=== PATIENT | female | born 1955 | race Caucasian/White ===

== ENCOUNTER 2024-09-12 18:13 | Inpatient (IN) ==
--- NOTE | 2024-09-12 18:51 | Emergency Department Note ---
Impression & Plan Cellulitis of leg, right ED Provider Note NAME: BIANCA GOMEZ AGE: 68 SEX: Female INFORMANT: Patient ED PROVIDER(S): Steve Lanza MD CHIEF COMPLAINT: Leg pain PLAN: Disposition: Admitted Outpatient prescription management: none Referral: None MEDICAL DECISION MAKING: Patient presented because of leg pain. On physical examination there was concerns for cellulitis. Patient has significant difficulty with ambulation to the bathroom on observation. She is very unsteady. Her CBC and chemistry panels were unremarkable. Chest x-ray BioFire negative. Patient had cultures obtained and was given IV Rocephin. On reassessment she was hemodynamically stable. Discussed further management in the hospital and patient in agreement. Consultation was made with Dr. Marcus Herrera, [facility] hospitalist service. Case discussed and diagnostics were reviewed. He did request an ultrasound of the lower extremity. This was ordered. Patient was evaluated in the ER and admitted for further management. 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 Vital Signs: reviewed and remarkable for no significant abnormalities Additional History obtained from: none Chronic Medical/Social Conditions affecting care: Multiple sclerosis Prior/ Outside/ External records reviewed: none Differential Diagnosis: Viral syndrome, cellulitis, abscess, MRSA infection, DVT, necrotizing fasciitis, dermatitis, drug eruption, allergic reaction, as well as other pathologies. Diagnostics, independently interpreted by me: ECG: none Cardiac Monitoring: Cardiac monitoring ordered by me: The patient was placed on continuous cardiac monitoring and observed. It revealed a normal sinus rhythm at 84 beats per minute without ectopy or evidence of dysrhythmia. Medical decision rules: none Imaging studies: Chest x-ray. Findings: A chest x-ray was performed and revealed no pneumothorax, effusion, infiltrate, pulmonary edema, free air under the diaphragm, or wide mediastinum. Impression: No acute disease. Ultrasound imaging of the right lower extremity negative for DVT. I refer you to the EMR for further details. HPI: 68 year old Female arrives for evaluation of right leg pain and swelling. Patient notes that this has been worsening over the last several days. She has some swelling bilaterally but it is worse on the right. No history of cellulitis. She notes having some fevers as well. She has been taking Tylenol. Patient denies any sick contacts. She did have a sore throat 2 days ago. Patient lives alone. She ambulates with a walker. Feels some increased difficulty getting around. She notes some urinary discomfort as well. Has history of UTI. Pt denies LOC, headache,diaphoresis, neck pain, chest pain, breathing difficulties, nausea, vomiting, abdominal pain, back pain, melena, hematochezia, numbness, focal weakness, lymphadenopathy, or other complaints.. PAST MEDICAL HISTORY: See Below, MS, incontinence, UTI PAST SURGICAL HISTORY: See Below, SOCIAL HISTORY: See Below, lives alone HOME MEDICATIONS: See Below ALLERGIES: See Below VITALS: See Below PHYSICAL EXAMINATION: GENERAL: Awake, alert, uncomfortable-appearing, in no distress HENT: Normocephalic, atraumatic. Oropharynx unremarkable. EYES: Normal conjunctiva. Sclera non-icteric. NECK: Inspection normal. Non-tender. Supple. No nuchal rigidity. FROM. No masses. RESPIRATORY: Clear to auscultation. No wheezes. No rales. Normal respiratory effort. CARDIAC: Normal rate. Normal rhythm. No murmurs. No rubs. Extremities warm and well perfused. Pulses equal. No JVD. GI: Soft, non-distended. No tenderness to palpation. No rebound or guarding. No masses. RECTAL: Deferred. MUSCULOSKELETAL: Atraumatic. Chest examination reveals no tenderness. The back is symmetrical on inspection without obvious abnormality. There is no CVA tenderness to palpation. No joint edema. LOWER EXTREMITIES: Calves are equal size bilaterally and non-tender. 2+ edema. Bilateral chronic venous discoloration. Right sided erythema noted in addition from the heel up towards the knee. Warm to the touch and tender. NEURO: Normal sensorium. Generally weak in both lower legs but no focal sensory or motor deficits noted. SKIN: No rash or jaundice noted. PROCEDURES: none CRITICAL CARE: none OBSERVATION NOTE: none Past Med/Surg History Problem List (Updated 09/12/24 @ 22:01 by Olinda Cordero PA-C) Redness and swelling of lower leg Venous insufficiency Cellulitis of leg, right (Acute) Multiple sclerosis Urinary incontinence Crepitus of both temporomandibular joints on opening of jaw Crepitus of cervical spine Hematuria Incontinence Arthritis (Acute) Acute lower GI bleeding (Acute) Encounter for pre-operative examination DVT prophylaxis Multiple sclerosis Blood per rectum Abdominal pain (Acute) Flank pain (Acute) Knee pain (Acute) Urinary tract infection (Acute) Medical History Cystitis, unspecified Depression Dysuria Functional murmur Herpes simplex type 1 infection Hyperactivity of bladder Hypercholesterolemia Hypertension Irritable bowel syndrome Lumbago Asymptomatic microscopic hematuria Neurogenic bladder Night sweats Other and unspecified ovarian cyst Rash Urinary frequency Urinary urgency Ambulatory dysfunction Dyslipidemia RYAN inhibitor intolerance Nephrolithiasis NSAID long-term use Bright red blood per rectum Surgical History History of tubal ligation Hx of cholecystectomy H/O colonoscopy Hx of cataract surgery No pertinent past surgical history Family History Mother Myocardial infarction Father Alzheimer disease Social History Smoking Status: Never smoker Hx Alcohol Use: No Hx Substance Use: No Preferred Language: Citizen Of [place] Communication Ability: Effective Visual Impairment: Limited Hearing Ability: Normal Beliefs That Will Affect Care: None marital status: Single Current Living Situation: Alone Feels Safe at Home: Yes Assistive Devices: Glasses and Walker Allergies Allergies Allergy/AdvReac Type Severity Reaction Status Date / Time RYAN Inhibitors Allergy Intermediate RASH Verified 02/07/24 21:48 amoxicillin [From Augmentin] AdvReac Intermediate Diarrhea Verified 02/07/24 21:48 clavulanic acid AdvReac Intermediate DIARRHEA Verified 02/07/24 21:48 NSAIDS (Non-Steroidal AdvReac Unknown D/T Verified 02/07/24 21:49 Anti-Inflamma DIVERTICULITIS NOT SUPPOSE TO TAKE Home Meds Home Medications Medication Instructions Recorded Confirmed biotin 1 mg capsule 1 mg PO QPM 07/08/19 09/12/24 coenzyme Q10 100 mg capsule 100 mg PO QPM 07/08/19 09/12/24 (CoQ-10) flaxseed oil 1,000 mg capsule 1,000 mg PO TID 07/08/19 09/12/24 loratadine 10 mg tablet 10 mg PO DAILY 07/08/19 09/12/24 omega 3 350 mg-dha 235 mg-epa 90 1 cap PO QPM 07/08/19 09/12/24 mg-fish oil 597 mg capsule,delay rel ([place]-3) simvastatin 40 mg tablet 40 mg PO HS 07/08/19 09/12/24 alendronate 70 mg tablet 70 mg PO WK 02/07/24 09/12/24 calcium carbonate 500 mg PO QPM 02/07/24 09/12/24 gabapentin 100 mg capsule 200 mg PO BID 02/07/24 09/12/24 omeprazole 20 mg capsule,delayed 20 mg PO DAILYBB 02/07/24 09/12/24 release sucralfate 1 gram tablet 1 g PO ACHS 02/07/24 09/12/24 valsartan 40 mg tablet 40 mg PO DAILY 02/07/24 09/12/24 vitamin B complex 1 tab PO QPM 02/07/24 09/12/24 Lactobacillus comb 1 cap PO DAILY 09/12/24 09/12/24 [id number] 300 million cell-250 mg capsule (Probiotic and Acidophilus) alpha lipoic acid 600 mg capsule 600 mg PO DAILY 09/12/24 09/12/24 cholecalciferol (vitamin D3) 125 250 mcg PO WK 09/12/24 09/12/24 mcg (5,000 unit) tablet (Vitamin D3) citicoline 500 mg capsule 500 mg PO DAILY 09/12/24 09/12/24 cranberry 1,000 mg capsule 1,000 mg PO BID 09/12/24 09/12/24 folic acid 1 mg tablet 1 mg PO DAILY 09/12/24 09/12/24 [id number] C-Mn 500 1 cap PO DAILY 09/12/24 09/12/24 mg-400 mg capsule (Glucosamine-Chondroitin Complex) multivitamin 1 tab PO DAILY 09/12/24 09/12/24 turmeric 450 mg-turmeric root 1 cap PO UD 09/12/24 09/12/24 extract 50 mg capsule zinc gluconate 50 mg tablet 50 mg PO QAM 09/12/24 09/12/24 Previous Rx's Medication Instructions Recorded vibegron 75 mg tablet (Gemtesa) 75 mg PO DAILY #90 tabs 01/26/24 Results & Data (ED) Vital Signs Vital Signs - 24 hr 09/12/24 18:20 09/12/24 18:52 09/12/24 19:21 Temperature 36.6 C Temperature Source Temporal Artery Scan Pulse Rate 101 H 75 Pulse Rate [Apical] 72 Respiratory Rate 18 22 Respiratory Effort / Characteristics Non-Labored Spontaneous Respiratory Depth Normal Respiratory Pattern Regular Blood Pressure 127/87 Blood Pressure [Right Arm] 101/79 Blood Pressure Mean 100 Blood Pressure Mean [Right Arm] 86 Pulse Oximetry 95 97 Oxygen Delivery Method Room Air Room Air Sepsis Recent Fever Within 48 Hours No Sepsis New/Unexplained Change in Mental Status N/A Sepsis Action Taken by Nursing No Action Required 09/12/24 20:47 09/12/24 23:18 09/13/24 00:09 Temperature Temperature Source Pulse Rate 84 84 Pulse Rate [Apical] 85 Respiratory Rate 18 17 Respiratory Effort / Characteristics Non-Labored Spontaneous Respiratory Depth Normal Respiratory Pattern Regular Blood Pressure 132/82 Blood Pressure [Right Arm] 151/90 H Blood Pressure Mean Blood Pressure Mean [Right Arm] 110 Pulse Oximetry 98 97 Oxygen Delivery Method Room Air Room Air Sepsis Recent Fever Within 48 Hours Sepsis New/Unexplained Change in Mental Status Sepsis Action Taken by Nursing Laboratory Data 09/12/24 18:52 09/12/24 18:52 Lab Results 09/12/24 09/12/24 09/12/24 Range/Units 18:52 19:00 20:43 WBC 4.27 L (4.8-10.8) K/ul RBC 4.15 L (4.20-5.40) M/uL Hgb 12.6 (12.0-16.0) g/dl Hct 37.0 (37.0-47.0) % MCV 89.2 (80.0-100.0) fL MCH 30.4 (25.0-34.0) pg MCHC 34.1 (32.0-36.0) g/dL RDW Std Deviation 39.7 (36.4-46.3) fL RDW Coeff of Zander 12.1 (11.5-14.5) % Plt Count 183 (130-400) K/uL MPV 9.4 (9.4-12.4) fL Immature Gran % (Auto) 0.2 % Neut % (Auto) 55.8 % Lymph % (Auto) 27.9 % [place] % (Auto) 11.9 % Eos % (Auto) 3.5 % Baso % (Auto) 0.7 % Neut # (Auto) 2.38 (1.40-6.50) K/uL Lymph # (Auto) 1.19 L (1.20-3.40) K/uL [place] # (Auto) 0.51 (0.11-0.59) K/uL Eos # (Auto) 0.15 (0.00-0.50) K/uL Baso # (Auto) 0.03 (0.00-0.20) K/uL Immature Gran # (Auto) 0.01 (0.01-0.20) K/uL Sodium 140 (136-145) mmol/L Potassium 4.1 (3.5-5.1) mmol/L Chloride 107 (98-107) mmol/L Carbon Dioxide 27 (21-32) mmol/L Anion Gap 6 (3-11) BUN 23 (6-23) mg/dl Creatinine 0.66 (0.6-1.2) mg/dl Est Cr Clr Drug Dosing Not Reportable eGFR 94.31 BUN/Creatinine Ratio 34.8 H (10-20) Glucose 96 (70-99(Fasting)) mg/dl Calcium 9.3 (8.6-10.3) mg/dl Magnesium 2.0 (1.7-2.4) mg/dl Total Bilirubin 0.4 (0.2-1.0) mg/dl AST 17 (13-39) U/L ALT 14 (7-52) U/L Alkaline Phosphatase 36 (34-104) U/L Total Protein 6.5 (6.0-8.3) gm/dl Albumin 4.1 (3.4-5.0) gm/dl Globulin 2.4 L (2.5-4.0) gm/dl Albumin/Globulin Ratio 1.7 (0.9-2) Urine Color Yellow Urine Appearance Clear (Clear) Urine pH 5.5 (4.5-7.5) Ur Specific [place] 1.015 (1.000-1.030) Urine Protein Negative (Negative) Urine Glucose (UA) Negative (Negative) Urine Ketones Negative (Negative) Urine Blood Trace H (Negative) Urine Nitrite Negative (Negative) Urine Bilirubin Negative (Negative) Urine Urobilinogen Negative (Negative) Ur Leukocyte Esterase 1+ H (Negative) Urine WBC (Auto) 0-5 (0-5) /hpf Urine RBC (Auto) 0-2 (0-2) /hpf U Hyaline Cast (Auto) 0-2 (0-2) /lpf U Epithel Cells (Auto) 0-2 (0-2) /hpf Urine Bacteria (Auto) None Seen (None Seen) Adenovirus (PCR) Not Detected (NotDetected) B. pertussis DNA (PCR) Not Detected (NotDetected) B.parapertussis DNA PCR Not Detected (NotDetected) C. pneumoniae DNA (PCR) Not Detected (NotDetected) Coronavirus OC43 (PCR) Not Detected (NotDetected) Coronavirus HKU1 (PCR) Not Detected (NotDetected) Coronavirus 229E (PCR) Not Detected (NotDetected) SARS-CoV-2 (PCR) Not Detected (NotDetected) Coronavirus NL63 (PCR) Not Detected (NotDetected) Human Metapneumovir PCR Not Detected (NotDetected) Influenza Type A (PCR) Not Detected (NotDetected) Influenza Type B (PCR) Not Detected (NotDetected) M. pneumoniae (PCR) Not Detected (NotDetected) Parainfluenza 1 (PCR) Not Detected (NotDetected) Parainfluenza 2 (PCR) Not Detected (NotDetected) Parainfluenza 3 (PCR) Not Detected (NotDetected) Parainfluenza 4 (PCR) Not Detected (NotDetected) RSV (PCR) Not Detected (NotDetected) Entero/Rhino (PCR) Not Detected (NotDetected) Administered Medications Discontinued Medications Ceftriaxone Sodium (Rocephin) 2,000 mg in 50 mls @ 100 mls/hr IV NOW STA; Protocol Stop: 09/12/24 19:05 Last Admin: 09/12/24 19:19 Dose: 100 mls/hr Documented By: MED Doxycycline Hyclate 100 mg/ (Dextrose) 100 mls @ 50 mls/hr IV NOW STA Stop: 09/12/24 22:56 Last Admin: 09/12/24 21:31 Dose: 50 mls/hr Documented By: MED Imaging Data Radiologist's Impression: Venous Doppler Study 09/12/24 20:47 Exam(s): US VENOUS RIGHT LOWER EXTREMITY EXAM: US Duplex Right Lower Extremity Veins CLINICAL HISTORY: Deep vein thrombosis. TECHNIQUE: Real-time duplex ultrasound scan of the right lower extremity veins integrating B-mode two-dimensional vascular structure, Doppler spectral analysis, color flow Doppler imaging and compression. COMPARISON: No relevant prior studies available. FINDINGS: Deep veins: Unremarkable. No Deep vein thrombosis in the visualized common femoral, femoral, proximal deep femoral or popliteal veins. The veins demonstrate normal color flow, are normally compressible, with normal phasic flow and/or augmentation response. Superficial veins: Unremarkable. No thrombus in the visualized great saphenous vein. Soft tissues: Nonspecific subcutaneous edema of the calf. No popliteal cyst. IMPRESSION: 1. Nonspecific subcutaneous edema of the calf. 2. No deep vein thrombosis of the right lower extremity. Electronically signed by: Sophie Castellanos MD 09/12/24 23:38 PM Chest X-Ray 09/12/24 21:46 Exam(s): XR CXR 1 VIEW EXAM: XR Chest, 1 View CLINICAL HISTORY: Swelling. TECHNIQUE: Frontal view of the chest. COMPARISON: Chest radiograph 02/07/2024 FINDINGS: Lungs: Unremarkable. No consolidation. Pleural space: Unremarkable. No pneumothorax. Heart: Unremarkable. No cardiomegaly. Mediastinum: Unremarkable. Normal mediastinal contour. Bones/joints: There are degenerative changes of the spine. No acute fracture. IMPRESSION: No acute findings in the chest. Electronically signed by: Sophie Castellanos MD 09/12/24 23:48 PM Discharge Plan Visit Data Chief Complaint: Leg Injury/Pain Stated Complaint: LEG PAIN, TOE PAIN ED Provider: Steve Lanza Discharge Problem: Cellulitis of leg, right Discharge Instructions Interventions: ED Discharge Assessment Last Done: 09/13/24 00:09 Forms Stand Alone Forms: [facility] Prescriptions Prescriptions: No Action Gemtesa 75 mg tablet 75 mg PO DAILY Qty: 90 3RF simvastatin 40 mg tablet 40 mg PO HS loratadine 10 mg tablet 10 mg PO DAILY flaxseed oil 1,000 mg Capsule 1,000 mg PO TID coenzyme Q10 [CoQ-10] 100 mg Capsule 100 mg PO QPM biotin 1 mg Capsule 1 mg PO QPM [place]-3 350 mg-235 mg- 90 mg-597 mg Capsule,Delayed Release(Dr/Ec) 1 cap PO QPM sucralfate 1 gram tablet 1 g PO ACHS alendronate 70 mg tablet 70 mg PO WK calcium carbonate [Calcium 500] 500 mg calcium (1,250 mg) Tablet 500 mg PO QPM omeprazole 20 mg capsule,delayed release(DR/EC) 20 mg PO DAILYBB vitamin B complex Tablet 1 tab PO QPM gabapentin 100 mg capsule 200 mg PO BID valsartan 40 mg tablet 40 mg PO DAILY multivitamin [Hair,Nails and Skin Vitamin] Tablet 1 tab PO DAILY Probiotic and Acidophilus 300-250 million cell-mg Capsule 1 cap PO DAILY cholecalciferol (vitamin D3) [Vitamin D3] 125 mcg (5,000 unit) Tablet 250 mcg PO WK Rx Instructions: 10,000 units weekly alpha lipoic acid 600 mg Capsule 600 mg PO DAILY turmeric-turmeric root extract 450-50 mg Capsule 1 cap PO UD cranberry 1,000 mg Capsule 1,000 mg PO BID Rx Instructions: administer with meals [id number] C-Mn [Glucosamine-Chondroitin Complx] 500-400 mg Capsule 1 cap PO DAILY zinc gluconate 50 mg Tablet 50 mg PO QAM folic acid 1 mg Tablet 1 mg PO DAILY citicoline 500 mg Capsule 500 mg PO DAILY Referrals Referrals: Phillip Mulligan MD [Primary Care Provider] -
[2024-09-12] MEDS: cefTRIAXone SODIUM 2,000 MG/50 ML BAG IV STA (19:19)
[2024-09-12 19:23] LABS: Basophils # (auto) 0.03 K/uL (0.00-0.20); Basophils % (auto) 0.7 %; Eosinophils # (auto) 0.15 K/uL (0.00-0.50); Eosinophils % (auto) 3.5 %; Hemoglobin 12.6 g/dl (12.0-16.0); Immature Granulocytes # (auto) 0.01 K/uL (0.01-0.20); Immature Granulocytes % (auto) 0.2 %; Lymphocytes # (auto) 1.19 K/uL (1.20-3.40); Lymphocytes % (auto) 27.9 %; Mean Corpuscular Hemoglobin 30.4 pg (25.0-34.0); Mean Corpuscular Hgb Conc 34.1 g/dL (32.0-36.0); Mean Corpuscular Volume 89.2 fL (80.0-100.0); Mean Platelet Volume 9.4 fL (9.4-12.4); Monocytes # (auto) 0.51 K/uL (0.11-0.59); Monocytes % (auto) 11.9 %; Neutrophils # (auto) 2.38 K/uL (1.40-6.50); Neutrophils % (auto) 55.8 %; Platelet Count 183 K/uL (130-400); RDW Coefficient of Variation 12.1 % (11.5-14.5); RDW Standard Deviation 39.7 fL (36.4-46.3); Red Blood Count 4.15 M/uL (4.20-5.40); White Blood Count 4.27 K/ul (4.8-10.8)
[2024-09-12 19:41] LABS: Alanine Aminotransferase 14 U/L (7-52); Albumin Globulin Ratio 1.7 (0.9-2); Albumin Level 4.1 gm/dl (3.4-5.0); Alkaline Phosphatase 36 U/L (34-104); Anion Gap 6 (3-11); Aspartate Aminotransferase 17 U/L (13-39); BUN Creatinine Ratio 34.8 (10-20); Bilirubin,Total 0.4 mg/dl (0.2-1.0); Blood Urea Nitrogen 23 mg/dl (6-23); Calcium 9.3 mg/dl (8.6-10.3); Carbon Dioxide 27 mmol/L (21-32); Chloride 107 mmol/L (98-107); Globulin 2.4 gm/dl (2.5-4.0); Glucose 96 mg/dl (70-99(Fasting)); Potassium 4.1 mmol/L (3.5-5.1); Sodium 140 mmol/L (136-145); Total Protein 6.5 gm/dl (6.0-8.3)
[2024-09-12 20:35] LABS: Adenovirus PCR Not Detected (NotDetected); Bordetella parapertussis PCR Not Detected (NotDetected); Bordetella pertussis PCR Not Detected (NotDetected); Chlamydia pneumoniae PCR Not Detected (NotDetected); Coronavirus 229E PCR Not Detected (NotDetected); Coronavirus CoV-2 (COVID19)PCR Not Detected (NotDetected); Coronavirus HKU1 PCR Not Detected (NotDetected); Coronavirus NL63 PCR Not Detected (NotDetected); Coronavirus OC43PCR Not Detected (NotDetected); Human Metapneumovirus PCR Not Detected (NotDetected); Influenza A PCR Not Detected (NotDetected); Influenza B PCR Not Detected (NotDetected); Mycoplasma pneumoniae PCR Not Detected (NotDetected); Parainfluenza Virus 1 PCR Not Detected (NotDetected); Parainfluenza Virus 2 PCR Not Detected (NotDetected); Parainfluenza Virus 3 PCR Not Detected (NotDetected); Parainfluenza Virus 4 PCR Not Detected (NotDetected); Respiratory Syncytial VirusPCR Not Detected (NotDetected); Rhinovirus/Enterovirus PCR Not Detected (NotDetected)
[2024-09-12 21:14] LABS: Appearance Urine Clear (Clear); Bacteria Urine Automated None Seen (None Seen); Bilirubin Urine Negative (Negative); Blood Urine Trace (Negative); Cast Urine Automated 0-2 /lpf (0-2); Color Urine Yellow; Epithelial Cell Urine Auto 0-2 /hpf (0-2); Glucose Urine UA Negative (Negative); Ketones Urine Negative (Negative); Leukocyte Esterase Urine 1+ (Negative); Nitrite Urine Negative (Negative); Protein Urine Negative (Negative); RBC Urine Automated 0-2 /hpf (0-2); Specific Gravity Urine 1.015 (1.000-1.030); Urobilinogen Urine Negative (Negative); WBC Urine Automated 0-5 /hpf (0-5); pH Urine 5.5 (4.5-7.5)
--- NOTE | 2024-09-12 21:25 | History & Physical Report ---
Date of Service September 12, 2024 Assessment & Plan (1) Venous insufficiency: (2) Redness and swelling of lower leg: (3) Multiple sclerosis: (4) Hypertension: (5) Hypercholesterolemia: (6) Neurogenic bladder: Plan: Assessment and Plan per Dr Herrera. See addendum History of Present Illness Chief Complaint: right leg pain Primary Care Provider: Jose Esposito MD Patient is 68-year-old female with PMH HTN, dyslipidemia, MS, neurogenic bladder, depression, anxiety, THALIA, venous insufficiency, GERD, osteoporosis presented to ER with c/o right leg discomfort. Patient reports has had bilateral lower extremity edema and erythema however is unable to tell me how long this has been going on. Reports has been applying OTC steroid cream to left lower leg. She states past day having more discomfort to right lower leg. 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 She states initially cleansing area with Betadine. She denies any noted discharge from toe. Denies any other injury or trauma. Patient states 2 days ago started with scratchy throat, rhinorrhea, nonproductive cough. She denies feeling short of breath or chest pain. States she has been feeling hot, has not taking her temperature at home. Denies any known ill contacts. Denies diaphoresis, N/V /D/C, ALMENDAREZ, dizziness, palpitations, otalgia, abdominal pain, extremity weakness, other rashes, urinary symptoms. Allergies Allergy/AdvReac Type Severity Reaction Status Date / Time RYAN Inhibitors Allergy Intermediate RASH Verified 02/07/24 21:48 amoxicillin [From Augmentin] AdvReac Intermediate Diarrhea Verified 02/07/24 2 1:48 clavulanic acid AdvReac Intermediate DIARRHEA Verified 02/07/24 21:48 NSAIDS (Non-Steroidal AdvReac Unknown D/T Verified 02/07/24 21:49 Anti-Inflamma DIVERTICULITIS NOT SUPPOSE TO TAKE Home Medications Medication Instructions Recorded Confirmed Type biotin 1 mg capsule 1 mg PO QPM 07/08/19 09/12/24 History coenzyme Q10 100 mg capsule 100 mg PO QPM 07/08/19 09/12/24 History (CoQ-10) flaxseed oil 1,000 mg capsule 1,000 mg PO TID 07/08/19 09/12/24 History loratadine 10 mg tablet 10 mg PO DAILY 07/08/19 09/12/24 History omega 3 350 mg-dha 235 mg-epa 90 1 cap PO QPM 07/08/19 09/12/24 History mg-fish oil 597 mg capsule,delay rel (Wheeler-3) simvastatin 40 mg tablet 40 mg PO HS 07/08/19 09/12/24 History vibegron 75 mg tablet (Gemtesa) 75 mg PO DAILY #90 tabs 01/26/24 09/12/24 Rx alendronate 70 mg tablet 70 mg PO WK 02/07/24 09/12/24 History calcium carbonate 500 mg PO QPM 02/07/24 09/12/24 History gabapentin 100 mg capsule 200 mg PO BID 02/07/24 09/12/24 History omeprazole 20 mg capsule,delayed 20 mg PO DAILYBB 02/07/24 09/12/24 History release sucralfate 1 gram tablet 1 g PO ACHS 02/07/24 09/12/24 History valsartan 40 mg tablet 40 mg PO DAILY 02/07/24 09/12/24 History vitamin B complex 1 tab PO QPM 02/07/24 09/12/24 History Lactobacillus comb 1 cap PO DAILY 09/12/24 09/12/24 History no.9-IEM-rhahcmxpnq 300 million cell-250 mg capsule (Probiotic and Acidophilus) alpha lipoic acid 600 mg capsule 600 mg PO DAILY 09/12/24 09/12/24 History cholecalciferol (vitamin D3) 125 250 mcg PO WK 09/12/24 09/12/24 History mcg (5,000 unit) tablet (Vitamin D3) citicoline 500 mg capsule 500 mg PO DAILY 09/12/24 09/12/24 History cranberry 1,000 mg capsule 1,000 mg PO BID 09/12/24 09/12/24 History folic acid 1 mg tablet 1 mg PO DAILY 09/12/24 09/12/24 History [id number]-[id number] C-Mn 500 1 cap PO DAILY 09/12/24 09/12/24 History mg-400 mg capsule (Glucosamine-Chondroitin Complex) multivitamin 1 tab PO DAILY 09/12/24 09/12/24 History turmeric 450 mg-turmeric root 1 cap PO UD 09/12/24 09/12/24 History extract 50 mg capsule zinc gluconate 50 mg tablet 50 mg PO QAM 09/12/24 09/12/24 History Past Med/Surg History Problem List (Updated 09/12/24 @ 22:01 by Olinda Cordero PA-C) Redness and swelling of lower leg Venous insufficiency Cellulitis of leg, right (Acute) Multiple sclerosis Urinary incontinence Crepitus of both temporomandibular joints on opening of jaw Crepitus of cervical spine Hematuria Incontinence Arthritis (Acute) Acute lower GI bleeding (Acute) Encounter for pre-operative examination DVT prophylaxis Multiple sclerosis Blood per rectum Abdominal pain (Acute) Flank pain (Acute) Knee pain (Acute) Urinary tract infection (Acute) Medical History Cystitis, unspecified Depression Dysuria Functional murmur Herpes simplex type 1 infection Hyperactivity of bladder Hypercholesterolemia Hypertension Irritable bowel syndrome Lumbago Asymptomatic microscopic hematuria Neurogenic bladder Night sweats Other and unspecified ovarian cyst Rash Urinary frequency Urinary urgency Ambulatory dysfunction Dyslipidemia RYAN inhibitor intolerance Nephrolithiasis NSAID long-term use Bright red blood per rectum Surgical History History of tubal ligation Hx of cholecystectomy H/O colonoscopy Hx of cataract surgery No pertinent past surgical history Family History Mother Myocardial infarction Father Alzheimer disease Social History Smoking Status: Never smoker Hx Alcohol Use: No Hx Substance Use: No Preferred Language: Syriac Communication Ability: Effective Visual Impairment: Limited Hearing Ability: Normal Beliefs That Will Affect Care: None marital status: Single Current Living Situation: Alone Feels Safe at Home: Yes Assistive Devices: Glasses and Walker Review of Systems Review of Systems: All systems reviewed & are unremarkable except as noted in HPI & below Physical Exam Physical Exam: General: +anxious but otherwise in no distress, WDWN Head: normocephalic, atraumatic Eyes: conjunctiva non-injected, anicteric ENT: normal inspection external ears, nose, mucous membranes moist Neck: supple, trachea midline Lungs: clear, no respiratory distress, no wheezing/rhonchi/rales CV: RRR, no murmur Abd: normal BS, soft, non-tender Ext: BLE: +edema, +erythema and red discoloration, right lower leg slightly warmer to palpation than left and more tender to palpation than left leg. Right 5th toe with ulcer without surrounding erythema and no discharge Neuro: A&O x 3, no focal deficits noted, anxious affect Skin: warm, dry Results & Data Results & Data Vital Signs (Past 12 Hours) Vital Signs Temp Pulse Pulse Resp BP BP Pulse Ox 09/12/24 20:47 85 18 151/90 H 98 09/12/24 19:21 75 09/12/24 18:52 72 22 101/79 97 09/12/24 18:20 36.6 C 101 H 18 127/87 95 O2 Del Method 09/12/24 20:47 Room Air 09/12/24 19:21 09/12/24 18:52 Room Air 09/12/24 18:20 Room Air Laboratory Results Short CBC 09/12/24 Range/Units 18:52 WBC 4.27 L (4.8-10.8) K/ul Hgb 12.6 (12.0-16.0) g/dl Hct 37.0 (37.0-47.0) % Plt Count 183 (130-400) K/uL BMP 09/12/24 18:52 Sodium 140 Potassium 4.1 Chloride 107 Carbon Dioxide 27 BUN 23 Creatinine 0.66 Glucose 96 Calcium 9.3 Liver Function 09/12/24 Range/Units 18:52 Total Bilirubin 0.4 (0.2-1.0) mg/dl AST 17 (13-39) U/L ALT 14 (7-52) U/L Alkaline Phosphatase 36 (34-104) U/L Albumin 4.1 (3.4-5.0) gm/dl Urine 09/12/24 Range/Units 20:43 Urine Color Yellow Urine Appearance Clear (Clear) Urine pH 5.5 (4.5-7.5) Ur Specific [place] 1.015 (1.000-1.030) Urine Protein Negative (Negative) Urine Glucose (UA) Negative (Negative) Supervising Physician Co-Signing Physician Notes IM ATTENDING : Patient seen and examined. History obtained from patient and records. Concur with salient points upon review of preceding documentation by Ms. Olinda Cordero PA-C. I take responsibility for plan of care below. In addition, patient complaining of UTI symptoms without abdominal or flank pain. FINAL ASSESSMENT AND PLAN as follows : Complicated UTI History of neurogenic bladder, history of MS No sepsis for now Bilateral LE cellulitis, right greater than the left Patient not septic. Hypertension, stable GERD stable on regimen Anxiety/mood disorder, some anxiety during exam, patient admits to OCD symptoms. Cervical dysplasia status post surgery THALIA on CPAP Medical CS, Ceftriaxone for complicated UTI and cellulitis Add doxycycline for MRSA coverage for LE cellulitis if without improvement Anxiolytic as needed PT OT eval DVT prophylaxis. Lovenox subcu Full code Text document was generated using [employer] voice recognition software. It may contain grammatical or spelling errors. Kindly contact undersigned for clarification of any documentation item in question.
[2024-09-12] MEDS: DOXYCYCLINE HYCLATE 100 MG in DEXTROSE 5% MINI-B 100 ML IV STA (21:31)
[2024-09-12] MEDS ORDERED: KETOROLAC TROMETHAMINE 15 MG/ML VIAL IV PRN (23:28)
[2024-09-12] MEDS ORDERED: PROMETHAZINE 6.25 MG/50.25 ML BAG IV PRN (23:28)
[2024-09-12] MEDS ORDERED: LORazepam 0.5 MG TAB PO PRN (23:30)
--- NOTE | 2024-09-12 23:39 | Ultrasound Report ---
Exam(s): US VENOUS RIGHT LOWER EXTREMITY EXAM: US Duplex Right Lower Extremity Veins CLINICAL HISTORY: Deep vein thrombosis. TECHNIQUE: Real-time duplex ultrasound scan of the right lower extremity veins integrating B-mode two-dimensional vascular structure, Doppler spectral analysis, color flow Doppler imaging and compression. COMPARISON: No relevant prior studies available. FINDINGS: Deep veins: Unremarkable. No Deep vein thrombosis in the visualized common femoral, femoral, proximal deep femoral or popliteal veins. The veins demonstrate normal color flow, are normally compressible, with normal phasic flow and/or augmentation response. Superficial veins: Unremarkable. No thrombus in the visualized great saphenous vein. Soft tissues: Nonspecific subcutaneous edema of the calf. No popliteal cyst. IMPRESSION: 1. Nonspecific subcutaneous edema of the calf. 2. No deep vein thrombosis of the right lower extremity. Electronically signed by: Sophie Castellanos MD 09/12/24 23:38 PM
--- NOTE | 2024-09-12 23:49 | XRay Report ---
Exam(s): XR CXR 1 VIEW EXAM: XR Chest, 1 View CLINICAL HISTORY: Swelling. TECHNIQUE: Frontal view of the chest. COMPARISON: Chest radiograph 02/07/2024 FINDINGS: Lungs: Unremarkable. No consolidation. Pleural space: Unremarkable. No pneumothorax. Heart: Unremarkable. No cardiomegaly. Mediastinum: Unremarkable. Normal mediastinal contour. Bones/joints: There are degenerative changes of the spine. No acute fracture. IMPRESSION: No acute findings in the chest. Electronically signed by: Sophie Castellanos MD 09/12/24 23:48 PM
--- NOTE | 2024-09-13 01:46 | Ultrasound Report ---
EXAM: US venous doppler LE LT CLINICAL HISTORY: HX: PREV 06/17/15. BILAT CALVES ARE RED AND TENDER. TECH NOTES: NO OBVIOUS DVT LLE. EDEMA LEFT CALF. TECHNIQUE: Ultrasound examination of left lower extremity veins was performed in real-time and duplex. One or more of the following were performed- spectral analysis, resistive index, waveform analysis, and pulsed Doppler. COMPARISON: Previous study dated 06/17/2015 FINDINGS: Normal phasic, non-pulsatile, and spontaneous flow is noted in the left common femoral, superficial femoral, popliteal, and posterior tibial and peroneal veins. Visualized veins of the left lower extremity demonstrate normal compressibility. No sonographic evidence of acute deep vein thrombosis (DVT) is detected in the visualized veins of the lower extremity. Compression and Augmentation: All evaluated veins compress fully with applied transducer pressure. Augmentation of venous flow is noted with distal compression. Additional Findings: Mild subcutaneous edema in the calf region is noted IMPRESSION: 1. Mild subcutaneous edema of the calf region. ( new finding) 2. No sonographic evidence of acute DVT is detected at the time of examination. (same finding) Disclaimer: DVT could be missed early in the disease when the clot burden is minimal. For patients with moderate and high pretest probability of DVT and negative ultrasound, the [employer] [employer] clinical guidelines recommend testing with a D-dimer assay or repeat ultrasound in 5-7 days. If symptoms worsen, the Society of [employer] recommends repeating ultrasound even earlier. Electronically signed by Sosa Morales 09-13-2024 01:46 AM
[2024-09-13] MEDS: LIDOCAINE 5% OINT 30 GM TUBE EXT SCH (01:48)
[2024-09-13] MEDS ORDERED: Nursing to Pharmacy Communication SCH (02:00)
[2024-09-13] MEDS: Patient's HEIGHT &/or WEIGHT Needed SCH (02:02)
[2024-09-13] MEDS: GABAPENTIN 100 MG CAP PO SCH (02:06)
[2024-09-13] MEDS: ACETAMINOPHEN 325 MG TAB PO PRN (02:06)
[2024-09-13] MEDS: SODIUM CHLORIDE 0.65% NA SOLN 45 ML (OCEAN) ONE (02:10)
[2024-09-13] MEDS: SIMVASTATIN 40 MG TAB PO SCH ×2 (02:35→21:04)
[2024-09-13] MEDS: SUCRALFATE 1 GM TAB PO SCH ×2 (02:35→06:30)
[2024-09-13] MEDS: guaiFENesin 600 MG TABCR PO PRN (02:35)
[2024-09-13 06:07] LABS: Basophils # (auto) 0.03 K/uL (0.00-0.20); Basophils % (auto) 0.7 %; Eosinophils # (auto) 0.21 K/uL (0.00-0.50); Eosinophils % (auto) 4.7 %; Hematocrit (blood only) 34.3 % (37.0-47.0); Hemoglobin 11.8 g/dl (12.0-16.0); Immature Granulocytes # (auto) 0.01 K/uL (0.01-0.20); Immature Granulocytes % (auto) 0.2 %; Lymphocytes # (auto) 1.35 K/uL (1.20-3.40); Lymphocytes % (auto) 30.5 %; Mean Corpuscular Hemoglobin 30.9 pg (25.0-34.0); Mean Corpuscular Hgb Conc 34.4 g/dL (32.0-36.0); Mean Corpuscular Volume 89.8 fL (80.0-100.0); Mean Platelet Volume 9.5 fL (9.4-12.4); Monocytes # (auto) 0.45 K/uL (0.11-0.59); Monocytes % (auto) 10.2 %; Neutrophils # (auto) 2.38 K/uL (1.40-6.50); Neutrophils % (auto) 53.7 %; Platelet Count 170 K/uL (130-400); RDW Coefficient of Variation 12.2 % (11.5-14.5); RDW Standard Deviation 39.8 fL (36.4-46.3); Red Blood Count 3.82 M/uL (4.20-5.40); White Blood Count 4.43 K/ul (4.8-10.8)
[2024-09-13 06:23] LABS: BUN Creatinine Ratio 33.9 (10-20); Calcium 8.7 mg/dl (8.6-10.3); Creatinine Clr Calc Pharmacy 72.8 ml/min
[2024-09-13] MEDS: PANTOprazole 40 MG TAB PO SCH (06:27)
[2024-09-13] MEDS ORDERED: SUCRALFATE 1 GM TAB PO SCH (07:30)
[2024-09-13] MEDS: ACETAMINOPHEN 500 MG TAB PO PRN (08:49)
[2024-09-13] MEDS: VIBEGRON 75 MG TAB PO SCH (08:50)
[2024-09-13] MEDS: FOLIC ACID 1 MG TAB PO SCH (08:50)
[2024-09-13] MEDS: LORATADINE 10 MG TAB PO SCH (08:51)
[2024-09-13] MEDS: MULTIVITAMIN TAB PO SCH (08:51)
[2024-09-13] MEDS: ENOXAPARIN INJ 40 MG/0.4 ML SYR SQ SCH (08:51)
[2024-09-13] MEDS: VALSARTAN 80 MG TAB PO SCH (08:52)
[2024-09-13] MEDS ORDERED: CITICOLINE 500 MG PO SCH (09:00)
[2024-09-13] MEDS ORDERED: CRANBERRY 1000 MG PO SCH (09:00)
--- OUTSIDE RECORDS SUMMARY | 2024-09-13 11:51 | External Medical Summary | Summary of Care ---
Author Name Unknown Organization [facility] Address [address] [facility] [address] [place] [address] Phone [phone] Care Team Providers Care Director Reactor Projects Name Role Phone Jose Esposito MD Primary Care Provider [phone] Reason for Visit * Reason Onset Date Comments Advice 09/01/2024 FYI 09/01/2024 Referral 09/01/2024 Encounter Details Date Type Department Care Team (Late st Contact Info) Description 09/01/2024 Telephone Family Practice [facility] [address] [address] Phillip Mulligan MD [address] [place] [id number] Advice; FYI; Referral Allergies Active Allergy Reactions Criticality Noted Date Comments Braeden Inhibitors Cough 06/22/2012 Amoxicillin 11/24/2005 Diarrhea Clavulanic Acid High 05/25/2023 Other Reaction(s): DIARRHEA Doxycycline Rash Low 02/08/2022 documented as of this encounter (statuses as of 09/11/2024) Medications CALCIUM 500 500 MG PO TABS Take 500 mg by mouth daily. Active WILBER-C/BIOFLAVO NOIDS PO TABS None Entered Act shreyas OMEGA 3 1000 MG PO CAPS daily Active GLUCOSAMINE CHONDR COMPLEX 500-400 MG PO CAPS one daily Active CRANBERRY 1000 MG PO CAPS 2 daily Active BIOTIN 5000 MCG PO CAPS 1 cap daily Active ALPHA-LIPOIC ACID 600 MG PO CAPS 1 tablet daily Activ e COQ10 100 MG PO CAPS 1 daily Active PROBIOTIC ACIDOPHILUS PO CAPS 1 daily Active TURMERIC 450 MG PO CAPS Take by mouth. 1000 mg, 5 times a day Active Cholecalciferol (VITAMIN D3) 63340 units Capsule Take 1 Capsule by mouth once a week. Active Multiple Vitamins-Mineral s (HAIR/SKIN/NAILS ) CAPS daily. Active folic acid 1 MG Tablet Take 1 Tablet by mouth in the morning. Active Misc Natural Products (NEURO-ESSENTIAL S) TABS Take by mouth. Activ e zinc gluconate 50 MG Tablet Take 1 Tablet by mouth in the morning. Active Lutein 40 MG Oral Capsule Take by mouth. Ac tive Bilberry Plus Oral Capsule Take by mouth. Ac tive Black Elderberry(Nguyen -Flower) 575 MG Oral Capsule Take by mouth. Ac tive B Complex-B12 Oral Tablet Take by mouth. Act shreays Diapers & SuppliesIndicati ons:Multiple sclerosis (HCC),Unspecifie d urinary incontinence pull up diapers. use up to 3 times per night. dx 788.30 lifetime use 90 Each 3 1 Active Collagen Ultra Oral Capsule Take by mouth. Ac tive Vitamin K 100 MCG Oral Tablet Take by mouth. Active B Complex Plus Oral Tablet Take by mouth . Ac tive Vibegron 75 MG Oral Tablet Take 1 Tablet by mouth in the morning. 2 Active Cognitive Health 500 MG Oral Capsule (Citicoline) Take by mouth daily. Active Sucralfate 1 GM Oral Tablet (Carafate) TAKE 1 TAB BY MOUTH 4 TIMES A DAY BEFORE MEALS AND AT BEDTIME. 360 Tablet 2 3 Active Additional Information Patient taking differently:1 g OralTID(AM/NOON/HS), Reported on 05/01/2024 [facility] Triple Action 40-5-3.3 MG Oral Tablet (Collagen-[place]- Hyaluronic Acid) Take by mouth. Active Loratadine 10 MG Oral Tablet (Claritin)Indica tions:Allergic rhinitis TAKE 1 TABLET BY MOUTH EVERY DAY 90 Tablet 3 3 Active guaiFENesin ER 600 MG Oral Tablet Extended Release 12 Hour (Mucinex) Take 1 Tablet by mouth 2 times a day as needed for Congestion. Take with plenty of water. Do not cut, crush or chew 40 Tablet 2 3 Active Fluticasone Propionate 50 MCG/ACT Nasal Suspension (Flonase)Indicat ions:Allergic rhinitis SPRAY 2 SPRAYS INTO EACH NOSTRIL EVERY DAY 48 mL 3 4 Active Omeprazole 20 MG Oral Capsule Delayed Release (PriLOSEC)Indica tions:Gastroesop hageal reflux disease TAKE 1 CAPSULE BY MOUTH 1 HOUR PRIOR TO THE FIRST MEAL OF THE DAY 90 Capsule 2 4 Active Alendronate Sodium 70 MG Oral Tablet (Fosamax) TAKE 1 TABLET BY MOUTH ONE TIME PER WEEK 12 Tablet 4 Active Simvastatin 40 MG Oral Tablet (Zocor) TAKE 1 TABLET BY MOUTH EVERYDAY AT BEDTIME 90 Tablet 3 4 Active Valsartan 40 MG Oral Tablet (Diovan) TAKE 1 TABLET BY MOUTH EVERY DAY 90 Tablet 1 4 Active Hydrocortisone 1 % External Cream daily. To affected area. 4 Active Gabapentin 100 MG Oral Capsule (Neurontin) TAKE 2 CAPSULES BY MOUTH TWICE A DAY 360 Capsule 2 4 Active documented as of this encounter (statuses as of 09/11/2024) Active Problems Problem Noted Date Diagnosed Date Venous insufficiency 07/12/2024 Chronic rhinitis 09/13/2023 Mild obstructive sleep apnea 06/22/2023 DDD (degenerative disc disease), lumbar 03/18/20 Right foot drop 03/18/2023 Depression with anxiety 01/26/2023 DDD (degenerative disc disease), cervical 2022 Overweight (BMI 25.0-29.9) 10/12/2022 Impingement syndrome of right shoulder 2 Ataxia 08/10/2021 Neurogenic bladder 01/26/2021 Dyslipidemia 12/10/2020 Senile osteoporosis 07/28/2020 HTN, goal below 130/80 02/01/2013 Multiple sclerosis Overview (1998): Followed by Dr. Kumar, paralysis, speech problems, memory l documented as of this encounter (statuses as of 09/11/2024) Resolved Problems Problem Noted Date Diagnosed Date Resolved Date Hearing loss of left ear due to cerumen impaction 08/19/2023 02/20/2024 Symptom of leg swelling 08/19/2023 05/0 03/2024 Chronic pain of right ankle 03/18/2023 06/22/2023 Trigger thumb of left hand 08/02/2022 1 12/14/2021 Malaise and fatigue 02/19/2022 02/25/20 22 MADDOX (dyspnea on exertion) 02/19/2022 RAMU (generalized anxiety disorder) 01/26/2022 01/26/2023 Seasonal affective disorder 08/10/2021 01/26/2023 Overview (08/10/2021): Declines meds Gastroesophageal reflux dise ase without esophagitis 08/20/2019 02/01/2024 ADVANCE DIRECTIVE INFORMATION 08/09/2016 12/09/2020 Overview (05/03/2005): No, Advance Directive brochure offered , patient declined. Chronic sinusitis 01/12/2015 12/09/2020 Mixed incontinence 03/06/2013 Overview (07/18/2017): ICD-10 update of inactive term BRAEDEN inhibitor intolerance 06/22/2012 Contusion of toe 09/08/2010 07/21/2011 Other cataract 07/07/2010 07/21/2011 Major depressive disorder 04/14/2010 Overview (08/09/2017): ICD-10 update of inactive term Dyslipidemia, goal LDL below 130 10/23/2009 12/09/2020 Dyslipidemia, goal to be determined 10/01/2009 10/23/2009 Overview (10/01/2009): Per Lipid Taxonomy. Vitamin D deficiency 04/22/2009 010 Mixed dyslipidemia 07/11/200810/01/ 9 Overview (10/01/2009): Per Lipid Taxonomy. Human papilloma virus 2016 documented as of this encounter (statuses as of 09/11/2024) Immunizations Name Administration Dates Next Due COVID-19 mRNA, LNP-s, No Pre serve, 2-Dose Series ([place]) 09/12/2021,01/29/2021,01/08/2021 Covid-19, Mrna, Lnp-s, Pf, B ivalent, 30 Mcg, IM, 12 yrs and above (Pfizer) 09/22/2022 H1N1 2009 Influenza, IM 10/23/2009 Pneumococcal Conjugate Vacc, 13 Valent (Prevnar) 02/19/2019 Pneumococcal Polysaccharide PPV23 (Pneumovax) 04/14/2020 Season Influenza, Quad, PF, Adjuvanted, 65+ Yrs, IM (FLUAD) 08/01/2020 Seasonal Influenza Vac., MDV , IM, 0.5 mL (Fluzone) 07/08/2014,08/03/2013,06/22/2012,06/29,07/07/2010,10/23/2009,10/14/2008 Seasonal Influenza, High Dos e, Trivalent, PF, IM (Fluzone HD) 07/04/2024 Seasonal Influenza, PF, 6 M & above, IM , (FluLaval or Fluzone) 06/28/2018,07/25/2017 Seasonal Influenza, Quadriva lent Hd (Fluzone Hd) 07/06/2023,07/13/2022,08/10/2021 Seasonal Influenza, Quadriva lent, No Preserve, IM 07/19/2016,07/24/2015 Seasonal Influenza, Trivalen t, Adjuvanted, 65+ YRS, PF, (Fluad) 07/03/2019 TDAP (age 10 and older)(Boostrix) 02/06/2018 TDAP, Age 7 and older, IM (Adacel) 07/11/2008 Varicella Zoster Vaccine (Adult) 12/19/2013 Zoster Vaccine Recombinant (Shingrix) 08/20/2019 ,03/07/2019 documented as of this encounter Social History Tobacco Use Types Packs/Day Years Used Date Smoking Tobacco: Never Passive Smoke Exposure: Past Smokeless Tobacco: Never Comments:exposed to second h and smoke Alcohol Use Standard Drinks/Week Comments No 0 (1 standard drink = 0.6 oz pur e alcohol) PHQ-2 Answer Date Recorded PHQ Adult Total Score 0 12/30/2023 Hunger Vital Sign Answer Date Recorded Within the past 12 months, y ou worried that your food would run out before you got the money to buy more. Never true 12/30/19 24 Within the past 12 months, t he food you bought just didn't last and you didn't have money to get more. Never true 12/30/2023 Childcare Answer Date Recorded Do you feel overwhelmed with taking care of a child, family member or friend? No 12/30/2023 Does your family need help f inding childcare? (Household - for ages 0-17 years) Not on file 12/30/2023 Clothing Answer Date Recorded Have you been unable to get clothing when it was really needed? No 12/30/2023 Is your family able to get c lothes or diapers when needed? (Household - for ages 0-17 years) Not on file 12/30/2023 Personal Safety Answer Date Recorded Do you feel unsafe or have concerns for your saf ety? No 12/30/2023 Do you have concerns for you r family's safety? (Household - for ages 0-17 years) Not on file 12/30/2023 Utilities Answer Date Recorded Do you have trouble paying y our heating, water, or electric bill? No 12/30/2023 Is your family able to pay t he heat, water, or electric bill? (Household - for ages 0-17 years) Not on file 12/30/2023 Does your family have access to good internet? (Household - for ages 0-17 years) Not on file 12/30/2023 Employment Status Answer Date Recorded Are you unemployed or without regular income? No 12/30/2023 Does the household have a re lar source of income? (Household - for ages 0-17 years) Not on file 12/30/2023 Social Connections Answer Date Recorded How often do you feel lonely or isolated from th ose around you? Never 12/30/2023 Financial Resource Strain Answer Date R ecorded Do you have any trouble payi ng for your medications, or do you think you might in the future? No 12/30/2023 Does your family have troubl e paying for medicine? (Household - for ages 0-17 years) Not on file 12/30/2023 Transportation Needs Answer Date Record ed READ ONLY Do you have troubl e getting a ride to medical visits or work? Never True 12/30/2023 Does your family have a hard time getting a ride to doctors visits? (Household - for ages 0-17 years) Not on file 12/30/2023 Has lack of transportation k ept you from medical appointments, meetings, work, or from getting things needed for daily living? Check all that apply. (Adult - for ages 18 years and over) Not on file 12/30/2023 Do you (or your family) have trouble finding or paying for a ride (transportation)? (Household - for ages 0-17 years) Not on file 12/30/2023 Housing Stability Answer Date Recorded Do you currently live in a s helter or have no steady place to sleep at night? No 12/30/2023 READ ONLY Do you think you a re at risk of becoming homeless? No 12/30/2023 Does your family worry about paying for your home or becoming homeless? (Household - for ages 0-17 years) Not on file 0 12/30/2023 Are you homeless or worried that you might be in the future? (Adult - for ages 18 years and over) Not on file Are you (or your family) rhonda eless or worried that you might be in the future? (Household - for ages 0-17 years) Not on file Food Insecurity Answer Date Recorded Do you need food for this week? No 12/30/2023 Are you able to get enough f ood for your family? (Household - for ages 0-17 years) Not on file 12/30/2023 Does your family need food t his week? (Household - for ages 0-17 years) Not on file 12/30/2023 Do you always have enough fo od for your family? (Household - for ages 0-17 years) Not on file 12/30/2023 Comments No Sex and Gender Information Value Date Recorded Sex Assigned at Female 02/19/2019 1:07 PM EDT Legal Sex Female 5:08 AM EST Gender Identity Female 02/19/2019 1:07 PM EDT Sexual Orientation Straight 02/19/2019 1: 07 PM EDT Occupation Industry Job Start Date Job End Date disabled Not on file Not on file Not on file documented as of this encounter Miscellaneous Notes * Addendum Note - Letty Grady LPN - 09/11/2024 3:10 PM ESTAddended by: LETTY GRADY on: 09/11/2024 03:10 PM Modules accepted: Orders * Telephone Encounter - Chela Feliciano OSA - 09/10/2024 2:30 PM EST Pt returning call to check status on request, is seeing associate partner tomorrow for a 1:30 appt. Would like to speak to nurse at clinic. Reason for patient's call: call back to clinic Please call pt to assist further. * Telephone Encounter - Jose Esposito MD - 09/06/2024 3:49 PM EST Home health referral was ordered on jul 12 Please check out if visiting nurse can see her If pt needs a new referral, please let me know And also would she like to see podiatry ? * Telephone Encounter - Nereida Laurent OSA - 09/06/2024 12:46 PM EST Patient calling in to check on the status of previous message regarding referral and states she needs help dressing and caring for wound on toe. * Telephone Encounter - Maria G Lou LPN - 09/04/2024 3:14 PM EST Printed referral that was placed in And will send that to see if they will accept it. * Telephone Encounter - Ashley Escudero OSA - 09/04/2024 1:24 PM EST Pt asking if you can place referral for home health care to help w/ her would care. Can you please advise. * Telephone Encounter - Baislia Dean LPN - 09/04/2024 9:54 AM EST Was home health referral faxed? Called pt, states she will be following up in [place] with Dr. Esposito * Telephone Encounter - Nandini Ruiz OSA - 09/03/2024 10:53 AM EST Patient following-up and inquiring about getting a possible home health aide to assist with wound care. * Telephone Encounter - Shirin Madrid OSA - 09/01/2024 11:56 AM EST Pt called said that doctor advised her to put ointment on her baby toe but she cannot reach it. Plscall her for advice. documented in this encounter Plan of Treatment Upcoming Encounters Date Type Department Care Team (Late st Contact Info) Description 10/03/2024 11:00 AM EST Office Visit Interventional Pain Center, [facility] [address] [place] [address] Jany Pederson PA-C [address] [place] [phone] 11/13/2024 1:30 PM EST Office Visit Neurology [address] [place] [address] Lidia Rashid PA-C [address] [place] [address] 11/16/2024 1:20 PM EST Office Visit Dermatology [facility] [address] [place], [place] [phone] Connie Pires PA-C [address] [place] [address] 01/11/2025 1:20 PM EDT Office Visit [facility] [address] [facility] [place] [phone] Jose Esposito MD [address] [facility] [place] [phone] 02/22/2025 11:20 AM EDT Office Visit [facility] [place], [place] [address] [facility] [place] [phone] Mitali Garcia DO [address] [place] [address] 08/16/2025 1:40 PM EDT Office Visit Rheumatology [facility] [email or web address] [place], [place] [address] Umesh Brewster MD [address] [place], [place] [address] Health Maintenance Due Date Last Done Comments Fecal Occult Blood Test 1998 Sigmoidoscopy 1998 Cologuard 07/04/2021 07/04/2018 Adult Wellness Visit 11/17/2023 11/17/2022, 09/23/20 21 COVID-19 Vaccine ( season) 2024 09/22/2022, 09/12/2021, 01/29/2021, Additional history exists Depression Monitoring 12/29/2024 12/30/2023 GFR 02/28/2025 02/29/2024, 08/0 04/2023, 02/08/2022, Additional history exists Mammogram 05/23/2025 05/23/2024, 04/18, 05/16/2023, Additional history exists Albumin/Creatinine Ratio 09/22/2025 022, 01/11/2022, 07/08/2015 DXA Scan 08/15/2026 08/15/2024, 07/17, 07/28/2020, Additional history exists DTap/Tdap Vaccines (3 - Td or Tdap) 02/07/2028 02/06/2018, 07/11/2008 Colonoscopy 09/12/2028 09/12/2018, 08/17/2007 Colorectal Cancer Screening 09/12/2028 Lipid Panel 02/28/2029 02/29/2024, 0804/2023, 07/28/2021, Additional history exists Zoster Vaccines Completed 08/20/2019, 02/15, 12/19/2013 Pneumococcal Vaccine: 65+ Years Completed 04/14/2020, 02/19/2019 Influenza Vaccine (FLU shot) Completed , 07/06/2023, 07/13/2022, Additional history exists VITAMIN D LEVEL ONCE IN A LIFETIME-USE SMARTSET# [id number] Completed 07/04/2024, 05/23/2023, 02/08/2022, Additional history exists HPV (Gardasil) Vaccine Aged Out No lo nger eligible based on patient's age to complete this topic Hepatitis B Vaccine Aged Out No longe r eligible based on patient's age to complete this topic MENINGOCOCCAL (MENACTRA/MENVEO) Aged Out No longer eligible based on patient's age to complete this topic documented as of this encounter Medical Devices Not on filedocumented as of this encounter Advance Directives * Full Code (Latest Code Status on File) Date Activated Date Inactivated Comments 09/16/2017 8:25 AM 09/16/2017 3:25 PM This order r eflects the patients wishes and were consensually agreed upon. * Full Code Date Activated Date Inactivated Comments 08/26/2017 11:20 AM 08/26/2017 6:35 PM This orde r reflects the patients wishes and were consensually agreed upon. Care Teams Director Reactor Projects Relationship Specialty Start Date End Date Jose Esposito MD [address] [place] [id number] PCP - General Internal Medicine 09/04/24 documented as of this encounter
--- OUTSIDE RECORDS SUMMARY | 2024-09-13 11:52 | External Medical Summary | Summary of Care ---
Author Name Unknown Organization [facility] Address [address] [place] [address] Phone [phone] Care Team Providers Care Insulation Estimator Name Role Phone Phillip Mulligan MD Primary Care Provider [phone] Reason for Visit * Reason Onset Date Comments Order Request 05/28/2024 Encounter Details Date Type Department Care Team (Late st Contact Info) Description 05/28/2024 Telephone Family Practice [facility] [address] [employer] [employer] [place] [address] Phillip Mulligan MD [address] [employer] [employer] [place] [address] Order Request Allergies Active Allergy Reactions Criticality Noted Date Comments Braeden Inhibitors Cough 06/22/2012 Amoxicillin 11/24/2005 Diarrhea Clavulanic Acid High 05/25/2023 Other Reaction(s): DIARRHEA Doxycycline Rash Low 02/08/2022 documented as of this encounter (statuses as of 08/27/2024) Medications CALCIUM 500 500 MG PO TABS [...] times a day Active Cholecalciferol (VITAMIN D3) 86954 units Capsule Take 1 Capsule by mouth [...] Complex-B12 Oral Tablet Take by mouth. Act shreyas Diapers & SuppliesIndicati ons:Multiple sclerosis (HCC),Unspecifie d [...] taking differently:1 g OralTID(AM/NOON/HS), Reported on 05/01/2024 [facility] Joint Health Triple Action 40-5-3.3 MG Oral Tablet (Collagen-[place]- Hyaluronic Acid) Take by mouth. Active Loratadine [...] EVERY DAY 48 mL 3 4 Active Gabapentin 100 MG Oral Capsule (Neurontin) Take 2 capsules by mouth twice daily 360 Capsule 2 4 Active Omeprazole 20 MG Oral Capsule Delayed Release (PriLOSEC)Indica tions:Gastroesop hageal reflux disease TAKE 1 CAPSULE BY MOUTH 1 HOUR PRIOR TO THE FIRST MEAL OF THE DAY 90 Capsule 2 4 Active documented as of this encounter (statuses as of 08/27/2024) Active Problems Problem Noted Date Diagnosed Date Venous insufficiency 07/12/2024 Chronic rhinitis 09/13/2023 Mild obstructive sleep apnea 06/22/2023 DDD (degenerative disc disease), lumbar 03/18/20 Right foot drop 03/18/2023 Depression with anxiety 01/26/2023 DDD (degenerative disc disease), cervical 2022 Overweight (BMI 25.0-29.9) 10/12/2022 Impingement syndrome of right shoulder Ataxia 08/10/2021 Neurogenic bladder 01/26/2021 Dyslipidemia 12/10/2020 Senile osteoporosis 07/28/2020 HTN, goal below 130/80 02/01/2013 Multiple sclerosis Overview (1998): Followed by Dr. Kumar, paralysis, speech problems, memory l documented as of this encounter (statuses as of 08/27/2024) Resolved Problems Problem Noted Date Diagnosed Date [...] Chronic sinusitis 01/12/2015 12/09/2020 Mixed incontinence 03/06/2013 2 Overview (07/18/2017): ICD-10 update of inactive term BRAEDEN inhibitor intolerance 06/22/2012 Contusion of toe 09/08/2010 07/21/2011 Other cataract 07/07/2010 07/21/2011 Major depressive disorder 04/14/2010 Overview (08/09/2017): ICD-10 update of inactive term Dyslipidemia, goal LDL below 130 10/23/2009 12/09/2020 Dyslipidemia, goal to be determined 10/01/2009 10/23/2009 Overview (10/01/2009): Per Lipid Taxonomy. Vitamin D deficiency 04/22/2009 010 Mixed dyslipidemia 07/11/2008 9 Overview (10/01/2009): Per Lipid Taxonomy. Human papilloma virus 2016 documented as of this encounter (statuses as of 08/27/2024) Immunizations Name Administration Dates Next Due COVID-19 mRNA, LNP-s, No Pre serve, 2-Dose Series (BiOM) 09/12/2021,01/29/2021,01/08/2021 Covid-19, Mrna, Lnp-s, Pf, B ivalent, 30 Mcg, IM, 12 yrs and above (Pfizer) 09/22/2022 H1N1 2009 Influenza, IM 10/23/2009 Pneumococcal Conjugate Vacc, 13 Valent (Prevnar) 02/19/2019 Pneumococcal Polysaccharide PPV23 (Pneumovax) 04/14/2020 Season Influenza, Quad, PF, Adjuvanted, 65+ Yrs, IM (FLUAD) 08/01/2020 Seasonal Influenza Vac., MDV , IM, 0.5 mL (Fluzone) 07/08/2014,08/03/2013,06/22/2012,06/29,07/07/2010,10/23/2009,10/14/2008 Seasonal Influenza, PF, 6 M & above, [...] 12/30/2023 Does the household have a re gular source of income? (Household - for ages [...] as of this encounter Miscellaneous Notes * Telephone Encounter - Basilia Dean LPN - 05/28/2024 4:19 PM EDT Form faxed for services on 05/23/2024. Please see other encounter * Telephone Encounter - Vicki Emerson OSA - 05/28/2024 2:22 PM EDT An order was requested for this patient. Name of Requesting Provider: patient Order Requested: family health services extended Diagnosis/Reason for Request:help to shop and clean If order request is for Mammogram: Is the patient having any breast symptoms? No Is there a chance of ? No Has the patient had any breast problems in the past? No What location AND department does the patient wish to have their order completed at? Home services Fax Number, if applicable: If the caller is not a current patient, please advise the patient to call their current PCP to havethe order's prior to being seen in our office. The patient was informed that our providers would not order anything (medication, labs, etc.) prior to being seen. documented in this encounter Plan of Treatment Upcoming Encounters Date Type Department Care Team (Late st Contact Info) Description 09/05/2024 11:00 AM EST Scheduled Telephone Interventional [facility], [facility] [address] [facility] [place] [address] Nurse Benedicto Phone Call Interventional Pain [facility] [address] [place] [address] 10/03/2024 11:00 AM EST Office Visit Interventional Pain Center, [facility] 132 [facility] [place] [address] Jany Pederson PA-C 132 [facility] [place] [address] 11/13/2024 1:30 PM EST Office Visit Neurology [facility] [address] [facility] [place] [address] Lidia Rashid PA-C [address] [place] [address] 11/16/2024 1:20 PM EST Office Visit Dermatology [facility] [address] [facility] [place] [address] Connie Pires PA-C [address] [facility] [place] [address] 01/11/2025 1:20 PM EDT Office Visit [facility] [address] [facility] [place] [address] Jose [facility]posito [facility] [address] [facility] [facility] [address] 02/22/2025 11:20 AM EDT Office Visit [facility] [address] [place] [address] Garcia Mitali Amparo, [address] [place] [address] 08/16/2025 1:40 PM EDT Office Visit Rheumatology [facility] [address] [place] [address] Umesh Brewster MD [address] [place] [address] Health Maintenance Due Date Last Done Comments Fecal Occult Blood Test 1998 Sigmoidoscopy 1998 Cologuard 07/04/2021 07/04/2018 Adult Wellness Visit 11/17/2023 11/17/2022, 09/23/20 21 COVID-19 Vaccine ( season) 2024 09/22/2022, 09/12/2021, 01/29/2021, Additional history exists Depression Monitoring 12/29/2024 12/30/2023 GFR 02/28/2025 02/29/2024, 08/0 04/2023, 02/08/2022, Additional history exists Mammogram 05/23/2025 05/23/2024, 0710/2022, 05/16/2023, Additional history exists Albumin/Creatinine Ratio 09/22/2025 022, 01/11/2022, 07/08/2015 DXA Scan 08/15/2026 08/15/2024, 07/17, 07/28/2020, Additional history exists DTap/Tdap Vaccines (3 - Td or Tdap) 02/07/2028 02/06/2018, 07/11/2008 Colonoscopy 09/12/2028 09/12/2018, 08/17/2007 Colorectal Cancer Screening 09/12/2028 Lipid Panel 02/28/2029 02/29/2024, 08/0 04/2023, 07/28/2021, Additional history exists Zoster Vaccines Completed 08/20/2019, 02/15, 12/19/2013 Pneumococcal Vaccine: 65+ Years Completed 04/14/2020, 02/19/2019 Influenza Vaccine (FLU shot) Completed , 07/06/2023, 07/13/2022, Additional history exists VITAMIN D LEVEL ONCE IN A LIFETIME-USE SMARTSET# [id number] Completed 07/04/2024, 05/23/2023, 02/08/2022, Additional history exists [...] and were consensually agreed upon. Care Teams Insulation Estimator Relationship Specialty Start Date End Date Phillip Mulligan MD [address] [place] [address] PCP - General Family Medicine 12/10/20 documented as of this encounter
--- OUTSIDE RECORDS SUMMARY | 2024-09-13 11:52 | External Medical Summary | Summary of Care ---
Author Name Unknown Organization [facility] Address [address] [facility] [place] [address] Phone [phone] Care Team Providers Care Activities Director Name Role Phone Jose Esposito MD Primary Care Provider [phone] Reason for Visit * Reason Onset Date Comments Advice 09/01/2024 FYI 09/01/2024 Referral 09/01/2024 Encounter Details Date Type Department Care Team (Late st Contact Info) Description 09/01/2024 Telephone Family Practice [facility] [address] [employer] [place] [address] Phillip Mulligan MD [address] [employer] [place] [address] Advice; FYI; Referral Allergies Active Allergy Reactions [...] times a day Active Cholecalciferol (VITAMIN D3) 11162 units Capsule Take 1 Capsule by mouth [...] taking differently:1 g OralTID(AM/NOON/HS), Reported on 05/01/2024 [facility] Joint Health Triple Action 40-5-3.3 MG Oral Tablet (Collagen-[place]- Hyaluronic Acid) Take by mouth. Active Loratadine [...] mRNA, LNP-s, No Pre serve, 2-Dose Series (Show[employer]ix) 09/12/2021,01/29/2021,01/08/2021 Covid-19, Mrna, Lnp-s, Pf, B ivalent, [...] encounter Miscellaneous Notes * Telephone Encounter - Chela Feliciano OSA - 09/10/2024 2:30 PM EST Pt returning call to check status on request, is seeing die designer apprentice tomorrow for a 1:30 appt. Would like [...] you please advise. * Telephone Encounter - Basilia Dean LPN - 09/04/2024 9:54 AM EST Was home health referral faxed? Called pt, states she will be following up in [place] with Dr. Esposito * Telephone Encounter - [...] AM EST Office Visit Interventional Pain Center, [facility] 132 [facility] [place] [address] Jany Pederson PA-C [facility] [place] [address] 11/13/2024 1:30 PM EST Office Visit Neurology [facility] [address] [place] [address] Lidia Rashid PA-C [address] [place] [address] 11/16/2024 1:20 PM EST Office Visit Dermatology [facility] [address] [place] [address] Connie Pires PA-C [address] [place] [address] 01/11/2025 1:20 PM EDT Office Visit [address] [place] [phone] Jose Esposito MD [address] [place] [address] 02/22/2025 11:20 AM EDT Office Visit Sleep Disorders Ctr [facility] [address] [place] [phone] Mitali Garcia, [address] [place] [address] 08/16/2025 1:40 PM EDT Office Visit Rheumatology [facility] [address] [place] [address] Umesh Brewster MD [address] [place] [address] Health Maintenance Due Date Last Done Comments [...] D LEVEL ONCE IN A LIFETIME-USE SMARTSET# [id number] Completed 07/04/2024, 05/23/2023, 02/08/2022, Additional history exists [...] and were consensually agreed upon. Care Teams Activities Director Relationship Specialty Start Date End Date Jose Esposito MD [address] [place] [address] PCP - General Internal Medicine 09/04/24 documented as of this encounter
--- OUTSIDE RECORDS SUMMARY | 2024-09-13 11:52 | External Medical Summary | Summary of Care ---
Author Name Unknown Organization [facility] Address [address] [facility] [place] [address] Phone [phone] Care Team Providers Care Contact Lens Lathe Operator Name Role Phone Jose Esposito MD Primary Care Provider [phone] Reason for Visit * Reason Onset Date Comments Advice 09/01/2024 FYI 09/01/2024 Referral 09/01/2024 Encounter Details Date Type Department Care Team (Late st Contact Info) Description 09/01/2024 Telephone Family Practice [facility] [address] [place] [address] Phillip Mulligan MD [address] [place] [address] Advice; FYI; Referral Allergies Active Allergy Reactions Criticality Noted Date Comments Braeden Inhibitors Cough 06/22/2012 Amoxicillin 11/24/2005 Diarrhea Clavulanic Acid High 05/25/2023 Other Reaction(s): DIARRHEA Doxycycline Rash Low 02/08/2022 documented as of this encounter (statuses as of 09/10/2024) Medications CALCIUM 500 500 MG PO TABS [...] times a day Active Cholecalciferol (VITAMIN D3) 58948 units Capsule Take 1 Capsule by mouth [...] taking differently:1 g OralTID(AM/NOON/HS), Reported on 05/01/2024 [facility] Joint Health Triple Action 40-5-3.3 MG Oral Tablet (Collagen-[place]- Hyaluronic Acid) Take by mouth. Active Loratadine [...] as of this encounter (statuses as of 09/10/2024) Active Problems Problem Noted Date Diagnosed Date [...] as of this encounter (statuses as of 09/10/2024) Resolved Problems Problem Noted Date Diagnosed Date [...] as of this encounter (statuses as of 09/10/2024) Immunizations Name Administration Dates Next Due COVID-19 mRNA, LNP-s, No Pre serve, 2-Dose Series ([email or web address]) 09/12/2021,01/29/2021,01/08/2021 Covid-19, Mrna, Lnp-s, Pf, B ivalent, [...] to check status on request, is seeing e commerce specialist tomorrow for a 1:30 appt. Would like [...] states she will be following up in [place] with Dr. Esposito * Telephone Encounter - [...] AM EST Office Visit Interventional Pain Center, [facility] 132 [facility] [place] [address] Jany Pederson PA-C 132 [facility] [place] [address] 11/13/2024 1:30 PM EST Office Visit Neurology [facility] [address] [place] [address] Lidia Rashid PA-C [address] [place] [address] 11/16/2024 1:20 PM EST Office Visit Dermatology [facility] [address] [place] [address] [address] Connie Pires PA-C [address] [place] [address] 01/11/2025 1:20 PM EDT Office Visit [address] [place] [phone] Jose Esposito MD [address] [place] [address] 02/22/2025 11:20 AM EDT Office Visit Sleep Disorders Ctr [facility] [address] [place] [phone] Mitali Garcia, [address] [place] [address] 08/16/2025 1:40 PM EDT Office Visit Rheumatology [facility] [address] [place] [address] Umesh Brewster MD [address] [place] [address] Health Maintenance Due Date Last Done Comments [...] D LEVEL ONCE IN A LIFETIME-USE SMARTSET# [id number] Completed 07/04/2024, 05/23/2023, 02/08/2022, Additional history exists [...] and were consensually agreed upon. Care Teams Contact Lens Lathe Operator Relationship Specialty Start Date End Date Jose Esposito MD [address] [place] [address] PCP - General Internal Medicine 09/04/24 documented as of this encounter
--- OUTSIDE RECORDS SUMMARY | 2024-09-13 11:52 | External Medical Summary | Summary of Care ---
Author Name Unknown Organization [facility] Address [address] [place] [facility] [place] [address] Phone [phone] Care Team Providers Care Shell Maker Lockstitch Name Role Phone Hosea Mulligan MD Primary Care Provider [phone] Reason for Visit * Reason Comments eRx-Medication Refill Encounter Details Date Type Department Care Team (Late st Contact Info) Description 08/30/2024 Refill Family Practice [facility] [address] [place] [address] Hosea Mulligan MD [address] [place] [phone] Allergies Active Allergy Reactions Criticality Noted Date Comments Braeden Inhibitors Cough 06/22/2012 Amoxicillin 11/24/2005 Diarrhea Clavulanic Acid High 05/25/2023 Other Reaction(s): DIARRHEA Doxycycline Rash Low 02/08/2022 documented as of this encounter (statuses as of 08/30/2024) Medications CALCIUM 500 500 MG PO TABS Take 500 mg by mouth daily. Active WILBER-C/BIOFLAV ONOIDS PO TABS None Entered Ac tive OMEGA 3 1000 MG PO CAPS daily [...] times a day Active Cholecalciferol (VITAMIN D3) 23196 units Capsule Take 1 Capsule by mouth once a week. Active Multiple Vitamins-Minera ls (HAIR/SKIN/NAIL S) CAPS daily. Active folic acid 1 MG Tablet Take 1 Tablet by mouth in the morning. Active Misc Natural Products (NEURO-ESSENTIA LS) TABS Take by mouth. Activ e zinc gluconate 50 MG Tablet Take 1 Tablet by mouth in the morning. Active Lutein 40 MG Oral Capsule Take by mouth. Ac tive Bilberry Plus Oral Capsule Take by mouth. Ac tive Black Elderberry(Berr y-Flower) 575 MG Oral Capsule Take by mouth. Active B Complex-B12 Oral Tablet Take by mouth. Act shreyas Diapers & SuppliesIndicat ions:Multiple sclerosis (HCC),Unspecifi ed urinary incontinence pull up diapers. use up to 3 times per night. dx 788.30 lifetime use 90 Each 3 07/03/20 21 Active Collagen Ultra Oral Capsule Take by mouth. Ac tive Vitamin K 100 MCG Oral Tablet Take by mouth. Active B Complex Plus Oral Tablet Take by mouth . Active Vibegron 75 MG Oral Tablet Take 1 Tablet by mouth in the morning. 08/23/20 22 Active Cognitive Health 500 MG Oral Capsule (Citicoline) Take by mouth daily. Active Sucralfate 1 GM Oral Tablet (Carafate) TAKE 1 TAB BY MOUTH 4 TIMES A DAY BEFORE MEALS AND AT BEDTIME. 360 Tablet 2 05/19/20 23 Active Additional Information Patient taking differently:1 g OralTID(AM/NOON/HS), Reported on 05/01/2024 [facility] Joint Health Triple Action 40-5-3.3 MG Oral Tablet (Collagen-[place] -Hyaluronic Acid) Take by mouth. Activ e Loratadine 10 MG Oral Tablet (Claritin)Indic ations:Allergic rhinitis TAKE 1 TABLET BY MOUTH EVERY DAY 90 Tablet 3 07/18/20 23 Active guaiFENesin ER 600 MG Oral Tablet Extended Release 12 Hour (Mucinex) Take 1 Tablet by mouth 2 times a day as needed for Congestion. Take with plenty of water. Do not cut, crush or chew 40 Tablet 2 09/13/20 23 Active Fluticasone Propionate 50 MCG/ACT Nasal Suspension (Flonase)Indica tions:Allergic rhinitis SPRAY 2 SPRAYS INTO EACH NOSTRIL EVERY DAY 48 mL 3 10/31/19 24 Active Omeprazole 20 MG Oral Capsule Delayed Release (PriLOSEC)Indic ations:Gastroes ophageal reflux disease TAKE 1 CAPSULE BY MOUTH 1 HOUR PRIOR TO THE FIRST MEAL OF THE DAY 90 Capsule 2 04/23/20 24 Active Alendronate Sodium 70 MG Oral Tablet (Fosamax) TAKE 1 TABLET BY MOUTH ONE TIME PER WEEK 12 Tablet 06/26/20 24 Active Simvastatin 40 MG Oral Tablet (Zocor) TAKE 1 TABLET BY MOUTH EVERYDAY AT BEDTIME 90 Tablet 3 06/30/20 24 Active Valsartan 40 MG Oral Tablet (Diovan) TAKE 1 TABLET BY MOUTH EVERY DAY 90 Tablet 1 07/14/20 24 Active Hydrocortisone 1 % External Cream daily. To affected area. 07/11/20 24 Active Gabapentin 100 MG Oral Capsule (Neurontin) TAKE 2 CAPSULES BY MOUTH TWICE A DAY 360 Capsule 2 08/30/20 24 Active Gabapentin 100 MG Oral Capsule (Neurontin) Take 2 capsules by mouth twice daily 360 Capsule 2 12/06/19 24 024 Discontinued documented as of this encounter (statuses as of 08/30/2024) Active Problems Problem Noted Date Diagnosed Date [...] as of this encounter (statuses as of 08/30/2024) Resolved Problems Problem Noted Date Diagnosed Date [...] as of this encounter (statuses as of 08/30/2024) Immunizations Name Administration Dates Next Due COVID-19 mRNA, LNP-s, No Pre serve, 2-Dose Series ([employer]) 09/12/2021,01/29/2021,01/08/2021 Covid-19, Mrna, Lnp-s, Pf, B ivalent, [...] encounter Miscellaneous Notes * Telephone Encounter - Hosea Mulligan MD - 08/30/2024 11:27 AM ESTSigned Prescriptions: Disp Refills Gabapentin 100 MG Oral Capsule (Neurontin) 360 Ca*2 Sig: TAKE 2 CAPSULES BY MOUTH TWICE A DAY Authorizing Provider: HOSEA MULLIGAN * Telephone Encounter - Leonarda Navarro CPhT - 08/30/2024 10:54 AM EST Pt has a ride today Did you pend patient's preferred pharmacy and medication before forwarding?yes Pharmacy: [id number] [address] [place] Pending Prescriptions: Disp Refills Gabapentin 100 MG Oral Capsule (Neurontin*360 Ca*2 Sig: TAKE 2 CAPSULES BY MOUTH TWICE A DAY Last Visit: 02/20/2024 (in office), Visit date not found (telemedicine) Next Visit: Visit date not found If no future appointments scheduled, and last appointment is greater than a year ago, please schedule patient for a follow-up appointment Last date the medication was ordered: 12/06/23 Is this request for a controlled substance?No Urine Drug Screen:No results found. However, due to the size of the patient record, not all encounters were searched. Please check Results Review for a complete set of results. Patient Phone Numbers Labs: Lab Results Component Value Date/Time CREAT 0.8 02/29/2024 10:52 AM CREAT 0.8 11/04/2020 10:16 AM POTASSIUM 4.5 02/29/2024 10:52 AM POTASSIUM 4.4 11/04/2020 10:16 AM TSH 0.64 02/29/2024 10:52 AM TSH 0.82 03/07/2019 09:27 AM LDL 100 02/29/2024 10:52 AM LDL 102 04/25/2020 09:52 AM LDL NOT APPLICABLE 04/25/2020 09:52 AM ALT 17 02/29/2024 10:52 AM ALT 18 04/25/2020 09:52 AM HGBA1C 5.5 10/19/2023 01:51 PM HGBA1C 5.6 10/02/2018 01:05 PM documented in this encounter Plan of Treatment Upcoming Encounters Date Type Department Care Team (Late st Contact Info) Description 09/05/2024 11:00 AM EST Scheduled Telephone Interventional Pain [place] 132 [facility] [place] [address] [facility], Nurse Phone Call Interventional Pain [facility] 132 [facility] [place] [address] 10/03/2024 11:00 AM EST Office Visit Interventional Pain [place] [address] [facility] [place] [address] Jany Pederson PA-C 132 [facility] [place] [address] 11/13/2024 1:30 PM EST Office Visit Neurology [facility] [address] [place] [address] Lidia Rashid PA-C [address] [place] [address] 11/16/2024 1:20 PM EST Office Visit Dermatology [facility] 200 [facility] [place] [address] Connie Pires PA-C [address] [facility] [place] [address] 01/11/2025 1:20 PM EDT Office Visit [facility] [address] [place] [address] Jose Esposito MD [address] [facility] [place] [address] 02/22/2025 11:20 AM EDT Office Visit [facility] [address] [place] [phone] Mitali Garcia DO [address] [place] [address] 08/16/2025 1:40 PM EDT Office Visit Rheumatology [facility] [address] [place] [address] Umesh Brewster MD [address] [place] [address] Health Maintenance Due Date Last Done Comments [...] D LEVEL ONCE IN A LIFETIME-USE SMARTSET# [id number] Completed 07/04/2024, 05/23/2023, 02/08/2022, Additional history exists [...] and were consensually agreed upon. Care Teams Shell Maker Lockstitch Relationship Specialty Start Date End Date Hosea Mulligan MD [address] [address] PCP - General Family Medicine 12/10/20 documented as of this encounter
--- OUTSIDE RECORDS SUMMARY | 2024-09-13 11:52 | External Medical Summary | Summary of Care ---
Author Name Unknown Organization [facility] Address [address] [facility] [place] [address] Phone [phone] Care Team Providers Care Content Administrator Name Role Phone Jose Esposito MD Primary Care Provider [phone] Reason for Visit * Reason Onset Date Comments Advice 09/01/2024 FYI 09/01/2024 Referral 09/01/2024 Encounter Details Date Type Department Care Team (Late st Contact Info) Description 09/01/2024 Telephone Family Practice [facility] [address] [place] [address] Phillip Mulligan MD [address] [place] [address] Advice; FYI; Referral Allergies Active Allergy Reactions Criticality Noted Date Comments Braeden Inhibitors Cough 06/22/2012 Amoxicillin 11/24/2005 Diarrhea Clavulanic Acid High 05/25/2023 Other Reaction(s): DIARRHEA Doxycycline Rash Low 02/08/2022 documented as of this encounter (statuses as of 09/06/2024) Medications CALCIUM 500 500 MG PO TABS [...] times a day Active Cholecalciferol (VITAMIN D3) 60315 units Capsule Take 1 Capsule by mouth [...] OralTID(AM/NOON/HS), Reported on 05/01/2024 [facility] Triple Action 40-5-3.3 MG Oral Tablet (Collagen-Moxee- Hyaluronic Acid) Take by mouth. Active Loratadine [...] as of this encounter (statuses as of 09/06/2024) Active Problems Problem Noted Date Diagnosed Date [...] as of this encounter (statuses as of 09/06/2024) Resolved Problems Problem Noted Date Diagnosed Date [...] as of this encounter (statuses as of 09/06/2024) Immunizations Name Administration Dates Next Due COVID-19 mRNA, LNP-s, No Pre serve, 2-Dose Series ([employer]) 09/12/2021,01/29/2021,01/08/2021 Covid-19, Mrna, Lnp-s, Pf, B ivalent, [...] encounter Miscellaneous Notes * Telephone Encounter - Jose Esposito MD [...] states she will be following up in [place] with Dr. Esposito * Telephone Encounter - Nandini Ruiz OSA - 09/03/2024 10:53 AM EST Patient following-up and inquiring about getting a possible home health aide to assist with wound care. * Telephone Encounter - Shirin aMdrid OSA - 09/01/2024 11:56 AM EST Pt called said that doctor advised her to put ointment on her baby toe but she cannot reach it. Plscall her for advice. documented in this encounter Plan of Treatment Upcoming Encounters Date Type Department Care Team (Late st Contact Info) Description 10/03/2024 11:00 AM EST Office Visit Interventional Pain Center, [facility] [address] [place] [address] Jany Pederson PA-C [address] [place] [address] 11/13/2024 1:30 PM EST Office Visit Neurology [facility] [address] [facility] [place] [address] Lidai Rashid PA-C [address] [place] [address] 11/16/2024 1:20 PM EST Office Visit Dermatology [facility] [address] [facility] [place] [address] Connie Pires PA-C [address] [facility] [place] [address] 01/11/2025 1:20 PM EDT Office Visit [facility] [address] [facility] [place] [phone] Jose Esposito MD [address] [place] [address] 02/22/2025 11:20 AM EDT Office Visit Sleep Disorders Ctr [facility] [address] [facility] [place] [phone] Mitali Garcia, DO [address] [place] [address] 08/16/2025 1:40 PM EDT Office Visit Rheumatology [facility] [address] [employer] [place] [address] Umesh Brewster MD [address] [employer] [place] [address] Health Maintenance Due Date Last Done Comments [...] D LEVEL ONCE IN A LIFETIME-USE SMARTSET# 04102 Completed 07/04/2024, 05/23/2023, 02/08/2022, Additional history exists [...] and were consensually agreed upon. Care Teams Content Administrator Relationship Specialty Start Date End Date Jose Esposito MD [address] [place] [address] PCP - General Internal Medicine 09/04/24 documented as of this encounter
--- OUTSIDE RECORDS SUMMARY | 2024-09-13 11:52 | External Medical Summary | Summary of Care ---
Author Name Unknown Organization [facility] Address [address] [place] [address] Phone [phone] Care Team Providers Care Color Corrector Name Role Phone Phillip Mulligan MD Primary Care Provider [phone] Reason for Visit * Reason Onset Date Comments Appointment 07/13/2024 Reched 08/15 carmelo t due to provider no longer in network Encounter Details Date Type Department Care Team (Late st Contact Info) Description 07/13/2024 Telephone Rheumatology [facility] [address] [place], [place] [id number] Services, Scheduling [address] [place] [address] Appointment (Reched 08/15 appt due to prov... Allergies Active Allergy Reactions Criticality Noted Date Comments Braeden Inhibitors Cough 06/22/2012 Amoxicillin 11/24/2005 Diarrhea Clavulanic Acid High 05/25/2023 Other Reaction(s): DIARRHEA Doxycycline Rash Low 02/08/2022 documented as of this encounter (statuses as of 08/09/2024) Medications Medication Sig Dispensed Refills Start Date End Date Status CALCIUM 500 500 MG PO TABS Take 500 mg by mouth daily. Active WILBER-C/BIOFLAVON OIDS PO TABS None Entered Active MILK THISTLE 140 MG PO CAPS Take by mouth. Active OMEGA 3 1000 MG PO CAPS daily Active GLUCOSAMINE CHONDR COMPLEX 500-400 MG PO CAPS one daily Active CRANBERRY 1000 MG PO CAPS 2 daily Active BIOTIN 5000 MCG PO CAPS 1 cap daily Active ALPHA-LIPOIC ACID 600 MG PO CAPS 1 tablet daily Active COQ10 100 MG PO CAPS 1 daily Active PROBIOTIC ACIDOPHILUS PO CAPS 1 daily Active GRAPE SEED OIL Use as directed. Acti ve TURMERIC 450 MG PO CAPS Take by mouth. 1000 mg, 5 times a day Active Cholecalciferol (VITAMIN D3) 44502 units Capsule Take 1 Capsule by mouth once a week. Active Multiple Vitamins-Minerals (HAIR/SKIN/NAILS) CAPS daily. Active Cyanocobalamin (VITAMIN B-12) 1000 MCG Tablet Take 1 Tablet by mouth in the morning. Active folic acid 1 MG Tablet Take 1 Tablet by mouth in the morning. Active Misc Natural Products (NEURO-ESSENTIALS ) TABS Take by mouth. Active zinc gluconate 50 MG Tablet Take 1 Tablet by mouth in the morning. Active Lutein 40 MG Oral Capsule Take by mouth. Active Bilberry Plus Oral Capsule Take by mouth. Active Black Elderberry(Nguyen- Flower) 575 MG Oral Capsule Take by mouth. Active B Complex-B12 Oral Tablet Take by mouth. Active Hyaluronic Acid 20-60 MG Oral Capsule Take by mouth. Active Oil of Oregano 1500 MG Oral Capsule Take by mouth. Active Diapers & SuppliesIndicatio ns:Multiple sclerosis (HCC),Unspecified urinary incontinence pull up diapers. use up to 3 times per night. dx 788.30 lifetime use 90 Each 3 1 Active Collagen Ultra Oral Capsule Take by mouth. Active Vitamin K 100 MCG Oral Tablet Take [...] taking differently:1 g OralTID(AM/NOON/HS), Reported on 05/01/2024 [facility] Oral Capsule Take by mouth. Active [facility] Triple Action 40-5-3.3 MG Oral Tablet (Ceypfjfn-Yaafu-L yaluronic Acid) Take by mouth. Activ e Loratadine 10 MG Oral Tablet (Claritin)Indicat ions:Allergic rhinitis TAKE 1 TABLET BY MOUTH EVERY DAY 90 Tablet 3 3 Active guaiFENesin ER 600 MG Oral Tablet Extended Release 12 Hour (Mucinex) Take 1 Tablet by mouth 2 times a day as needed for Congestion. Take with plenty of water. Do not cut, crush or chew 40 Tablet 2 3 Active Fluticasone Propionate 50 MCG/ACT Nasal Suspension (Flonase)Indicati ons:Allergic rhinitis SPRAY 2 SPRAYS INTO EACH NOSTRIL EVERY DAY 48 mL 3 4 Active Gabapentin 100 MG Oral Capsule (Neurontin) Take 2 capsules by mouth twice daily 360 Capsule 2 4 Active Omeprazole 20 MG Oral Capsule Delayed Release (PriLOSEC)Indicat ions:Gastroesopha geal reflux disease TAKE 1 CAPSULE BY MOUTH [...] MOUTH EVERY DAY 90 Tablet 1 4 07/14/20 24 Discontinued documented as of this encounter (statuses as of 08/09/2024) Active Problems Problem Noted Date Diagnosed Date [...] HTN, goal below 130/80 02/01/2013 Multiple sclerosis Overview: Followed by Dr. Kumar, paralysis, speech problems, memory l documented as of this encounter (statuses as of 08/09/2024) Resolved Problems Problem Noted Date Diagnosed Date [...] 01/26/2022 01/26/2023 Seasonal affective disorder 08/10/2021 01/26/2023 Overview: Declines meds Gastroesophageal reflux dise ase without esophagitis 08/20/2019 02/01/2024 ADVANCE DIRECTIVE INFORMATION 08/09/2016 12/09/2020 Overview: No, Advance Directive brochure offered , patient declined. Chronic sinusitis 01/12/2015 12/09/2020 Mixed incontinence 03/06/2013 Overview: ICD-10 update of inactive term BRAEDEN inhibitor intolerance 06/22/2012 Contusion of toe 09/08/2010 07/21/2011 Other cataract 07/07/2010 07/21/2011 Major depressive disorder 04/14/2010 Overview: ICD-10 update of inactive term Dyslipidemia, goal LDL below 130 10/23/2009 12/09/2020 Dyslipidemia, goal to be determined 10/01/2009 10/23/2009 Overview: Per Lipid Taxonomy. Vitamin D deficiency 04/22/2009 010 Mixed dyslipidemia 07/11/200810/01/ 9 Overview: Per Lipid Taxonomy. Human papilloma virus 2016 documented as of this encounter (statuses as of 08/09/2024) Immunizations Name Administration Dates Next Due COVID-19 mRNA, LNP-s, No Pre serve, 2-Dose Series ([employer]) 09/12/2021,01/29/2021,01/08/2021 Covid-19, Mrna, Lnp-s, Pf, B ivalent, 30 Mcg, IM, 12 yrs and above ([employer]) 09/22/2022 H1N1 2009 Influenza, IM 10/23/2009 Pneumococcal [...] Date Recorded PHQ Adult Total Score 0 11/17/2022 Hunger Vital Sign Answer Date Recorded Within the past 12 months, y ou worried that your food would run out before you got the money to buy more. Never true 08/30/20 23 Within the past 12 months, t he food you bought just didn't last and you didn't have money to get more. Never true 08/30/2023 Sex and Gender Information Value Date Recorded Sex Assigned at Female 02/19/2019 1:07 PM EDT Gender Identity Female 02/19/2019 1:07 PM EDT Sexual Orientation Straight 02/19/2019 1: 07 PM EDT Job Start Date Occupation Industry Not on file Not on file Not on file documented as of this encounter Miscellaneous Notes * Telephone Encounter - Zunilda Alcazar OSA - 08/09/2024 2:11 PM EDT I called patient to discuss. Told her I didn't know anything about her not being able to see Dr. Juárez with her insurance. I didn't know about any change. I told her it would probably be the same with any provider here because they are all on the same network. She said she found out she can still see him this month and that she would keep the dexa appointment and appointment with Dr. Juárez * Telephone Encounter - Mary Grace Oviedo OSA - 07/13/2024 5:04 PM EDT Good afternoon, Pt called in stating that she needs to reschedule her 08/15 appointment. Pt stated she received a letter from her insurance saying Dr. Brewster is no longer in network with [facility] and that she needs to change providers. Pt would like called back to discuss and reschedule with another provider. Please assist. Thank you documented in this encounter Plan of Treatment Upcoming Encounters Date Type Department Care Team (Late st Contact Info) Description 08/15/2024 1:00 PM EDT Imaging Radiology, [place] [address] [id number] 08/15/2024 1:40 PM EDT Office Visit Rheumatology [facility] [place] [address] Umesh Brewster MD [address] [place] [address] [place] [address] [address] 08/31/2024 12:35 PM EST Office Visit Urogynecology [facility] [address] [place] [address] Joellen Donnelly PA-C [address] [place] [address] [facility] [address] [place] [address] 09/05/2024 11:00 AM EST Scheduled Telephone Interventional Pain Center, [facility] [address] [place] [address] [place] Nurse Phone Call Interventional Pain [facility] [address] [place] [address] 10/03/2024 11:00 AM EST Office Visit Interventional Pain Center, [facility] [address] [place] [address] Jayn Pederson PA-C [address] [facility] [place] [address] 11/13/2024 1:30 PM EST Office Visit Neurology [facility] [address] [place] [address] Lidia Rashid PA-C [address] [facility] [place] [address] 11/16/2024 1:20 PM EST Office Visit Dermatology [facility] [address] [place] [address] Connie Pires PA-C [address] [place] [place] [address] 01/11/2025 1:20 PM EDT Office Visit [address] [phone] [facility] [address] [facility] [address] 02/22/2025 11:20 AM EDT Office Visit Sleep Disorders Ctr [facility] [address] [place] [phone] Mitali Garcia, [address] [place] [address] Health Maintenance Due Date Last Done Comments Fecal Occult Blood Test 1998 Sigmoidoscopy 1998 Cologuard 07/04/2021 07/04/2018 Adult Wellness Visit 11/17/2023 11/17/2022, 09/23/20 21 COVID-19 Vaccine ( season) 2024 09/22/2022, 09/12/2021, 01/29/2021, Additional history exists DXA Scan 08/02/2024 08/02/2022, 07/17, 01/12/2016, Additional history exists Depression Monitoring 12/29/2024 12/30/2023 GFR 02/28/2025 02/29/2024, 080 04/2023, 02/08/2022, Additional history exists Mammogram 05/23/2025 05/23/2024, 04/18, 05/16/2023, Additional history exists Albumin/Creatinine Ratio 09/22/2025 022, 01/11/2022, 07/08/2015 DTap/Tdap Vaccines (3 - Td or Tdap) 02/07/2028 02/06/2018, 07/11/2008 Colonoscopy 09/12/2028 09/12/2018, 08/17/2007 Colorectal Cancer Screening 09/12/2028 Lipid Panel 02/28/2029 02/29/2024, 080 04/2023, 07/28/2021, Additional history exists Zoster Vaccines Completed 08/20/2019, 02/15, 12/19/2013 Pneumococcal Vaccine: 65+ Years Completed 04/14/2020, 02/19/2019 Influenza Vaccine (FLU shot) Completed , 07/06/2023, 07/13/2022, Additional history exists VITAMIN D LEVEL ONCE IN A LIFETIME-USE SMARTSET# [id number] Completed 07/04/2024, 05/23/2023, 02/08/2022, Additional history exists [...] and were consensually agreed upon. Care Teams Color Corrector Relationship Specialty Start Date End Date Phillip Mulligan MD [address] [place] [address] PCP - General Family Medicine 12/10/20 documented as of this encounter
--- OUTSIDE RECORDS SUMMARY | 2024-09-13 11:52 | External Medical Summary | Summary of Care ---
Author Name Unknown Organization [facility] Address [address] [place] [address] Phone [phone] Care Team Providers Care Bench Repair Technician Name Role Phone Phillip Mulligan MD Primary Care Provider [phone] Reason for Visit * Reason Comments Rheum Follow Up Follow up - rosaura VELARDE had DEXA scan today * Evaluate & Treat - Unlimited Visits (Within 10 days (routine)) - Denied Specialty Diagnoses / Procedures Referred By Michelle angulo Referred To Contact Rheumatology Diagnoses Encounter for examination and observation for unspecified reason Procedures ID OFFICE CONSULTATION NEW/ESTAB PATIENT [address] ADDRESS AVAILABLE Referral ID Status Reason Start Date Expiration Date V isits Requested Visits Authorized [id number] Denied Specialty Services Required 07/30/2024 [id number] Encounter Details Date Type Department Care Team (Late st Contact Info) Description 08/15/2024 1:40 PM EDT Office Visit Rheumatology [place] [address] [facility] [place] [address] Umesh Brewster MD [facility] [place] [address] Senile osteoporosis* Allergies Active Allergy Reactions Criticality Noted Date Comments Braeden Inhibitors Cough 06/22/2012 Amoxicillin 11/24/2005 Diarrhea Clavulanic Acid High 05/25/2023 Other Reaction(s): DIARRHEA Doxycycline Rash Low 02/08/2022 documented as of this encounter (statuses as of 08/15/2024) Medications Medication Sig Dispensed Refills Start Date End Date Status CALCIUM 500 500 MG PO TABS Take 500 mg by mouth daily. Active WILBER-C/BIOFLAVON OIDS PO TABS None Entered Active OMEGA 3 1000 MG PO CAPS [...] times a day Active Cholecalciferol (VITAMIN D3) 59947 units Capsule Take 1 Capsule by mouth once a week. Active Multiple Vitamins-Minerals (HAIR/SKIN/NAILS) CAPS daily. Active folic acid 1 MG [...] Complex-B12 Oral Tablet Take by mouth. Active Diapers & SuppliesIndicatio ns:Multiple sclerosis (HCC),Unspecified urinary incontinence pull up diapers. use up to 3 times per night. dx 788.30 lifetime use 90 Each 3 07/03/2021 Active Collagen Ultra Oral Capsule Take by mouth. Active Vitamin K 100 MCG Oral Tablet Take by mouth. Active B Complex Plus Oral Tablet Take by mouth . Active Vibegron 75 MG Oral Tablet Take 1 Tablet by mouth in the morning. 08/23/2022 Active Cognitive Health 500 MG Oral Capsule (Citicoline) Take by mouth daily. Active Sucralfate 1 GM Oral Tablet (Carafate) TAKE 1 TAB BY MOUTH 4 TIMES A DAY BEFORE MEALS AND AT BEDTIME. 360 Tablet 2 05/19/2023 Active Additional Information Patient taking differently:1 g OralTID(AM/NOON/HS), Reported on 05/01/2024 [facility] Triple Action 40-5-3.3 MG Oral Tablet (Teihjvks-Rargf-L yaluronic Acid) Take by mouth. Activ e Loratadine 10 MG Oral Tablet (Claritin)Indicat ions:Allergic rhinitis TAKE 1 TABLET BY MOUTH EVERY DAY 90 Tablet 3 07/18/2023 Active guaiFENesin ER 600 MG Oral Tablet Extended Release 12 Hour (Mucinex) Take 1 Tablet by mouth 2 times a day as needed for Congestion. Take with plenty of water. Do not cut, crush or chew 40 Tablet 2 09/13/2023 Active Fluticasone Propionate 50 MCG/ACT Nasal Suspension (Flonase)Indicati ons:Allergic rhinitis SPRAY 2 SPRAYS INTO EACH NOSTRIL EVERY DAY 48 mL 3 10/31/2023 Active Gabapentin 100 MG Oral Capsule (Neurontin) Take 2 capsules by mouth twice daily 360 Capsule 2 12/06/2023 Active Omeprazole 20 MG Oral Capsule Delayed Release (PriLOSEC)Indicat ions:Gastroesopha geal reflux disease TAKE 1 CAPSULE BY MOUTH 1 HOUR PRIOR TO THE FIRST MEAL OF THE DAY 90 Capsule 2 04/23/2024 Active Alendronate Sodium 70 MG Oral Tablet (Fosamax) TAKE 1 TABLET BY MOUTH ONE TIME PER WEEK 12 Tablet 06/26/2024 Active Simvastatin 40 MG Oral Tablet (Zocor) TAKE 1 TABLET BY MOUTH EVERYDAY AT BEDTIME 90 Tablet 3 06/30/2024 Active Valsartan 40 MG Oral Tablet (Diovan) TAKE 1 TABLET BY MOUTH EVERY DAY 90 Tablet 1 07/14/2024 Active Hydrocortisone 1 % External Cream daily. To affected area. 07/11/2024 Active MILK THISTLE 140 MG PO CAPS Take by mouth. 4 Discontinue d(Medicatio n List Clean Up) GRAPE SEED OIL Use as directed. 4 Discontinue d(Medicatio n List Clean Up) Cyanocobalamin (VITAMIN B-12) 1000 MCG Tablet Take 1 Tablet by mouth in the morning. 4 Discontinue d(Medicatio n List Clean Up) Hyaluronic Acid 20-60 MG Oral Capsule Take by mouth. 4 Discontinue d(Medicatio n List Clean Up) Oil of Oregano 1500 MG Oral Capsule Take by mouth. 4 Discontinue d(Medicatio n List Clean Up) Joint Health Oral Capsule Take by mouth. 4 Discontinue d(Medicatio n List Clean Up) documented as of this encounter (statuses as of 08/15/2024) Active Problems Problem Noted Date Diagnosed Date [...] as of this encounter (statuses as of 08/15/2024) Resolved Problems Problem Noted Date Diagnosed Date [...] deficiency 04/22/2009 010 Mixed dyslipidemia 07/11/2008 9 Overview: Per Lipid Taxonomy. Human papilloma virus 2016 documented as of this encounter (statuses as of 08/15/2024) Immunizations Name Administration Dates Next Due COVID-19 mRNA, LNP-s, No Pre serve, 2-Dose Series ([employer]) 09/12/2021,01/29/2021,01/08/2021 Covid-19, Mrna, Lnp-s, Pf, B ivalent, 30 Mcg, IM, 12 yrs and above ([employer]) 09/22/2022 H1N1 2009 Influenza, IM 10/23/2009 Pneumococcal [...] Passive Smoke Exposure: Past Smokeless Tobacco: Never Tobacco Cessation:Counseling Given: Not Answered Comments:exposed to second hand smoke Alcohol Use Standard Drinks/Week Comments No [...] on file documented as of this encounter Last Filed Vital Signs Vital Sign Reading Time Taken Comments Blood Pressure - - Pulse - - Temperature 36.9 C (98.4 F) 08/15/2024 1:31 PM ED T Respiratory Rate - - Oxygen Saturation - - Inhaled Oxygen Concentration - - Weight 64.4 kg (142 lb) 08/15/2024 1:31 PM EDT Height - - Body Mass Index 26.83 07/12/2024 7:40 AM EDT documented in this encounter Progress Notes * Umesh Brewster MD - 08/15/2024 1:51 PM EDT [facility] ([facility] follow up Previous Visit Plan from 07/2023 reviewed. Reason for visit: Patient seen today for further follow-up/evaluation of osteoporosis. She is on fosamax. No missed doses. She is on calcium, vit D. She also is taking b supplements and collagen supplements. Reviewed recent labs. She had a bone density test done today, can not compare to the previous studies. Overall look similar to previous DEXA. Bone Health Summary: Risks: Falls since last [facility] visit: yes Personal History of Fx since last [facility] Visit: no Prevention: Exercise : 3 or more times weekly: No Nutrition: eats calcium rich foods, Yes Gait: unsteady with walking, Yes, use of cane/walker, Yes, walker Calcium and Vitamin D supplements in adequate doses: Yes ROS: . Constitutional: normal . Head normal . Eyes: normal . Ears, nose, throat, mouth: normal . Cardiovascular: normal . Respiratory: normal . Gastrointestinal: normal . Musculoskeletal: back pain . Genitourinary: incontinence Medications: Current Outpatient Medications Medication Sig Dispense Refill CALCIUM 500 500 MG PO TABS Take 500 mg by mouth daily. WILBER-C/BIOFLAVONOIDS PO TABS None Entered OMEGA 3 1000 MG PO CAPS daily GLUCOSAMINE CHONDR COMPLEX 500-400 MG PO CAPS one daily CRANBERRY 1000 MG PO CAPS 2 daily BIOTIN 5000 MCG PO CAPS 1 cap daily ALPHA-LIPOIC ACID 600 MG PO CAPS 1 tablet daily COQ10 100 MG PO CAPS 1 daily PROBIOTIC ACIDOPHILUS PO CAPS 1 daily TURMERIC 450 MG PO CAPS Take by mouth. 1000 mg, 5 times a day Cholecalciferol (VITAMIN D3) 86951 units Capsule Take 1 Capsule by mouth once a week. Multiple Vitamins-Minerals (HAIR/SKIN/NAILS) CAPS daily. folic acid 1 MG Tablet Take 1 Tablet by mouth in the morning. Misc Natural Products (NEURO-ESSENTIALS) TABS Take by mouth. zinc gluconate 50 MG Tablet Take 1 Tablet by mouth in the morning. Lutein 40 MG Oral Capsule Take by mouth. Bilberry Plus Oral Capsule Take by mouth. Black Elderberry(Nguyen-Flower) 575 MG Oral Capsule Take by mouth. B Complex-B12 Oral Tablet Take by mouth. Diapers & Supplies pull up diapers. use up to 3 times per night. dx 788.30 lifetime use 90 Each3 Collagen Ultra Oral Capsule Take by mouth. Vitamin K 100 MCG Oral Tablet Take by mouth. B Complex Plus Oral Tablet Take by mouth . Vibegron 75 MG Oral Tablet Take 1 Tablet by mouth in the morning. Cognitive Health 500 MG Oral Capsule (Citicoline) Take by mouth daily. Sucralfate 1 GM Oral Tablet (Carafate) TAKE 1 TAB BY MOUTH 4 TIMES A DAY BEFORE MEALS AND AT BEDTIME. (Patient taking differently: Take 1 Tablet by mouth in the morning and 1 Tablet at noon and 1 Tablet before bedtime.) 360 Tablet 2 [facility] Health Triple Action 40-5-3.3 MG Oral Tablet (Dfmhlhdo-Oudpy-Dszcxiurtg Acid) Take by mouth. Loratadine 10 MG Oral Tablet (Claritin) TAKE 1 TABLET BY MOUTH EVERY DAY 90 Tablet 3 guaiFENesin ER 600 MG Oral Tablet Extended Release 12 Hour (Mucinex) Take 1 Tablet by mouth 2 timesa day as needed for Congestion. Take with plenty of water. Do not cut, crush or chew 40 Tablet 2 Fluticasone Propionate 50 MCG/ACT Nasal Suspension (Flonase) SPRAY 2 SPRAYS INTO EACH NOSTRIL EVERYDAY 48 mL 3 Gabapentin 100 MG Oral Capsule (Neurontin) Take 2 capsules by mouth twice daily 360 Capsule 2 Omeprazole 20 MG Oral Capsule Delayed Release (PriLOSEC) TAKE 1 CAPSULE BY MOUTH 1 HOUR PRIOR TO THE FIRST MEAL OF THE DAY 90 Capsule 2 Alendronate Sodium 70 MG Oral Tablet (Fosamax) TAKE 1 TABLET BY MOUTH ONE TIME PER WEEK 12 Tablet 0 Simvastatin 40 MG Oral Tablet (Zocor) TAKE 1 TABLET BY MOUTH EVERYDAY AT BEDTIME 90 Tablet 3 Valsartan 40 MG Oral Tablet (Diovan) TAKE 1 TABLET BY MOUTH EVERY DAY 90 Tablet 1 Hydrocortisone 1 % External Cream daily. To affected area. No current facility-administered medications for this visit. Social History: Social History Tobacco Use Smoking status: Never Passive exposure: Past Smokeless tobacco: Never Tobacco comments: exposed to second hand smoke Vaping Use Vaping status: Never Used Substance Use Topics Alcohol use: No Drug use: No Physical Exam: Temp 36.9 C (98.4 F) (Infrared ) | Wt 64.4 kg (142 lb) | LMP 08/01/2007 | BMI 26.83 kg/m | BSA 1.66 m General: alert, no distress, and well nourished Heart: regular rate & rhythm and no gallops Lungs: clear to auscultation , no rales, wheezes or rhonchi Abdomen: abdomen soft, non-tender, and normal bowel sounds Musculoskeletal Exam: Thoracic kyphosis noted Good muscle strength Assessment: (M81.0) Senile osteoporosis (primary encounter diagnosis) 68 year old female with osteoporosis who is on Fosamax. Will continue with treatment. Will get somevitamin-B level labs at our request. Plan: The following items are ordered or are in progress: 1. Education: Osteoporosis education was provided by the [facility] team (topics included disease process, DXA, calcium/vitamin D, osteoporosis medications - including administration instructions and risks/benefits, weight bearing exercise, fall prevention/safety). 2. Prevention: . Fall Prevention/Safety Education recommended and discussed . Continue calcium rich foods (goal of 3 servings daily) 3. Osteoporosis Medications : Fosamax 70 mg once weekly (take it first thing in the morning on an empty stomach with large glass of water - and wait 30 min sitting or standing, prior to eating or drinking anything else) 4. Bone Density Testing: due 2 year(s) from previous 5. Laboratory: Vit B6, 12 levels 6. Followup: Return to [facility] clinic in 1 year Umesh Brewster MD [facility] Team documented in this encounter Nursing Notes * Alana Messina LPN - 08/15/2024 1:27 PM EDT Chief Complaint Patient presents with Rheum Follow Up Follow up - SYD pt had DEXA scan today documented in this encounter Plan of Treatment Upcoming Encounters Date Type Department Care Team (Late st Contact Info) Description 08/31/2024 12:35 PM EST Office Visit Urogynecology [facility] [address] [place] [address] Joellen Donnelly PA-C [address] [place] [address] Nurse [facility] [address] [place] [address] 09/05/2024 11:00 AM EST Scheduled Telephone Inter[facility] [address] [place] [address] [place] Nurse Phone Call Interventional Pain [facility] [address] [place] [address] 10/03/2024 11:00 AM EST Office Visit Inter[facility] [address] [facility] [place] [address] Jany Pederson PA-C [address] [facility] [place] [address] 11/13/2024 1:30 PM EST Office Visit Neurology [facility] [address] [facility] [place] [address] Lidia Rashid PA-C [facility] [place] [address] 11/16/2024 1:20 PM EST Office Visit Dermatology [facility] [address] [facility] [place] [address] Connie Pires PA-C [address] [place] [address] 01/11/2025 1:20 PM EDT Office Visit [place] [address] [place] [address] Jose Esposito MD [address] [place] [address] 02/22/2025 11:20 AM EDT Office Visit Sleep Disorders Ctr [facility] [address] [place] [phone] Mitali Garcia, [address] [place] [address] 08/16/2025 1:40 PM EDT Office Visit Rheumatology [place] [address] [employer] [place] [address] Umesh Brewster MD [facility] [place] [address] Scheduled Orders Name Type Priority Associated Diagnoses Orde r Schedule VITAMIN B12 Lab Routine Senile osteoporosis Expected: 08/15/2024, Expires: 08/15/2025 VITAMIN B6, PLASMA Lab Routine Senile osteoporosis Expected: 08/15/2024, Expires: 08/15/2025 Health Maintenance Due Date Last Done Comments Fecal Occult Blood Test 1998 Sigmoidoscopy 1998 Cologuard 07/04/2021 07/04/2018 Adult Wellness Visit 11/17/2023 11/17/2022, 09/23/20 21 COVID-19 Vaccine ( season) 2024 09/22/2022, 09/12/2021, 01/29/2021, Additional history exists DXA Scan 08/02/2024 08/02/2022, 07/17, 01/12/2016, Additional history exists Depression Monitoring 12/29/2024 12/30/2023 GFR 02/28/2025 02/29/2024, 0804/2023, 02/08/2022, Additional history exists Mammogram 05/23/2025 05/23/2024, [...] D LEVEL ONCE IN A LIFETIME-USE SMARTSET# [id number] Completed 07/04/2024, 05/23/2023, 02/08/2022, Additional history exists [...] Not on filedocumented as of this encounter Visit Diagnoses Diagnosis Senile osteoporosis- Primary documented in this encounter Advance Directives * Full Code (Latest Code Status on File) Date Activated Date Inactivated Comments 09/16/2017 8:25 AM 09/16/2017 3:25 PM This order r eflects the patients wishes and were consensually agreed upon. * Full Code Date Activated Date Inactivated Comments 08/26/2017 11:20 AM 08/26/2017 6:35 PM This orde r reflects the patients wishes and were consensually agreed upon. Care Teams Bench Repair Technician Relationship Specialty Start Date End Date Phillip Mulligan MD [address] [place] [address] PCP - General Family Medicine 12/10/20 documented as of this encounter"
--- OUTSIDE RECORDS SUMMARY | 2024-09-13 11:52 | External Medical Summary | Summary of Care ---
Author Name Unknown Organization [facility] Address [address] [facility] [place] [address] Phone [phone] Care Team Providers Care Maintenance Service Supervisor Name Role Phone Jose Esposito MD Primary Care Provider [phone] Reason for Visit * Reason Onset Date Comments Nurse Telephone Follow Up 09/05/2024 Encounter Details Date Type Department Care Team (Late st Contact Info) Description 09/05/2024 11:00 AM EST Scheduled Telephone Interventional Pain Center, [facility] [address] [place] [address] [facility] Nurse Phone Call Interventional Pain [facility] [address] [place] [address] Allergies Active Allergy Reactions Criticality Noted Date Comments Braeden Inhibitors Cough 06/22/2012 Amoxicillin 11/24/2005 Diarrhea Clavulanic Acid High 05/25/2023 Other Reaction(s): DIARRHEA Doxycycline Rash Low 02/08/2022 documented as of this encounter (statuses as of 09/05/2024) Medications CALCIUM 500 500 MG PO TABS [...] times a day Active Cholecalciferol (VITAMIN D3) 87926 units Capsule Take 1 Capsule by mouth [...] taking differently:1 g OralTID(AM/NOON/HS), Reported on 05/01/2024 [facility] Triple Action 40-5-3.3 MG Oral Tablet (Collagen-Hitchcock- Hyaluronic Acid) Take by mouth. Active Loratadine [...] as of this encounter (statuses as of 09/05/2024) Active Problems Problem Noted Date Diagnosed Date [...] as of this encounter (statuses as of 09/05/2024) Resolved Problems Problem Noted Date Diagnosed Date Resolved Date Hearing loss of left ear due to cerumen impaction 08/19/2023 02/20/2024 Symptom of leg swelling 08/19/2023 05/0 03/2024 Chronic pain of right ankle 03/18/2023 06/22/2023 Trigger thumb of left hand 08/02/2022 1 12/14/2021 Malaise and fatigue 02/19/2022 02/25/20 MADDOX (dyspnea on exertion) 02/19/2022 RAMU (generalized [...] as of this encounter (statuses as of 09/05/2024) Immunizations Name Administration Dates Next Due COVID-19 mRNA, LNP-s, No Pre serve, 2-Dose Series ([employer]) 09/12/2021,01/29/2021,01/08/2021 Covid-19, Mrna, Lnp-s, Pf, B ivalent, [...] encounter Miscellaneous Notes * Telephone Encounter - Jany Pederson PA-C - 09/05/2024 3:11 PM EST Noted. 80% pain relief following VICKY. Agree, can consider repeat on PRN basis. * Telephone Encounter - Tatyana Gutierrez LPN - 09/05/2024 2:14 PM EST Patient reports improvement 80% after injection. Has appt next month to discuss lumbar pain. Will f/u on cspine as needed. * Telephone Encounter - Tatyana Gutierrez LPN - 09/05/2024 10:10 AM EST C7-T1 interlaminar epidural steroid injection on the left side on 07/30/24 No answer. documented in this encounter Plan of Treatment Upcoming Encounters Date Type Department Care Team (Late st Contact Info) Description 10/03/2024 11:00 AM EST Office Visit Interventional Pain Center, [facility] [address] [facility] [place] [address] Jany Pederson PA-C 132 [facility] [place] [address] 11/13/2024 1:30 PM EST Office Visit Neurology [facility] [address] [facility] [place] [address] Lidia Rashid PA-C [address] [place] [address] 11/16/2024 1:20 PM EST Office Visit Dermatology [facility] [address] [place] [address] Connie Pires PA-C [address] [facility] [place] [address] 01/11/2025 1:20 PM EDT Office Visit [facility] [address] [phone] Jose Esposito MD [address] [place] [address] 02/22/2025 11:20 AM EDT Office Visit Sleep Disorders Ctr [facility] [address] [place] [phone] Mitali Garcia DO [address] [place] [address] 08/16/2025 1:40 PM EDT Office Visit Rheumatology [facility] [address] [place] [address] Umesh Brewster MD [address] [employer] [place] [address] Health Maintenance Due Date Last Done Comments [...] D LEVEL ONCE IN A LIFETIME-USE SMARTSET# [id number] Completed 07/04/2024, 05/23/2023, 02/08/2022, Additional history exists [...] and were consensually agreed upon. Care Teams Maintenance Service Supervisor Relationship Specialty Start Date End Date Jose Esposito MD [facility] [place] [address] PCP - General Internal Medicine 09/04/24 documented as of this encounter
--- OUTSIDE RECORDS SUMMARY | 2024-09-13 11:52 | External Medical Summary | Summary of Care ---
Author Name Unknown Organization [facility] Address [address] [facility] [place] [address] Phone [phone] Care Team Providers Care Preforms Laminator Name Role Phone Jose Esposito MD Primary Care Provider [phone] Reason for Visit * Reason Onset Date Comments Nurse Telephone Follow Up 09/05/2024 Encounter Details Date Type Department Care Team (Late st Contact Info) Description 09/05/2024 11:00 AM EST Scheduled Telephone Interventional Pain Center, [facility] [address] [place] [address] [facility] Nurse Phone Call Interventional Pain [facility] [address] [facility] [place] [address] Allergies Active Allergy Reactions Criticality Noted Date [...] times a day Active Cholecalciferol (VITAMIN D3) 82180 units Capsule Take 1 Capsule by mouth [...] taking differently:1 g OralTID(AM/NOON/HS), Reported on 05/01/2024 [facility] Triple Action 40-5-3.3 MG Oral Tablet (Collagen-[place]- Hyaluronic Acid) Take by mouth. Active Loratadine [...] Overview (07/18/2017): ICD-10 update of inactive term BRAEDNE inhibitor intolerance 06/22/2012 Contusion of toe 09/08/2010 [...] mRNA, LNP-s, No Pre serve, 2-Dose Series ([employer]) 09/12/2021,01/29/2021,01/08/2021 Covid-19, Mrna, Lnp-s, Pf, B ivalent, [...] encounter Miscellaneous Notes * Telephone Encounter - Tatyana Gutierrez LPN [...] AM EST Office Visit Interventional Pain Center, [facility] [address] [place] [address] Jany Pederson PA-C 132 [facility] [place] [address] 11/13/2024 1:30 PM EST Office Visit Neurology [facility] [address] [facility] [place] [address] Lidia Rashid PA-C [address] [place] [address] 11/16/2024 1:20 PM EST Office Visit Dermatology [facility] [address] [facility] [place] [address] Connie Pires PA-C [address] [facility] [place] [address] 01/11/2025 1:20 PM EDT Office Visit [facility] [address] [facility] [address] Jose [facility] [address] [facility] [address] 02/22/2025 11:20 AM EDT Office Visit Sleep Disorders Ctr [facility] [address] [place] [phone] GarciaLucadavid Christensen, DO [address] [place] [address] 08/16/2025 1:40 PM EDT Office Visit Rheumatology [place] [address] [employer] [place] [address] Umesh Brewster MD [facility] [employer] [place] [address] Health Maintenance Due Date Last Done Comments [...] D LEVEL ONCE IN A LIFETIME-USE SMARTSET# [id number] Completed 07/04/2024, 05/23/2023, 02/08/2022, Additional history exists [...] and were consensually agreed upon. Care Teams Preforms Laminator Relationship Specialty Start Date End Date Jose Esposito MD [address] [place] [address] PCP - General Internal Medicine 09/04/24 documented as of this encounter
--- OUTSIDE RECORDS SUMMARY | 2024-09-13 11:52 | External Medical Summary | Summary of Care ---
Author Name Unknown Organization [facility] Address [address] [place] [address] Phone [phone] Care Team Providers Care Flavoring Machine Operator Name Role Phone Phillip Mulligan MD Primary Care Provider [phone] Reason for Visit * Reason Onset Date Comments Letter Requests 05/22/2024 Encounter Details Date Type Department Care Team (Late st Contact Info) Description 05/22/2024 Telephone Family Practice [facility] [address] [place] [address] Phillip Mulligan MD [address] [place] [address] Letter Requests Allergies Active Allergy Reactions Criticality Noted Date Comments Bra[place] Inhibitors Cough 06/22/2012 Amoxicillin 11/24/2005 Diarrhea Clavulanic Acid High 05/25/2023 Other Reaction(s): DIARRHEA Doxycycline Rash Low 02/08/2022 documented as of this encounter (statuses as of 08/21/2024) Medications Medication Sig Dispensed Refills Start Date End Date Status CALCIUM 500 500 MG PO TABS Take 500 mg by mouth daily. Active WILBER-C/BIOFLAVO NOIDS PO TABS None Entered Active OMEGA 3 [...] times a day Active Cholecalciferol (VITAMIN D3) 57160 units Capsule Take 1 Capsule by mouth once a week. Active Multiple Vitamins-Mineral s (HAIR/SKIN/NAILS ) CAPS daily. Active folic acid 1 MG Tablet Take 1 Tablet by mouth in the morning. Active Misc Natural Products (NEURO-ESSENTIAL S) TABS Take by mouth. Active zinc gluconate 50 MG Tablet Take 1 Tablet by mouth in the morning. Active Lutein 40 MG Oral Capsule Take by mouth. Active Bilberry Plus Oral Capsule Take by mouth. Active Black Elderberry(Nguyen -Flower) 575 MG Oral Capsule Take by mouth. Active B Complex-B12 Oral Tablet Take by mouth. Active Diapers & SuppliesIndicati ons:Multiple sclerosis (HCC),Unspecifie d urinary incontinence pull up diapers. use up to 3 times per night. dx 788.30 lifetime use 90 Each 3 1 Active Collagen Ultra Oral Capsule Take by mouth. Active Vitamin K 100 MCG Oral Tablet Take by mouth. Activ e B Complex Plus Oral Tablet Take by [...] taking differently:1 g OralTID(AM/NOON/HS), Reported on 05/01/2024 [facility] Triple Action 40-5-3.3 MG Oral Tablet (Collagen-[place]- Hyaluronic Acid) Take by mouth. Acti ve Loratadine 10 MG Oral Tablet (Claritin)Indica tions:Allergic [...] THE DAY 90 Capsule 2 4 Active MILK THISTLE 140 MG PO CAPS Take by mouth. 08/15/20 24 Discontinued(Med ication List Clean Up) GRAPE SEED OIL Use as directed. 08/15/20 24 Discontinued(Med ication List Clean Up) Cyanocobalamin (VITAMIN B-12) 1000 MCG Tablet Take 1 Tablet by mouth in the morning. 08/15/20 24 Discontinued(Med ication List Clean Up) Hyaluronic Acid 20-60 MG Oral Capsule Take by mouth. 08/15/20 Discontinued(Med ication List Clean Up) Oil of Oregano 1500 MG Oral Capsule Take by mouth. 08/15/20 24 Discontinued(Med ication List Clean Up) Alendronate Sodium 70 MG Oral Tablet (Fosamax) TAKE 1 TABLET BY MOUTH ONE TIME PER WEEK 12 Tablet 4 3 06/26/20 24 Discontinued [facility] Oral Capsule Take by mouth. 08/15/20 24 Discontinued(Med ication List Clean Up) Simvastatin 40 MG Oral Tablet (Zocor) TAKE 1 TABLET BY MOUTH EVERYDAY AT BEDTIME 90 Tablet 3 3 06/30/20 24 Discontinued Valsartan 40 MG Oral Tablet (Diovan) TAKE 1 TABLET BY MOUTH EVERY DAY 90 Tablet 1 4 07/14/20 24 Discontinued documented as of this encounter (statuses as of 08/21/2024) Active Problems Problem Noted Date Diagnosed Date [...] as of this encounter (statuses as of 08/21/2024) Resolved Problems Problem Noted Date Diagnosed Date [...] as of this encounter (statuses as of 08/21/2024) Immunizations Name Administration Dates Next Due COVID-19 mRNA, LNP-s, No Pre serve, 2-Dose Series (Pfizer) 09/12/2021,01/29/2021,01/08/2021 Covid-19, Mrna, Lnp-s, Pf, B ivalent, [...] Telephone Encounter - Basilia Dean LPN - 05/23/2024 2:19 PM EDT Pt stopped by office today, asked about a form that needed completed Found form in PCP office Completed and faxed as requested * Telephone Encounter - Ronnell Liu OSA - 05/22/2024 3:31 PM EDT Patient received a grievance letter from [employer] [facility] that hours of services through [facility] for4 hours of help a week has been cut. . Sydney was advised to contact Dr. Mulligan for letter. Has lostthe help temporarily. Is requesting for letter from Dr. Mulligan to continue services to get the 4 hours of help through [facility]. [facility] x 1 Thank you documented in this encounter Plan of Treatment Upcoming Encounters Date Type Department Care Team (Late st Contact Info) Description 09/05/2024 11:00 AM EST Scheduled Telephone [facility], [facility] [address] [place] [address] Diane, Nurse Phone Call Interventional [facility] [address] [place] [phone] 10/03/2024 11:00 AM EST Office Visit [facility], [facility] [address] [place] [address] Jany Pederson PA-C [address] [place] [address] 11/13/2024 1:30 PM EST Office Visit Neurology [facility] [address] [place] [address] Lidia Rashid PA-C [address] [place] [address] 11/16/2024 1:20 PM EST Office Visit Dermatology [facility] [address] [place] [address] Connie Pires PA-C [address] [facility] [place] [address] 01/11/2025 1:20 PM EDT Office Visit [facility] [place] [address] [place] [address] Jose Esposito MD [address] [place] [address] 02/22/2025 11:20 AM EDT Office Visit Sleep Disorders Ctr [facility] [address] [place] [phone] Mitali Garcia DO [address] [place] [address] 08/16/2025 1:40 PM EDT Office Visit Rheumatology [place] [id number] [facility] [place] [address] Umesh Brewster MD [facility] [place] [address] Health Maintenance Due Date Last Done Comments [...] D LEVEL ONCE IN A LIFETIME-USE SMARTSET# [id number] Completed 07/04/2024, 05/23/2023, 02/08/2022, Additional history exists [...] and were consensually agreed upon. Care Teams Flavoring Machine Operator Relationship Specialty Start Date End Date Phillip Mulligan MD [address] [place] [id number] PCP - General Family Medicine 12/10/20 documented as of this encounter
--- OUTSIDE RECORDS SUMMARY | 2024-09-13 11:53 | External Medical Summary | Summary of Care ---
Author Name Unknown Organization [facility] Address [address] [place] [address] Phone [phone] Care Team Providers Care Block Feeder Name Role Phone Phillip Mulligan MD Primary Care Provider [phone] Reason for Referral * Evaluate & Treat - Unlimited Visits (Within 10 days (routine)) - Pending Review Specialty Diagnoses / Procedures Referred By Contac t Referred To Contact Dietitian / Nutrition Services Diagnoses Multiple sclerosis (HCC) Jose Esposito MD [address] [place] [address] Referral ID Status Reason Start Date Expiration Date Visits Requested Visits Authorized [id number] Pending Review Specialty Services Required 07/12/[phone] Question Answer Referral Priority Within 10 days (routine) Where should this appointment be scheduled? [facility] What condition is the patient being seen for? All other conditions Other: Malnutrition/ Increase nutrient intake Is this for 65 Forward? No Comments Medical Nutrition Therapy * Evaluate & Treat - Unlimited Visits (Within 10 days (routine)) - Pending Review Specialty Diagnoses / Procedures Referred By Contac t Referred To Contact HOME CARE / Home Care Diagnoses Multiple sclerosis (HCC) Right foot drop Neurogenic bladder Venous insufficiency Jose Esposito MD [address] [place] [address] Referral ID Status Reason Start Date Expiration Date Visits Requested Visits Authorized [id number] Pending Review Specialty Services Required 07/12/[phone] Question Answer Referral Priority Within 10 days (routine) Where should this appointment be scheduled? [facility] Comments Documentation of Bfxg-nu-Mabq Encounter Addendum Patient Name: Sydney Galeano I certify that this patient is under my care and that I, or a nurse practitioner or physician's claims assistant working with me, had a ildq-jh-ptjj encounter that meets the physician xkwb-pl-lqhj encounter requirements with this patient on: Jul 12 2024 The encounter with the patient was in whole, or in part, for the following medical condition, which is the primary reason for home health care (List medical condition): Medication management, gait difficult I certify that, based on my findings, the following services are medically necessary home health services: Nursing and Physical Therapy To provide the following care/treatments: (All hospitalists not following the patient after discharge should complete this section): nursing, PT Primary Care Physician to follow home care plan of care after discharge: Jose Esposito My clinical findings support the need for the above services because: weakness, due to multiple sclerosis , arthralgia , gait difficult Further, I certify that my clinical findings support that this patient is homebound (i.e. Absences from home require considerable and taxing effort and are for medical reasons or anabaptism services or infrequently or of short duration when for other reason) because: MS, not able to drive Physician Signature: Date of Signature: Physician Printed Name: Jose Esposito MD Reason for Visit * Reason Comments Follow Up Patient is here toda y for a 6 mo follow up. Patient states she is currently having dental work completed and she has questions as to why she is now being charged $800 due to missed issues in her sinuses that cause issues in her teeth. Patient states she would like to discuss home-care due to her MS progressing. Patient would also like to discuss her CPAP. Patient would like to discuss further testing. Patient would like to discuss west nile virus. Encounter Details Date Type Department Care Team (Late st Contact Info) Description 07/12/2024 7:40 AM EDT Office Visit [facility] [address] [place] [address] Jose Esposito MD [address] [place] [address] Multiple sclerosis (HCC)*; Mild obstructive sleep apnea; HTN, goal below 130/80; Right foot drop; Neurogenic bladder; Venous insufficiency; Depression with anxiety; Ataxia Allergies Active Allergy Reactions Criticality Noted Date Comments Braeden Inhibitors Cough 06/22/2012 Amoxicillin 11/24/2005 Diarrhea Clavulanic Acid High 05/25/2023 Other Reaction(s): DIARRHEA Doxycycline Rash Low 02/08/2022 documented as of this encounter (statuses as of 07/12/2024) Medications Medication Sig Dispensed Refills Start Date End Date Status CALCIUM 500 500 MG PO TABS Take 500 mg by mouth daily. Active WILBER-C/BIOFLAVONOI DS PO TABS None Entered Active MILK THISTLE [...] Active PROBIOTIC ACIDOPHILUS PO CAPS 1 daily Activ e GRAPE SEED OIL Use as directed. Acti ve TURMERIC 450 MG PO CAPS Take by mouth. 1000 mg, 5 times a day Active Cholecalciferol (VITAMIN D3) 75704 units Capsule Take 1 Capsule by mouth once a week. Active Multiple Vitamins-Minerals (HAIR/SKIN/NAILS) CAPS daily. Active Cyanocobalamin (VITAMIN B-12) 1000 MCG Tablet Take 1 Tablet by mouth in the morning. Active folic acid 1 MG Tablet Take 1 Tablet by mouth in the morning. Active Misc Natural Products (NEURO-ESSENTIALS) TABS Take by mouth. Active zinc gluconate 50 MG Tablet Take 1 Tablet by mouth in the morning. Active Lutein 40 MG Oral Capsule Take by mouth. Active Bilberry Plus Oral Capsule Take by mouth. Active Black Elderberry(Nguyen-Fl ower) 575 MG Oral Capsule Take by mouth. Active B Complex-B12 Oral Tablet Take by mouth. Active Hyaluronic Acid 20-60 MG Oral Capsule Take by mouth. Active Oil of Oregano 1500 MG Oral Capsule Take by mouth. Activ e Diapers & SuppliesIndications :Multiple sclerosis (HCC),Unspecified urinary incontinence pull up diapers. [...] Health Triple Action 40-5-3.3 MG Oral Tablet (Pppmrodl-Zeddj-Bmu luronic Acid) Take by mouth. Active Loratadine 10 MG Oral Tablet (Claritin)Indicatio ns:Allergic rhinitis TAKE 1 TABLET BY MOUTH EVERY DAY 90 Tablet 3 07/18/2023 Active guaiFENesin ER 600 MG Oral Tablet Extended Release 12 Hour (Mucinex) Take 1 Tablet by mouth 2 times a day as needed for Congestion. Take with plenty of water. Do not cut, crush or chew 40 Tablet 2 09/13/2023 Active Fluticasone Propionate 50 MCG/ACT Nasal Suspension (Flonase)Indication s:Allergic rhinitis SPRAY 2 SPRAYS INTO EACH NOSTRIL EVERY DAY 48 mL 3 10/31/2023 Active Gabapentin 100 MG Oral Capsule (Neurontin) Take 2 capsules by mouth twice daily 360 Capsule 2 12/06/2023 Active Valsartan 40 MG Oral Tablet (Diovan) TAKE 1 TABLET BY MOUTH EVERY DAY 90 Tablet 1 12/08/2023 Active Omeprazole 20 MG Oral Capsule Delayed Release (PriLOSEC)Indicatio ns:Gastroesophageal reflux disease TAKE 1 CAPSULE BY MOUTH 1 HOUR PRIOR TO THE FIRST MEAL OF THE DAY 90 Capsule 2 04/23/2024 Active Alendronate Sodium 70 MG Oral Tablet (Fosamax) TAKE 1 TABLET BY MOUTH ONE TIME PER WEEK 12 Tablet 06/26/2024 Active Simvastatin 40 MG Oral Tablet (Zocor) TAKE 1 TABLET BY MOUTH EVERYDAY AT BEDTIME 90 Tablet 3 06/30/2024 Active documented as of this encounter (statuses as of 07/12/2024) Active Problems Problem Noted Date Diagnosed Date [...] as of this encounter (statuses as of 07/12/2024) Resolved Problems Problem Noted Date Diagnosed Date [...] as of this encounter (statuses as of 07/12/2024) Immunizations Name Administration Dates Next Due COVID-19 mRNA, LNP-s, No Pre serve, 2-Dose Series (Blippex) 09/12/2021,01/29/2021,01/08/2021 Covid-19, Mrna, Lnp-s, Pf, B ivalent, 30 Mcg, IM, 12 yrs and above (Pfizer) 09/22/2022 H1N1 2009 Influenza, IM 10/23/2009 Pneumococcal Conjugate Vacc, 13 Valent (Prevnar) 02/19/2019 Pneumococcal Polysaccharide PPV23 (Pneumovax) 04/14/2020 Season Influenza, Quad, PF, Adjuvanted, 65+ Yrs, IM (FLUAD) 08/01/2020 Seasonal Influenza, High Dos e, Trivalent, PF, IM (Fluzone HD) 07/04/2024 Seasonal Influenza, PF, 6 M & above, IM , (FluLaval or Fluzone) 06/28/2018,07/25/2017 Seasonal Influenza, Quadriva lent Hd (Fluzone Hd) 07/06/2023,07/13/2022,08/10/2021 Seasonal Influenza, Quadriva lent, No Preserve, IM 07/19/2016,07/24/2015 Seasonal Influenza, Trivalen t, (IIV3), with Preserv, (Fluzone) 07/08/2014,08/03/2013,06/22/2012,06/29,07/07/2010,10/23/2009,10/14/2008 Seasonal Influenza, Trivalen t, Adjuvanted, 65+ YRS, [...] Sign Reading Time Taken Comments Blood Pressure 132/72 07/12/2024 7:40 AM EDT Pulse 88 07/12/2024 7:40 AM EDT Temperature 36.5 C (97.7 F) 07/12/2024 7:40 AM ED T Respiratory Rate 16 07/12/2024 7:40 AM EDT Oxygen Saturation 98% 07/12/2024 7:40 AM EDT Inhaled Oxygen Concentration - - Weight 64.1 kg (141 lb 6.4 oz) 07/12/2024 7:40 A M EDT Height 154.9 cm (5' 1") 07/12/2024 7:40 AM EDT Body Mass Index 26.72 07/12/2024 7:40 AM EDT documented in this encounter Progress Notes * Jose Esposito MD - 07/12/2024 7:50 AM EDT Subjective Sydney Galeano is a 68 year old female. Chief Complaint Patient presents with Follow Up Patient is here today for a 6 mo follow up. Patient states she is currently having dental work completed and she has questions as to why she isnow being charged $800 due to missed issues in her sinuses that cause issues in her teeth. Patient states she would like to discuss home-care due to her MS progressing. Patient would also like to discuss her CPAP. Patient would like to discuss further testing. Patient would like to discuss west nile virus. HPI: Here to discuss about several things Would like to get home health for nursing, PT - would like to check medication too Known multiple sclerosis , f/u with neuro every 6 mo Pt shows some speech difficulty, known neurogenic bladder , rt foot drop due to MS Currently not taking any med Used to take prednisone for flare up by neuro Needs covid vaccine Gets legs swelling , mild venous insuff Advised to get compression stockings Difficult to wear them, so asking for sleeve for legs Asking for nutrition referral again Hypertension Taking medication as prescribed, see med list. No medication side effects noted. Advised patient tokeep healthy life style, regular exercise with good diet, alecia. low sodium diet. And also check BP at home too. Denies associated chest discomfort, chest heaviness, chest pressure, chest tightness, palpitations and shortness of breath. Depression anxiety Uses CPAP -should f/u with sleep medicine PMH: Patient Active Problem List Diagnosis Multiple sclerosis (HCC) HTN, goal below 130/80 Senile osteoporosis Dyslipidemia Neurogenic bladder Ataxia Impingement syndrome of right shoulder Overweight (BMI 25.0-29.9) Depression with anxiety DDD (degenerative disc disease), cervical DDD (degenerative disc disease), lumbar Right foot drop Mild obstructive sleep apnea Chronic rhinitis Venous insufficiency Current Outpatient Medications Medication Sig Dispense Refill [...] 5 times a day Cholecalciferol (VITAMIN D3) 88909 units Capsule Take 1 Capsule by mouth once a week. Multiple Vitamins-Minerals (HAIR/SKIN/NAILS) CAPS daily. Cyanocobalamin (VITAMIN B-12) 1000 MCG Tablet Take [...] B Complex-B12 Oral Tablet Take by mouth. Hyaluronic Acid 20-60 MG Oral Capsule Take by mouth. Oil of Oregano 1500 MG Oral Capsule Take by mouth. Diapers & Supplies pull up diapers. use up to 3 times per night. dx 788.30 lifetime use 90 Each3 Collagen Ultra Oral Capsule Take by mouth. Vitamin K 100 MCG Oral Tablet Take by mouth. B Complex Plus Oral Tablet Take by mouth . Vibegron 75 MG Oral Tablet Take 1 Tablet by mouth in the morning. Sucralfate 1 GM Oral Tablet (Carafate) TAKE 1 TAB BY MOUTH 4 TIMES A DAY BEFORE MEALS AND AT BEDTIME. (Patient taking differently: Take 1 Tablet by mouth in the morning and 1 Tablet at noon and 1 Tablet before bedtime.) 360 Tablet 2 [facility] Oral Capsule Take by mouth. [facility] Triple Action 40-5-3.3 MG Oral Tablet (Tfqdeawe-Slkvp-Eimunxfmof Acid) Take by mouth. Loratadine 10 MG [...] by mouth twice daily 360 Capsule 2 Valsartan 40 MG Oral Tablet (Diovan) TAKE 1 TABLET BY MOUTH EVERY DAY 90 Tablet 1 Omeprazole 20 MG Oral Capsule Delayed Release (PriLOSEC) TAKE 1 CAPSULE BY MOUTH 1 HOUR PRIOR TO THE FIRST MEAL OF THE DAY 90 Capsule 2 Alendronate Sodium 70 MG Oral Tablet (Fosamax) TAKE 1 TABLET BY MOUTH ONE TIME PER WEEK 12 Tablet 0 Simvastatin 40 MG Oral Tablet (Zocor) TAKE 1 TABLET BY MOUTH EVERYDAY AT BEDTIME 90 Tablet 3 MILK THISTLE 140 MG PO CAPS Take by mouth. (Patient not taking: Reported on 06/27/2024) GRAPE SEED OIL Use as directed. (Patient not taking: Reported on 05/01/2024) folic acid 1 MG Tablet Take 1 Tablet by mouth in the morning. Cognitive Health 500 MG Oral Capsule (Citicoline) Take by mouth daily. (Patient not taking: Reported on 05/01/2024) No current facility-administered medications for this visit. Past Medical History: Diagnosis Date Ataxia 08/10/2021 DDD (degenerative disc disease), cervical 01/26/2023 Depression with anxiety 01/26/2023 Dyslipidemia 12/10/2020 Dysplasia of cervix (uteri) s/p laser therapy RAMU (generalized anxiety disorder) 01/26/2022 Gastroesophageal reflux disease without esophagitis 08/20/2019 HTN, goal below 130/80 02/01/2013 Kidney stones 10/2017 Mild obstructive sleep apnea 06/22/2023 Multiple sclerosis (HCC) Hospitalized at [facility], presented appearing as a CVA. See problem list comments. Neurogenic bladder 01/26/2021 Osteoporosis, postmenopausal 07/28/2020 Overweight (BMI 25.0-29.9) 10/12/2022 Pulmonary nodule per 10/2018 CT scan, no further workup is needed Seasonal affective disorder (HCC) 08/10/2021 Sleep apnea, obstructive Special screening for osteoporosis normal, repeat scan in 2008 Past Surgical History: Procedure Laterality Date COLONOSCOPY, DIAGNOSTIC (RECTUM) 09/12/2018 fair prep, diverticulosis/INPT [facility] COLORECTAL CANCER SCREEN; NOT AT RISK 08/17/07 WNL CYSTOSCOPY 02-21-07 CYSTOURETERO W/LITHOTRIPSY Right 08/26/2017 CYSTOURETHROSCOPY URETEROSCOPY WITH LITHOTRIPSY performed by Coral Brito MD at OR [facility] CYSTOURETERO W/LITHOTRIPSY Right 09/16/2017 CYSTOURETHROSCOPY URETEROSCOPY WITH LITHOTRIPSY performed by Coral Brito MD at OR [facility] DILATION AND CURETTAGE (D&C) D&C DILATION URETER/URETHRA RADIOLOGICAL SUPERVISION AND INTERP 2003 urethral dilation DOBUTAMINE STRESS ECHO 04/30/2009 normal, done at [facility] INFORMATION 01-18-07/01-25-07 urodynamics x2 INJECT DX/THER SUBSTANCE INTERLAMINAR CERVICAL/THORACIC W IMAGE GUIDE 01/31/2023 INJECTION SPINE LUMBAR CERVICAL OR THORACIC performed by Jose David Mendez DO at OR [facility] INJECT DX/THER SUBSTANCE INTERLAMINAR LUMBAR/SACRAL W IMAGE GUIDE 06/06/2023 INJECTION SPINE LUMBAR OR SACRAL performed by Jose David Mendez DO at OR [facility] LAPAROSCOPY; CHOLECYSTECTOMY 08/05/2008 Cholecystectomy, Laproscopic LASER SURGERY OF CERVIX LENS EXTRACTION, PHACOFRAGMENTATION 06/15/2011 rt eye LIGATE/CUT OVIDUCT(S) Tubal Ligation REMOVE TONSILS & ADENOIDS, UNDER 12 Tonsillectomy/Adenoids,<12 Y/O Review of patient's allergies indicates: Allergen Reactions Clavulanic Acid Other Reaction(s): DIARRHEA Braeden Inhibitors Cough Augmentin [Amoxicillin] Diarrhea Doxycycline Rash Family History Problem Relation Name Age of Onset Heart attack Mother 81 fatal Alzheimer's disease Father at 90 COPD Father Heart attack Grandmother (Maternal) fatal Lung cancer Grandfather (Maternal) Breast Cancer Aunt (Maternal) Family Status Relation Status Mo Fa at age 90 alzhiemer, copd Sis Alive Sis Alive Bro MGMA at age 60's MA MGFA lung cancer, 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 PGMA swine flu PGFA unknown MAUNT (Not Specified) Social History Socioeconomic History Marital status: Single Spouse name: Not on file Number of children: Not on file Years of education: Not on file Highest education level: Not on file Occupational History Occupation: disabled Tobacco Use Smoking status: Never Passive exposure: Past Smokeless tobacco: Never Tobacco comments: exposed to second hand smoke Vaping Use Vaping status: Never Used Substance and Sexual Activity Alcohol use: No Drug use: No Sexual activity: Not Currently Partners: Male control/protection: Surgical Comment: BTL Other Topics Concern Not on file Social History Narrative Not on file Social Determinants of Health Financial Resource Strain: Low Risk (12/30/2023) Financial Resource Strain Do you have any trouble paying for your medications, or do you think you might in the future? (Adult - for ages 18 years and over): No Does your family have trouble paying for medicine? (Household - for ages 0-17 years): Not on file Food Insecurity: No Food Insecurity (12/30/2023) Food Insecurity Do you need food for this week? (Adult - for ages 18 years and over): No Are you able to get enough food for your family? (Household - for ages 0-17 years): Not on file Does your family need food this week? (Household - for ages 0-17 years): Not on file Do you always have enough food for your family? (Household - for ages 0-17 years): Not on file Transportation Needs: No Transportation Needs (12/30/2023) Transportation Needs Do you have trouble getting a ride to medical visits or work? (Adult - for ages 18 years and over):Never True Does your family have a hard time getting a ride to doctors visits? (Household - for ages 0-17 years): Not on file Has lack of transportation kept you from medical appointments, meetings, work, or from getting things needed for daily living? Check all that apply. (Adult - for ages 18 years and over): Not on file Do you (or your family) have trouble finding or paying for a ride (transportation)? (Household - for ages 0-17 years): Not on file Social Connections: Socially Integrated (12/30/2023) Social Connections How often do you feel lonely or isolated from those around you? (Adult - for ages 18 years and over): Never Housing Stability: Low Risk (12/30/2023) Housing Stability Do you currently live in a detention or have no steady place to sleep at night? (Adult - for ages 18 years and over): No Do you think you are at risk of becoming homeless? (Adult - for ages 18 years and over): No Does your family worry about paying for your home or becoming homeless? (Household - for ages 0-17 years): Not on file Are you homeless or worried that you might be in the future? (Adult - for ages 18 years and over): Not on file Are you (or your family) homeless or worried that you might be in the future? (Household - for ages0-17 years): Not on file Review of Systems Constitutional: Positive for fatigue. Negative for activity change, appetite change, chills, diaphoresis, fever and unexpected weight change. HENT: Positive for trouble swallowing (occ). Negative for hearing loss. Eyes: Negative for visual disturbance. Respiratory: Negative for cough, chest tightness, shortness of breath and wheezing. Cardiovascular: Positive for leg swelling (lower legs). Negative for chest pain and palpitations. Gastrointestinal: Negative for abdominal distention, abdominal pain, nausea and vomiting. Endocrine: Negative. Genitourinary: Urinary incontinence, neurogenic bladder Musculoskeletal: Positive for arthralgias, back pain, gait problem (walker, rt foot drop) and neck pain. Neurological: Positive for weakness (legs) and numbness. Negative for dizziness, tremors, light-headedness and headaches. Psychiatric/Behavioral: Positive for dysphoric mood and sleep disturbance. Negative for agitation and behavioral problems. The patient is nervous/anxious. Objective BP 132/72 | Pulse 88 | Temp 36.5 C (97.7 F) (Tympanic) | Resp 16 | Ht 1.549 m (5' 1") | Wt 64.1kg (141 lb 6.4 oz) | LMP 08/01/2007 | SpO2 98% | BMI 26.72 kg/m | BSA 1.66 m Physical Exam Constitutional: General: She is not in acute distress. Appearance: Normal appearance. She is not ill-appearing, toxic-appearing or diaphoretic. HENT: Head: Normocephalic and atraumatic. Nose: Nose normal. Eyes: Extraocular Movements: Extraocular movements intact. Cardiovascular: Rate and Rhythm: Normal rate and regular rhythm. Pulses: Normal pulses. Heart sounds: Normal heart sounds. Pulmonary: Effort: Pulmonary effort is normal. No respiratory distress. Breath sounds: Normal breath sounds. No stridor. No wheezing, rhonchi or rales. Chest: Chest wall: No tenderness. Musculoskeletal: General: Tenderness present. Right lower leg: Edema (trace) present. Left lower leg: Edema (trace) present. Neurological: Mental Status: She is alert and oriented to person, place, and time. Sensory: Sensory deficit present. Motor: Weakness present. Gait: Gait abnormal. Psychiatric: Behavior: Behavior normal. ASSESSMENT/PLAN: Multiple sclerosis (HCC) (Primary) - HOME HEALTH REFERRAL OP - NUTRITION-CLINICAL DIETITIAN REFERRAL OP Mild obstructive sleep apnea HTN, goal below 130/80 Right foot drop - HOME HEALTH REFERRAL OP Neurogenic bladder - HOME HEALTH REFERRAL OP Venous insufficiency - HOME HEALTH REFERRAL OP - DURABLE MEDICAL EQUIPMENT Depression with anxiety Ataxia Follow Up: Return in about 6 months (around 01/09/2025) for Clinic Visit. | For: Clinic Visit | Check-out note: DME - please fax to [facility] Cont meds Jose Esposito MD documented in this encounter Nursing Notes * Mis Stauffer LPN - 07/12/2024 7:46 AM EDT The patient has been properly identified by confirmation of name and date of . Chief Complaint Patient presents with Follow Up Patient is here today for a 6 mo follow up. Patient states she is currently having dental work completed and she has questions as to why she isnow being charged $800 due to missed issues in her sinuses that cause issues in her teeth. Patient states she would like to discuss home-care due to her MS progressing. Patient would also like to discuss her CPAP. Patient would like to discuss further testing. Patient would like to discuss west nile virus. documented in this encounter Plan of Treatment Upcoming Encounters Date Type Department Care Team (Late st Contact Info) Description 07/30/2024 8:50 AM EDT Hospital Encounter [facility], Operating Room [facility] [address] [place] [phone] Jose David Mendez DO [address] [phone] 07/30/2024 8:50 AM EDT - 07/30/2024 9:15 AM EDT Surgery [facility], Operating Room [facility] [address] [place] [phone] Jose David Mendez DO [address] [place] [phone] INJECTION SPINE LUMBAR CERVICAL OR THORACIC 08/15/2024 1:00 PM EDT Imaging Radiology, [address] [place] [address] 08/15/2024 1:40 PM EDT Office Visit Rheumatology [address] [place] [address] Umesh Brewster MD [address] [place] [address] [place] [address] 08/31/2024 12:35 PM EST Office Visit Urogynecology Kate Diane [address] [place] [address] Joellen Donnelly PA-C [address] [place] [address] Nurse Ann Diane [address] [place] [phone] 11/13/2024 1:30 PM EST Office Visit Neurology [facility] [address] [place] [address] Lidia Rashid PA-C [address] [place] [address] 11/16/2024 1:20 PM EST Office Visit Dermatology [facility] [address] [place] [address] Connie Pires PA-C [address] [place] [address] 01/11/2025 1:20 PM EDT Office Visit [facility] [address] [phone] Jose Esposito MD [address] [place] [address] 02/22/2025 11:20 AM EDT Office Visit [facility] [address] [place] [phone] Mitali Garcia DO [address] [place] [address] Scheduled Procedures Name Priority Associated Diagnoses Date/Ti me INJECTION SPINE LUMBAR CERVICAL OR THORACIC Cervical radiculitis 07/30/2024 8:50 AM EDT Scheduled Referrals Name Type Priority Associated Diagnoses Orde r Schedule HOME HEALTH REFERRAL OP Referral Within 10 days (routine) Multiple sclerosis (HCC) Right foot drop Neurogenic bladder Venous insufficiency Ordered: 07/12/2024 NUTRITION-CLINICAL DIETITIAN REFERRAL OP Referral Within 10 days (routine) Multiple sclerosis (HCC) Ordered: 07/12/2024 Health Maintenance Due Date Last Done Comments [...] 04/18, 05/16/2023, Additional history exists Albumin/Creatinine Ratio 09/22/20252 022, 01/11/2022, 07/08/2015 DTap/Tdap Vaccines (3 - Td or Tdap) 02/07/2028 02/06/2018, 07/11/2008 Colonoscopy 09/12/2028 09/12/2018, 08/17/2007 Colorectal Cancer Screening 09/12/2028 Lipid Panel 02/28/2029 02/29/2024, 08/0 04/2023, 07/28/2021, Additional history exists Zoster Vaccines Completed 08/20/2019, 02/15, 12/19/2013 Pneumococcal Vaccine: 65+ Years Completed 04/14/2020, 02/19/2019 Influenza Vaccine (FLU shot) Completed , 07/06/2023, 07/13/2022, Additional history exists VITAMIN D LEVEL ONCE IN A LIFETIME-USE SMARTSET# [id number] Completed 07/04/2024, 05/23/2023, 02/08/2022, Additional history exists [...] as of this encounter Visit Diagnoses Diagnosis Multiple sclerosis (HCC)- Primary Multiple sclerosis Mild obstructive sleep apnea Obstructive sleep apnea (adult) (pediatric) HTN, goal below 130/80 Unspecified essential hypertension Right foot drop Other acquired deformity of ankle and foot Neurogenic bladder Neurogenic bladder, NOS Venous insufficiency Unspecified venous (peripheral) insufficiency Depression with anxiety Dysthymic disorder Ataxia Lack of coordination Cervical radiculitis Brachial neuritis or radiculitis nos documented in this encounter Advance Directives * [...] and were consensually agreed upon. Care Teams Block Feeder Relationship Specialty Start Date End Date Phillip Mulligan MD [address] [place] [address] [address] PCP - General Family Medicine 12/10/20 documented as of this encounter
--- OUTSIDE RECORDS SUMMARY | 2024-09-13 11:53 | External Medical Summary | Summary of Care ---
Author Name Unknown Organization [facility] Address [address] [place] [address] Phone [phone] Care Team Providers Care Contestant Coordinator Name Role Phone Phillip Mulligan MD Primary Care Provider [phone] Reason for Visit * Reason Onset Date Comments Appointment 07/13/2024 Reched 08/15 carmelo t due to provider no longer in network Encounter Details Date Type Department Care Team (Late st Contact Info) Description 07/13/2024 Telephone Rheumatology [facility] [address] [place], [place] [phone] Services, Scheduling [address] [place] [address] Appointment (Reched 08/15 appt due to prov... Allergies Active Allergy Reactions Criticality Noted Date Comments Braeden Inhibitors Cough 06/22/2012 Amoxicillin 11/24/2005 Diarrhea Clavulanic Acid High 05/25/2023 Other Reaction(s): DIARRHEA Doxycycline Rash Low 02/08/2022 documented as of this encounter (statuses as of 07/13/2024) Medications Medication Sig Dispensed Refills Start Date [...] times a day Active Cholecalciferol (VITAMIN D3) 58556 units Capsule Take 1 Capsule by mouth [...] Health Triple Action 40-5-3.3 MG Oral Tablet (Wrbecpxn-Nmzxn-Yqd luronic Acid) Take by mouth. Active Loratadine [...] as of this encounter (statuses as of 07/13/2024) Active Problems Problem Noted Date Diagnosed Date Venous insufficiency 07/12/2024 Chronic rhinitis 09/13/2023 Mild obstructive sleep apnea 06/22/2023 DDD (degenerative disc disease), lumbar 03/18/20 23 Right foot drop 03/18/2023 Depression with anxiety 01/26/2023 DDD (degenerative disc disease), cervical 2022 Overweight (BMI 25.0-29.9) 10/12/2022 Impingement syndrome of right shoulder 2 Ataxia 08/10/2021 Neurogenic bladder 01/26/2021 Dyslipidemia 12/10/2020 Senile osteoporosis 07/28/2020 HTN, goal below 130/80 02/01/2013 Multiple sclerosis Overview: Followed by Dr. Kumar, paralysis, speech problems, memory l documented as of this encounter (statuses as of 07/13/2024) Resolved Problems Problem Noted Date Diagnosed Date [...] as of this encounter (statuses as of 07/13/2024) Immunizations Name Administration Dates Next Due COVID-19 mRNA, LNP-s, No Pre serve, 2-Dose Series ([employer]) 09/12/2021,01/29/2021,01/08/2021 Covid-19, Mrna, Lnp-s, Pf, B ivalent, 30 Mcg, IM, 12 yrs and above ([employer]) 09/22/2022 H1N1 2009 Influenza, IM 10/23/2009 Pneumococcal [...] encounter Miscellaneous Notes * Telephone Encounter - Mary Grace Oviedo OSA - 07/13/2024 5:04 PM EDT Good afternoon, Pt called in stating that she needs to reschedule her 08/15 appointment. Pt stated she received a letter from her insurance saying Dr. Brewster is no longer in network with [facility] and that she needs to change providers. Pt would like called back to discuss and reschedule with another provider. Please assist. Thank you documented in this encounter Plan of Treatment Upcoming Encounters Date Type Department Care Team (Late st Contact Info) Description 07/30/2024 8:50 AM EDT Hospital Encounter OR [facility], Operating Room [facility] [address] [place] [phone] Jose David Mendez, [address] [place] [address] 07/30/2024 8:50 AM EDT - 07/30/2024 9:15 AM EDT Surgery OR [facility], Operating Room [facility] [address] [place] [address] Jose David Mendez DO [address] [place] [address] INJECTION SPINE LUMBAR CERVICAL OR THORACIC 08/15/2024 1:00 PM EDT Imaging Radiology, [place] [address] [place] [address] [address] 08/15/2024 1:40 PM EDT Office Visit Rheumatology [place] [address] [address] [address] Umesh Brewster MD [address] [place] [address] Dr [place], [place] [address] 08/31/2024 12:35 PM EST Office Visit Urogynecology Kate Diane 132 [facility] [place] [address] Joellen Donnelly PA-C 132 [facility] [place] [address] Nurse Ann Diane 132 [facility] [place] [address] 11/13/2024 1:30 PM EST Office Visit Neurology [facility] [address] [place] [address] Lidia Rashid PA-C 21 [facility] [place] [address] 11/16/2024 1:20 PM EST Office Visit Dermatology [facility] [address] [place], [place] [address] Connie Pires PA-C 200 [facility] [place], [place] [address] 01/11/2025 1:20 PM EDT Office Visit [facility] [address] [place] [phone] Jose Esposito MD [address] [place] [address] 02/22/2025 11:20 AM EDT Office Visit Sleep Disorders Ctr Tri Diane [place] 132 [facility] [place] [phone] Mitali Garcia DO 132 [facility] [place] [address] Scheduled Procedures Name Priority Associated Diagnoses Date/Ti me INJECTION SPINE LUMBAR CERVICAL OR THORACIC Cervical radiculitis 07/30/2024 8:50 AM EDT Health Maintenance Due Date Last Done Comments [...] D LEVEL ONCE IN A LIFETIME-USE SMARTSET# [id number] Completed 07/04/2024, 05/23/2023, 02/08/2022, Additional history exists [...] and were consensually agreed upon. Care Teams Contestant Coordinator Relationship Specialty Start Date End Date Phillip Mulligan MD [address] [address] [address] PCP - General Family Medicine 12/10/20 documented as of this encounter
--- OUTSIDE RECORDS SUMMARY | 2024-09-13 11:53 | External Medical Summary | Summary of Care ---
Author Name Unknown Organization [facility] Address [address] [place] [address] Phone [phone] Care Team Providers Care Cuff Presser Name Role Phone Phillip Mulligan MD Primary Care Provider [phone] Reason for Visit * Reason Onset Date Comments Test Results 07/05/2024 Encounter Details Date Type Department Care Team (Late st Contact Info) Description 07/05/2024 Telephone Family Practice [facility] [id number] [place] [address] Phillip Mulligan MD [id number] [place] [address] Test Results Allergies Active Allergy Reactions Criticality Noted Date Comments Braeden Inhibitors Cough 06/22/2012 Amoxicillin 11/24/2005 Diarrhea Clavulanic Acid High 05/25/2023 Other Reaction(s): DIARRHEA Doxycycline Rash Low 02/08/2022 documented as of this encounter (statuses as of 07/10/2024) Medications Medication Sig Dispensed Refills Start Date [...] times a day Active Cholecalciferol (VITAMIN D3) 04170 units Capsule Take 1 Capsule by mouth [...] Health Triple Action 40-5-3.3 MG Oral Tablet (Fmovekht-Ntgyh-Vor luronic Acid) Take by mouth. Active Loratadine [...] as of this encounter (statuses as of 07/10/2024) Active Problems Problem Noted Date Diagnosed Date Chronic rhinitis 09/13/2023 Mild obstructive sleep apnea [...] as of this encounter (statuses as of 07/10/2024) Resolved Problems Problem Noted Date Diagnosed Date [...] as of this encounter (statuses as of 07/10/2024) Immunizations Name Administration Dates Next Due COVID-19 mRNA, LNP-s, No Pre serve, 2-Dose Series ([employer]) 09/12/2021,01/29/2021,01/08/2021 Covid-19, Mrna, Lnp-s, Pf, B ivalent, 30 Mcg, IM, 12 yrs and above ([employer]) 09/22/2022 H1N1 2009 Influenza, IM 10/23/2009 Pneumococcal [...] encounter Miscellaneous Notes * Telephone Encounter - Janet Trevino LPN - 07/10/2024 9:47 AM EDT Called and spoke with patient. Notified of below. No further questions at this time. * Telephone Encounter - Phillip Mulligan MD - 07/09/2024 3:59 PM EDT No infection in urine. * Telephone Encounter - Moriah Gonzales OSA - 07/09/2024 12:05 PM EDT Patient called again for test results. * Telephone Encounter - Ana Paula Coombs OSA - 07/09/2024 9:56 AM EDT Who is Requesting Test Results: Pt Primary Care Provider : Phillip Mulligan MD Tests Results Requested : labs Date of Test : 07/04/24 Location of Test: [facility] lab Ordering Provider: Phillip Mulligan MD Lab results are back and say reviewed please have dr call pt back to advise of the results. Thank you Patient has been made aware that the turnaround time for test results are typically as follows: Laboratory results = within 2-3 days ([facility]), 3-5 days (Non[facility], ie[facility]) Urine Cultures = within 2-3 days depending on growth within the culture Pathology results (biopsy results/PAP) = 1-2 weeks Radiology results = about 1 week Cologuard results = within 2 weeks from the shipment date COVID testing = about 24 hours * Telephone Encounter - Laureen Rayo OSA - 07/07/2024 9:36 AM EDT Patient Also Red Ankle swollen does have appt this coming week. Kidneys are going crazy. She goes to the bathroom a lot. Patient keeps talking and She goes to one thing to another and I can barley understand her. * Telephone Encounter - Laureen Rayo OSA - 07/07/2024 9:33 AM EDT Who is Requesting Test Results: Patient Primary Care Provider : Phillip Mulligan MD Tests Results Requested : Urinalysis, Vit B12, Vit D? Date of Test : 07/04/2024 Location of Test: [facility] Ordering Provider: Richie Chacon [facility] Patient has been made aware that the turnaround time for test results are typically as follows: Laboratory results = within 2-3 days ([facility]), 3-5 days ([facility], ie[facility]) Urine Cultures = within 2-3 days depending on growth within the culture Pathology results (biopsy results/PAP) = 1-2 weeks Radiology results = about 1 week Cologuard results = within 2 weeks from the shipment date COVID testing = about 24 hours * Telephone Encounter - Paulina Ramirez OSA - 07/06/2024 1:25 PM EDT Pt called in requesting results from testing. Advised that results were not released. Advised of 48hour time frame. Patient also noted concern about inflammation & medications. Please call back @[phone] * Telephone Encounter - Nereida Laurent OSA - 07/05/2024 3:40 PM EDT Who is Requesting Test Results: Pt Primary Care Provider : Phillip Mulligan MD Tests Results Requested : urinalysis, Vit D Date of Test : 07/04/24 Location of Test: [facility] Ordering Provider: Ines Beasley Joshua, [facility] Patient has been made aware that the turnaround time for test results are typically as follows: Laboratory results = within 2-3 days ([facility]), 3-5 days ([facility], ie[facility]) Urine Cultures = within 2-3 days depending on growth within the culture Pathology results (biopsy results/PAP) = 1-2 weeks Radiology results = about 1 week Cologuard results = within 2 weeks from the shipment date COVID testing = about 24 hours documented in this encounter Plan of Treatment Upcoming Encounters Date Type Department Care Team (Late st Contact Info) Description 07/12/2024 7:40 AM EDT Office Visit [facility] [address] [facility] [place] [address] Jose Esposito MD [address] [place] [address] 07/30/2024 8:50 AM EDT Hospital Encounter OR OSS, Operating Room [facility] [address] [place] [phone] Jose David Mendez, DO [address] [place] [address] 07/30/2024 8:50 AM EDT - 07/30/2024 9:15 AM EDT Surgery OR [facility], Operating Room [facility] [address] [place] [phone] Jose David Mendez, [address] [place] [phone] INJECTION SPINE LUMBAR CERVICAL OR THORACIC 08/15/2024 1:00 PM EDT Imaging Radiology, [address] [place] [address] 08/15/2024 1:40 PM EDT Office Visit Rheumatology [address] [place] [address] Umesh Brewster MD [address] [place] [address] [place] [address] 08/31/2024 12:35 PM EST Office Visit Urogynecology Kate Diane [address] [facility] [place] [address] Joellen Donnelly PA-C [address] [place] [address] Nurse Ann Diane 132 [facility] [place] [address] 11/13/2024 1:30 PM EST Office Visit Neurology [facility] [place] [address] [place] [address] Lidia Rashid PA-C [address] [place] [address] 11/16/2024 1:20 PM EST Office Visit Dermatology [facility] [place] [address] [address] Connie Pires PA-C 200 [facility] [place] [address] 02/22/2025 11:20 AM EDT Office Visit Sleep Disorders Ctr Tri Diane [place] [address] [facility] [phone] Mitali Garcia DO [address] [place] [address] Scheduled Procedures Name Priority Associated Diagnoses Date/Ti [...] D LEVEL ONCE IN A LIFETIME-USE SMARTSET# [id number] Completed 07/04/2024, 05/23/2023, 02/08/2022, Additional history exists [...] and were consensually agreed upon. Care Teams Cuff Presser Relationship Specialty Start Date End Date Phillip Mulligan MD [address] [place] [address] [address] PCP - General Family Medicine 12/10/20 documented as of this encounter
--- OUTSIDE RECORDS SUMMARY | 2024-09-13 11:53 | External Medical Summary | Summary of Care ---
Author Name Unknown Organization [facility] Address [address] [facility] [place] [address] Phone [phone] Care Team Providers Care Proposal Lead Writer Name Role Phone Phillip Mulligan MD Primary Care Provider [phone] Reason for Visit * Reason Onset Date Comments Follow Up 07/30/2024 Encounter Details Date Type Department Care Team (Late st Contact Info) Description 07/30/2024 Telephone Interventional Pain Center, [facility] [address] [place] [address] Jose David Mendez DO [address] [place] [phone] Follow Up Allergies Active Allergy Reactions Criticality Noted Date Comments Braeden Inhibitors Cough 06/22/2012 Amoxicillin 11/24/2005 Diarrhea Clavulanic Acid High 05/25/2023 Other Reaction(s): DIARRHEA Doxycycline Rash Low 02/08/2022 documented as of this encounter (statuses as of 07/30/2024) Medications Medication Sig Dispensed Refills Start Date [...] times a day Active Cholecalciferol (VITAMIN D3) 34185 units Capsule Take 1 Capsule by mouth [...] Health Triple Action 40-5-3.3 MG Oral Tablet (Mdvimvyc-Dghus-Euk luronic Acid) Take by mouth. Active Loratadine [...] EVERY DAY 90 Tablet 1 07/14/2024 Active documented as of this encounter (statuses as of 07/30/2024) Active Problems Problem Noted Date Diagnosed Date [...] as of this encounter (statuses as of 07/30/2024) Resolved Problems Problem Noted Date Diagnosed Date [...] as of this encounter (statuses as of 07/30/2024) Immunizations Name Administration Dates Next Due COVID-19 mRNA, LNP-s, No Pre serve, 2-Dose Series ([employer]) 09/12/2021,01/29/2021,01/08/2021 Covid-19, Mrna, Lnp-s, Pf, B ivalent, 30 Mcg, IM, 12 yrs and above ([employer]) 09/22/2022 H1N1 2009 Influenza, IM 10/23/2009 Pneumococcal [...] encounter Miscellaneous Notes * Telephone Encounter - Nguyen Rodas OSA - 07/30/2024 9:09 AM EDT Can you please look at this patients chart in regards to her Lumbar pain? documented in this encounter Plan of Treatment Upcoming Encounters Date Type Department Care Team (Late st Contact Info) Description 08/15/2024 1:00 PM EDT Imaging Radiology, [address] [place] [address] 08/15/2024 1:40 PM EDT Office Visit Rheumatology [address] [place] [address] Umesh Brewster MD [address] [place] [address] [place] [address] 08/31/2024 12:35 PM EST Office Visit Urogynecology Kate Diane [address] [place] [address] Joellen Donnelly PA-C [address] [place] [address] Nurse Benedicto Urogyn Tri [address] [place] [address] 09/05/2024 11:00 AM EST Scheduled Telephone [facility] [address] [place] [address] Nurse [place]o Phone Call Interventional Pain Tri [address] [place] [address] 11/13/2024 1:30 PM EST Office Visit Neurology [facility] 200 [facility] [place] [address] Lidia Rashid PA-C [address] [place] [address] 11/16/2024 1:20 PM EST Office Visit Dermatology [facility] 200 [facility] [place] [address] Connie Pires PA-C 200 [facility] [place] [address] 01/11/2025 1:20 PM EDT Office Visit [place] [address] [place] [address] Jose Esposito MD [address] [place] [address] 02/22/2025 11:20 AM EDT Office Visit Sleep Disorders Ctr [facility] [address] [place] [phone] Mitali Garcia DO [address] [place] [address] Scheduled Procedures Name Priority Associated Diagnoses Date/Ti me INJECTION SPINE LUMBAR CERVICAL OR THORACIC Cervical radiculitis 07/30/2024 8:49 AM EDT Health Maintenance Due Date Last [...] D LEVEL ONCE IN A LIFETIME-USE SMARTSET# [id number] Completed 07/04/2024, 05/23/2023, 02/08/2022, Additional history exists [...] and were consensually agreed upon. Care Teams Proposal Lead Writer Relationship Specialty Start Date End Date Phillip Mulligan MD [address] [place] [address] PCP - General Family Medicine 12/10/20 documented as of this encounter
--- OUTSIDE RECORDS SUMMARY | 2024-09-13 11:53 | External Medical Summary | Summary of Care ---
Author Name Unknown Organization [facility] Address [address] [place] [address] Phone [phone] Care Team Providers Care Cylinder Head Assembler Name Role Phone Phillip Mulligan MD Primary Care Provider [phone] Reason for Visit * Reason Onset Date Comments Appointment 07/13/2024 Reched 08/15 carmelo t due to provider no longer in network Encounter Details Date Type Department Care Team (Late st Contact Info) Description 07/13/2024 Telephone Rheumatology [facility] [address] [place], [place] [phone] Services, Scheduling [address] [place] [address] Appointment (Reched 08/15 appt due to prov... Allergies Active Allergy Reactions Criticality Noted Date Comments Braeden Inhibitors Cough 06/22/2012 Amoxicillin 11/24/2005 Diarrhea Clavulanic Acid High 05/25/2023 Other Reaction(s): DIARRHEA Doxycycline Rash Low 02/08/2022 documented as of this encounter (statuses as of 08/08/2024) Medications Medication Sig Dispensed Refills Start Date [...] times a day Active Cholecalciferol (VITAMIN D3) 21477 units Capsule Take 1 Capsule by mouth [...] Health Triple Action 40-5-3.3 MG Oral Tablet (Zlleseze-Qlinf-C yaluronic Acid) Take by mouth. Activ e [...] as of this encounter (statuses as of 08/08/2024) Active Problems Problem Noted Date Diagnosed Date [...] as of this encounter (statuses as of 08/08/2024) Resolved Problems Problem Noted Date Diagnosed Date [...] as of this encounter (statuses as of 08/08/2024) Immunizations Name Administration Dates Next Due COVID-19 mRNA, LNP-s, No Pre serve, 2-Dose Series ([employer]) 09/12/2021,01/29/2021,01/08/2021 Covid-19, Mrna, Lnp-s, Pf, B ivalent, 30 Mcg, IM, 12 yrs and above ([employer]) 09/22/2022 H1N1 2009 Influenza, IM 10/23/2009 Pneumococcal [...] Brewster is no longer in network with [employer] and that she needs to change providers. Pt would like called back to discuss and reschedule with another provider. Please assist. Thank you documented in this encounter Plan of Treatment Upcoming Encounters Date Type Department Care Team (Late st Contact Info) Description 08/15/2024 1:00 PM EDT Imaging Radiology, [address] [place] [address] 08/15/2024 1:40 PM EDT Office Visit Rheumatology [address] [place] [address] Umesh Brewster MD [address] [place] [address] [place] [address] 08/31/2024 12:35 PM EST Office Visit Urogynecology Kate Diane [address] [place] [address] Joellen Donnelly PA-C [address] [place] [address] Nurse Ann Diane [address] [place] [address] 09/05/2024 11:00 AM EST Scheduled Telephone Interventional Pain Center, [place] [address] [place] [address] Benedicto Nurse Phone Call Interventional Pain [facility] [address] [place] [address] 10/03/2024 11:00 AM EST Office Visit Interventional Pain Center, [facility] [address] [place] [address] Jany Pederson PA-C 132 [facility] [place] [address] 11/13/2024 1:30 PM EST Office Visit Neurology [facility] [address] [place] [address] Lidia Rashid PA-C [address] [place] [address] 11/16/2024 1:20 PM EST Office Visit Dermatology [facility] [address] [place] [address] Connie Pires PA-C [address] [place] [address] 01/11/2025 1:20 PM EDT Office Visit [facility] [address] [place] [phone] Jose Esposito MD [address] [place] [address] 02/22/2025 11:20 AM EDT Office Visit Sleep Disorders Ctr [facility] [place] [phone] Mitali Garcia DO [address] [place] [address] Health Maintenance Due Date Last Done Comments [...] D LEVEL ONCE IN A LIFETIME-USE SMARTSET# [id number] Completed 07/04/2024, 05/23/2023, 02/08/2022, Additional history exists [...] and were consensually agreed upon. Care Teams Cylinder Head Assembler Relationship Specialty Start Date End Date Phillip Mulligan MD [address] [place] [address] PCP - General Family Medicine 12/10/20 documented as of this encounter
--- OUTSIDE RECORDS SUMMARY | 2024-09-13 11:53 | External Medical Summary | Summary of Care ---
Author Name Unknown Organization [facility] Address [address] [place] [address] Phone [phone] Care Team Providers Care Assistant Credit Manager Name Role Phone Phillip Mulligan MD Primary Care Provider [phone] Reason for Visit * Reason Comments eRx-Medication Refill Encounter Details Date Type Department Care Team (Late st Contact Info) Description 07/13/2024 Refill Family Practice [facility] [address] [place] [id number] Phillip Mulligan MD [address] [place] [id number] Allergies Active Allergy Reactions Criticality Noted Date Comments Braeden Inhibitors Cough 06/22/2012 Amoxicillin 11/24/2005 Diarrhea Clavulanic Acid High 05/25/2023 Other Reaction(s): DIARRHEA Doxycycline Rash Low 02/08/2022 documented as of this encounter (statuses as of 07/14/2024) Medications Medication Sig Dispensed Refills Start Date [...] times a day Active Cholecalciferol (VITAMIN D3) 15748 units Capsule Take 1 Capsule by mouth [...] Health Triple Action 40-5-3.3 MG Oral Tablet (Jbetguus-Uosim-A yaluronic Acid) Take by mouth. Activ e [...] EVERY DAY 90 Tablet 1 4 Active Valsartan 40 MG Oral Tablet (Diovan) TAKE 1 TABLET BY MOUTH EVERY DAY 90 Tablet 1 4 07/14/20 24 Discontinued documented as of this encounter (statuses as of 07/14/2024) Active Problems Problem Noted Date Diagnosed Date [...] as of this encounter (statuses as of 07/14/2024) Resolved Problems Problem Noted Date Diagnosed Date [...] as of this encounter (statuses as of 07/14/2024) Immunizations Name Administration Dates Next Due COVID-19 mRNA, LNP-s, No Pre serve, 2-Dose Series ([employer]) 09/12/2021,01/29/2021,01/08/2021 Covid-19, Mrna, Lnp-s, Pf, B [...] encounter Miscellaneous Notes * Telephone Encounter - Adelina Grijalva RPh - 07/14/2024 11:42 AM EDT * Telephone Encounter - Adelina Grijalva RPh - 07/14/2024 11:42 AM EDT Signed Prescriptions: Disp Refills Valsartan 40 MG Oral Tablet (Diovan) 90 Tab*1 Sig: TAKE 1 TABLET BY MOUTH EVERY DAY Authorizing Provider: LARA ESPOSITO Ordering User: ADELINA GRIJALVA documented in this encounter Plan of Treatment Upcoming Encounters Date Type Department Care Team (Late st Contact Info) Description 07/30/2024 8:50 AM EDT Hospital Encounter OR [facility], Operating Room [facility] [address] [place] [phone] Jose David Mendez DO [address] [place] [address] 07/30/2024 8:50 AM EDT - 07/30/2024 9:15 AM EDT Surgery OR [facility], Operating Room [facility] [address] [place] [address] Jose David Mendez DO [address] [place] [phone] INJECTION SPINE LUMBAR CERVICAL OR THORACIC 08/15/2024 1:00 PM EDT Imaging Radiology, [address] [place] [address] 08/15/2024 1:40 PM EDT Office Visit Rheumatology [address] [place] [address] Umesh Brewster MD [facility] [place] [address] 08/31/2024 12:35 PM EST Office Visit Urogynecology Kate Diane [address] [place] [address] Joellen Donnelly PA-C [address] [place] [address] Nurse Ann Diane Tri [address] [place] [address] 11/13/2024 1:30 PM EST Office Visit Neurology [facility] [address] [place] [address] Lidia Rashid PA-C [facility] [place] [address] 11/16/2024 1:20 PM EST Office Visit Dermatology [facility] [address] [place] [address] Connie Pires PA-C [address] [place] [address] 01/11/2025 1:20 PM EDT [address] [phone] L[facility]ito [facility] [address] [facility] [address] 02/22/2025 11:20 AM EDT Office Visit Sleep Disorders Ctr [facility] [address] [place] [address] Mitali Garcia DO [address] [place] [address] Scheduled Procedures Name Priority Associated Diagnoses Date/Ti [...] D LEVEL ONCE IN A LIFETIME-USE SMARTSET# [id number] Completed 07/04/2024, 05/23/2023, 02/08/2022, Additional history exists [...] and were consensually agreed upon. Care Teams Assistant Credit Manager Relationship Specialty Start Date End Date Phillip Mulligan MD [address] [place] [address] PCP - General Family Medicine 12/10/20 documented as of this encounter
--- OUTSIDE RECORDS SUMMARY | 2024-09-13 11:53 | External Medical Summary | Summary of Care ---
Author Name Unknown Organization [facility] Address [address] [facility] [place] [address] Phone [phone] Care Team Providers Care Instrument Repair Supervisor Name Role Phone Phillip Mulligan MD Primary Care Provider [phone] Reason for Visit * Reason Onset Date Comments Follow Up 07/30/2024 Encounter Details Date Type Department Care Team (Late st Contact Info) Description 07/30/2024 Telephone Interventional Pain Center, [facility] [address] [place] [address] Jose David Mendez DO [address] [place] [phone] Follow Up Allergies Active Allergy Reactions Criticality Noted Date Comments Braeden Inhibitors Cough 06/22/2012 Amoxicillin 11/24/2005 Diarrhea Clavulanic Acid High 05/25/2023 Other Reaction(s): DIARRHEA Doxycycline Rash Low 02/08/2022 documented as of this encounter (statuses as of 07/31/2024) Medications Medication Sig Dispensed Refills Start Date [...] times a day Active Cholecalciferol (VITAMIN D3) 13341 units Capsule Take 1 Capsule by mouth [...] Health Triple Action 40-5-3.3 MG Oral Tablet (Zggnpdjo-Svdbm-Wmc luronic Acid) Take by mouth. Active Loratadine [...] as of this encounter (statuses as of 07/31/2024) Active Problems Problem Noted Date Diagnosed Date [...] as of this encounter (statuses as of 07/31/2024) Resolved Problems Problem Noted Date Diagnosed Date [...] as of this encounter (statuses as of 07/31/2024) Immunizations Name Administration Dates Next Due COVID-19 mRNA, LNP-s, No Pre serve, 2-Dose Series ([employer]) 09/12/2021,01/29/2021,01/08/2021 Covid-19, Mrna, Lnp-s, Pf, B ivalent, 30 Mcg, IM, 12 yrs and above ([employer]) 09/22/2022 H1N1 2009 Influenza, IM 10/23/2009 Pneumococcal [...] Telephone Encounter - Tatyana Gutierrez LPN - 07/31/2024 12:36 PM EDT Spoke with patient, states it's mostly lower back pain, compression socks help the foot pain. When asking if it radiates into the legs at all, "it's hard to tell" * Telephone Encounter - Tatyana Gutierrez LPN - 07/31/2024 9:23 AM EDT Tried calling patient 2x-rings and then goes to busy signal * Telephone Encounter - Nguyen Rodas OSA - 07/30/2024 9:09 AM EDT Can you please look at this patients chart in regards to her Lumbar pain? documented in this encounter Plan of Treatment Upcoming Encounters Date Type Department Care Team (Late st Contact Info) Description 08/15/2024 1:00 PM EDT Imaging Radiology, [place] [address] [address] [address] 08/15/2024 1:40 PM EDT Office Visit Rheumatology [facility] [place] [address] [facility] [place] [address] 08/31/2024 12:35 PM EST Office Visit Urogynecology [address] [place] [address] Joellen Donnelly PA-C [address] [place] [address] Nurse Ann Diane Tri [address] [place] [address] 09/05/2024 11:00 AM EST Scheduled Telephone Interventional Pain Center, [facility] [address] [facility] [place] [address] Nurse Benedicto Phone Call Interventional Pain [facility] [address] [place] [address] 11/13/2024 1:30 PM EST Office Visit Neurology [facility] [address] [place] [address] Lidia Rashid PA-C [facility] [place] [address] 11/16/2024 1:20 PM EST Office Visit Dermatology [facility] [address] [place] [address] Connie Pires PA-C 200 [facility] [place] [address] 01/11/2025 1:20 PM EDT Office Visit [facility] [address] [place] [phone] Jose Esposito MD [address] [place] [address] 02/22/2025 11:20 AM EDT Office Visit Sleep Disorders [facility] [address] [facility] [place] [phone] Mitali Garcia DO [address] [place] [address] Health Maintenance Due Date Last Done Comments [...] D LEVEL ONCE IN A LIFETIME-USE SMARTSET# [id number] Completed 07/04/2024, 05/23/2023, 02/08/2022, Additional history exists [...] and were consensually agreed upon. Care Teams Instrument Repair Supervisor Relationship Specialty Start Date End Date Phillip Mulligan MD [address] [place] [address] PCP - General Family Medicine 12/10/20 documented as of this encounter
--- OUTSIDE RECORDS SUMMARY | 2024-09-13 11:53 | External Medical Summary | Summary of Care ---
Author Name Unknown Organization [facility] Address [address] [place] [address] Phone [phone] Care Team Providers Care Turret Press Operator Name Role Phone Phillip Mulligan MD Primary Care Provider [phone] Reason for Referral * Evaluate & Treat - Unlimited Visits (Within 10 days (routine)) - Pending Review Specialty Diagnoses / Procedures Referred By Contac t Referred To Contact Dietitian / Nutrition Services Diagnoses Multiple sclerosis (HCC) Jose Esposito MD [address] [place] [address] Referral ID Status Reason Start Date Expiration Date Visits Requested Visits Authorized [id number] Pending Review Specialty Services Required 07/12/2024 999 [...] Neurogenic bladder Venous insufficiency Jose Esposito MD [address] [place] [address] Referral ID Status Reason Start Date Expiration Date Visits Requested Visits Authorized [id number] Pending Review Specialty Services Required 07/12/2024 999 999 Question Answer Referral Priority Within 10 days (routine) Where should this appointment be scheduled? [facility] Comments Documentation of Eerg-ra-Mosu Encounter Addendum Patient Name: Sydney Galeano I certify that this patient is under my care and that I, or a nurse practitioner or physician's licensed physical therapy assistant working with me, had a zjce-gy-elwb encounter that meets the physician jaev-yj-xxqt encounter requirements with this patient on: Jul [...] effort and are for medical reasons or jehovah's witness services or infrequently or of short duration [...] Description 07/12/2024 7:40 AM EDT Office Visit [facility] [address] [place] [address] Jose Esposito MD [address] [place] [address] Multiple sclerosis (HCC)*; Mild obstructive [...] times a day Active Cholecalciferol (VITAMIN D3) 84026 units Capsule Take 1 Capsule by mouth [...] Health Triple Action 40-5-3.3 MG Oral Tablet (Bwnzymxu-Uosvg-Vye luronic Acid) Take by mouth. Active Loratadine [...] mRNA, LNP-s, No Pre serve, 2-Dose Series ([employer]) 09/12/2021,01/29/2021,01/08/2021 Covid-19, Mrna, Lnp-s, Pf, B ivalent, [...] HPI: Here to discuss about several things and also to establish PCP Would like to get home health for [...] 5 times a day Cholecalciferol (VITAMIN D3) 03091 units Capsule Take 1 Capsule by mouth [...] Health Triple Action 40-5-3.3 MG Oral Tablet (Lenfcava-Zevjx-Lzenwihmle Acid) Take by mouth. Loratadine 10 MG [...] apnea 06/22/2023 Multiple sclerosis (HCC) Hospitalized at [facility], presented appearing as a CVA. See problem list comments. Neurogenic bladder 01/26/2021 Osteoporosis, postmenopausal 07/28/2020 Overweight (BMI 25.0-29.9) 10/12/2022 Pulmonary nodule per 10/2018 CT scan, no further workup is needed Seasonal affective disorder (HCC) 08/10/2021 Sleep apnea, obstructive Special screening for osteoporosis normal, repeat scan in 2008 Past Surgical History: Procedure Laterality Date COLONOSCOPY, DIAGNOSTIC (RECTUM) 09/12/2018 fair prep, diverticulosis/INPT [facility] COLORECTAL CANCER SCREEN; NOT AT RISK 08/17/07 WNL CYSTOSCOPY 02-21-07 CYSTOURETERO W/LITHOTRIPSY Right 08/26/2017 CYSTOURETHROSCOPY URETEROSCOPY WITH LITHOTRIPSY performed by Coral Brito MD at OR [facility] CYSTOURETERO W/LITHOTRIPSY Right 09/16/2017 CYSTOURETHROSCOPY URETEROSCOPY WITH LITHOTRIPSY performed by Coral Brito MD at OR [facility] DILATION AND CURETTAGE (D&C) D&C DILATION URETER/URETHRA RADIOLOGICAL SUPERVISION AND INTERP 2003 urethral dilation DOBUTAMINE STRESS ECHO 04/30/2009 normal, done at 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 Endocrine: Negative. Genitourinary: Negative for urgency. Urinary incontinence, neurogenic bladder Musculoskeletal: Positive for arthralgias, back pain, gait problem (walker, rt foot drop) and neck pain. Skin: Negative for color change and rash. Allergic/Immunologic: Negative for environmental allergies. Neurological: Positive for weakness (legs) and numbness. Negative for dizziness, tremors, light-headedness and headaches. Hematological: Negative for adenopathy. Psychiatric/Behavioral: Positive for dysphoric mood and sleep [...] and oriented to person, place, and time. Mental status is at baseline. Sensory: Sensory deficit present. Motor: Weakness present. Gait: Gait abnormal. Psychiatric: Behavior: Behavior normal. Comments: Mild depression anxiety Mild cognitive deficit ASSESSMENT/PLAN: Multiple sclerosis (HCC) (Primary) - HOME [...] Check-out note: DME - please fax to [facility] Cont meds [...] Room [facility] [address] [place] [phone] Jose David Mendez DO [address] [place] [address] 07/30/2024 8:50 AM EDT - 07/30/2024 9:15 AM EDT Surgery OR [facility], Operating Room [facility] [address] [place] [address] Jose David Mendez, DO [address] [place] [address] INJECTION SPINE LUMBAR CERVICAL OR THORACIC 08/15/2024 1:00 PM EDT Imaging Radiology, [address] [place] [address] 08/15/2024 1:40 PM EDT Office Visit Rheumatology [address] [place] [address] Umesh Brewster MD [facility] [place] [address] 08/31/2024 12:35 PM EST Office Visit Urogynecology Kate Diane [address] [place] [address] Joellen Donnelly PA-C [address] [place] [address] Nurse Ann Diane [address] [place] [address] 11/13/2024 1:30 PM EST Office Visit Neurology [facility] [address] [place] [address] Lidia Rashid PA-C [facility] [place] [address] 11/16/2024 1:20 PM EST Office Visit Dermatology [facility] [address] [place] [address] Connie Pires PA-C [address] [place] [address] 01/11/2025 1:20 PM EDT Office Visit [facility] [address] [facility] [phone] Jose Esposito MD [address] [place] [address] 02/22/2025 11:20 AM EDT Office Visit Sleep Disorders Ctr Tri Diane Cataldo [address] [place] [address] Mitali Garcia DO [address] [place] [address] Scheduled Procedures Name Priority Associated Diagnoses Date/Ti [...] D LEVEL ONCE IN A LIFETIME-USE SMARTSET# [id number] Completed 07/04/2024, 05/23/2023, 02/08/2022, Additional history exists [...] and were consensually agreed upon. Care Teams Turret Press Operator Relationship Specialty Start Date End Date Phillip Mulligan MD [address] [place] [address] PCP - General Family Medicine 12/10/20 documented as of this encounter
--- OUTSIDE RECORDS SUMMARY | 2024-09-13 11:53 | External Medical Summary | Summary of Care ---
Author Name Unknown Organization [facility] Address [address] [facility] [place] [address] Phone [phone] Care Team Providers Care Quoter Name Role Phone Phillip Mulligan MD Primary Care Provider [phone] Reason for Visit * Reason Onset Date Comments Follow Up 07/30/2024 Encounter Details Date Type Department Care Team (Late st Contact Info) Description 07/30/2024 Telephone Interventional Pain Center, [facility] [address] [place] [address] Jose David Mendez DO [address] [place] [phone] Follow Up Allergies Active Allergy Reactions Criticality Noted Date Comments Braeden Inhibitors Cough 06/22/2012 Amoxicillin 11/24/2005 Diarrhea Clavulanic Acid High 05/25/2023 Other Reaction(s): DIARRHEA Doxycycline Rash Low 02/08/2022 documented as of this encounter (statuses as of 08/02/2024) Medications Medication Sig Dispensed Refills Start Date [...] times a day Active Cholecalciferol (VITAMIN D3) 75128 units Capsule Take 1 Capsule by mouth [...] Health Triple Action 40-5-3.3 MG Oral Tablet (Mpikpiss-Gwxmu-Ogl luronic Acid) Take by mouth. Active Loratadine [...] as of this encounter (statuses as of 08/02/2024) Active Problems Problem Noted Date Diagnosed Date [...] as of this encounter (statuses as of 08/02/2024) Resolved Problems Problem Noted Date Diagnosed Date [...] as of this encounter (statuses as of 08/02/2024) Immunizations Name Administration Dates Next Due COVID-19 mRNA, LNP-s, No Pre serve, 2-Dose Series ([employer]) 09/12/2021,01/29/2021,01/08/2021 Covid-19, Mrna, Lnp-s, Pf, B ivalent, 30 Mcg, IM, 12 yrs and above ([employer]) 09/22/2022 H1N1 2009 Influenza, IM 10/23/2009 Pneumococcal [...] Telephone Encounter - Tatyana Gutierrez LPN - 08/02/2024 12:37 PM EDT Pt scheduled. * Telephone Encounter - Tatyana Gutierrez LPN [...] Description 08/15/2024 1:00 PM EDT Imaging Radiology, [place] [address] [place] [address] [address] 08/15/2024 1:40 PM EDT Office Visit Rheumatology [place] [address] [address] Umesh Brewster MD [address] [facility] [place], [place] [address] 08/31/2024 12:35 PM EST Office Visit Urogynecology [facility] [address] [facility] [place] [address] Joellen Donnelly PA-C [address] [place] [address] Benedict[place] Nurse Urogyn [facility] [address] [place] [address] 09/05/2024 11:00 AM EST Scheduled Telephone Interventional Pain Center, [facility] 132 [facility] [place] [address] Benedict[place] Nurse Phone Call Interventional Pain [address] [place] [address] 10/03/2024 11:00 AM EST Office Visit Interventional Pain Center, [facility] 132 [facility] [place] [address] Jany Pederson PA-C [facility] [place] [address] 11/13/2024 1:30 PM EST Office Visit Neurology [facility] [address] [place] [address] Lidia Rashid PA-C [facility] [place] [address] 11/16/2024 1:20 PM EST Office Visit Dermatology [facility] [address] [place] [address] Connie Pires PA-C [address] [place] [address] 01/11/2025 1:20 PM EDT Office [facility] [address] [facility] [address] Jose Es[facility]ito [facility] [address] [facility] [address] 02/22/2025 11:20 AM EDT Office Visit Sleep Disorders Ctr [facility] [address] [place] [phone] Mitali Garcia DO [address] [place] [address] Health Maintenance Due Date Last Done Comments [...] D LEVEL ONCE IN A LIFETIME-USE SMARTSET# [id number] Completed 07/04/2024, 05/23/2023, 02/08/2022, Additional history exists [...] and were consensually agreed upon. Care Teams Quoter Relationship Specialty Start Date End Date Phillip Mulligan MD 132 [facility] [place] [address] PCP - General Family Medicine 12/10/20 documented as of this encounter
--- OUTSIDE RECORDS SUMMARY | 2024-09-13 11:53 | External Medical Summary | Summary of Care ---
Author Name Unknown Organization [facility] Address [address] [place] [place] [address] Phone [phone] Care Team Providers Care Agronomy Teacher Name Role Phone Phillip Mulligan MD Primary Care Provider [phone] Reason for Visit * Auth/Cert Specialty Diagnoses / Procedures Referred By Michelle t Referred To Contact Diagnoses Cervical radiculitis Cervical radiculitis [M54.12] Procedures INJECT DX/THER SUBSTANCE INTERLAMINAR CERVICAL/THORACIC W IMAGE GUIDE INJECTION SPINE LUMBAR CERVICAL OR THORACIC Jose David Mendez DO [address] [place] [address] Or [address] [address] [place] [address] Referral ID Status Reason Start Date Expiration Date Visits Re quested Visits Authorized [id number] Encounter Details Date Type Department Care Team (Latest Contact Info) Description 07/30/2024 7:49 AM EDT - 07/30/2024 9:10 AM EDT Hospital Encounter OR [facility], Operating Room [facility] [address] [place] [address] Jose David Mendez DO [address] [place] [address] Discharge Disposition: Home - Self Care Allergies Active Allergy Reactions Criticality Noted Date [...] times a day Active Cholecalciferol (VITAMIN D3) 22146 units Capsule Take 1 Capsule by mouth [...] Health Triple Action 40-5-3.3 MG Oral Tablet (Giwiywfe-Fisgu-Itv luronic Acid) Take by mouth. Active Loratadine [...] Sign Reading Time Taken Comments Blood Pressure 143/86 07/30/2024 8:59 AM EDT Pulse 70 07/30/2024 8:59 AM EDT Temperature 36.4 C (97.6 F) 07/30/2024 8:59 AM ED T Respiratory Rate 20 07/30/2024 8:59 AM EDT Oxygen Saturation 98% 07/30/2024 8:59 AM EDT Inhaled Oxygen Concentration - - Weight - - Height - - Body Mass Index - - documented in this encounter Discharge Instructions * Discharge Instr - AVS* Jose David Mendez DO - 07/30/2024 8:57 AM EDT [facility] [address] [facility], [place] [address] Discharge Date: 07/30/2024 You may call [facility] at [phone] during business hours. For after-hours emergencies call 911. Your attending physician at the time of your discharge was: Jose David Mendez DO [address] [place] [address] The information below provides you with the instructions and the list of medications you need to betaking following discharge from the hospital. If you have any questions, please ask before leaving.Please carry this letter with you when you see your doctor in the clinic. Diet: Resume your normal diet If you are diabetic, follow your blood sugars closely for next 2-3 days as they are likely to be elevated. If you are having difficulty controlling your blood sugars call your family doctor or the physician that treats your diabetes. Activity: Do not engage in strenuous activity today Resume your normal activities tomorrow Do not soak in water for 24 hours. No swimming, hot tub or bath but showering is allowed. Do not use heat on the injection site for 24 hours. If uncomfortable ice may be helpful. Some injections may make your arms or legs weak for a few hours. Be extremely careful when walking or changing positions that you do not fall. Have someone assist you for the next 6 hours. If weakness or numbness becomes progressive CALL IMMEDIATELY or GO TO THE NEAREST EMERGENCY ROOM Do not restart physical therapy or chiropractic manipulation until 48 hours after your injection Call : If weakness or numbness suddenly becomes worse or become progressive If the injection site becomes red, swollen, warm to the touch, begins to bleed or drain fluid, or is excessively painful. If you have any questions Medications: Resume all the medications you were taking prior to your injection. Resume your anticoagulants tomorrow unless otherwise instructed by your family physician, professor of special education or the anticoagulation clinic. Additional Instructions: None Driving: You may resume driving in 12-24 hours if no weakness is noted . Date you may return to work or school: N/A Follow Up: Please make a follow-up telephone appointment with our nursing staff in 4-6 weeks. documented in this encounter Progress Notes * Jose David Mendez DO - 07/30/2024 8:57 AM EDT [facility] [address] [place] [address] OUTPATIENT SURGERY DISCHARGE SUMMARY NOTE Name: Sydney Galeano Location: OR [facility]/OR Date: 07/30/2024 Time: 8:57 AM Surgery Date: 07/30/2024 Procedure: INJECTION SPINE LUMBAR CERVICAL OR THORACIC No laterality found for procedure #1 Surgeon: Jose David Mendez DO Discharge Diagnosis: cervical radicular pain After examination of this patient, I have determined she is ready for discharge to home when the patient meets criteria. Discharge instructions were given to the patient. documented in this encounter H&P Notes * Jose David Mendez DO - 07/30/2024 8:36 AM EDT Interventional Pain H&P Subjective: History of Present Illness: Sydney Galeano is a 68 year old year-old female with a past medical history significant for cervical radicular pain who is presenting for repeat C7/T1 LEXY to improve her pain and function. her painis essentially unchanged since our last office visit with her. ASA 3 AW nnl Review of Systems: A focused 12-pt ROS were of reviewed with the patient including difficulty with sleep, snoring, aspiration history, dysphagia, stomach pain, nausea and vomiting, severe headaches, confusion, open skin lesions or wounds, chest pain, shortness of breath, excessive thirst, somnolence, dysuria, incomplete bladder emptying, easy bruising, recent clotting problems or bleeding, depression or rushed thoughts unless noted previously. Review of patient's allergies indicates: Allergen Reactions Clavulanic Acid Other Reaction(s): DIARRHEA Braeden Inhibitors Cough Augmentin [Amoxicillin] Diarrhea Doxycycline Rash Medications, Past Medical History, Past Surgical History reviewed and documented in Epic. See detailed report if needed. Pertinent Labs/Test Results: No results found for: "INR" No results found for: "CREATININE" Hemoglobin A1C (%) Date Value 10/19/2023 5.5 10/02/2018 5.6 Lab Results Component Value Date/Time URINE COMMENT POC 10/13/2020 02:10 PM PLEASE REVIEW CAREFULLY. SOME ABNORMAL RESULTS DO NOT FLAG Imaging: I personally reviewed the imaging and my findings were . MAMMOGRAM SCREENING YARELY BILATERAL Result MAMMOGRAM SCREENING YARELY BILATERAL History Encounter for screening mammogram for breast cancer Family medical history includes breast cancer in aunt (maternal). Films Compared 05/16/2023 MAMMOGRAM SCREENING YARELY BILATERAL, 05/12/2022 MAMMOGRAM SCREENING YARELY BILATERAL, 04/29/2021 MAMMOGRAM SCREENING YARELY BILATERAL, 05/14/2020 MAMMOGRAM DIAGNOSTIC YARELY RIGHT, and 04/28/2020 MAMMOGRAM SCREENING YARELY BILATERAL Findings There are benign calcifications present. The breasts are heterogeneously dense, which may obscure small masses. No new dominant mass or clustered microcalcifications suspicious for malignancy are identified. Impression Bilateral No mammographic evidence of malignancy. BI-RADS Category: 2 - Benign. Recommendation Screening mammogram in 1 year is recommended for both breasts. Digital breast tomosynthesis was performed. This digital mammogram has been analyzed with the computer aided detection system. This notice contains the results of your recent mammogram, including information about breast density. If your mammogram shows that your breast tissue is dense, you should know that dense breast tissue is a common finding and is not abnormal. Statistics show many women could have dense or highly dense breasts. Dense breast tissue can make it harder to find cancer on a mammogram and may be associated with an increased risk of cancer. This information about the result of your mammogram is given to you to raise your awareness and to inform your conversations with your physician. Together, you can decide which screening options are right for you, based on your mammogram results, individual risk factors or physical examination. A report of your results was sent to your physician. Your mammographic breast density on today's study is described above. There are four categories of breast density on mammography. Fatty breasts and those with scattered fibroglandular tissue are not considered dense. Heterogeneously dense or extremely dense tissue is considered "dense". Please understand that assessment of breast density may vary from year to year. This examination was performed at [facility], [address] [place] [id number]. Objective Physical Exam: Vital Signs: BP 147/75 | Pulse 68 | Temp 36.4 C (97.6 F) (Tympanic) | Resp 20 | LMP 08/01/2007 | SpO2 99% There is no height or weight on file to calculate BMI. General: No apparent distress. Eyes: pupils equal and round, sclera white, pupils midsize. ENT: mucous membranes moist Resp: Non-labored breathing CV: Extremities warm and well-perfused. Psych: Oriented; affect warm, insight good. Skin: No rashes or lesions appreciated on exposed skin Neuromuscular Exam: TTT over cervical spine Assessment: Sydney is a 68 year old year-old female with: Cervical radicular pain Plan: The patient is undergoing C7/T1 LEXY today to alleviate her pain and improve her function. The risks, benefits and alternatives to the procedure were reviewed at length and the patient was provided the opportunity to ask questions which were answered to their voiced understanding. Following this comprehensive discussion, the patient opted to proceed. The patient was consented to the procedure following this comprehensive conversation. Jose David Mendez DO OR [facility], Operating [address] [facility] [address] documented in this encounter Nursing Notes * Renée Medina RN - 07/30/2024 9:09 AM EDT Visited by Dr Mendez. Verbalized understanding of discharge directions. Ready for discharge to home. * Tiffany Arboleda RN - 07/30/2024 8:58 AM EDT Band aid applied to area. Patient transferred to PACU 11 via wheelchair * Tiffany Arboleda RN - 07/30/2024 8:53 AM EDT Patient tolerating pain management injection well. documented in this encounter OR Notes * OR Surgeon - Jose David Mendez DO - 07/30/2024 8:56 AM EDT Cervical Interlaminar Epidural Steroid Injection DATE: 07/30/2024 PHYSICIAN: Jose David Mendez DO PREOPERATIVE DIAGNOSIS: Cervical spondylosis with cervical radiculopathy. POSTOPERATIVE DIAGNOSIS: Cervical spondylosis with cervical radiculopathy. PROCEDURE PERFORMED: C7-T1 interlaminar epidural steroid injection on the left side. Fluoroscopy for precise needle localization. ANESTHESIA: Local infiltration with lidocaine. MONITORING: Automatic blood pressure cuff, pulse oximetry readily available There was no blood and plasma laboratory assistant, EBL or drains placed during this procedure. INDICATIONS: We had the pleasure of seeing Sydney Galeano ([id number]) in the pain management clinic at the [facility] today. Sydney is a 68 year old year-old female with cervical radiculopathy. The patient is here today for an interlaminar cervical epidural steroid injection. MEDICATIONS: No current facility-administered medications for this encounter. ALLERGIES: Review of patient's allergies indicates: Allergen Reactions Clavulanic Acid Other Reaction(s): DIARRHEA Braeden Inhibitors Cough Augmentin [Amoxicillin] Diarrhea Doxycycline Rash REVIEW OF SYSTEMS: Negative for fever, chills, chest pain, SOB, bleeding abnormalities, nausea, vomiting, diarrhea, worsening edema, or new rashes. FOCUSED PHYSICAL EXAMINATION: The patient is awake, alert and oriented, and is in no acute distress. Vital signs are stable. The patient is afebrile. The rest of the PE is essentially unchanged from the patient's recent visit to our office. I explained the procedure to the patient including the risks, benefits and alternatives to the procedure. The risks discussed with the patient included but were not limited to: bleeding, infection, and damage to surrounding nerves, tissues, and organs, paralysis, increased pain, allergic reaction, blood pressure instability, seizures, heart block, headaches, increase in blood sugar, worsening of glaucoma, blindness, manic episodes, mood instability, pneumothorax, . The patient verbalized understanding and was willing to proceed. Alternatives to the procedure were also explained and include: do nothing, surgery, medications, and physical therapy PROCEDURE IN DETAIL: An informed consent was obtained. The patient was taken to the procedure room and was positively identified by the staff and the physician. The patient was positioned prone on the procedure bed. Vital signs were monitored as above and remained stable throughout the procedure. The skin was prepped and draped in the standard sterile fashion with ChloraPrep and surgical drape. Asurgical pause (time-out) was performed and was agreed upon by the members of the team. A fluoroscopic view of the cervical spine was obtained, and the area of interest was identified. The skin and subcutaneous tissues were anesthetized using 1% lidocaine and 25-gauge 1-1/2-inch needle. Under fluoroscopic guidance, a 20-gauge 3.5-inch epidural needle was advanced toward the C7-T1 interlaminar window in the left paramedian position. AP and contralateral oblique views were used to guide accurate needle placement. Loss of resistance to air was utilized in order to identify the epidural space and was obtained at 5.5 cm from the skin. The needle's position was additionally verified by injecting iodinated radio-opaque dye, iohexol 240 mg/ml which showed excellent spread of the dye in the epidural space. After negative aspiration for the CSF or blood, 80 mg of triamcinolone and 0.5mL of preservative-free normal saline was slowly injected into the epidural space. All needles were removed. The patient tolerated the procedure well. Again required was cepahalic tilt of the image intensifier as well as extra padding under her chest/back and head to make the prone positioning effective and stable. COMPLICATIONS: None. DISPOSITION: 1. Return to clinic in 1-2 months for follow-up evaluation, sooner as needed. 2. Resume activity as tolerated. 3. Patient can drive after 12-24 hours if no weakness noted. Jose David Mendez DO OR [facility], Operating Room [facility] [address] [place] [phone] documented in this encounter Plan of Treatment Upcoming Encounters Date Type Department Care Team (Late st Contact Info) Description 08/15/2024 1:00 PM EDT Imaging Radiology, [place] [address] [address] 08/15/2024 1:40 PM EDT Office Visit Rheumatology [place] [address] [place] [address] Umesh Brewster MD [facility] [place] [address] 08/31/2024 12:35 PM EST Office Visit Urogynecology Kate Diane [address] [place] [address] Joellen Donnelly PA-C [address] [place] [address] Nurse Ann Diane Tri [address] [place] [address] 09/05/2024 11:00 AM EST Scheduled Telephone Interventional Pain Center, [facility] [address] [facility] [place] [address] Nurse Benedicto Phone Call Interventional Pain Tri [address] [place] [address] 11/13/2024 1:30 PM EST Office Visit Neurology [facility] [address] [place] [address] Lidia Rashid PA-C [facility] [place] [address] 11/16/2024 1:20 PM EST Office Visit Dermatology [facility] [address] [facility] [place] [address] Connie Pires PA-C [address] [facility] [place] [address] 01/11/2025 1:20 PM EDT Office Visit [facility] [address] [place] [phone] Jose Esposito MD [address] [place] [address] 02/22/2025 11:20 AM EDT Office Visit [facility] Disorders Ctr [facility] [place] [phone] Mitali Garcia DO [address] [place] [address] Scheduled Procedures Name Priority Associated Diagnoses Date/Ti [...] D LEVEL ONCE IN A LIFETIME-USE SMARTSET# [id number] Completed 07/04/2024, 05/23/2023, 02/08/2022, Additional history exists [...] Not on filedocumented as of this encounter Procedures Procedure Name Priority Date/Time Associated Diagnosis Comments FLUORO INTERVENTIONAL PAIN PROCEDURE NONBILLABLE Routine 07/30/2024 9:03 AM EDT documented in this encounter Results * FLUORO INTERVENTIONAL PAIN PROCEDURE NONBILLABLE (07/30/2024 9:03 AM EDT) Narrative Scheduling, Silent - 07/30/2024 9:03 AM EDT This procedure will not be read by a Radiologist. Please see operative note. Jose David RIGGS FLUOROSCOPY documented in this encounter Administered Medications Inactive Administered Medications - up to 3 most recent administrations Medication Order MAR Action Action Date Dose Rate Site Iohexol (Omnipaque 240) inj 0.25 mL 0.25 mL, Epidural, ONCE, On Tue07/30/24 at 0845, For 1 dose, For cervical epidural, Intra-Op Given 07/30/2024 8:54 AM EDT 1.5 mL lidocaine 1 % inj 15 mg 15 mg (1.5 mL), Subcutaneous, ONCE, On Tue07/30/24 at 0845, For 1 dose, Intra-Op Given 07/30/2024 8:52 AM EDT 4 mL Oth er-Specify Triamcinolone Acetonide (Kenalog) 40 MG/ML inj 40 mg 40 mg, Injection, ONCE, On Tue07/30/24 at 0845, For 1 dose, Intra-Op Given 07/30/2024 8:55 AM EDT 80 mg documented in this encounter Active and Recently Administered Medications Times are shown in EDT. Scheduled Medication Order 07/28/2024 07/29/2024 07/30/2024 Iohexol (Omnipaque 240) inj 0.25 mL (COMPLETED) 0.25 mL, Epidural, ONCE, On Tue07/30/24 at 0845, For 1 dose, For cervical epidural, Intra-Op 0854 (Given - Provid er: Tiffany Arboleda RN) lidocaine 1 % inj 15 mg (COMPLETED) 15 mg (1.5 mL), Subcutaneous, ONCE, On Tue07/30/24 at 0845, For 1 dose, Intra-Op 0852 (Given - Provid er: Tiffany Arboleda RN) Triamcinolone Acetonide (Kenalog) 40 MG/ML inj 40 mg (COMPLETED) 40 mg, Injection, ONCE, On Tue07/30/24 at 0845, For 1 dose, Intra-Op 0855 (Given - Provid er: Tiffany Arboleda RN) documented in this encounter Advance Directives * [...] and were consensually agreed upon. Care Teams Agronomy Teacher Relationship Specialty Start Date End Date Phillip Mulligan MD [address] [place] [address] PCP - General Family Medicine 12/10/20 documented as of this encounter
--- OUTSIDE RECORDS SUMMARY | 2024-09-13 11:53 | External Medical Summary | Summary of Care ---
Author Name Unknown Organization [facility] Address [address] [facility] [place] [address] Phone [phone] Care Team Providers Care Group Counselor Name Role Phone Phillip Mulligan MD Primary Care Provider [phone] Reason for Visit * Reason Onset Date Comments Follow Up 07/30/2024 Encounter Details Date Type Department Care Team (Late st Contact Info) Description 07/30/2024 Telephone Interventional Pain Center, [facility] [address] [place] [address] Jose David Mendez DO [address] [place] [phone] Follow Up Allergies Active Allergy Reactions Criticality [...] times a day Active Cholecalciferol (VITAMIN D3) 11018 units Capsule Take 1 Capsule by mouth [...] Health Triple Action 40-5-3.3 MG Oral Tablet (Uhbsvzkh-Djumx-Fmk luronic Acid) Take by mouth. Active Loratadine [...] mRNA, LNP-s, No Pre serve, 2-Dose Series (SwitchForce) 09/12/2021,01/29/2021,01/08/2021 Covid-19, Mrna, Lnp-s, Pf, B ivalent, 30 Mcg, IM, 12 yrs and above (SwitchForce) 09/22/2022 H1N1 2009 Influenza, IM 10/23/2009 Pneumococcal [...] Description 08/15/2024 1:00 PM EDT Imaging Radiology, [address] [place] [address] 08/15/2024 1:40 PM EDT Office Visit Rheumatology [address] [place] [address] Umesh Brewster MD [address] [place] [address] [place] [address] 08/31/2024 12:35 PM EST Office Visit Urogynecology Kate Diane [address] [place] [address] Joellen Donnelly PA-C [address] [place] [address] Nurse Ann Diane [address] [place] [address] 09/05/2024 11:00 AM EST Scheduled Telephone Interventional Pain Center, [facility] [address] [place] [address] Nurse Benedicto Phone Call Interventional Pain [facility] [address] [place] [address] 11/13/2024 1:30 PM EST Office Visit Neurology [facility] [address] [place] [address] [place] Rashid PA-C [facility] [place] [address] 11/16/2024 1:20 PM EST Office Visit Dermatology [facility] [address] [place] [address] Connie Pires PA-C [address] [place] [address] 01/11/2025 1:20 PM EDT Office Visit [facility] [address] [place] [phone] Jose Esposito MD [address] [place] [address] 02/22/2025 11:20 AM EDT Office Visit Sleep Disorders Ctr [facility] [address] [place] [phone] Mitali Garcia DO [address] [place] [address] Health Maintenance Due Date Last Done Comments [...] D LEVEL ONCE IN A LIFETIME-USE SMARTSET# [id number] Completed 07/04/2024, 05/23/2023, 02/08/2022, Additional history exists [...] and were consensually agreed upon. Care Teams Group Counselor Relationship Specialty Start Date End Date Phillip Mulligan MD [address] [place] [address] PCP - General Family Medicine 12/10/20 documented as of this encounter
--- OUTSIDE RECORDS SUMMARY | 2024-09-13 11:54 | External Medical Summary | Summary of Care ---
Author Name Unknown Organization [facility] Address [address] [address] Phone [phone] Care Team Providers Care Flavor Extractor Name Role Phone Phillip Mulligan MD Primary Care Provider [phone] [phone] Encounter Details Date Type Department Care Team (Late st Contact Info) Description 07/05/2024 Telephone Interventional Pain Center, [facility] [address] [place] [address] Jose David Mendez DO [address] [place] [phone] Allergies Active Allergy Reactions Criticality Noted Date Comments Braeden Inhibitors Cough 06/22/2012 Amoxicillin 11/24/2005 Diarrhea Clavulanic Acid High 05/25/2023 Other Reaction(s): DIARRHEA Doxycycline Rash Low 02/08/2022 documented as of this encounter (statuses as of 07/05/2024) Medications Medication Sig Dispensed Refills Start Date [...] times a day Active Cholecalciferol (VITAMIN D3) 57583 units Capsule Take 1 Capsule by mouth [...] Health Triple Action 40-5-3.3 MG Oral Tablet (Cvtmpzrz-Yclic-Oel luronic Acid) Take by mouth. Active Loratadine [...] as of this encounter (statuses as of 07/05/2024) Active Problems Problem Noted Date Diagnosed Date [...] as of this encounter (statuses as of 07/05/2024) Resolved Problems Problem Noted Date Diagnosed Date [...] as of this encounter (statuses as of 07/05/2024) Immunizations Name Administration Dates Next Due COVID-19 mRNA, LNP-s, No Pre serve, 2-Dose Series ([employer]) 09/12/2021,01/29/2021,01/08/2021 Covid-19, Mrna, Lnp-s, Pf, B ivalent, 30 Mcg, IM, 12 yrs and above (GTX Messaging) 09/22/2022 H1N1 2009 Influenza, IM 10/23/2009 Pneumococcal [...] Telephone Encounter - Tatyana Gutierrez LPN - 07/05/2024 4:24 PM EDT ----- Message from Jose David Mendez DO sent at 06/27/2024 10:16 AM EDT ----- Good morning, The patient's ankle is red and tender to the touch localizing over the lateral malleolus and more generally -- looks like you may have received some bad info when making the call or perhaps her symptoms have progressed. Any swelling seems to be improving (per her story) but the redness and tenderness persists. This patient needs to be seen when possible. Unfortunately, I have to delay her injection again. Please help me have her seen on an LENNOX basis so I can get her rescheduled. Will tentatively reschedule on an LENNOX basis assuming this is taken care of within the next two weeks. Appreciate your help! Jose David Ramires DO OR [facility], Operating Room [facility] [address] [place] [phone] documented in this encounter Plan of Treatment Upcoming Encounters Date Type Department Care Team (Late st Contact Info) Description 07/13/2024 11:20 AM EDT Office [facility] [address] [facility] [phone] Jose Esposito [facility] [address] [facility] [address] 07/30/2024 8:50 AM EDT Hospital Encounter OR OSS, Operating Room [facility] [address] [place] [phone] Jose David Mendez DO [address] [place] [address] 07/30/2024 8:50 AM EDT - 07/30/2024 9:15 AM EDT Surgery OR [facility], Operating Room [facility] [address] [place] [phone] Jose David Mendez DO [address] [place] [address] INJECTION SPINE LUMBAR CERVICAL OR THORACIC 08/15/2024 1:00 PM EDT Imaging Radiology, [address] [place] [address] 08/15/2024 1:40 PM EDT Office Visit Rheumatology [address] [place] [address] Umesh Brewster MD [facility] [place] [address] 08/31/2024 12:35 PM EST Office Visit Urogynecology Kate Diane [address] [place] [address] Joellen Donnelly PA-C [address] [place] [address] Nurse Ann Diane [address] [place] [address] 11/13/2024 1:30 PM EST Office Visit Neurology [facility] [address] [place] [address] Lidia Rashid PARae [address] [facility] [place] [address] 11/16/2024 1:20 PM EST Office Visit Dermatology [facility] [address] [place] [address] Connie Pires PA-C [address] [place] [address] 02/22/2025 11:20 AM EDT Office Visit Sleep Disorders Ctr [facility] [address] [place] [phone] Mitali Garciaaret, [address] [place] [address] Scheduled Procedures Name Priority Associated Diagnoses Date/Ti [...] D LEVEL ONCE IN A LIFETIME-USE SMARTSET# [id number] Completed 07/04/2024, 05/23/2023, 02/08/2022, Additional history exists [...] and were consensually agreed upon. Care Teams Flavor Extractor Relationship Specialty Start Date End Date Phillip Mulligan MD [address] [place] [address] PCP - General Family Medicine 12/10/20 documented as of this encounter
--- OUTSIDE RECORDS SUMMARY | 2024-09-13 11:54 | External Medical Summary | Summary of Care ---
Author Name Unknown Organization [facility] Address [address] [place] [facility] [place] [address] Phone [phone] Care Team Providers Care Cardiac Nurse Practitioner Name Role Phone Phillip Mulligan MD Primary Care Provider [phone] Reason for Visit * Reason Onset Date Comments Follow Up Sleep Apnea Medication Administration 07/04/2024 Flu an d/or Pneumo Inj * Precert (Within 10 days (routine)) - Denied Specialty Diagnoses / Procedures Referred By Contmatthias t Referred To Contact Sleep Disorders Diagnoses Obstructive sleep apnea Procedures SLEEP STUDY, W/ CPAP (TREATMENT SETTINGS) Mitali Garcia DO [address] [place] [address] Referral ID Status Reason Start Date Expiration Date V isits Requested Visits Authorized [id number] Denied Specialty Services Required 07/04/2024 999 0 Encounter Details Date Type Department Care Team (Late st Contact Info) Description 07/04/2024 11:40 AM EDT Office Visit Sleep Disorders Ctr [facility] [address] [place] [phone] Mitali Garcia DO [address] [place] [address] Obstructive sleep apnea*; Need for prophylactic vaccination and inoculation against influenza; HTN, goal below 130/80 Allergies Active Allergy Reactions Criticality Noted Date Comments Braeden Inhibitors Cough 06/22/2012 Amoxicillin 11/24/2005 Diarrhea Clavulanic Acid High 05/25/2023 Other Reaction(s): DIARRHEA Doxycycline Rash Low 02/08/2022 documented as of this encounter (statuses as of 07/04/2024) Medications Medication Sig Dispensed Refills Start Date [...] times a day Active Cholecalciferol (VITAMIN D3) 94252 units Capsule Take 1 Capsule by mouth [...] Health Triple Action 40-5-3.3 MG Oral Tablet (Nrmfqtvt-Rfovr-Rjp luronic Acid) Take by mouth. Active Loratadine [...] as of this encounter (statuses as of 07/04/2024) Active Problems Problem Noted Date Diagnosed Date [...] as of this encounter (statuses as of 07/04/2024) Resolved Problems Problem Noted Date Diagnosed Date [...] as of this encounter (statuses as of 07/04/2024) Immunizations Name Administration Dates Next Due COVID-19 [...] Sign Reading Time Taken Comments Blood Pressure 124/60 07/04/2024 11:44 AM EDT Pulse 75 07/04/2024 11:44 AM EDT Temperature 37.1 C (98.7 F) 07/04/2024 11:44 AM E DT Respiratory Rate 16 07/04/2024 11:44 AM EDT Oxygen Saturation 95% 07/04/2024 11:44 AM EDT Inhaled Oxygen Concentration - - Weight 64.9 kg (143 lb) 07/04/2024 11:44 AM EDT Height 154.9 cm (5' 1") 07/04/2024 11:44 AM EDT Body Mass Index 27.02 07/04/2024 11:44 AM EDT documented in this encounter Patient Instructions * Patient Instructions* Billie Altamirano LPN - 07/04/2024 11:50 AM EDT ~~PATIENT INSTRUCTIONS FOR FLU SHOT~~ Possible side effects of influenza vaccine, (flu shot), are usually mild and include: 1. Soreness or redness at injection site 2. Low grade fever 3. Body aches You may use Tylenol/Acetaminophen as needed for these symptoms. LET YOUR DOCTOR KNOW IMMEDIATELY IF YOU HAVE DIFFICULTY BREATHING OR SWALLOWING, EXPERIENCE ITCHINGOF FEET OR HANDS, HAVE SWELLING OF EYES, FACE OR INSIDE OF NOSE. documented in this encounter Progress Notes * Mitali Garcia, DO - 07/04/2024 12:19 PM EDT Sleep Medicine Follow-Up HISTORY: Sydney Galeano is a 68 year old female for follow up of THALIA. Patient was seen on 03/19/[address] Mira Saleem with excessive sleepiness, snoring, nocturia/enuresis, morning headaches. Hx MS, SAD, HTN, GERD, RAMU. [place] was 7. HST 06/11/22: TRT 654 min, JAGJIT 6.8 (no central apneas reported), SpO2 gurwinder 88%, time <89% 0.1 min. Patient initially wanted to treat with oral appliance, however, after multiple follow-up discussions with our office, she still had not discussed with a dentist; when she was willing, we started CPAP(started 07/2023). Initially had issues with mask fit, excessive leak. PAP titration 01/05/24: CPAP 9 cwp with residual AHI 0.7 and SpO2 gurwinder 93%; mask used was F&P Simplus size medium. 01/27/24: adjusted CPAP to 9 cwp. Mask fitting ordered. Using CPAP 9 cmH2O. Having issues with insurance regarding dental implants. She also notes she had a course of steroids. Had more energy while on the steroid. Mask has not been changed after last appt. Mask still slides around, although overall she feels okay with it. Subjective PAP adherence: usually good [place] Sleepiness Scale: 5 Travel Screening Question 07/04/2024 11:05 AM EDT - Filed by Patient Do you have any of the following new or worsening symptoms? None of these Have you recently been in contact with someone who was sick? No / Unsure [place] Sleepiness Scale Question 07/04/2024 11:49 AM EDT - Filed by Billie Altamirano LPN What is the chance you will doze off in the following situation? Sitting and reading Slight chance of dozing Watching TV Slight chance of dozing Sitting inactive in a public place, such as a theater or meeting No chance of dozing As a passenger in a car for an hour without a break No chance of dozing Lying down to rest in the afternoon when circumstances permit High chance of dozing When sitting and talking to someone No chance of dozing When sitting quietly after lunch without alcohol No chance of dozing In a car, while stopped for a few minutes in traffic No chance of dozing Score (range: 0 - 24) 5 CPAP Compliance: Report date: 07/01/24 % total days used: 90% % days used > 4 hours: 73% Average hours per day used: 5h 34m Large leak: yes AHI: 11 /hr Pressure settin cmH2O Equipment: DME Provider is [employer] Uses a AirSense 11. ROS: She notes that her alert button seems to go off a lot. Inflammation of skin of RLE > LLE Continued neck issues. Patient Active Problem List Diagnosis Multiple sclerosis (HCC) HTN, goal below 130/80 Senile osteoporosis Dyslipidemia Neurogenic bladder Ataxia Impingement syndrome of right shoulder Overweight (BMI 25.0-29.9) Depression with anxiety DDD (degenerative disc disease), cervical DDD (degenerative disc disease), lumbar Right foot drop Mild obstructive sleep apnea Chronic rhinitis Current Outpatient Medications Medication Sig Dispense Refill Simvastatin 40 MG Oral Tablet (Zocor) TAKE 1 TABLET BY MOUTH EVERYDAY AT BEDTIME 90 Tablet 3 Alendronate Sodium 70 MG Oral Tablet (Fosamax) TAKE 1 TABLET BY MOUTH ONE TIME PER WEEK 12 Tablet 0 Omeprazole 20 MG Oral Capsule Delayed Release (PriLOSEC) TAKE 1 CAPSULE BY MOUTH 1 HOUR PRIOR TO THE FIRST MEAL OF THE DAY 90 Capsule 2 Valsartan 40 MG Oral Tablet (Diovan) TAKE 1 TABLET BY MOUTH EVERY DAY 90 Tablet 1 Gabapentin 100 MG Oral Capsule (Neurontin) Take 2 capsules by mouth twice daily 360 Capsule 2 Fluticasone Propionate 50 MCG/ACT Nasal Suspension (Flonase) SPRAY 2 SPRAYS INTO EACH NOSTRIL EVERYDAY 48 mL 3 guaiFENesin ER 600 MG Oral Tablet Extended Release 12 Hour (Mucinex) Take 1 Tablet by mouth 2 timesa day as needed for Congestion. Take with plenty of water. Do not cut, crush or chew 40 Tablet 2 Loratadine 10 MG Oral Tablet (Claritin) TAKE 1 TABLET BY MOUTH EVERY DAY 90 Tablet 3 [facility] Triple Action 40-5-3.3 MG Oral Tablet (Jmjjtgft-Dhkku-Jawzrauycj Acid) Take by mouth. Joint Health Oral Capsule Take by mouth. Sucralfate 1 GM Oral Tablet (Carafate) TAKE 1 TAB BY MOUTH 4 TIMES A DAY BEFORE MEALS AND AT BEDTIME. (Patient taking differently: Take 1 Tablet by mouth in the morning and 1 Tablet at noon and 1 Tablet before bedtime.) 360 Tablet 2 Cognitive Health 500 MG Oral Capsule (Citicoline) Take by mouth daily. (Patient not taking: Reported on 05/01/2024) Vibegron 75 MG Oral Tablet Take 1 Tablet by mouth in the morning. B Complex Plus Oral Tablet Take by mouth . Vitamin K 100 MCG Oral Tablet Take by mouth. Collagen Ultra Oral Capsule Take by mouth. Diapers & Supplies pull up diapers. use up to 3 times per night. dx 788.30 lifetime use 90 Each3 Oil of Oregano 1500 MG Oral Capsule Take by mouth. B Complex-B12 Oral Tablet Take by mouth. Bilberry Plus Oral Capsule Take by mouth. Black Elderberry(Nguyen-Flower) 575 MG Oral Capsule Take by mouth. Hyaluronic Acid 20-60 MG Oral Capsule Take by mouth. Lutein 40 MG Oral Capsule Take by mouth. Misc Natural Products (NEURO-ESSENTIALS) TABS Take by mouth. zinc gluconate 50 MG Tablet Take 1 Tablet by mouth in the morning. Cyanocobalamin (VITAMIN B-12) 1000 MCG Tablet Take 1 Tablet by mouth in the morning. folic acid 1 MG Tablet Take 1 Tablet by mouth in the morning. Multiple Vitamins-Minerals (HAIR/SKIN/NAILS) CAPS daily. Cholecalciferol (VITAMIN D3) 61740 units Capsule Take 1 Capsule by mouth once a week. TURMERIC 450 MG PO CAPS Take by mouth. 1000 mg, 5 times a day GRAPE SEED OIL Use as directed. (Patient not taking: Reported on 05/01/2024) PROBIOTIC ACIDOPHILUS PO CAPS 1 daily COQ10 100 MG PO CAPS 1 daily ALPHA-LIPOIC ACID 600 MG PO CAPS 1 tablet daily BIOTIN 5000 MCG PO CAPS 1 cap daily CRANBERRY 1000 MG PO CAPS 2 daily GLUCOSAMINE CHONDR COMPLEX 500-400 MG PO CAPS one daily OMEGA 3 1000 MG PO CAPS daily MILK THISTLE 140 MG PO CAPS Take by mouth. (Patient not taking: Reported on 06/27/2024) WILBER-C/BIOFLAVONOIDS PO TABS None Entered CALCIUM 500 500 MG PO TABS Take 500 mg by mouth daily. No current facility-administered medications for this visit. PHYSICAL EXAM: Filed Vitals: 07/04/24 1144 BP: 124/60 Pulse: 75 Resp: 16 Temp: 37.1 C (98.7 F) TempSrc: Tympanic SpO2: 95% Weight: 64.9 kg (143 lb) Height: 1.549 m (5' 1") Body mass index is 27.02 kg/m. General: alert, no acute distress, walks with walker Head: NC/AT Lungs: normal respiratory effort Neuro: speech clear ASSESSMENT/PLAN: Obstructive sleep apnea - better adherence; encourage continued use of CPAP with all sleep - mildly elevated residual AHI; adjust PAP to 9-13 cmH2O - mask fitting again ordered. Suspect leak contributes to the mildly elevated residual AHI. - DME: [employer] - Routine cleaning and change of supplies as needed. - Continue to avoid driving when feeling sleepy/drowsy. Follow-up with Sleep Medicine in 6 months. Mitali Garcia DO * Billie Altamirano LPN - 07/04/2024 11:50 AM EDT PRE - ADMINISTRATION DOCUMENTATION Are you experiencing any cold symptoms or fever? No Have you had Guillain-[place] Syndrome (an illness that causes paralysis) within the last 6 weeks? No Have you had the flu shot in the past? YES Have you ever had a reaction to the flu shot? No Billie Altamirano LPN, 07/04/2024 11:50 AM Immunization Administration Documentation Time Out Procedure Performed: Yes Patient Identified (Ask Name/Date of ): Yes Does the patient have a fever greater than 101 degrees today? No Patient allergic to latex? No VFC Stock: No Immunization(s) verified: Yes, Immunization Name: Flu, VIS Sheet(s) given: No Verified Side and Site: Yes Verified Shot(s) with Parent(s)/Patient: Yes documented in this encounter Nursing Notes * Billie Altamirano LPN - 07/04/2024 11:47 AM EDT Chief Complaint Patient presents with Follow Up Sleep Apnea Cpap DME: [employer] Travel Screening Question 07/04/2024 11:05 AM EDT - Filed by Patient Do you have any of the following new or worsening symptoms? None of these Have you recently been in contact with someone who was sick? No / Unsure [place] Sleepiness Scale Question 07/04/2024 11:49 AM EDT - Filed by Billie Altamirano LPN What is the chance you will doze off in the following situation? Sitting and reading Slight chance of dozing Watching TV Slight chance of dozing Sitting inactive in a public place, such as a theater or meeting No chance of dozing As a passenger in a car for an hour without a break No chance of dozing Lying down to rest in the afternoon when circumstances permit High chance of dozing When sitting and talking to someone No chance of dozing When sitting quietly after lunch without alcohol No chance of dozing In a car, while stopped for a few minutes in traffic No chance of dozing Score (range: 0 - 24) 5 documented in this encounter Plan of Treatment Upcoming Encounters Date Type Department Care Team (Late st Contact Info) Description 07/11/2024 11:40 AM EDT Office Visit [facility] [address] [place] [address] Phillip Mulligan MD [address] [place] [address] 07/30/2024 8:50 AM EDT Hospital Encounter OR [facility], Operating Room [facility] [address] [place] [phone] Jose David Mendez DO [address] [place] [phone] 07/30/2024 8:50 AM EDT - 07/30/2024 9:15 AM EDT Surgery OR [facility], Operating Room [facility] [address] [place] [phone] Jose David Mendez, [address] [place] [phone] INJECTION SPINE LUMBAR CERVICAL OR THORACIC 08/15/2024 1:00 PM EDT Imaging Radiology, [address] [place] [address] 08/15/2024 1:40 PM EDT Office Visit Rheumatology [address] [place] [address] Umesh Brewster MD [address] [place] [address] [place] [address] 08/31/2024 12:35 PM EST Office Visit Urogynecology Kate Diane [address] [place] [address] Joellen Donnelly PALaciC [address] [place] [address] Nurse Ann Diane [address] [place] [address] 11/13/2024 1:30 PM EST Office Visit Neurology [facility] [address] [place] [address] Lidia Rashid PA-C [address] [place] [address] 11/16/2024 1:20 PM EST Office Visit Dermatology [facility] [address] [place] [address] Connie Pires PA-C [address] [facility] [place] [address] 02/22/2025 11:20 AM EDT Office Visit [facility] Disorders Ctr [facility] [place] [address] [place] [phone] Mitali Garcia DO [address] [place] [phone] Scheduled Procedures Name Priority Associated Diagnoses Date/Ti [...] Pneumococcal Vaccine: 65+ Years Completed 04/14/2020, 02/19/2019 VITAMIN D LEVEL ONCE IN A LIFETIME-USE SMARTSET# [id number] Completed 05/23/2023, 02/08/2022, 11/03/2021, Additional history exists Influenza Vaccine (FLU shot) Completed , 07/06/2023, 07/13/2022, Additional history exists HPV (Gardasil) Vaccine Aged [...] as of this encounter Visit Diagnoses Diagnosis Obstructive sleep apnea- Primary Obstructive sleep apnea (adult) (pediatric) Need for prophylactic vaccination and inoculation against influenza HTN, goal below 130/80 Unspecified essential hypertension Cervical radiculitis Brachial neuritis or radiculitis nos [...] and were consensually agreed upon. Care Teams Cardiac Nurse Practitioner Relationship Specialty Start Date End Date Phillip Mulligan MD [address] [facility] [place] [address] PCP - General Family Medicine 12/10/20 documented as of this encounter
--- OUTSIDE RECORDS SUMMARY | 2024-09-13 11:54 | External Medical Summary | Summary of Care ---
Author Name Unknown Organization [facility] Address [address] [facility] [facility] [address] Phone [phone] Care Team Providers Care Towel Rolling Machine Operator Name Role Phone Phillip Mulligan MD Primary Care Provider [phone] Reason for Visit * Reason Onset Date Comments Durable Medical Equipment 07/05/2024 CPAP s upplies Encounter Details Date Type Department Care Team (Late st Contact Info) Description 07/05/2024 Telephone Sleep Disorders Ctr [facility] [address] [place] [phone] Mitali Garcia, [address] [place] [address] Durable Medical Equipment (CPAP supplies ) Allergies Active Allergy Reactions Criticality Noted Date [...] times a day Active Cholecalciferol (VITAMIN D3) 89480 units Capsule Take 1 Capsule by mouth [...] Health Triple Action 40-5-3.3 MG Oral Tablet (Xucximvt-Piare-Oep luronic Acid) Take by mouth. Active Loratadine [...] 08/19/2023 02/20/2024 Symptom of leg swelling 08/19/2023 05/03/2024 Chronic pain of right ankle 03/18/2023 06/22/2023 [...] mRNA, LNP-s, No Pre serve, 2-Dose Series ([employer]) 09/12/2021,01/29/2021,01/08/2021 Covid-19, Mrna, Lnp-s, Pf, B ivalent, 30 Mcg, IM, 12 yrs and above ([employer]) 09/22/2022 H1N1 2009 Influenza, IM 10/23/2009 Pneumococcal [...] encounter Miscellaneous Notes * Telephone Encounter - Carlota Guadarrama OSA - 07/05/2024 9:02 AM EDT DME order for CPAP supplies submitted to [employer]. documented in this encounter Plan of Treatment Upcoming Encounters Date Type Department Care Team (Late st Contact Info) Description 07/13/2024 11:20 AM EDT Office Visit [facility] [address] [place] [facility] [place] [facility] [place] [phone] Jose Esposito MD [address] [place] [address] 07/30/2024 8:50 AM EDT Hospital Encounter OR [facility], Operating Room [facility] [address] [place] [phone] Jose David Mendez, [address] [place] [phone] 07/30/2024 8:50 AM EDT - 07/30/2024 9:15 AM EDT Surgery OR [facility], Operating Room [facility] [address] [place] [phone] Jose David Mendez, [address] [place] [phone] INJECTION SPINE LUMBAR CERVICAL OR THORACIC 08/15/2024 1:00 PM EDT [address] Radiology, [address] [address] 08/15/2024 1:40 PM EDT Office Visit Rheumatology [place] [address] [facility] [place] [address] Umesh Brewster MD [address] [facility] [place] [address] 08/31/2024 12:35 PM EST Office Visit Urogynecology Kate Diane [address] [facility] [place] [address] Joellen Donnelly PA-C [address] [place] [address] Nurse Ann Diane [address] [place] [address] 11/13/2024 1:30 PM EST Office Visit Neurology [facility] [address] [place] [address] Lidia Rashid PA-C [address] [place] [address] 11/16/2024 1:20 PM EST Office Visit Dermatology [facility] [address] [facility] [place] [address] Connie Pires PA-C [address] [facility] [place] [address] 02/22/2025 11:20 AM EDT Office Visit Sleep Disorders Ctr [facility] [place] [address] [place] [phone] Mitali Garcia DO [address] [place] [address] Scheduled Procedures Name Priority Associated Diagnoses Date/Ti [...] D LEVEL ONCE IN A LIFETIME-USE SMARTSET# [id number] Completed 07/04/2024, 05/23/2023, 02/08/2022, Additional history exists [...] and were consensually agreed upon. Care Teams Towel Rolling Machine Operator Relationship Specialty Start Date End Date Phillip Mulligan MD [address] [place] [address] PCP - General Family Medicine 12/10/20 documented as of this encounter
--- OUTSIDE RECORDS SUMMARY | 2024-09-13 11:54 | External Medical Summary | Summary of Care ---
Author Name Unknown Organization [facility] Address [address] [facility] [place] [address] Phone [phone] Care Team Providers Care Metal Fabricating Shop Helper Name Role Phone Phillip Mulligan MD Primary Care Provider [phone] Reason for Visit * Reason Onset Date Comments Appointment 07/05/2024 Encounter Details Date Type Department Care Team (Late st Contact Info) Description 07/05/2024 Telephone Interventional Pain Center, [facility] [place] [address] [place] [address] Jose David Mendez DO [address] [place] [phone] Appointment Allergies Active Allergy Reactions Criticality Noted Date Comments Braeden Inhibitors Cough 06/22/2012 Amoxicillin 11/24/2005 Diarrhea Clavulanic Acid High 05/25/2023 Other Reaction(s): DIARRHEA Doxycycline Rash Low 02/08/2022 documented as of this encounter (statuses as of 07/09/2024) Medications Medication Sig Dispensed Refills Start Date [...] times a day Active Cholecalciferol (VITAMIN D3) 77456 units Capsule Take 1 Capsule by mouth [...] Health Triple Action 40-5-3.3 MG Oral Tablet (Chkoiosb-Wuton-Hxs luronic Acid) Take by mouth. Active Loratadine [...] as of this encounter (statuses as of 07/09/2024) Active Problems Problem Noted Date Diagnosed Date [...] as of this encounter (statuses as of 07/09/2024) Resolved Problems Problem Noted Date Diagnosed Date [...] as of this encounter (statuses as of 07/09/2024) Immunizations Name Administration Dates Next Due COVID-19 mRNA, LNP-s, No Pre serve, 2-Dose Series ([employer] [facility] [facility]) 09/12/2021,01/29/2021,01/08/2021 Covid-19, Mrna, Lnp-s, Pf, B ivalent, 30 Mcg, IM, 12 yrs and above ([employer] [facility]) 09/22/2022 H1N1 2009 Influenza, IM 10/23/2009 Pneumococcal [...] encounter Miscellaneous Notes * Telephone Encounter - Tam Alva LPN - 07/06/2024 9:13 AM EDT Patient states right ankle remains red and swollen. Pain today 02/23. Elevation and tylenol for pain. No issues with ambulation or ROM. Not wearing compression socks. She was prescribed prednisone on 06/25 and completed course. She states it did improve ankle , but 5-7 days swelling and redness returns. Denies Drainage or open areas. No swelling or redness at foot or calf area. Patient refused sooner appt. She was scheduled on 07/13 with and ref to be seen in a different clinic due [employer] told her is only doctor in network. Appt moved up to 07/12 She has appt with podiatry on 07/10 [facility]. Pt unsure doctors name. FYI * Telephone Encounter - Phillip Mulligan MD - 07/05/2024 9:00 PM EDT Schedule anyone. Not sure why this was sent to me. * Telephone Encounter - Tatyana Gutierrez LPN [...] the next two weeks. Appreciate your help! Ike, Jose David Mendez DO OR [facility], Operating Room [facility] [address] [place] [address] documented in this encounter Plan of Treatment Upcoming Encounters Date Type Department Care Team (Late st Contact Info) Description 07/12/2024 7:40 AM EDT Office Visit [facility] [address] [place] [phone] Jose Esposito MD [address] [place] [address] 07/30/2024 8:50 AM EDT Hospital Encounter OR [facility], Operating Room [facility] [address] [place] [phone] Jose David Mendez DO [address] [place] [address] 07/30/2024 8:50 AM EDT - 07/30/2024 9:15 AM EDT Surgery OR [facility], Operating Room [facility] [address] [place] [phone] Jose aDvid Mendez DO [address] [place] [address] INJECTION SPINE LUMBAR CERVICAL OR THORACIC 08/15/2024 1:00 PM EDT Imaging Radiology, [place] [address] [place] [address] 08/15/2024 1:40 PM EDT Office Visit Rheumatology [place] [address] [place] [address] Umesh Brewster MD [address] [facility] [place] [address] 08/31/2024 12:35 PM EST Office Visit Urogynecology Kate Diane [address] [place] [address] Joellen Donnelly PA-C [address] [place] [address] Nurse Ann Diane Tri [address] [place] [address] 11/13/2024 1:30 PM EST Office Visit Neurology [facility] [address] [place] [address] Lidia Rashid PA-C [address] [facility] [place] [address] 11/16/2024 1:20 PM EST Office Visit Dermatology [facility] [address] [place] [address] Connie Pires PA-C [address] [place] [address] 02/22/2025 11:20 AM EDT Office Visit [facility] [place] [facility] [place] [phone] Mitali Garcia DO [address] [place] [address] Scheduled Procedures Name Priority Associated Diagnoses Date/Ti [...] D LEVEL ONCE IN A LIFETIME-USE SMARTSET# [id number] Completed 07/04/2024, 05/23/2023, 02/08/2022, Additional history exists [...] and were consensually agreed upon. Care Teams Metal Fabricating Shop Helper Relationship Specialty Start Date End Date Phillip Mulligan MD [address] [place] [address] PCP - General Family Medicine 12/10/20 documented as of this encounter
--- OUTSIDE RECORDS SUMMARY | 2024-09-13 11:54 | External Medical Summary ---
Author Name Unknown Address Unknown Organization [facility] [address] [place] [address] Laboratory Report Ordering Provider Test Date Status DILLON JC 07/04/2024 13:03:45 Final Observation Date Value Abnormality Reference (Units ) Status RBC, Urine 07/04/2024 13:03:45 3-5 Abnormal 0-2 (/HPF) Final WBC, Urine 07/04/2024 13:03:45 0-2 0-2 (/HPF) Final Bacteria [#/area] in Urine sediment by Microscopy high power field 07/04/2024 13:03:45 0-25 0-25 (/HPF) Final Performing Location [facility] [facility] [address]
--- OUTSIDE RECORDS SUMMARY | 2024-09-13 11:54 | External Medical Summary | Summary of Care ---
Author Name Unknown Organization [facility] Address [address] [place] [address] Phone [phone] Care Team Providers Care Blanchard Grinder Operator Name Role Phone Phillip Mulligan MD Primary Care Provider [phone] Reason for Referral * Evaluate & Treat - Unlimited Visits (Within 10 days (routine)) - Pending Review Specialty Diagnoses / Procedures Referred By Contmatthias t Referred To Contact DIGITAL TECHNICIAN - Urogynecology / Gynecology Urology Diagnoses Neurogenic bladder Phillip Mulligan MD [address] [place] [address] Referral ID Status Reason Start Date Expiration Date Visits Requested Visits Authorized [id number] Pending Review Specialty Services Required 07/03/[phone] Question Answer Referral Priority Within 10 days (routine) Where should this appointment be scheduled? [facility] What condition is the patient being referred for? Chronic Bladder Pain/Interstitial Cystitis/Dysuria Reason for Visit * Reason Onset Date Comments Order Request 07/03/2024 Encounter Details Date Type Department Care Team (Late st Contact Info) Description 07/03/2024 Telephone Family Practice [facility] [address] [place] [address] Phillip Mulligan MD [address] [place] [address] Order Request Allergies Active Allergy Reactions Criticality [...] times a day Active Cholecalciferol (VITAMIN D3) 20944 units Capsule Take 1 Capsule by mouth [...] Health Triple Action 40-5-3.3 MG Oral Tablet (Ucaijtwm-Rifim-Dlj luronic Acid) Take by mouth. 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 So I will refer to urogyn. This is a very chronic problem spanning years and years and she has seen urology in the past. * Telephone Encounter - Rosita Mckay LPN - 07/03/2024 3:57 PM EDT "Patient has an overactive bladder and is finishing her prednisone that was prescibed on 06/25/[address] Hernandez from [facility] office. Patient states swelling went down but still feels sore and is concern with the overactive bladder. Patient has an appt for flu shot tomorrow 07/04/24 and would like to get this done at the lab tomorrow if possible." Pt is asking for UA order bc of OAB Sx... Please review? Uro Digital Account Supervisor referral appropriate?? * Telephone Encounter - Kendra Andino OSA - 07/03/2024 3:49 PM EDT An order was requested for this patient. Name of Requesting Provider: Patient Order Requested: Urinalysis Diagnosis/Reason for Request: Patient has an overactive bladder and is finishing her prednisone that was prescibed on 06/25/[address] Hernandez from [facility] office. Patient states swelling went down but still feels sore and is concern with the overactive bladder. Patient has an appt for flu shot tomorrow 07/04/24 and would like to get this done at the lab tomorrow if possible. If order request is for Mammogram: Is the patient having any breast symptoms? N/A Is there a chance of ? N/A Has the patient had any breast problems in the past? No What location AND department does the patient wish to have their order completed at? Lab at [facility] Fax Number, if applicable: n/a If the caller is not a current [...] Description 07/11/2024 11:40 AM EDT Office Visit [facility] [address] [place] [address] Phillip Mulligan MD [address] [place] [address] 07/30/2024 8:50 AM EDT Hospital Encounter OR [facility], Operating Room [facility] [address] [place] [address] Jose David Mendez, DO [address] [place] [address] 07/30/2024 8:50 AM EDT - 07/30/2024 9:15 AM EDT Surgery OR [facility], Operating Room [facility] [address] [place] [address] Jose David Mendez, DO [address] [place] [address] INJECTION SPINE LUMBAR CERVICAL OR THORACIC 08/15/2024 1:00 PM EDT Imaging Radiology, [address] [place] [address] 08/15/2024 1:40 PM EDT Office Visit Rheumatology [address] [place] [address] Umesh Brewster MD [address] [place] [address] [place] [address] 08/31/2024 12:35 PM EST Office Visit Urogynecology Kate Diane [address] [place] [address] Joellen Donnelly PA-C [address] [place] [address] Nurse Ann Diane [address] [place] [address] 11/13/2024 1:30 PM EST Office Visit Neurology [facility] [address] [place] [address] Lidia Rashid PA-C [address] [facility] [place] [address] 11/16/2024 1:20 PM EST Office Visit Dermatology [facility] [address] [facility] [place] [address] Connie Pires PA-C [address] [facility] [place] [address] Scheduled Orders Name Type Priority Associated Diagnoses Orde r Schedule URINALYSIS, REFLEX TO MICROSCOPIC Lab Routine Neurogenic bladder Expected: 07/04/2024, Expires: 07/04/2025 Scheduled Procedures Name Priority Associated Diagnoses Date/Ti me INJECTION SPINE LUMBAR CERVICAL OR THORACIC Cervical radiculitis 07/30/2024 8:50 AM EDT Scheduled Referrals Name Type Priority Associated Diagnoses Order Schedule UROGYNECOLOGY CLINIC REFERRAL OP (FEMALE ONLY) Referral Within 10 days (routine) Neurogenic bladder Ordered: 07/03/2024 Health Maintenance Due Date Last Done Comments Fecal Occult Blood Test 1998 Sigmoidoscopy 1998 Cologuard 07/04/2021 07/04/2018 Adult Wellness Visit 11/17/2023 11/17/2022, 09/23/20 21 COVID-19 Vaccine ( season) 2024 09/22/2022, 09/12/2021, 01/29/2021, Additional history exists DXA Scan 08/02/2024 08/02/2022, 07/17, 01/12/2016, Additional history exists Depression Monitoring 12/29/2024 12/30/2023 GFR 02/28/2025 02/29/2024, 08/0 04/2023, 02/08/2022, Additional history exists Mammogram 05/23/2025 05/23/2024, 07/3 10/2022, 05/16/2023, Additional history exists Albumin/Creatinine Ratio 09/22/2025 022, 01/11/2022, 07/08/2015 DTap/Tdap Vaccines (3 - Td or Tdap) 02/07/2028 02/06/2018, 07/11/2008 Colonoscopy 09/12/2028 09/12/2018, 08/17/2007 Colorectal Cancer Screening 09/12/2028 Lipid Panel 02/28/2029 02/29/2024, 0804/2023, 07/28/2021, Additional history exists Zoster Vaccines Completed 08/20/2019, 02/15, 12/19/2013 Pneumococcal Vaccine: 65+ Years Completed 04/14/2020, 02/19/2019 VITAMIN D LEVEL ONCE IN A LIFETIME-USE SMARTSET# [id number] Completed 05/23/2023, 02/08/2022, 11/03/2021, Additional history exists [...] as of this encounter Visit Diagnoses Diagnosis Neurogenic bladder- Primary Neurogenic bladder, NOS Cervical radiculitis Brachial neuritis or radiculitis nos [...] and were consensually agreed upon. Care Teams Blanchard Grinder Operator Relationship Specialty Start Date End Date Phillip Mulligan MD [address] [place] [address] PCP - General Family Medicine 12/10/20 documented as of this encounter
--- OUTSIDE RECORDS SUMMARY | 2024-09-13 11:54 | External Medical Summary | Summary of Care ---
Author Name Unknown Organization [facility] Address [address] [facility] [place] [address] Phone [phone] Care Team Providers Care Warehouse Associate Name Role Phone Phillip Mulligan MD Primary Care Provider [phone] Reason for Visit * Reason Onset Date Comments Appointment 07/05/2024 Encounter Details Date Type Department Care Team (Late st Contact Info) Description 07/05/2024 Telephone Interventional Pain Center, [facility] [address] [place] [address] Jose David Mendez DO [address] [place] [phone] Appointment Allergies Active Allergy Reactions Criticality Noted Date Comments Braeden Inhibitors Cough 06/22/2012 Amoxicillin 11/24/2005 Diarrhea Clavulanic Acid High 05/25/2023 Other Reaction(s): DIARRHEA Doxycycline Rash Low 02/08/2022 documented as of this encounter (statuses as of 07/06/2024) Medications Medication Sig Dispensed Refills Start Date [...] times a day Active Cholecalciferol (VITAMIN D3) 17840 units Capsule Take 1 Capsule by mouth [...] Health Triple Action 40-5-3.3 MG Oral Tablet (Laookslh-Hurod-Dsq luronic Acid) Take by mouth. Active Loratadine [...] as of this encounter (statuses as of 07/06/2024) Active Problems Problem Noted Date Diagnosed Date [...] as of this encounter (statuses as of 07/06/2024) Resolved Problems Problem Noted Date Diagnosed Date [...] as of this encounter (statuses as of 07/06/2024) Immunizations Name Administration Dates Next Due COVID-19 mRNA, LNP-s, No Pre serve, 2-Dose Series ([employer]) 09/12/2021,01/29/2021,01/08/2021 Covid-19, Mrna, Lnp-s, Pf, B ivalent, 30 Mcg, IM, 12 yrs and above ([employer]) 09/22/2022 H1N1 2009 Influenza, IM 10/23/2009 Pneumococcal [...] She has appt with podiatry on 07/10 [place]. Pt unsure doctors name. FYI * Telephone [...] help! Ike, Jose David Mendez DO OR [facility], Operating Room [facility] [address] [place] [address] documented in this encounter Plan of Treatment Upcoming Encounters Date Type Department Care Team (Late st Contact Info) Description 07/12/2024 7:40 AM EDT Office Visit [facility] [address] [place] [phone] Jose Esposito MD [address] [place] [address] 07/30/2024 8:50 AM EDT Hospital Encounter OR [facility], Operating Room [facility] [address] [place] [phone] Jose David Mendez DO [address] [place] [address] 07/30/2024 8:50 AM EDT - 07/30/2024 9:15 AM EDT Surgery OR [facility], Operating Room [facility] [address] [place] [phone] Jose David Mendez DO [address] [place] [address] INJECTION SPINE LUMBAR CERVICAL OR THORACIC 08/15/2024 1:00 PM EDT Imaging Radiology, [place] [address] [place] [address] 08/15/2024 1:40 PM EDT Office Visit Rheumatology [place] [address] [place] [address] Umesh Brewster MD [address] [facility] [place] [address] 08/31/2024 12:35 PM EST Office Visit Urogynecology Kate Diane [address] [place] [address] Joellen Donnelly PA-C [address] [place] [address] Nurse Ann Diane Tri [address] [place] [address] 11/13/2024 1:30 PM EST Office Visit Neurology [facility] [address] [place] [address] Lidia Rashid PA-C [address] [facility] [place] [address] 11/16/2024 1:20 PM EST Office Visit Dermatology [facility] [address] [place] [address] Connie Pires PA-C [address] [place] [address] 02/22/2025 11:20 AM EDT Office Visit [facility] [place] [facility] [place] [phone] Mitali Garcia DO [address] [place] [address] Scheduled Procedures Name Priority Associated Diagnoses Date/Ti [...] D LEVEL ONCE IN A LIFETIME-USE SMARTSET# [id number] Completed 07/04/2024, 05/23/2023, 02/08/2022, Additional history exists [...] and were consensually agreed upon. Care Teams Warehouse Associate Relationship Specialty Start Date End Date Phillip Mulligan MD [address] [place] [address] PCP - General Family Medicine 12/10/20 documented as of this encounter
--- OUTSIDE RECORDS SUMMARY | 2024-09-13 11:54 | External Medical Summary | Summary of Care ---
Author Name Unknown Organization [facility] Address [address] [facility] [address] Phone [phone] Care Team Providers Care All Round Logger Name Role Phone Phillip Mulligan MD Primary Care Provider [phone] Encounter Details Date Type Department Care Team (Late st Contact Info) Description 07/05/2024 Telephone Interventional Pain Center, [facility] [address] [place] [address] Jose David Mendez DO [address] [place] [phone] Allergies Active Allergy Reactions Criticality Noted Date [...] times a day Active Cholecalciferol (VITAMIN D3) 99249 units Capsule Take 1 Capsule by mouth [...] Health Triple Action 40-5-3.3 MG Oral Tablet (Ufogtyyk-Cwjrx-Jrp luronic Acid) Take by mouth. Active Loratadine [...] mRNA, LNP-s, No Pre serve, 2-Dose Series ([employer]) 09/12/2021,01/29/2021,01/08/2021 Covid-19, Mrna, Lnp-s, Pf, B ivalent, 30 Mcg, IM, 12 yrs and above ([employer]) 09/22/2022 H1N1 2009 Influenza, IM 10/23/2009 Pneumococcal [...] encounter Miscellaneous Notes * Telephone Encounter - Phillip Mulligan MD [...] the next two weeks. Appreciate your help! Best, Jose David Mendez DO OR [facility], Operating Room [facility] [address] [place] [address] [place] [address] documented in this encounter Plan of Treatment Upcoming Encounters Date Type Department Care Team (Late st Contact Info) Description 07/13/2024 11:20 AM EDT Office Visit [facility] [address] [place] [address] Jose Esposito MD [address] [facility] [place] [address] 07/30/2024 8:50 AM EDT Hospital Encounter OR [facility], Operating Room [facility] [address] [place] [phone] Jose David Mendez, DO [address] [place] [address] 07/30/2024 8:50 AM EDT - 07/30/2024 9:15 AM EDT Surgery OR [facility], Operating Room [facility] [address] [place] [address] Jose David Mendez, DO [address] [place] [phone] INJECTION SPINE LUMBAR CERVICAL OR THORACIC 08/15/2024 1:00 PM EDT Imaging Radiology, [address] [place] [address] 08/15/2024 1:40 PM EDT Office Visit Rheumatology [address] [place] [address] Umesh Brewster MD [address] [place] [address] [place] [address] 08/31/2024 12:35 PM EST Office Visit Urogynecology Kate Diane [address] [place] [address] Joellen Donnelly PA-C [address] [place] [address] Nurse Ann Diane [address] [place] [address] 11/13/2024 1:30 PM EST Office Visit Neurology [facility] [address] [place] [address] Lidia Rashid PA-C [address] [place] [address] 11/16/2024 1:20 PM EST Office Visit Dermatology [place] [address] [place] [address] Connie Pires PA-C [address] [place] [address] 02/22/2025 11:20 AM EDT Office Visit Sleep Disorders Ctr Tri Diane [place] [address] [place] [phone] Mitali Garcia DO [address] [place] [address] Scheduled Procedures Name Priority Associated Diagnoses Date/Ti [...] D LEVEL ONCE IN A LIFETIME-USE SMARTSET# [id number] Completed 07/04/2024, 05/23/2023, 02/08/2022, Additional history exists [...] and were consensually agreed upon. Care Teams All Round Logger Relationship Specialty Start Date End Date Phillip Mulligan MD [address] [place] [address] PCP - General Family Medicine 12/10/20 documented as of this encounter
--- OUTSIDE RECORDS SUMMARY | 2024-09-13 11:54 | External Medical Summary | Summary of Care ---
Author Name Unknown Organization [facility] Address [address] [place] [place] [address] Phone [phone] Care Team Providers Care Railroad Car Cleaning Supervisor Name Role Phone Phillip Mulligan MD Primary Care Provider [phone] [phone] Reason for Visit * Reason Comments Outpatient Testing Encounter Details Date Type Department Care Team (Late st Contact Info) Description 07/04/2024 11:20 AM EDT Laboratory Laboratory, [facility] [address] [facility] [place] 132 [place] [address] Encounter for long-term (current) use of other medications Allergies Active Allergy Reactions Criticality Noted Date [...] times a day Active Cholecalciferol (VITAMIN D3) 51386 units Capsule Take 1 Capsule by mouth [...] Health Triple Action 40-5-3.3 MG Oral Tablet (Zccmockd-Fmuoo-Sio luronic Acid) Take by mouth. Active Loratadine [...] D deficiency 04/22/2009 010 Mixed dyslipidemia 07/11/2008 12/ 9 Overview: Per Lipid Taxonomy. Human papilloma virus 2016 documented as of this encounter (statuses as of 07/04/2024) Immunizations Name Administration Dates Next Due COVID-19 mRNA, LNP-s, No Pre serve, 2-Dose Series ([employer]) 09/12/2021,01/29/2021,01/08/2021 Covid-19, Mrna, Lnp-s, Pf, B ivalent, 30 Mcg, IM, 12 yrs and above ([employer]) 09/22/2022 H1N1 2009 Influenza, IM 10/23/2009 Pneumococcal [...] on file documented as of this encounter Plan of Treatment Upcoming Encounters Date Type Department Care Team (Late st Contact Info) Description 07/04/2024 11:40 AM EDT Office Visit Sleep Disorders Ctr [facility] [address] [place] [address] Mitali Garcia, DO [address] [place] [address] 07/11/2024 11:40 AM EDT Office Visit Family Practice [facility] [address] [place] [address] Phillip Mulligan MD [address] [place] [address] 07/30/2024 8:50 AM EDT Hospital Encounter [facility], Operating Room [facility] [address] [place] [address] Jose David Mendez, DO [address] [place] [address] 07/30/2024 8:50 AM EDT - 07/30/2024 9:15 AM EDT Surgery OR [facility], Operating Room [facility] [address] [place] [phone] Jose David Mendez, DO [address] [place] [address] INJECTION SPINE LUMBAR CERVICAL OR THORACIC 08/15/2024 1:00 PM EDT Imaging Radiology, [address] [place] [address] 08/15/2024 1:40 PM EDT Office Visit Rheumatology [place] [address] [address] [address] Umesh Brewster MD [address] [facility] [place] [address] 08/31/2024 12:35 PM EST Office Visit Urogynecology Kate Diane [address] [place] [address] Joellen Donnelly PA-C [address] [place] [address] Nurse Ann Diane Tri [address] [place] [address] 11/13/2024 1:30 PM EST Office Visit Neurology [facility] [place] [address] Lidia Rashid PA-C [address] [place] [address] 11/16/2024 1:20 PM EST Office Visit Dermatology [facility] [address] [facility] [place] [address] Connie Pires PA-C [address] [facility] [place] [address] Pending Results Name Type Priority Associated Diagnoses Date /Time 25-HYDROXY VITAMIN D Lab Routine Encounter for long-term (current) use of other medications 07/04/2024 11:22 AM EDT Scheduled Procedures Name Priority Associated Diagnoses Date/Ti me INJECTION SPINE LUMBAR CERVICAL OR THORACIC Cervical radiculitis 07/30/2024 8:50 AM EDT Health Maintenance Due Date Last Done Comments Fecal Occult Blood Test 1998 Sigmoidoscopy 1998 Cologuard 07/04/2021 07/04/2018 Adult Wellness Visit 11/17/2023 11/17/2022, 09/23/20 21 COVID-19 Vaccine ( season) 2024 09/22/2022, 09/12/2021, 01/29/2021, Additional history exists Influenza Vaccine (FLU shot) (#1) 2024 07/06/2023, 07/13/2022, 08/10/2021, Additional history exists DXA Scan 08/02/2024 08/02/2022, [...] D LEVEL ONCE IN A LIFETIME-USE SMARTSET# [id number] Completed 05/23/2023, 02/08/2022, 11/03/2021, Additional history exists HPV (Gardasil) Vaccine Aged [...] as of this encounter Visit Diagnoses Diagnosis Encounter for long-term (current) use of other medications Cervical radiculitis Brachial neuritis or radiculitis nos [...] and were consensually agreed upon. Care Teams Railroad Car Cleaning Supervisor Relationship Specialty Start Date End Date Phillip Mulligan MD [address] [place] [address] PCP - General Family Medicine 12/10/20 documented as of this encounter
--- OUTSIDE RECORDS SUMMARY | 2024-09-13 11:54 | External Medical Summary ---
Author Name Unknown Address Unknown Organization K01:[facility] [place] - [address] [place] [address] Laboratory Report Ordering Provider Test Date Status MIGNON HODGE 07/04/2024 11:22:04 Final Deficient: <20 ng/mL
Ins ufficient: 20-29 ng/mL
Recommended/Optimum:30-50 ng/mL

Vitamin D intoxication is rare. If suspicious of Vitamin D toxicity, evaluation of serum Calcium and PTH is recommended. Observation Date Value Abnormality Reference (Units ) Status 25-OH Vitamin D total 07/04/2024 11:22:04 66 >19 (ng/mL) Final Performing Location [facility] – [place] - [address] [place] [address]
--- OUTSIDE RECORDS SUMMARY | 2024-09-13 11:54 | External Medical Summary | Summary of Care ---
Author Name Unknown Organization [facility] Address [address] [place] [facility] [place] [place] [place] [address] Phone [phone] Care Team Providers Care Geotechnical Operating Engineer Name Role Phone Phillip Mulligan MD Primary Care Provider [phone] [phone] Reason for Visit * Reason Comments Outpatient Testing Encounter Details Date Type Department Care Team (Late st Contact Info) Description 07/04/2024 11:20 AM EDT Laboratory Laboratory, [facility] [address] [facility] 132 [place] [address] Encounter for long-term (current) use of [...] times a day Active Cholecalciferol (VITAMIN D3) 16539 units Capsule Take 1 Capsule by mouth [...] Health Triple Action 40-5-3.3 MG Oral Tablet (Refjmzxa-Brgeb-Eqe luronic Acid) Take by mouth. Active Loratadine [...] mRNA, LNP-s, No Pre serve, 2-Dose Series ([employer]) 09/12/2021,01/29/2021,01/08/2021 Covid-19, Mrna, Lnp-s, Pf, B ivalent, 30 Mcg, IM, 12 yrs and above ([employer]) 09/22/2022 H1N1 2009 Influenza, IM 10/23/2009 Pneumococcal [...] Description 07/11/2024 11:40 AM EDT Office Visit Family Practice [facility] [address] [place] [address] Phillip Mulligan MD [address] [place] [address] 07/30/2024 8:50 AM EDT Hospital Encounter OR [facility], Operating Room [facility] [address] [place] [phone] Jose David Mendez DO [address] [place] [address] 07/30/2024 8:50 AM EDT - 07/30/2024 9:15 AM EDT Surgery OR [facility], Operating Room [facility] [address] [place] [address] Jose David Mendez, [address] [place] [address] INJECTION SPINE LUMBAR CERVICAL OR THORACIC 08/15/2024 1:00 PM EDT Imaging Radiology, [address] [place] [address] 08/15/2024 1:40 PM EDT Office Visit Rheumatology [place] [address] [facility] [place] [address] Umesh Brewster MD [address] [place] [address] [place] [address] 08/31/2024 12:35 PM EST Office Visit Urogynecology [facility] [address] [place] [address] Joellen Donnelly PA-C [address] [place] [address] Nurse Ann Diane [address] [place] [address] 11/13/2024 1:30 PM EST Office Visit Neurology [facility] [address] [place] [address] Lidia Rashid PA-C [address] [place] [address] 11/16/2024 1:20 PM EST Office Visit Dermatology [facility] [address] [place] [address] Connie Pires PA-C [address] [place] [address] Pending Results Name Type Priority Associated Diagnoses [...] D LEVEL ONCE IN A LIFETIME-USE SMARTSET# [id number] Completed 05/23/2023, 02/08/2022, 11/03/2021, Additional history exists [...] 08/26/2017 11:20 AM 08/26/2017 6:35 PM This ord er reflects the patients wishes and were consensually agreed upon. Care Teams Geotechnical Operating Engineer Relationship Specialty Start Date End Date Phillip Mulligan MD [address] [place] [address] PCP - General Family Medicine 12/10/20 documented as of this encounter
--- OUTSIDE RECORDS SUMMARY | 2024-09-13 11:54 | External Medical Summary ---
Author Name Unknown Address Unknown Organization K0G:[facility] [place] [facility] - [address] [place] [address] Laboratory Report Ordering Provider Test Date Status DILLON JC 07/04/2024 13:03:45 Final Observation Date Value Abnormality Reference (Units ) Status Color of Urine by Auto 07/04/2024 13:03:45 Yellow Light Yellow, Yellow, Dark Yellow Final Clarity, Urine 07/04/2024 13:03:45 Clear Clear Final Glucose [Mass/volume] in Urine by Automated test strip 07/04/2024 13:03:45 Negative Negative (mg/dL) Final Bilirubin.total [Presence] in Urine by Automated test strip 07/04/2024 13:03:45 Negative Negative Final Ketones [Mass/volume] in Urine by Automated test strip 07/04/2024 13:03:45 Negative Negative (mg/dL) Final Specific gravity, Urine 07/04/2024 13:03:45 1.015 1.003-1.030 Final Hemoglobin [Presence] in Urine by Automated test strip 07/04/2024 13:03:45 Trace Abnormal Negative Final pH, Urine 07/04/2024 13:03:45 6.0 5.0-7.5 (Units) Final Protein [Mass/volume] in Urine by Automated test strip 07/04/2024 13:03:45 Negative Negative (mg/dL) Final Urobilinogen [Mass/volume] in Urine by Automated test strip 07/04/2024 13:03:45 0.2 0.2, 1.0 (mg/dL) Final Nitrite [Presence] in Urine by Automated test strip 07/04/2024 13:03:45 Negative Negative Final Leukocyte esterase [Presence] in Urine by Automated test strip 07/04/2024 13:03:45 Negative Negative Final Performing Location [facility] [place] [facility] 0 - [address] [place] [address]
--- OUTSIDE RECORDS SUMMARY | 2024-09-13 11:54 | External Medical Summary | Summary of Care ---
Author Name Unknown Organization [facility] Address [address] [place] [place] [address] Phone [phone] Care Team Providers Care Derrick Car Operator Name Role Phone Phillip Mulligan MD Primary Care Provider [phone] [phone] Reason for Visit * Reason Comments Outpatient Testing Encounter Details Date Type Department Care Team (Late st Contact Info) Description 07/04/2024 11:20 AM EDT Laboratory Laboratory, [facility] 132 [facility] [place] [address] [facility] 132 [place] [address] Encounter for long-term (current) use of other medications; Neurogenic bladder Allergies Active Allergy Reactions Criticality Noted Date [...] times a day Active Cholecalciferol (VITAMIN D3) 20683 units Capsule Take 1 Capsule by mouth [...] Health Triple Action 40-5-3.3 MG Oral Tablet (Ilejpyza-Wfpff-Unp luronic Acid) Take by mouth. Active Loratadine [...] mRNA, LNP-s, No Pre serve, 2-Dose Series ([employer]) 09/12/2021,01/29/2021,01/08/2021 Covid-19, Mrna, Lnp-s, Pf, B ivalent, 30 Mcg, IM, 12 yrs and above ([employer]) 09/22/2022 H1N1 2009 Influenza, IM 10/23/2009 Pneumococcal [...] 11:40 AM EDT Office Visit Family Practice [facility] [address] [place] [address] Phillip Mulligan MD [address] [place] [address] 07/30/2024 8:50 AM EDT Hospital Encounter OR [facility], Operating Room [facility] [address] [place] [address] Jose David Mendez, DO [address] [place] [address] 07/30/2024 8:50 AM EDT - 07/30/2024 9:15 AM EDT Surgery OR [facility], Operating Room [facility] [address] [place] [address] Jose David Mendez, DO [address] [place] [address] INJECTION SPINE LUMBAR CERVICAL OR THORACIC 08/15/2024 1:00 PM EDT Imaging Radiology, [place] [address] [address] 08/15/2024 1:40 PM EDT Office Visit Rheumatology [facility] [place] [address] Umesh Brewster MD [facility] [place] [address] 08/31/2024 12:35 PM EST Office Visit Urogynecology [facility] [address] [place] [address] Joellen Donnelly PA-C [address] [place] [address] Nurse Ann Diane [address] [place] [address] 11/13/2024 1:30 PM EST Office Visit Neurology [facility] [address] [place] [address] [place]idia Rashid PA-C [address] [place] [address] 11/16/2024 1:20 PM EST Office Visit Dermatology [facility] 200 [facility] [place] [address] Connie Pires PA-C 200 [facility] [place] [address] Pending Results Name Type Priority Associated Diagnoses Date /Time 25-HYDROXY VITAMIN D Lab Routine Encounter for long-term (current) use of other medications 07/04/2024 11:22 AM EDT URINALYSIS, REFLEX TO MICROSCOPIC Lab Routine Neurogenic bladder 07/04/2024 1:03 PM EDT Scheduled Procedures Name Priority Associated Diagnoses [...] D LEVEL ONCE IN A LIFETIME-USE SMARTSET# [id number] Completed 05/23/2023, 02/08/2022, 11/03/2021, Additional history exists [...] for long-term (current) use of other medications Neurogenic bladder Neurogenic bladder, NOS Cervical radiculitis Brachial neuritis [...] and were consensually agreed upon. Care Teams Derrick Car Operator Relationship Specialty Start Date End Date Phillip Mulligan MD [address] [place] [address] PCP - General Family Medicine 12/10/20 documented as of this encounter
--- OUTSIDE RECORDS SUMMARY | 2024-09-13 11:55 | External Medical Summary | Summary of Care ---
Author Name Unknown Organization [facility] Address [address] [place] [address] Phone [phone] Care Team Providers Care Entry Level Java Developer Name Role Phone Hosea Mulligan MD Primary Care Provider [phone] [phone] Reason for Visit * Reason Comments eRx-Medication Refill Encounter Details Date Type Department Care Team (Late st Contact Info) Description 06/29/2024 Refill Family Practice [facility] [address] [place] [id number] Hosea Mulligan MD [address] [place] [id number] Allergies Active Allergy Reactions Criticality Noted Date Comments Braeden Inhibitors Cough 06/22/2012 Amoxicillin 11/24/2005 Diarrhea Clavulanic Acid High 05/25/2023 Other Reaction(s): DIARRHEA Doxycycline Rash Low 02/08/2022 documented as of this encounter (statuses as of 06/30/2024) Medications Medication Sig Dispensed Refills Start Date [...] times a day Active Cholecalciferol (VITAMIN D3) 62216 units Capsule Take 1 Capsule by mouth [...] Health Triple Action 40-5-3.3 MG Oral Tablet (Vgmdiust-Pzfgl-P yaluronic Acid) Take by mouth. Activ e [...] twice daily 360 Capsule 2 4 Active Valsartan 40 MG Oral Tablet (Diovan) TAKE 1 TABLET BY MOUTH EVERY DAY 90 Tablet 1 4 Active Omeprazole 20 MG Oral Capsule Delayed Release (PriLOSEC)Indicat ions:Gastroesopha geal reflux disease TAKE 1 CAPSULE BY MOUTH 1 HOUR PRIOR TO THE FIRST MEAL OF THE DAY 90 Capsule 2 4 Active Alendronate Sodium 70 MG Oral Tablet (Fosamax) TAKE 1 TABLET BY MOUTH ONE TIME PER WEEK 12 Tablet 4 Active predniSONE 20 MG Oral Tablet (Deltasone) Take 2 Tablets by mouth in the morning for 5 days. 10 Tablet 4 06/30/20 24 Active Simvastatin 40 MG Oral Tablet (Zocor) TAKE 1 TABLET BY MOUTH EVERYDAY AT BEDTIME 90 Tablet 3 4 Active Simvastatin 40 MG Oral Tablet (Zocor) TAKE 1 TABLET BY MOUTH EVERYDAY AT BEDTIME 90 Tablet 3 3 06/30/20 24 Discontinued documented as of this encounter (statuses as of 06/30/2024) Active Problems Problem Noted Date Diagnosed Date [...] as of this encounter (statuses as of 06/30/2024) Resolved Problems Problem Noted Date Diagnosed Date [...] as of this encounter (statuses as of 06/30/2024) Immunizations Name Administration Dates Next Due COVID-19 [...] encounter Miscellaneous Notes * Telephone Encounter - [facility] - 06/30/2024 12:10 PM EDT Signed Prescriptions: Disp Refills Simvastatin 40 MG Oral Tablet (Zocor) 90 Tab*3 Sig: TAKE 1 TABLET BY MOUTH EVERYDAY AT BEDTIMEAuthorizing Provider: HOSEA MULLIGAN User: CHAVO MADERA documented in this encounter Plan of Treatment Upcoming Encounters Date Type Department Care Team (Late st Contact Info) Description 07/04/2024 11:20 AM EDT Immunization Ancillary [facility] [address] [place] [address] [facility] [address] [place] [address] 07/04/2024 11:40 AM EDT Office Visit Sleep Disorders Ctr [facility] [address] [place] [phone] Mitali Garcia, 132 [place] [address] 07/11/2024 11:40 AM EDT Office Visit Family Practice [facility] [address] [place] [address] Hosea Mulligan MD [address] [place] [address] 07/30/2024 8:50 AM EDT Hospital Encounter OR [facility], Operating Room [facility] [address] [place], [place] [address] Jose David Mendez, DO [address] [place] [address] 07/30/2024 8:50 AM EDT - 07/30/2024 9:15 AM EDT Surgery OR [facility], Operating Room [facility] [address] [place] [phone] Jose David Mendez, DO [address] [place] [phone] INJECTION SPINE LUMBAR CERVICAL OR THORACIC 08/15/2024 1:00 PM EDT Imaging Radiology, [address] [place] [address] 08/15/2024 1:40 PM EDT Office Visit Rheumatology [address] [place] [address] Umesh Brewster MD [address] [place] [address] [place] [address] 11/13/2024 1:30 PM EST Office Visit Neurology [facility] [address] [place] [address] Lidia Rashid PA-C [address] [place] [address] 11/16/2024 1:20 PM EST Office Visit Dermatology [facility] [address] [place] [address] Connie Pires PA-C [address] [place] [address] Scheduled Procedures Name Priority Associated Diagnoses Date/Ti [...] D LEVEL ONCE IN A LIFETIME-USE SMARTSET# [id number] Completed 05/23/2023, 02/08/2022, 11/03/2021, Additional history exists [...] and were consensually agreed upon. Care Teams Entry Level Java Developer Relationship Specialty Start Date End Date Hosea Mulligan MD 132 [facility] [place] [address] PCP - General Family Medicine 12/10/20 documented as of this encounter
--- OUTSIDE RECORDS SUMMARY | 2024-09-13 11:55 | External Medical Summary | Summary of Care ---
Author Name Unknown Organization [facility] Address [address] [place] [facility] [place] [address] Phone [phone] Care Team Providers Care Vegetable Tier Name Role Phone Phillip Mulligan MD Primary Care Provider [phone] [phone] Encounter Details Date Type Department Care Team (Late st Contact Info) Description 06/29/2024 Orders Only PATIENT PORTAL DO NOT DELETE THIS DEPT USED BY [place] [address] Allergies Active Allergy Reactions Criticality Noted Date Comments Braeden Inhibitors Cough 06/22/2012 Amoxicillin 11/24/2005 Diarrhea Clavulanic Acid High 05/25/2023 Other Reaction(s): DIARRHEA Doxycycline Rash Low 02/08/2022 documented as of this encounter (statuses as of 06/29/2024) Medications Medication Sig Dispensed Refills Start Date End Date Status CALCIUM 500 500 MG PO TABS Take 500 mg by mouth daily. Active WILBER-C/BIOFLAVONO IDS PO TABS None Entered Active MILK THISTLE [...] times a day Active Cholecalciferol (VITAMIN D3) 70132 units Capsule Take 1 Capsule by mouth [...] Oral Capsule Take by mouth. Active Black Elderberry(Nguyen-F lower) 575 MG Oral Capsule Take by mouth. Active B Complex-B12 Oral Tablet Take by mouth. Active Hyaluronic Acid 20-60 MG Oral Capsule Take by mouth. Active Oil of Oregano 1500 MG Oral Capsule Take by mouth. Active Diapers & SuppliesIndication s:Multiple sclerosis (HCC),Unspecified urinary incontinence pull up diapers. [...] Health Triple Action 40-5-3.3 MG Oral Tablet (Cukxiqvx-Qcrix-Ht aluronic Acid) Take by mouth. Active Simvastatin 40 MG Oral Tablet (Zocor) TAKE 1 TABLET BY MOUTH EVERYDAY AT BEDTIME 90 Tablet 3 07/17/2023 Active Loratadine 10 MG Oral Tablet (Claritin)Indicati ons:Allergic rhinitis TAKE 1 TABLET BY MOUTH EVERY DAY 90 Tablet 3 07/18/2023 Active guaiFENesin ER 600 MG Oral Tablet Extended Release 12 Hour (Mucinex) Take 1 Tablet by mouth 2 times a day as needed for Congestion. Take with plenty of water. Do not cut, crush or chew 40 Tablet 2 09/13/2023 Active Fluticasone Propionate 50 MCG/ACT Nasal Suspension (Flonase)Indicatio ns:Allergic rhinitis SPRAY 2 SPRAYS INTO EACH NOSTRIL EVERY DAY 48 mL 3 10/31/2023 Active Gabapentin 100 MG Oral Capsule (Neurontin) Take 2 capsules by mouth twice daily 360 Capsule 2 12/06/2023 Active Valsartan 40 MG Oral Tablet (Diovan) TAKE 1 TABLET BY MOUTH EVERY DAY 90 Tablet 1 12/08/2023 Active Omeprazole 20 MG Oral Capsule Delayed Release (PriLOSEC)Indicati ons:Gastroesophage al reflux disease TAKE 1 CAPSULE BY MOUTH 1 HOUR PRIOR TO THE FIRST MEAL OF THE DAY 90 Capsule 2 04/23/2024 Active Alendronate Sodium 70 MG Oral Tablet (Fosamax) TAKE 1 TABLET BY MOUTH ONE TIME PER WEEK 12 Tablet 06/26/2024 Active predniSONE 20 MG Oral Tablet (Deltasone) Take 2 Tablets by mouth in the morning for 5 days. 10 Tablet 06/25/2024 06/30/2024 Active documented as of this encounter (statuses as of 06/29/2024) Active Problems Problem Noted Date Diagnosed Date [...] as of this encounter (statuses as of 06/29/2024) Resolved Problems Problem Noted Date Diagnosed Date [...] as of this encounter (statuses as of 06/29/2024) Immunizations Name Administration Dates Next Due COVID-19 mRNA, LNP-s, No Pre serve, 2-Dose Series ([employer]) 09/12/2021,01/29/2021,01/08/2021 Covid-19, Mrna, Lnp-s, Pf, B ivalent, 30 Mcg, IM, 12 yrs and above ([employer]) 09/22/2022 H1N1 2009 Influenza, IM 10/23/2009 Pneumococcal [...] Description 07/04/2024 11:20 AM EDT Immunization Ancillary [facility] [address] [place] [address] [facility] [address] [place] [address] 07/04/2024 11:40 AM EDT Office Visit Sleep Disorders Ctr [facility] [address] [place] [phone] Mitali Garcia, [address] [place] [address] 07/11/2024 11:40 AM EDT Office Visit Family Practice [facility] [address] [place] [address] Phillip Mulligan MD [address] [place] [address] 07/30/2024 8:50 AM EDT Hospital Encounter OR [facility], Operating Room [facility] [address] [place] [phone] Jose David Mendez DO [address] [place] [phone] 07/30/2024 8:50 AM EDT - 07/30/2024 9:15 AM EDT Surgery OR [facility], Operating Room [facility] [address] [place] [phone] Jose David Mendez DO [address] [place] [phone] INJECTION SPINE LUMBAR CERVICAL OR THORACIC 08/15/2024 1:00 PM EDT Imaging Radiology, [address] [place] [address] 08/15/2024 1:40 PM EDT Office Visit Rheumatology [facility] [address] [facility] [place] [address] Umesh Brewster MD [address] [facility] [place] [address] 11/13/2024 1:30 PM EST Office Visit Neurology [facility] [address] [place] [address] Lidia Rashid PA-C [address] [place] [address] 11/16/2024 1:20 PM EST Office Visit Dermatology [facility] [address] [place] [address] Connie Pires PA-C [address] [place] [address] Scheduled Procedures Name Priority Associated Diagnoses Date/Ti [...] D LEVEL ONCE IN A LIFETIME-USE SMARTSET# [id number] Completed 05/23/2023, 02/08/2022, 11/03/2021, Additional history exists [...] and were consensually agreed upon. Care Teams Vegetable Tier Relationship Specialty Start Date End Date Phillip Mulligan MD [address] [place] [address] PCP - General Family Medicine 12/10/20 documented as of this encounter
--- OUTSIDE RECORDS SUMMARY | 2024-09-13 11:55 | External Medical Summary | Summary of Care ---
Author Name Unknown Organization [facility] Address [address] [place] [address] Phone [phone] Care Team Providers Care Trashman Name Role Phone Phillip Mulligan MD Primary Care Provider [phone] Reason for Visit * Reason Comments eRx-Medication Refill Encounter Details Date Type Department Care Team (Late st Contact Info) Description 06/24/2024 Refill Rheumatology [place] [address] [employer] [place] [address] Kem Ochoa MD [facility] [address] [place] [address] Encounter for long-term (current) use of other medications* Allergies Active Allergy Reactions Criticality Noted Date Comments Braeden Inhibitors Cough 06/22/2012 Amoxicillin 11/24/2005 Diarrhea Clavulanic Acid High 05/25/2023 Other Reaction(s): DIARRHEA Doxycycline Rash Low 02/08/2022 documented as of this encounter (statuses as of 06/26/2024) Medications Medication Sig Dispensed Refills Start Date [...] times a day Active Cholecalciferol (VITAMIN D3) 48550 units Capsule Take 1 Capsule by mouth [...] Health Triple Action 40-5-3.3 MG Oral Tablet (Kbhdyvld-Hdhyi-X yaluronic Acid) Take by mouth. Activ e Simvastatin 40 MG Oral Tablet (Zocor) TAKE 1 TABLET BY MOUTH EVERYDAY AT BEDTIME 90 Tablet 3 3 Active Loratadine 10 MG Oral Tablet (Claritin)Indicat ions:Allergic [...] TIME PER WEEK 12 Tablet 4 Active Alendronate Sodium 70 MG Oral Tablet (Fosamax) TAKE 1 TABLET BY MOUTH ONE TIME PER WEEK 12 Tablet 4 3 06/26/20 24 Discontinued documented as of this encounter (statuses as of 06/26/2024) Active Problems Problem Noted Date Diagnosed Date [...] as of this encounter (statuses as of 06/26/2024) Resolved Problems Problem Noted Date Diagnosed Date [...] as of this encounter (statuses as of 06/26/2024) Immunizations Name Administration Dates Next Due COVID-19 mRNA, LNP-s, No Pre serve, 2-Dose Series ([employer]) 09/12/2021,01/29/2021,01/08/2021 Covid-19, Mrna, Lnp-s, Pf, B ivalent, [...] encounter Miscellaneous Notes * Telephone Encounter - Richie Chacon RPh - 06/26/2024 11:12 AM EDTSigned Prescriptions: Disp Refills Alendronate Sodium 70 MG Oral Tablet (Fosa*12 Tab*0 Sig: TAKE 1 TABLET BY MOUTH ONE TIME PER WEEKAuthorizing Provider: KEM OCHOA User: RICHIE CHACON * Telephone Encounter - Richie Chacon RPh - 06/26/2024 11:11 AM EDT Upcoming OV. Refill sent to Rory Kyle PharmD Clinical Pharmacist [facility] [phone] 06/26/2024 11:11 AM * Telephone Encounter - Casper Cui - 06/24/2024 1:51 PM EDTPending Prescriptions: Disp Refills Alendronate Sodium 70 MG Oral Tablet [Phar*12 Tab*4 Sig: TAKE 1 TABLET BY MOUTH ONE TIME PER WEEK * Telephone Encounter - Casper Cui two - 06/24/2024 1:49 PM EDT Did you pend patient's preferred pharmacy and medication before forwarding?yes Pharmacy: [id number] [address] [facility] Pending Prescriptions: Disp Refills Alendronate Sodium 70 MG Oral Tablet (Fos*12 Tab*4 Sig: TAKE 1 TABLET BY MOUTH ONE TIME PER WEEK Last Visit: 08/03/2023 (in office), Visit date not found (telemedicine) Next Visit: 08/15/2024 If no future appointments scheduled, and last appointment is greater than a year ago, please schedule patient for a follow-up appointment Last date the medication was ordered: 05/12/2023 Is this request for a controlled substance?No [...] Care Team (Late st Contact Info) Description 06/27/2024 10:05 AM EDT Hospital Encounter [facility], Operating Room [facility] [address] [place] [phone] Jose David Mendez, DO [address] [place] [phone] 06/27/2024 10:05 AM EDT - 06/27/2024 10:30 AM EDT Surgery OR [facility], Operating Room [facility] [address] [place] [phone] Jose David Mendez, DO [address] [place] [phone] INJECTION SPINE LUMBAR CERVICAL OR THORACIC 07/04/2024 11:20 AM EDT Immunization Ancillary [facility] [address] [place] [address] [facility] [address] [place] [address] 07/04/2024 11:40 AM EDT Office Visit Sleep Disorders Ctr [facility] [address] [place] [phone] Mitali Garcia, DO [address] [place] [address] 07/11/2024 11:40 AM EDT Office Visit Family Practice [facility] [address] [place] [address] Phillip Mulligan MD [address] [place] [address] 08/15/2024 1:00 PM EDT Imaging Radiology, [address] [place] [address] 08/15/2024 1:40 PM EDT Office Visit Rheumatology [address] [place] [address] Kem Ochoa MD [address] [place] [address] 11/13/2024 1:30 PM EST Office Visit Neurology [facility] [address] [place] [address] Lidia Rashid PA-C [address] [place] [address] 11/16/2024 1:20 PM EST Office Visit Dermatology [facility] [address] [place] [address] Connie Pires PA-C [address] [facility] [place] [address] Scheduled Orders Name Type Priority Associated Diagnoses Orde r Schedule 25-HYDROXY VITAMIN D Lab Routine Encounter for long-term (current) use of other medications Expected: 07/03/2024 (Approximate), Expires: 06/26/2025 Scheduled Procedures Name Priority Associated Diagnoses Date/Ti me INJECTION SPINE LUMBAR CERVICAL OR THORACIC Cervical radiculitis 06/27/2024 10:05 AM EDT Health Maintenance Due Date Last [...] Cancer Screening 09/12/2028 Lipid Panel 02/28/2029 02/29/2024, 08/04/2023, 07/28/2021, Additional history exists Zoster Vaccines Completed 08/20/2019, 02/15, 12/19/2013 Pneumococcal Vaccine: 65+ Years Completed 04/14/2020, 02/19/2019 VITAMIN D LEVEL ONCE IN A LIFETIME-USE SMARTSET# [id number] Completed 05/23/2023, 02/08/2022, 11/03/2021, Additional history exists [...] Encounter for long-term (current) use of other medications- Primary Cervical radiculitis Brachial neuritis or radiculitis nos [...] and were consensually agreed upon. Care Teams Trashman Relationship Specialty Start Date End Date Phillip Mulligan MD [address] [address] PCP - General Family Medicine 12/10/20 documented as of this encounter
--- OUTSIDE RECORDS SUMMARY | 2024-09-13 11:55 | External Medical Summary | Summary of Care ---
Author Name Unknown Organization [facility] Address [address] [place] [facility] [place] [address] Phone [phone] Care Team Providers Care Toxics Program Officer Name Role Phone Phillip Mulligan MD Primary Care Provider [phone] Reason for Visit * Auth/Cert Specialty Diagnoses / Procedures Referred By Michelle t Referred To Contact Diagnoses Cervical radiculitis Cervical radiculitis [M54.12] Procedures INJECT DX/THER SUBSTANCE INTERLAMINAR CERVICAL/THORACIC W IMAGE GUIDE INJECTION SPINE LUMBAR CERVICAL OR THORACIC Jose David Mendez DO [address] [place] [phone] Or [facility] [address] [employer] [place] [phone] Referral ID Status Reason Start Date Expiration Date Visits Re quested Visits Authorized [id number] Encounter Details Date Type Department Care Team (Latest Contact Info) Description 06/27/2024 9:18 AM EDT - 06/27/2024 10:29 AM EDT Hospital Encounter OR [facility], Operating [...] as of this encounter (statuses as of 06/27/2024) Medications Medication Sig Dispensed Refills Start Date [...] times a day Active Cholecalciferol (VITAMIN D3) 40080 units Capsule Take 1 Capsule by mouth [...] Health Triple Action 40-5-3.3 MG Oral Tablet (Gkqmcmkb-Vdfcj-Pk aluronic Acid) Take by mouth. Active Simvastatin [...] as of this encounter (statuses as of 06/27/2024) Active Problems Problem Noted Date Diagnosed Date [...] as of this encounter (statuses as of 06/27/2024) Resolved Problems Problem Noted Date Diagnosed Date [...] as of this encounter (statuses as of 06/27/2024) Immunizations Name Administration Dates Next Due COVID-19 [...] Sign Reading Time Taken Comments Blood Pressure 122/103 06/27/2024 9:58 AM EDT Pulse 89 06/27/2024 9:58 AM EDT Temperature 35.8 C (96.4 F) 06/27/2024 9:58 AM ED T Respiratory Rate 19 06/27/2024 9:58 AM EDT Oxygen Saturation 98% 06/27/2024 9:58 AM EDT Inhaled Oxygen Concentration - - Weight 64.4 kg (142 lb) 06/27/2024 9:58 AM EDT Height 154.9 cm (5' 1") 06/27/2024 9:58 AM EDT Body Mass Index 26.83 06/27/2024 9:58 AM EDT documented in this encounter H&P Notes * Jose David Mendez, - 06/27/2024 10:07 AM EDT Interventional Pain H&P Subjective: History of Present Illness: Sydney Galeano is a 68 year old year-old female with a past medical history significant for cervical radicular pain who is presenting for C7/T1 LEXY to improve her pain and function. her pain is essentially unchanged since our last office visit with her. ASA 3 AW nml Review of Systems: A focused 12-pt ROS [...] to year. This examination was performed at [facility], [address] [facility] [place] [address]. Objective Physical Exam: Vital Signs: BP 122/103 | Pulse 89 | Temp 35.8 C (96.4 F) (Tympanic) | Resp 19 | Ht 1.549 m (5'1") | Wt 64.4 kg (142 lb) | LMP 08/01/2007 | SpO2 98% | BMI 26.83 kg/m | BSA 1.66 m Body mass index is 26.83 kg/m. General: No apparent distress. Eyes: pupils equal and round, sclera white, pupils midsize. ENT: mucous membranes moist Resp: Non-labored breathing CV: Extremities warm and well-perfused. Psych: Oriented; affect wrm, insight good. Skin: No rashes or lesions appreciated on exposed skin Neuromuscular Exam: Facet loading neg, TTT over cervical spine Assessment: Sydney is a 68 year old year-old female with: Cervical radicular pain Plan: The patient was planned to undergo elective C7/T1 LEXY today. Canceled due to inflammation, swelling, redness of right ankle not yet evaluated in-person by provider and different than physician advised of during telehealth visit. Cannot exclude cellulitis, osteomyelitis or other infectious etiologies. Also optimal for her to be off of steroids prior to proceeding although this is a secondary concern. Contacted PCP/telehealtlh physician to review her case, will tentatively reschedule in 3 week timeframe. Jose David Mendez DO OR [facility], Operating Room [facility] [address] [facility] [place] [phone] documented in this encounter Nursing Notes * Meron Stanton, RN - 06/27/2024 10:28 AM EDT Procedure cancelled per Dr. Mendez due to pt right ankle. See Dr. Mendez note, emr. documented in this encounter Plan of Treatment Upcoming Encounters Date Type Department Care Team (Late st Contact Info) Description 07/04/2024 11:20 AM EDT Immunization Ancillary [facility] [address] [place] [address] [facility] Fam Prac [address] [place] [address] 07/04/2024 11:40 AM EDT Office Visit Sleep Disorders Ctr [facility] [address] [place] [address] Mitali Garcia, [address] [place] [address] 07/11/2024 11:40 AM EDT Office Visit Family Practice [facility] [address] [place] [address] Phillip Mulligan MD [address] [place] [address] 07/30/2024 8:50 AM EDT Hospital Encounter [facility], Operating Room [facility] [address] [place] [phone] Jose David Mendez, [address] [place] [address] 07/30/2024 8:50 AM EDT - 07/30/2024 9:15 AM EDT Surgery OR [facility], Operating Room [facility] [address] [place] [phone] Jose David Mendez DO [address] [place] [phone] INJECTION SPINE LUMBAR CERVICAL OR THORACIC 08/15/2024 1:00 PM EDT Imaging Radiology, [address] [place] [address] 08/15/2024 1:40 PM EDT Office Visit Rheumatology [address] [place] [address] Umesh Brewster MD [address] [place] [address] [place] [address] 11/13/2024 1:30 PM EST Office Visit Neurology [facility] [address] [place] [address] Lidia Rashid PA-C [address] [place] [address] 11/16/2024 1:20 PM EST Office Visit Dermatology [facility] [address] [place] [address] Connie Pires PA-C [address] [place] [address] Scheduled Orders Name Type Priority Associated Diagnoses Order Schedule FLUORO INTERVENTIONAL PAIN PROCEDURE NONBILLABLE Medical Imaging Routine One Time for 1 Occurrences starting 06/27/2024 until 06/27/2024 Scheduled Procedures Name Priority Associated Diagnoses Date/Ti [...] D LEVEL ONCE IN A LIFETIME-USE SMARTSET# [id number] Completed 05/23/2023, 02/08/2022, 11/03/2021, Additional history exists [...] Not on filedocumented as of this encounter Administered Medications Inactive Administered Medications - up to 3 most recent administrations Medication Order MAR Action Action Date Dose Rate Site influenza Vac Split HIGH-DOSE Trivalent(65 years and older) (Fluzone High Dose) inj 0.5 mL 0.5 mL, Intramuscular, ONCE, On Tue06/27/24 at 1100, For 1 dose, Add Lot# and Display Trimmer in Immunization Info section of MAR ! Store in Refrigerator SHAKE WELL PRIOR TO ADMINISTRATION documented in this encounter Active and Recently Administered Medications Times are shown in EDT. Scheduled Medication Order 06/25/2024 06/26/2024 06/27/2024 influenza Vac Split HIGH-DOSE Trivalent(65 years and older) (Fluzone High Dose) inj 0.5 mL 0.5 mL, Intramuscular, ONCE, On Tue06/27/24 at 1100, For 1 dose, Add Lot# and Display Trimmer in Immunization Info section of MAR ! Store in Refrigerator [employer]KE WE[employer] PRIOR TO ADMINISTRATION Iohexol (Omnipaque 240) inj 0.25 mL 0.25 mL, Epidural, ONCE, On Tue06/27/24 at 1015, For 1 dose, For cervical epidural 1015 (Due) lidocaine 1 % inj 15 mg 15 mg (1.5 mL), Subcutaneous, ONCE, On Tue06/27/24 at 1015, For 1 dose 1015 (Due) Triamcinolone Acetonide (Kenalog) 40 MG/ML inj 40 mg 40 mg, Injection, ONCE, On Tue06/27/24 at 1015, For 1 dose 1015 (Due) documented in this encounter Advance Directives * [...] and were consensually agreed upon. Care Teams Toxics Program Officer Relationship Specialty Start Date End Date Phillip Mulligan MD [address] [place] [address] PCP - General Family Medicine 12/10/20 documented as of this encounter
--- OUTSIDE RECORDS SUMMARY | 2024-09-13 11:55 | External Medical Summary | Summary of Care ---
Author Name Unknown Organization [facility] Address [address] [place] [address] Phone [phone] Care Team Providers Care Jewel Grinder Name Role Phone Phillip Mulligan MD Primary Care Provider [phone] [phone] Reason for Visit * Reason Comments Ankle Pain Encounter Details Date Type Department Care Team (Late st Contact Info) Description 06/25/2024 2:20 PM EDT Telemedicine [facility] [address] [place] [address] Lowell Hernandez MD [address] [place] [address] Acute right ankle pain* Allergies Active Allergy Reactions Criticality Noted Date Comments Braeden Inhibitors Cough 06/22/2012 Amoxicillin 11/24/2005 Diarrhea Clavulanic Acid High 05/25/2023 Other Reaction(s): DIARRHEA Doxycycline Rash Low 02/08/2022 documented as of this encounter (statuses as of 06/25/2024) Medications Medication Sig Dispensed Refills Start Date [...] times a day Active Cholecalciferol (VITAMIN D3) 65629 units Capsule Take 1 Capsule by mouth [...] Capsule (Citicoline) Take by mouth daily. Active Alendronate Sodium 70 MG Oral Tablet (Fosamax) TAKE 1 TABLET BY MOUTH ONE TIME PER WEEK 12 Tablet 4 05/12/2023 Active Sucralfate 1 GM Oral Tablet (Carafate) TAKE 1 TAB BY MOUTH 4 TIMES A DAY BEFORE MEALS AND AT BEDTIME. 360 Tablet 2 05/19/2023 Active Additional Information Patient taking differently:1 g OralTID(AM/NOON/HS), Reported on 05/01/2024 Joint Health Oral Capsule Take by mouth. Active [facility] Triple Action 40-5-3.3 MG Oral Tablet (Pizvvisk-Hfeih-Rz aluronic Acid) Take by mouth. Active Simvastatin [...] THE DAY 90 Capsule 2 04/23/2024 Active predniSONE 20 MG Oral Tablet (Deltasone) Take 2 Tablets by mouth in the morning for 5 days. 10 Tablet 06/25/2024 06/30/2024 Active documented as of this encounter (statuses as of 06/25/2024) Active Problems Problem Noted Date Diagnosed Date [...] as of this encounter (statuses as of 06/25/2024) Resolved Problems Problem Noted Date Diagnosed Date [...] as of this encounter (statuses as of 06/25/2024) Immunizations Name Administration Dates Next Due COVID-19 mRNA, LNP-s, No Pre serve, 2-Dose Series ([employer]) 09/12/2021,01/29/2021,01/08/2021 Covid-19, Mrna, Lnp-s, Pf, B ivalent, [...] on file documented as of this encounter Progress Notes * Lowell Hernandez MD - 06/25/2024 2:52 PM EDT Patient location: HOME. I was in a hospital or clinic location. After connecting through televideo, patient was verified with two unique identifiers. Patient (or authorized legal digital sales representative) wasthen informed that this was a Telemedicine visit and being conducted confidentially over secure lines. Methods to assure confidentiality were taken. Patient acknowledged consent and understanding of privacy and security of the Telemedicine visit. The patient agreed to participate. Chief Complaint Patient presents with Ankle Pain OBJECTIVE: LMP 08/01/2007 HPI: Sydney Galeano is a 68 year old female who was connected via tele video along with her caregiver next to her C/O pain and swelling of R ankle for few weeks . Pain gets worse with walking .denies any recent or past injury to the ankle, redness, warmness touch, fever/chills. did not use any med Past Medical History: Diagnosis Date Ataxia 08/10/2021 DDD (degenerative disc disease), cervical 01/26/2023 Depression with anxiety 01/26/2023 Dyslipidemia 12/10/2020 Dysplasia of cervix (uteri) s/p laser therapy RAMU (generalized anxiety disorder) 01/26/2022 Gastroesophageal reflux disease without esophagitis 08/20/2019 HTN, goal below 130/80 02/01/2013 Kidney stones 10/2017 Mild obstructive sleep apnea 06/22/2023 Multiple sclerosis (HCC) Hospitalized at [facility], presented appearing as a CVA. See problem list comments. Neurogenic bladder 01/26/2021 Osteoporosis, postmenopausal 07/28/2020 Overweight (BMI 25.0-29.9) 10/12/2022 Pulmonary nodule per 10/2018 CT scan, no further workup is needed Seasonal affective disorder (HCC) 08/10/2021 Sleep apnea, obstructive Special screening for osteoporosis normal, repeat scan in 2008 Past Surgical History: Procedure Laterality Date COLONOSCOPY, DIAGNOSTIC (RECTUM) 09/12/2018 fair prep, diverticulosis/INPT [facility] COLORECTAL CANCER SCREEN; NOT AT RISK 08/17/07 WNL CYSTOSCOPY 02-21-07 CYSTOURETERO W/LITHOTRIPSY Right 08/26/2017 CYSTOURETHROSCOPY URETEROSCOPY WITH LITHOTRIPSY performed by Coral Brito MD at OR [facility] CYSTOURETERO W/LITHOTRIPSY Right 09/16/2017 CYSTOURETHROSCOPY URETEROSCOPY WITH LITHOTRIPSY performed by Coral Brito MD at OR [facility] DILATION AND CURETTAGE (D&C) D&C DILATION URETER/URETHRA RADIOLOGICAL SUPERVISION AND INTERP 2003 urethral dilation DOBUTAMINE STRESS ECHO 04/30/2009 normal, done at [facility] INFORMATION 01-18-07/01-25-07 urodynamics x2 INJECT DX/THER SUBSTANCE INTERLAMINAR CERVICAL/THORACIC W IMAGE GUIDE 01/31/2023 INJECTION SPINE LUMBAR CERVICAL OR THORACIC performed by Jose David Mendez DO at OR [facility] INJECT DX/THER SUBSTANCE INTERLAMINAR LUMBAR/SACRAL W IMAGE GUIDE 06/06/2023 INJECTION SPINE LUMBAR OR SACRAL performed by Jose David Mendez DO at OR [facility] LAPAROSCOPY; CHOLECYSTECTOMY 08/05/2008 Cholecystectomy, Laproscopic LASER SURGERY OF CERVIX LENS EXTRACTION, PHACOFRAGMENTATION 06/15/2011 rt eye LIGATE/CUT OVIDUCT(S) Tubal Ligation REMOVE TONSILS & ADENOIDS, UNDER 12 Tonsillectomy/Adenoids,<12 Y/O Social History Tobacco Use Smoking status: Never Passive exposure: Past Smokeless tobacco: Never Tobacco comments: exposed to second hand smoke Substance Use Topics Alcohol use: No Vaping/E-Cigarette Use Vaping/E-Cigarette Use Never User Vaping/E-Cigarette Substances Vaping/E-Cigarette Devices Current Outpatient Medications Medication Sig Dispense Refill CALCIUM 500 500 MG PO TABS Take 500 mg by mouth daily. WILBER-C/BIOFLAVONOIDS PO TABS None Entered MILK THISTLE 140 MG PO CAPS Take by mouth. (Patient not taking: Reported on 05/01/2024) OMEGA 3 1000 MG PO CAPS daily GLUCOSAMINE CHONDR COMPLEX 500-400 MG PO CAPS one daily CRANBERRY 1000 MG PO CAPS 2 daily BIOTIN 5000 MCG PO CAPS 1 cap daily ALPHA-LIPOIC ACID 600 MG PO CAPS 1 tablet daily COQ10 100 MG PO CAPS 1 daily PROBIOTIC ACIDOPHILUS PO CAPS 1 daily GRAPE SEED OIL Use as directed. (Patient not taking: Reported on 05/01/2024) TURMERIC 450 MG PO CAPS Take by mouth. 1000 mg, 5 times a day Cholecalciferol (VITAMIN D3) 04310 units Capsule Take 1 Capsule by mouth [...] 100 MCG Oral Tablet Take by mouth. (Patient not taking: Reported on 05/01/2024) B Complex Plus Oral Tablet Take by mouth . Vibegron 75 MG Oral Tablet Take 1 Tablet by mouth in the morning. Cognitive Health 500 MG Oral Capsule (Citicoline) Take by mouth daily. (Patient not taking: Reported on 05/01/2024) Alendronate Sodium 70 MG Oral Tablet (Fosamax) TAKE 1 TABLET BY MOUTH ONE TIME PER WEEK 12 Tablet 4 Sucralfate 1 GM Oral Tablet (Carafate) TAKE 1 TAB BY MOUTH 4 TIMES A DAY BEFORE MEALS AND AT BEDTIME. (Patient taking differently: Take 1 Tablet by mouth in the morning and 1 Tablet at noon and 1 Tablet before bedtime.) 360 Tablet 2 Joint Health Oral Capsule Take by mouth. [facility] Triple Action 40-5-3.3 MG Oral Tablet (Mulodlma-Ozqxd-Ojrkmenehu Acid) Take by mouth. Simvastatin 40 MG Oral Tablet (Zocor) TAKE 1 TABLET BY MOUTH EVERYDAY AT BEDTIME 90 Tablet 3 Loratadine 10 MG Oral Tablet (Claritin) TAKE [...] MEAL OF THE DAY 90 Capsule 2 No current facility-administered medications for this visit. Review of patient's allergies indicates: Allergen Reactions Clavulanic Acid Other Reaction(s): DIARRHEA Braeden Inhibitors Cough Augmentin [Amoxicillin] Diarrhea Doxycycline Rash Health Maintenance Due Topic Date Due Adult Wellness Visit 11/17/2023 Influenza Vaccine (FLU shot) (1) 06/17/2024 COVID-19 Vaccine ( season) 2024 PHYSICAL EXAM: Limited exam because of tele visit. GENERAL: Patient is alert/ awake, well nourished , normal affect , not in any acute distress due topain SKIN: Per patient or caregiver-patient did not have any warmness/redness of right ankle Assesment and Plan: Acute right ankle pain (Primary) - predniSONE 20 MG Oral Tablet (Deltasone); Take 2 Tablets by mouth in the morning for 5 days. Suggested leg elevation. Recommended to follow with PCP as scheduled or sooner p.r.n. Compression stockings as discussed Follow up: as needed Lowell Hernandez MD Family practice [facility]. documented in this encounter Plan of Treatment Upcoming Encounters Date Type Department Care Team (Late st Contact Info) Description 06/27/2024 10:05 AM EDT Hospital Encounter [facility], Operating Room [facility] [address] [place] [phone] Jose David Mendez, [address] [place] [address] 06/27/2024 10:05 AM EDT - 06/27/2024 10:30 AM EDT Surgery [facility], Operating Room [facility] [address] [place] [phone] Jose David Mendez, DO [address] [place] [phone] INJECTION SPINE LUMBAR CERVICAL OR THORACIC 07/04/2024 11:20 AM EDT Immunization Ancillary [facility] [address] [place] [address] [facility] [address] [place] [address] 07/04/2024 11:40 AM EDT Office Visit Sleep Disorders Ctr [facility] [address] [place] [phone] Mitali Garcia, DO [address] [place] [address] 07/11/2024 11:40 AM EDT Office Visit Family Practice [facility] [address] [place] [address] Phillip Mulligan MD [address] [place] [address] 08/15/2024 1:00 PM EDT Imaging Radiology, [place] [address] [place] [address] 08/15/2024 1:40 PM EDT Office Visit Rheumatology [place] [address] [place] [address] Umesh Brewster MD [address] [place] [address] [place] [address] 11/13/2024 1:30 PM EST Office Visit Neurology [facility] [place] [address] [facility] [place] [address] Lidia Rashid PA-C [address] [place] [address] 11/16/2024 1:20 PM EST [facility] [address] [place] [address] Connie Pires PA-C [address] [place] [address] Scheduled Procedures Name Priority Associated Diagnoses Date/Ti [...] D LEVEL ONCE IN A LIFETIME-USE SMARTSET# [id number] Completed 05/23/2023, 02/08/2022, 11/03/2021, Additional history exists [...] as of this encounter Visit Diagnoses Diagnosis Acute right ankle pain- Primary Cervical radiculitis Brachial neuritis or radiculitis [...] and were consensually agreed upon. Care Teams Jewel Grinder Relationship Specialty Start Date End Date Phillip Mulligan MD [address] [facility] [place] [address] PCP - General Family Medicine 12/10/20 documented as of this encounter
--- OUTSIDE RECORDS SUMMARY | 2024-09-13 11:55 | External Medical Summary | Summary of Care ---
Author Name Unknown Organization [facility] Address [address] [place] [facility] [place] [address] Phone [phone] Care Team Providers Care Biofuels Plant Construction Worker Name Role Phone Phillip Mulligan MD Primary Care Provider [phone] Reason for Visit * Reason Onset Date Comments Medication Question 06/25/2024 Encounter Details Date Type Department Care Team (Late st Contact Info) Description 06/25/2024 Telephone Family Practice [facility] [address] [place] [address] Phillip Mulligan MD [address] [place] [address] Medication Question Allergies Active Allergy Reactions Criticality Noted Date [...] times a day Active Cholecalciferol (VITAMIN D3) 77133 units Capsule Take 1 Capsule by mouth [...] Health Triple Action 40-5-3.3 MG Oral Tablet (Czmtybpe-Maiki-Cd aluronic Acid) Take by mouth. Active Simvastatin [...] mRNA, LNP-s, No Pre serve, 2-Dose Series ([employer] 09/12/2021,01/29/2021,01/08/2021 Covid-19, Mrna, Lnp-s, Pf, B ivalent, [...] Miscellaneous Notes * Telephone Encounter - Nella Grissom RPh - 06/25/2024 3:23 PM EDT Pt calling inquiring if prednisone tablets is okay with her injection. Advised pt it is okay to take her oral steroid prescribed on 06/25 and get her steroid injection on 06/27. Also advised pt to take with food. Thank you, Nella Grissom PharmD Clinical Pharmacist [facility] [phone] 06/25/2024, 3:28 PM * Telephone Encounter - Sima Woodson PHARM Tech - 06/25/2024 3:22 PM EDT Pt called to see if prednisone with interact with injection scheduled for Tuesday. Warm transferred to vivek Carmen. Thanks, Sima Woodson Tractor Mechanic Helper [facility] 06/25/2024,3:23 PM documented in this encounter Plan of Treatment Upcoming Encounters Date Type Department Care Team (Late st Contact Info) Description 06/27/2024 10:05 AM EDT Hospital Encounter [facility], Operating Room [facility] [address] [place] [phone] Jose David Mendez DO [address] [place] [phone] 06/27/2024 10:05 AM EDT - 06/27/2024 10:30 AM EDT Surgery OR [facility], Operating Room [facility] [address] [place] [phone] Jose David Mendez, DO [address] [place] [phone] INJECTION SPINE LUMBAR CERVICAL OR THORACIC 07/04/2024 11:20 AM EDT Immunization Ancillary [facility] [address] [place] [address] [facility] [address] [place] [address] 07/04/2024 11:40 AM EDT Office Visit [facility] [place] [phone] Mitali Garcia, DO [address] [place] [address] 07/11/2024 11:40 AM EDT Office Visit Family Practice [facility] [address] [place] [address] Phillip Mulligan MD [address] [place] [address] 08/15/2024 1:00 PM EDT Imaging Radiology, [address] [place] [address] 08/15/2024 1:40 PM EDT Office Visit Rheumatology [address] [place] [address] Umesh Brewster MD [address] [place] [address] [place] [address] 11/13/2024 1:30 PM EST Office Visit Neurology [facility] [address] [facility] [place] [address] Lidia Rashid PA-C [facility] [place] [address] 11/16/2024 1:20 PM EST Office Visit Dermatology [facility] [address] [place] [address] Connie Pires PA-C 200 [facility] [place] [address] Scheduled Procedures Name Priority Associated Diagnoses Date/Ti [...] D LEVEL ONCE IN A LIFETIME-USE SMARTSET# [id number] Completed 05/23/2023, 02/08/2022, 11/03/2021, Additional history exists [...] and were consensually agreed upon. Care Teams Biofuels Plant Construction Worker Relationship Specialty Start Date End Date Phillip Mulligan MD [address] [place] [address] PCP - General Family Medicine 12/10/20 documented as of this encounter
--- OUTSIDE RECORDS SUMMARY | 2024-09-13 11:55 | External Medical Summary | Summary of Care ---
Author Name Unknown Organization [facility] Address [address] [place] [address] Phone [phone] Care Team Providers Care Placement Director Name Role Phone Phillip Mulligan MD Primary Care Provider [phone] [phone] Reason for Visit * Reason Onset Date Comments Fax 02/29/2024 Encounter Details Date Type Department Care Team (Late st Contact Info) Description 02/29/2024 Telephone Family Practice [facility] [address] [place] [address] Phillip Mulligan MD [address] [facility] [place] [address] Fax Allergies Active Allergy Reactions Criticality Noted Date Comments Braeden Inhibitors Cough 06/22/2012 Amoxicillin 11/24/2005 Diarrhea Clavulanic Acid High 05/25/2023 Other Reaction(s): DIARRHEA Doxycycline Rash Low 02/08/2022 documented as of this encounter (statuses as of 05/30/2024) Medications Medication Sig Dispensed Refills Start Date [...] times a day Active Cholecalciferol (VITAMIN D3) 41646 units Capsule Take 1 Capsule by mouth [...] Health Triple Action 40-5-3.3 MG Oral Tablet (Ikgmaprt-Icfig-Kyy luronic Acid) Take by mouth. Active Simvastatin 40 MG Oral Tablet (Zocor) TAKE 1 TABLET BY MOUTH EVERYDAY AT BEDTIME 90 Tablet 3 07/17/2023 Active Loratadine 10 MG Oral Tablet (Claritin)Indicatio [...] EVERY DAY 90 Tablet 1 12/08/2023 Active documented as of this encounter (statuses as of 05/30/2024) Active Problems Problem Noted Date Diagnosed Date [...] as of this encounter (statuses as of 05/30/2024) Resolved Problems Problem Noted Date Diagnosed Date [...] as of this encounter (statuses as of 05/30/2024) Immunizations Name Administration Dates Next Due COVID-19 mRNA, LNP-s, No Pre serve, 2-Dose Series ([employer]) 09/12/2021,01/29/2021,01/08/2021 Covid-19, Mrna, Lnp-s, Pf, B ivalent, 30 Mcg, IM, 12 yrs and above ([employer]) 09/22/2022 H1N1 2009 Influenza, IM 10/23/2009 Pneumococcal Conjugate Vacc, 13 Valent (Prevnar) 02/19/2019 Pneumococcal Polysaccharide PPV23 (Pneumovax) 04/14/2020 Season Influenza, Quad, PF, Adjuvanted, 65+ Yrs, IM (FLUAD) 08/01/2020 Seasonal Influenza, PF, 6 M & above, IM , (FluLaval or Fluzone) 06/28/2018,07/25/2017 Seasonal Influenza, Quadriva lent Hd (Fluzone Hd) 07/06/2023,07/13/2022,08/10/2021 Seasonal Influenza, Quadriva lent, No Preserve, IM 07/19/2016,07/24/2015 Seasonal Influenza, Split, I IV3, With Preserve, Inj 07/08/2014,08/03/2013,06/22/2012,06/29,07/07/2010,10/23/2009,10/14/2008 Seasonal Influenza, Trivalen t, Adjuvanted, 65+ yrs 07/03/2019 TDAP (age 10 and older)(Boostrix) 02/06/2018 [...] Telephone Encounter - Basilia Dean LPN - 03/02/2024 3:30 PM EDT Faxed referral as requested * Telephone Encounter - Argentina Garcia OSA - 02/29/2024 1:22 PM EDT Please re fax referral to [facility] at [phone] documented in this encounter Plan of Treatment Upcoming Encounters Date Type Department Care Team (Late st Contact Info) Description 06/27/2024 10:05 AM EDT Hospital Encounter [facility], Operating Room [facility] [address] [place] [phone] Jose David Mendez, DO [address] [place] [phone] 06/27/2024 10:05 AM EDT - 06/27/2024 10:30 AM EDT Surgery OR [facility], Operating Room [facility] [address] [place] [phone] Jose David Mendez, DO [address] [place] [phone] INJECTION SPINE LUMBAR CERVICAL OR THORACIC 07/04/2024 11:40 AM EDT Office Visit Sleep Disorders Ctr [facility] [address] [place] [phone] Mitali Garcia, DO [address] [place] [address] 07/11/2024 11:40 AM EDT Office Visit Family Practice [facility] [address] [place] [address] Phillip Mulligan MD [address] [place] [address] 08/15/2024 1:00 PM EDT Imaging Radiology, [address] [place] [address] 08/15/2024 1:40 PM EDT Office Visit Rheumatology [address] [place] [address] Umesh Brewster MD [facility] [place] [address] 11/13/2024 1:30 PM EST Office Visit Neurology [facility] 200 [facility] [place] [address] Lidia Rashid PA-C [address] [place] [address] 11/16/2024 1:20 PM EST Office Visit Dermatology [facility] [address] [place] [address] Connie Pires PA-C [address] [place] [address] Scheduled Procedures Name Priority Associated Diagnoses Date/Ti me INJECTION SPINE LUMBAR CERVICAL OR THORACIC Cervical radiculitis 06/27/2024 10:05 AM EDT Health Maintenance Due Date Last Done Comments Fecal Occult Blood Test 1998 Sigmoidoscopy 1998 Cologuard 07/04/2021 07/04/2018 COVID-19 Vaccine ( season) 2023 09/22/2022, 09/12/2021, 01/29/2021, Additional history exists Adult Wellness Visit 11/17/2023 11/17/2022, 09/23/20 21 Influenza Vaccine (FLU shot) (#1) 2024 07/06/2023, 07/13/2022, 08/10/2021, Additional history exists DXA Scan 08/02/2024 08/02/2022, 07/17, 01/12/2016, Additional history exists Depression Monitoring 12/29/2024 12/30/2023 GFR 02/28/2025 02/29/2024, 080 04/2023, 02/08/2022, Additional history exists Mammogram 05/23/2025 05/23/2024, 04/18, 05/16/2023, Additional history exists Albumin/Creatinine Ratio 09/22/2025 022, 01/11/2022, 07/08/2015 DTaP,Tdap,and Td Vaccines (3 - Td or Tdap) 02/07/2028 02/06/2018, 07/11/2008 Colonoscopy 09/12/2028 09/12/2018, 08/17/2007 Colorectal Cancer Screening 09/12/2028 Lipid Panel 02/28/2029 02/29/2024, 080 04/2023, 07/28/2021, Additional history exists Zoster Vaccines Completed 08/20/2019, 02/15, 12/19/2013 Pneumococcal Vaccine: 65+ Years Completed 04/14/2020, 02/19/2019 VITAMIN D LEVEL ONCE IN A LIFETIME-USE SMARTSET# [id number] Completed 05/23/2023, 02/08/2022, 11/03/2021, Additional history exists [...] and were consensually agreed upon. Care Teams Placement Director Relationship Specialty Start Date End Date Phillip Mulligan MD [address] [place] [address] PCP - General Family Medicine 12/10/20 documented as of this encounter
--- OUTSIDE RECORDS SUMMARY | 2024-09-13 11:55 | External Medical Summary | Summary of Care ---
Author Name Unknown Organization [facility] Address [address] [place] [address] Phone [phone] Care Team Providers Care Channel Director Name Role Phone Phillip Mulligan MD Primary Care Provider [phone] [phone] Reason for Visit * Reason Onset Date Comments Insurance 02/09/2024 Out of Network I nsurance Encounter Details Date Type Department Care Team (Late st Contact Info) Description 02/09/2024 Telephone Family Practice [facility] [address] [facility] [place] [address] Phillip Mulligan MD [address] [facility] [place] [address] Insurance (Out of Network Insurance) Allergies Active Allergy Reactions Criticality Noted Date Comments Braeden Inhibitors Cough 06/22/2012 Amoxicillin 11/24/2005 Diarrhea Clavulanic Acid High 05/25/2023 Other Reaction(s): DIARRHEA Doxycycline Rash Low 02/08/2022 documented as of this encounter (statuses as of 05/10/2024) Medications Medication Sig Dispensed Refills Start Date [...] times a day Active Cholecalciferol (VITAMIN D3) 95104 units Capsule Take 1 Capsule by mouth [...] Health Triple Action 40-5-3.3 MG Oral Tablet (Bgqyvyeh-Uazwr-Sqs luronic Acid) Take by mouth. Active Simvastatin [...] as of this encounter (statuses as of 05/10/2024) Active Problems Problem Noted Date Diagnosed Date [...] as of this encounter (statuses as of 05/10/2024) Resolved Problems Problem Noted Date Diagnosed Date [...] D deficiency 04/22/2009 010 Mixed dyslipidemia 07/11/2008 12/16/200 9 Overview: Per Lipid Taxonomy. Human papilloma virus 2016 documented as of this encounter (statuses as of 05/10/2024) Immunizations Name Administration Dates Next Due COVID-19 [...] encounter Miscellaneous Notes * Telephone Encounter - Eliana Gr OSA - 02/09/2024 12:14 PM EDT Sue, This patient's insurance requires them to establish care with a PCP that is contracted with their plan. You are not a contracted provider with [employer] insurance plan. Contracted PCPs are responsible to coordinate all care within the plans network. Because you are not contracted w ith the patient's insurance plan, your referral would not be valid. If you continue to provide services for Sydney Galeano, compensation will not be received from the patient's insurance plan. Please recommend that Sydney coordinate care with the PCP contracted with [employer] insurance network to ensure the patient does not accrue unexpected Out Of Pocket Expense. Please let me know if you have any questions. THALIA Yeung OON Liaison 02/09/2024 documented in this encounter Plan of Treatment Upcoming Encounters Date Type Department Care Team (Late st Contact Info) Description 05/23/2024 11:45 AM EDT Imaging Radiology [address] [place] [address] 06/27/2024 10:05 AM EDT Hospital Encounter [facility], Operating Room [facility] [address] [place] [phone] Jose David Mendez, [address] [place] [address] 06/27/2024 10:05 AM EDT - 06/27/2024 10:30 AM EDT Surgery OR [facility], Operating Room [facility] [address] [place] [phone] Jose David Mendez, [address] [place] [address] INJECTION SPINE LUMBAR CERVICAL OR THORACIC 07/04/2024 11:40 AM EDT Office Visit Sleep Disorders Ctr [facility] [address] [place] [phone] Mitali Garcia DO [address] [place] [address] 07/11/2024 11:40 AM EDT Office Visit Family Practice [facility] [address] [place] [address] Phillip Mulligan MD [address] [place] [address] 08/15/2024 1:00 PM EDT Imaging Radiology, [address] [place] [address] 08/15/2024 1:40 PM EDT Office Visit Rheumatology [address] [place] [address] Umesh Brewster MD [address] [place] [address] [place] [address] 11/13/2024 1:30 PM EST Office Visit Neurology [facility] [address] [place] [address] Lidia Rashid PA-C [address] [place] [address] 11/16/2024 1:20 PM EST Office Visit Dermatology [facility] [address] [place] [address] Connie Pires PA-C [address] [place] [address] Scheduled Procedures Name Priority Associated Diagnoses Date/Ti me INJECTION SPINE LUMBAR CERVICAL OR THORACIC Cervical radiculitis 06/27/2024 10:05 AM EDT Health Maintenance Due Date Last Done Comments Fecal Occult Blood Test 1998 Sigmoidoscopy 1998 Cologuard 07/04/2021 07/04/2018 COVID-19 Vaccine ( season) 2023 09/22/2022, 09/12/2021, 01/29/2021, Additional history exists Mammogram 05/16/2024 05/16/2023, 04/18, 05/12/2022, Additional history exists Influenza Vaccine (FLU shot) (#1) 2024 07/06/2023, 07/13/2022, 08/10/2021, Additional history exists DXA Scan 08/02/2024 08/02/2022, 07/17, 01/12/2016, Additional history exists Depression Monitoring 12/29/2024 12/30/2023 GFR 02/28/2025 02/29/2024, 08/0 04/2023, 02/08/2022, Additional history exists Albumin/Creatinine Ratio 09/22/2025 022, 01/11/2022, 07/08/2015 DTaP,Tdap,and Td Vaccines (3 - Td or Tdap) 02/07/2028 02/06/2018, 07/11/2008 Colonoscopy 09/12/2028 09/12/2018, 08/17/2007 Colorectal Cancer Screening 09/12/2028 Lipid Panel 02/28/2029 02/29/2024, 08/0 04/2023, 07/28/2021, Additional history exists Zoster Vaccines Completed 08/20/2019, 02/15, 12/19/2013 Pneumococcal Vaccine: 65+ Years Completed 04/14/2020, 02/19/2019 VITAMIN D LEVEL ONCE IN A LIFETIME-USE SMARTSET# [id number] Completed 05/23/2023, 02/08/2022, 11/03/2021, Additional history exists [...] and were consensually agreed upon. Care Teams Channel Director Relationship Specialty Start Date End Date Phillip Mulligan MD [address] [place] [address] PCP - General Family Medicine 12/10/20 documented as of this encounter
--- OUTSIDE RECORDS SUMMARY | 2024-09-13 11:55 | External Medical Summary | Summary of Care ---
Author Name Unknown Organization [facility] Address [address] [place] [address] Phone [phone] Care Team Providers Care Applications Development Consultant Name Role Phone Phillip Mulligan MD Primary Care Provider [phone] Reason for Visit * Reason Onset Date Comments Appointment 05/08/2024 Encounter Details Date Type Department Care Team (Late st Contact Info) Description 05/08/2024 Telephone Interventional Pain Center, [facility] [address] [place] [address] Jose David Mendez DO [address] [place] [phone] Appointment Allergies Active Allergy Reactions Criticality Noted Date Comments Braeden Inhibitors Cough 06/22/2012 Amoxicillin 11/24/2005 Diarrhea Clavulanic Acid High 05/25/2023 Other Reaction(s): DIARRHEA Doxycycline Rash Low 02/08/2022 documented as of this encounter (statuses as of 06/23/2024) Medications Medication Sig Dispensed Refills Start Date [...] times a day Active Cholecalciferol (VITAMIN D3) 56217 units Capsule Take 1 Capsule by mouth [...] Health Triple Action 40-5-3.3 MG Oral Tablet (Irpjqpob-Uocen-Tdh luronic Acid) Take by mouth. Active Simvastatin [...] THE DAY 90 Capsule 2 04/23/2024 Active documented as of this encounter (statuses as of 06/23/2024) Active Problems Problem Noted Date Diagnosed Date [...] as of this encounter (statuses as of 06/23/2024) Resolved Problems Problem Noted Date Diagnosed Date [...] as of this encounter (statuses as of 06/23/2024) Immunizations Name Administration Dates Next Due COVID-19 mRNA, LNP-s, No Pre serve, 2-Dose Series (Adiana) 09/12/2021,01/29/2021,01/08/2021 Covid-19, Mrna, Lnp-s, Pf, B ivalent, 30 Mcg, IM, 12 yrs and above (Adiana) 09/22/2022 H1N1 2009 Influenza, IM 10/23/2009 Pneumococcal [...] encounter Miscellaneous Notes * Telephone Encounter - VidesLou price THALIA - 05/08/2024 3:14 PM EDT Patient called in to reschedule her appointment with Dr. Mendez due to transportation. documented in this encounter Plan of Treatment Upcoming Encounters Date Type Department Care Team (Late st Contact Info) Description 06/27/2024 10:05 AM EDT Hospital Encounter [facility], Operating Room [facility] [address] [place] [address] Jose David Mendez, DO [address] [place] [address] 06/27/2024 10:05 AM EDT - 06/27/2024 10:30 AM EDT Surgery OR [facility], Operating Room [facility] [address] [place] [address] Jose David Mendez, DO [address] [place] [address] INJECTION SPINE LUMBAR CERVICAL OR THORACIC 07/04/2024 11:40 AM EDT Office Visit Sleep Disorders Ctr [facility] [address] [place] [phone] Mitali Garcia, DO [address] [place] [address] 07/11/2024 11:40 AM EDT Office Visit Family Practice [facility] [address] [place] [address] Phillip Mulligan MD [address] [place] [address] 08/15/2024 1:00 PM EDT [place]iology, [address] [place] [address] 08/15/2024 1:40 PM EDT Office Visit Rheumatology [address] [place] [address] Umesh Brewster MD [address] [place] [address] [place] [address] 11/13/2024 1:30 PM EST Office Visit Neurology [facility] [address] [place] [address] Lidia Rashid PA-C [address] [place] [address] 11/16/2024 1:20 PM EST Office Visit Dermatology [facility] [address] [place] [address] Connie Pires PA-C [address] [facility] [place] [address] Scheduled Procedures Name Priority Associated Diagnoses Date/Ti [...] Cancer Screening 09/12/2028 Lipid Panel 02/28/2029 02/29/2024, 04/2023, 07/28/2021, Additional history exists Zoster Vaccines Completed 08/20/2019, 02/15, 12/19/2013 Pneumococcal Vaccine: 65+ Years Completed 04/14/2020, 02/19/2019 VITAMIN D LEVEL ONCE IN A LIFETIME-USE SMARTSET# [id number] Completed 05/23/2023, 02/08/2022, 11/03/2021, Additional history exists [...] and were consensually agreed upon. Care Teams Applications Development Consultant Relationship Specialty Start Date End Date Phillip Mulligan MD [address] [place] [address] PCP - General Family Medicine 12/10/20 documented as of this encounter
--- OUTSIDE RECORDS SUMMARY | 2024-09-13 11:55 | External Medical Summary | Summary of Care ---
Author Name Unknown Organization [facility] Address [address] [place] [address] Phone [phone] Care Team Providers Care Clinical Investigator Name Role Phone Phililp Mulligan MD Primary Care Provider [phone] Reason for Visit * Reason Onset Date Comments Advice 03/14/2024 Encounter Details Date Type Department Care Team (Late st Contact Info) Description 03/14/2024 Telephone Family Practice [facility] [address] [place] [address] Phillip Mulligan MD [address] [facility] [place] [address] Advice Allergies Active Allergy Reactions Criticality Noted Date Comments Braeden Inhibitors Cough 06/22/2012 Amoxicillin 11/24/2005 Diarrhea Clavulanic Acid High 05/25/2023 Other Reaction(s): DIARRHEA Doxycycline Rash Low 02/08/2022 documented as of this encounter (statuses as of 06/13/2024) Medications Medication Sig Dispensed Refills Start Date [...] times a day Active Cholecalciferol (VITAMIN D3) 08594 units Capsule Take 1 Capsule by mouth [...] Health Triple Action 40-5-3.3 MG Oral Tablet (Zmthmuxr-Lkatt-Bwl luronic Acid) Take by mouth. Active Simvastatin [...] as of this encounter (statuses as of 06/13/2024) Active Problems Problem Noted Date Diagnosed Date [...] as of this encounter (statuses as of 06/13/2024) Resolved Problems Problem Noted Date Diagnosed Date [...] as of this encounter (statuses as of 06/13/2024) Immunizations Name Administration Dates Next Due COVID-19 mRNA, LNP-s, No Pre serve, 2-Dose Series (SANDOW) 09/12/2021,01/29/2021,01/08/2021 Covid-19, Mrna, Lnp-s, Pf, B ivalent, [...] Telephone Encounter - Basilia Dean LPN - 03/16/2024 9:34 AM EDT Called pt, aware. Pt will call back if appt needed (continues to happen) * Telephone Encounter - Phillip Mulligan MD - 03/14/2024 5:08 PM EDT Yes. It could be. I really can't say much about someone's throat closing up based on the information in this encounter. ER for emergencies. OV to discuss. * Telephone Encounter - Basilia Dean LPN - 03/14/2024 4:52 PM EDT Called pt who states she has problems with throat closing while eating numerous times in the last few years. Pt states she has acid reflux and gerd and is wondering if this could be causing it. Pt isasking for advise * Telephone Encounter - Nella Santiago OSA - 03/14/2024 2:44 PM EDT Patient called requesting to speak with a nurse. Patient stated she was eating a hoagie last evening for supper and her throat closed. Patient declined scheduling an appointment at time of call. Patient is requesting a return call Patient can be contacted at [phone] documented in this encounter Plan of Treatment Upcoming Encounters Date Type Department Care Team (Late st Contact Info) Description 06/27/2024 10:05 AM EDT Hospital Encounter [facility], Operating Room [facility] [address] [place] [phone] Jose David Mendez DO [address] [place] [phone] 06/27/2024 10:05 AM EDT - 06/27/2024 10:30 AM EDT Surgery OR [facility], Operating Room [facility] [address] [place] [phone] Jose David Mendez, DO [address] [place] [phone] INJECTION SPINE LUMBAR CERVICAL OR THORACIC 07/04/2024 11:40 AM EDT Office Visit Sleep Disorders Ctr [facility] [address] [place] [phone] Mitali Garcia, DO [address] [place] [address] 07/11/2024 11:40 AM EDT Office Visit Family Practice [facility] [address] [place] [address] Phillip Mulligan MD [address] [place] [address] 08/15/2024 1:00 PM EDT Imaging Radiology, [address] [place] [address] 08/15/2024 1:40 PM EDT Office Visit Rheumatology [address] [place] [address] Umesh Brewster MD [address] [place] [address] [place] [address] 11/13/2024 1:30 PM EST Office Visit Neurology [facility] [address] [facility] [place] [address] Lidia Rashid PA-C [address] [place] [address] 11/16/2024 1:20 PM EST Office Visit Dermatology [facility] [address] [place] [address] Connie Pires PA-C [address] [facility] [place], [place] [address] Scheduled Procedures Name Priority Associated Diagnoses Date/Ti [...] D LEVEL ONCE IN A LIFETIME-USE SMARTSET# [id number] Completed 05/23/2023, 02/08/2022, 11/03/2021, Additional history exists [...] and were consensually agreed upon. Care Teams Clinical Investigator Relationship Specialty Start Date End Date Phillip Mulligan MD [address] [place] [address] PCP - General Family Medicine 12/10/20 documented as of this encounter
--- OUTSIDE RECORDS SUMMARY | 2024-09-13 11:56 | External Medical Summary | Summary of Care ---
Author Name Unknown Organization [facility] Address [address] [place] [address] Phone [phone] Care Team Providers Care Manager Labor Relations Name Role Phone Phillip Mulligan MD Primary Care Provider [phone] Reason for Visit * Reason Onset Date Comments Advice 12/30/2023 Encounter Details Date Type Department Care Team (Late st Contact Info) Description 12/30/2023 Telephone Interventional Pain Center, [facility] [address] [place] [phone] Jose David Mendez DO [address] [place] [phone] Advice Allergies Active Allergy Reactions Criticality Noted Date Comments Braeden Inhibitors Cough 06/22/2012 Amoxicillin 11/24/2005 Diarrhea Clavulanic Acid High 05/25/2023 Other Reaction(s): DIARRHEA Doxycycline Rash Low 02/08/2022 documented as of this encounter (statuses as of 03/30/2024) Medications Medication Sig Dispensed Refills Start Date End Date Status CALCIUM 500 500 MG PO TABS Take 500 mg by mouth daily. Active WILBER-C/BIOFLAVONOID S PO TABS None Entered Active MILK THISTLE [...] COQ10 100 MG PO CAPS 1 daily Acti ve PROBIOTIC ACIDOPHILUS PO CAPS 1 daily Activ e GRAPE SEED OIL Use as directed. Acti ve TURMERIC 450 MG PO CAPS Take by mouth. 1000 mg, 5 times a day Active Cholecalciferol (VITAMIN D3) 45341 units Capsule Take 1 Capsule by mouth [...] Oral Capsule Take by mouth. Active Black Elderberry(Nguyen-Joo wer) 575 MG Oral Capsule Take by mouth. Active B Complex-B12 Oral Tablet Take by mouth. Active Hyaluronic Acid 20-60 MG Oral Capsule Take by mouth. Active Oil of Oregano 1500 MG Oral Capsule Take by mouth. Activ e Diapers & SuppliesIndications: Multiple sclerosis (HCC),Unspecified urinary incontinence pull up diapers. [...] AT BEDTIME. 360 Tablet 2 05/19/2023 Active Joint Health Oral Capsule Take by mouth. Active [facility] Triple Action 40-5-3.3 MG Oral Tablet (Scrvlhdz-Lsqyl-Tnng uronic Acid) Take by mouth. Active Simvastatin 40 MG Oral Tablet (Zocor) TAKE 1 TABLET BY MOUTH EVERYDAY AT BEDTIME 90 Tablet 3 07/17/2023 Active Loratadine 10 MG Oral Tablet (Claritin)Indication s:Allergic rhinitis TAKE 1 TABLET BY MOUTH EVERY DAY 90 Tablet 3 07/18/2023 Active guaiFENesin ER 600 MG Oral Tablet Extended Release 12 Hour (Mucinex) Take 1 Tablet by mouth 2 times a day as needed for Congestion. Take with plenty of water. Do not cut, crush or chew 40 Tablet 2 09/13/2023 Active Omeprazole 20 MG Oral Capsule Delayed Release (PriLOSEC)Indication s:Gastroesophageal reflux disease TAKE 1 CAPSULE BY MOUTH 1 HOUR PRIOR TO THE FIRST MEAL OF THE DAY 90 Capsule 1 10/18/2023 Active Fluticasone Propionate 50 MCG/ACT Nasal Suspension (Flonase)Indications :Allergic rhinitis SPRAY 2 SPRAYS INTO EACH NOSTRIL EVERY DAY 48 mL 3 10/31/2023 Active Gabapentin 100 MG Oral Capsule (Neurontin) Take 2 capsules by mouth twice daily 360 Capsule 2 12/06/2023 Active Valsartan 40 MG Oral Tablet (Diovan) TAKE 1 TABLET BY MOUTH EVERY DAY 90 Tablet 1 12/08/2023 Active documented as of this encounter (statuses as of 03/30/2024) Active Problems Problem Noted Date Diagnosed Date [...] as of this encounter (statuses as of 03/30/2024) Resolved Problems Problem Noted Date Diagnosed Date [...] as of this encounter (statuses as of 03/30/2024) Immunizations Name Administration Dates Next Due COVID-19 mRNA, LNP-s, No Pre serve, 2-Dose Series (Billeo) 09/12/2021,01/29/2021,01/08/2021 Covid-19, Mrna, Lnp-s, Pf, B ivalent, 30 Mcg, IM, 12 yrs and above (Billeo) 09/22/2022 H1N1 2009 Influenza, IM 10/23/2009 Pneumococcal [...] Telephone Encounter - Tatyana Gutierrez LPN - 12/30/2023 3:59 PM EDT Spoke with patient, states neck pain, unsure if it goes into shoulders/arms. Unable to tell me if last VICKY in 2022 was helpful. Scheduled office visit for next available. * Telephone Encounter - Edenilson Goff OSA - 12/30/2023 3:25 PM EDT Pt, Sydney, called in today. She has been experiencing a lot of pain in her shoulder and was advised by her doctor to contact Dr. Mendez for advice. She was requesting a call back from the doctor or one of the nurses to discuss. documented in this encounter Plan of Treatment Upcoming Encounters Date Type Department Care Team (Latest Contact Info) Description 05/01/2024 1:20 PM EDT Office Visit Neurology [facility] [address] [place] [address] Hannah Nuno PA-C [address] [place] [address] 05/11/2024 12:30 PM EDT Hospital Encounter OR [facility], Operating Room [facility] [address] [place] [phone] Jose David Mendez, [address] [place] [phone] 05/11/2024 12:30 PM EDT - 05/11/2024 12:55 PM EDT Surgery OR [facility], Operating Room [facility] [address] [place] [phone] Jose David Mendez, [address] [place] [address] INJECTION SPINE LUMBAR CERVICAL OR THORACIC 05/21/2024 1:15 PM EDT Imaging Radiology [facility] [address] [facility] [place] [address] 07/04/2024 11:40 AM EDT Office Visit Sleep Disorders Ctr [facility] [address] [place] [phone] Mitali Garcia DO [address] [place] [address] 07/11/2024 11:40 AM EDT Office Visit Family Practice [facility] [address] [facility] [place] [address] Phillip Mulligan MD [address] [place] [address] 08/15/2024 1:00 PM EDT Imaging Radiology, [address] [place] [address] 08/15/2024 1:40 PM EDT Office Visit Rheumatology [address] [place] [address] Umesh Brewster MD [address] [place] [address] [place] [address] 11/16/2024 1:20 PM EST Office Visit Dermatology [facility] [address] [place] [address] Connie Pires PA-C [address] [place] [phone] Scheduled Procedures Name Priority Associated Diagnoses Date/Ti me INJECTION SPINE LUMBAR CERVICAL OR THORACIC Cervical radiculitis 05/11/2024 12:30 PM EDT Health Maintenance Due Date Last Done Comments Fecal Occult Blood Test 1998 Sigmoidoscopy 1998 Cologuard 07/04/2021 07/04/2018 COVID-19 Vaccine ( season) 2023 09/22/2022, 09/12/2021, 01/29/2021, Additional history exists Mammogram 05/16/2024 05/16/2023, 0710/2022, 05/12/2022, Additional history exists DXA Scan 08/02/2024 08/02/2022, [...] D LEVEL ONCE IN A LIFETIME-USE SMARTSET# [id number] Completed 05/23/2023, 02/08/2022, 11/03/2021, Additional history exists Influenza Vaccine (FLU shot) Completed , 07/13/2022, 08/10/2021, Additional history exists GARDASIL-HPV IMMUNIZATION SERIES Aged Out No longer eligible based on patient's age to complete this topic Hepatitis B Aged Out No longer eligi ble based on patient's age to complete this [...] and were consensually agreed upon. Care Teams Manager Labor Relations Relationship Specialty Start Date End Date Phillip Mulligan MD [address] [place] [address] PCP - General Family Medicine 12/10/20 documented as of this encounter
--- OUTSIDE RECORDS SUMMARY | 2024-09-13 11:56 | External Medical Summary | Summary of Care ---
Author Name Unknown Organization [facility] Address [address] [place] [address] Phone [phone] Care Team Providers Care Coding File Clerk Name Role Phone Phillip Mulligan MD Primary Care Provider [phone] Reason for Visit * Reason Onset Date Comments Advice 01/30/2024 Encounter Details Date Type Department Care Team (Late st Contact Info) Description 01/30/2024 Telephone Family Practice [facility] [address] [place] [address] Phillip Mulligan MD [address] [facility] [place] [address] Advice Allergies Active Allergy Reactions Criticality Noted Date Comments Braeden Inhibitors Cough 06/22/2012 Amoxicillin 11/24/2005 Diarrhea Clavulanic Acid High 05/25/2023 Other Reaction(s): DIARRHEA Doxycycline Rash Low 02/08/2022 documented as of this encounter (statuses as of 04/30/2024) Medications Medication Sig Dispensed Refills Start Date [...] Active GRAPE SEED OIL Use as directed. Active TURMERIC 450 MG PO CAPS Take by mouth. 1000 mg, 5 times a day Active Cholecalciferol (VITAMIN D3) 10839 units Capsule Take 1 Capsule by mouth [...] Health Triple Action 40-5-3.3 MG Oral Tablet (Fmdwrrwm-Ibbia-Vh aluronic Acid) Take by mouth. Active Simvastatin [...] EVERY DAY 90 Tablet 1 12/08/2023 Active Amoxicillin 500 MG Oral Capsule (Amoxil) Take 1 Capsule by mouth once. Take 4 pills once prior to surgery 12/30/2023 Active MULTI-ENZYME PO TABS Take by mouth. 4 Discontinued NATURAL SUPPLEMENT Take 1 Tablet by mouth in the morning. Uric acid complex for gout . 4 Discontinued Omeprazole 20 MG Oral Capsule Delayed Release (PriLOSEC)Indicati ons:Gastroesophage al reflux disease TAKE 1 CAPSULE BY MOUTH 1 HOUR PRIOR TO THE FIRST MEAL OF THE DAY 90 Capsule 1 10/18/2023 4 Discontinued documented as of this encounter (statuses as of 04/30/2024) Active Problems Problem Noted Date Diagnosed Date [...] as of this encounter (statuses as of 04/30/2024) Resolved Problems Problem Noted Date Diagnosed Date [...] as of this encounter (statuses as of 04/30/2024) Immunizations Name Administration Dates Next Due COVID-19 mRNA, LNP-s, No Pre serve, 2-Dose Series (Nexi) 09/12/2021,01/29/2021,01/08/2021 Covid-19, Mrna, Lnp-s, Pf, B ivalent, [...] Telephone Encounter - Janet Trevino LPN - 01/31/2024 12:02 PM EDT Attempted to call patient. Unable to leave message. * Telephone Encounter - Phillip Mulligan MD - 01/31/2024 9:27 AM EDT Noted. If she wants she can participate. * Telephone Encounter - Coarl Oleary LPN - 01/31/2024 8:58 AM EDT Called this number, [facility]. Chronic sinusitis research program. * Telephone Encounter - Shelby Conti OSA - 01/30/2024 1:16 PM EDT Pt calling in stating she got a call from some place that is apart of a [facility] ([phone], ext [phone]) and pt states she needs an authorization to have a lavache of her sinuses at [facility], they are offering her $100 to have it done and she would like to see ifDr. Mulligan approves. I do believe this is a scam call she had received, but pt is still wanting a message to be sent and to be given a call back. Call back number for pt: [phone] documented in this encounter Plan of Treatment Upcoming Encounters Date Type Department Care Team (Latest Contact Info) Description 05/01/2024 1:20 PM EDT Office Visit Neurology [facility] [address] [place], [place] [address] Hannah Nuno PA-C [address] [place] [address] 05/11/2024 12:30 PM EDT Hospital Encounter [facility], Operating Room [facility] [address] [place] [phone] Jose David Mendez, DO [address] [place] [address] 05/11/2024 12:30 PM EDT - 05/11/2024 12:55 PM EDT Surgery OR [facility], Operating Room [facility] [address] [place] [phone] Jose David Mendez, DO [address] [place] [phone] INJECTION SPINE LUMBAR CERVICAL OR THORACIC 05/23/2024 11:45 AM EDT Imaging Radiology [facility] [address] [place] [address] 07/04/2024 11:40 AM EDT Office Visit Sleep Disorders Ctr [facility] [address] [place] [phone] Mitali Garcia, DO [address] [place] [address] 07/11/2024 11:40 AM EDT Office Visit Family Practice [facility] [address] [place] [address] Phillip Mulligan MD [address] [place] [address] 08/15/2024 1:00 PM EDT Imaging Radiology, [address] [place] [address] 08/15/2024 1:40 PM EDT Office Visit Rheumatology [address] [place] [address] Umesh Brewster MD [address] [place] [address] [place] [address] 11/16/2024 1:20 PM EST Office Visit Dermatology [facility] [place] [address] [place] [address] Connie Pires PA-C [address] [place] [address] Scheduled Procedures Name Priority Associated Diagnoses Date/Ti [...] D LEVEL ONCE IN A LIFETIME-USE SMARTSET# [id number] Completed 05/23/2023, 02/08/2022, 11/03/2021, Additional history exists [...] and were consensually agreed upon. Care Teams Coding File Clerk Relationship Specialty Start Date End Date Phillip Mulligan MD [address] [place] [address] PCP - General Family Medicine 12/10/20 documented as of this encounter
--- OUTSIDE RECORDS SUMMARY | 2024-09-13 11:56 | External Medical Summary | Summary of Care ---
Author Name Unknown Organization [facility] Address [address] [facility] [address] Phone [phone] Care Team Providers Care Associate Counsel Name Role Phone Phillip Mulligan MD Primary Care Provider [phone] Reason for Referral * Evaluate & Treat - Unlimited Visits (Within 10 days (routine)) - Pending Review Specialty Diagnoses / Procedures Referred By Michelle angulo Referred To Contact Physical Therapy / Physical Medicine And Rehab Diagnoses Multiple sclerosis (HCC) Hannah Nuno PA-C [address] [place] [address] Referral ID Status Reason Start Date Expiration Date Visits Requested Visits Authorized [id number] Pending Review Specialty Services Required 05/01/[phone] Question Answer Referral Priority Within 10 days (routine) Where should this appointment be scheduled? Chiquis Comments MS- ambulatory difficult Reason for Visit * Reason Comments Return Neuro Multiple Sclerosis Encounter Details Date Type Department Care Team (Late st Contact Info) Description 05/01/2024 1:20 PM EDT Office Visit [facility] [address] [place] [address] Hannah Nuno PA-C [address] [place] [address] Multiple sclerosis (HCC)*; Right foot drop; Memory changes Allergies Active Allergy Reactions Criticality Noted Date Comments Braeden Inhibitors Cough 06/22/2012 Amoxicillin 11/24/2005 Diarrhea Clavulanic Acid High 05/25/2023 Other Reaction(s): DIARRHEA Doxycycline Rash Low 02/08/2022 documented as of this encounter (statuses as of 05/01/2024) Medications Medication Sig Dispensed Refills Start Date [...] times a day Active Cholecalciferol (VITAMIN D3) 31425 units Capsule Take 1 Capsule by mouth [...] Health Triple Action 40-5-3.3 MG Oral Tablet (Aavdycdt-Wzxxp-P yaluronic Acid) Take by mouth. Activ e Simvastatin 40 MG Oral Tablet (Zocor) TAKE 1 TABLET BY MOUTH EVERYDAY AT BEDTIME 90 Tablet 3 07/17/2023 Active Loratadine 10 MG Oral Tablet (Claritin)Indicat [...] THE DAY 90 Capsule 2 04/23/2024 Active Amoxicillin 500 MG Oral Capsule (Amoxil) Take 1 Capsule by mouth once. Take 4 pills once prior to surgery 12/30/2023 4 Discontinue d(Medicatio n List Clean Up) documented as of this encounter (statuses as of 05/01/2024) Active Problems Problem Noted Date Diagnosed Date [...] as of this encounter (statuses as of 05/01/2024) Resolved Problems Problem Noted Date Diagnosed Date [...] as of this encounter (statuses as of 05/01/2024) Immunizations Name Administration Dates Next Due COVID-19 mRNA, LNP-s, No Pre serve, 2-Dose Series (INXPO) 09/12/2021,01/29/2021,01/08/2021 Covid-19, Mrna, Lnp-s, Pf, B ivalent, [...] Sign Reading Time Taken Comments Blood Pressure 124/80 05/01/2024 1:16 PM EDT Pulse 81 05/01/2024 1:16 PM EDT Temperature 37.3 C (99.1 F) 05/01/2024 1:16 PM ED T Respiratory Rate 16 05/01/2024 1:16 PM EDT Oxygen Saturation 95% 05/01/2024 1:16 PM EDT Inhaled Oxygen Concentration - - Weight 64.5 kg (142 lb 1.6 oz) 05/01/2024 1:16 P M EDT Height - - Body Mass Index 26.85 02/20/2024 10:25 AM EDT documented in this encounter Progress Notes * Hannah Nuno PA-C - 05/01/2024 1:09 PM EDT HISTORY & PHYSICAL EXAMINATION - NEUROLOGY Name: Sydney Galeano Date: 05/01/2024 Time: 1:09 PM Referring Provider: Phillip Mulligan MD Chief Complaint: Chief Complaint Patient presents with Return Neuro Multiple Sclerosis This is a 68 year old right handed woman returns today for follow up for MS. HPI & Source of HPI The patient was the historian, and she is reliable. She is a chronic stable multiple sclerosis with spasticity involving both lower extremities worse on the right and a very hesitant dystaxic gait requiring a walker and progressive over the 20+ years.She was never treated with any disease modifying therapy. 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 Has physical therapy particularly in times when she has been inactive and she is engaged but the heat this summer is hampering her activity. She felloff during the lock-down and a lot of her usual exercise activities were discontinued. Shel[place] alone in [place]. She had a neuro psych testing for cognitive difficulties because her mother had dementia but lived into her 90s. She is having more issues with the right LE foot drop and with ambulation and had a Mofit ordered through her foot doctor which she is wearing. They are putting a ramp in for her home monitor for need of increase of care helped by PCP. She has a lot of UTIs because she does not drink much due to her neurogenic bladder. Denies CP, SOB, abdominal pain. + falls usually with leaning over to pick things up in her apartment. I have reviewed the patient's medications and allergies, past medical, surgical, social and family history, updating these as appropriate. See Histories section of the electronic medical record for adisplay of this information. Patient Active Problem List Diagnosis Multiple sclerosis (HCC) HTN, goal below 130/80 Senile osteoporosis Dyslipidemia Neurogenic bladder Ataxia Impingement syndrome of right shoulder Overweight (BMI 25.0-29.9) Depression with anxiety DDD (degenerative disc disease), cervical DDD (degenerative disc disease), lumbar Right foot drop Mild obstructive sleep apnea Chronic rhinitis Family History Problem Relation Name Age of Onset Heart attack Mother 81 fatal Alzheimer's disease Father at 90 COPD Father Heart attack Grandmother (Maternal) fatal Lung cancer Grandfather (Maternal) Breast Cancer Aunt (Maternal) Medications: Are you taking your medications? yes Current Outpatient Medications Medication Sig Dispense Refill [...] 5 times a day Cholecalciferol (VITAMIN D3) 21038 units Capsule Take 1 Capsule by mouth [...] 1500 MG Oral Capsule Take by mouth. Collagen Ultra Oral Capsule Take by mouth. B Complex Plus Oral Tablet Take by mouth . Vibegron 75 MG Oral Tablet Take 1 Tablet by mouth in the morning. Alendronate Sodium 70 MG Oral Tablet (Fosamax) [...] Joint Health Oral Capsule Take by mouth. [facility] Joint Health Triple Action 40-5-3.3 MG Oral Tablet (Txhfvpse-Qmhcq-Isntvqmzeb Acid) Take by mouth. Simvastatin 40 MG [...] MEAL OF THE DAY 90 Capsule 2 MILK THISTLE 140 MG PO CAPS Take by mouth. (Patient not taking: Reported on 05/01/2024) GRAPE SEED OIL Use as directed. (Patient not taking: Reported on 05/01/2024) B Complex-B12 Oral Tablet Take by mouth. Diapers & Supplies pull up diapers. use up to 3 times per night. dx 788.30 lifetime use 90 Each3 Vitamin K 100 MCG Oral Tablet Take by mouth. (Patient not taking: Reported on 05/01/2024) Cognitive Health 500 MG Oral Capsule (Citicoline) Take by mouth daily. (Patient not taking: Reported on 05/01/2024) No current facility-administered medications for this visit. Review of patient's allergies indicates: Allergen Reactions Clavulanic Acid Other Reaction(s): DIARRHEA Braeden Inhibitors Cough Augmentin [Amoxicillin] Diarrhea Doxycycline Rash Review of Systems: A total number of 10 systems were reviewed pertinent negative and positives not addressed in HPI are listed in the following review. Physical Exam: Constitutional: BP 124/80 | Pulse 81 | Temp 37.3 C (99.1 F) (Tympanic) | Resp 16 | Wt 64.5 kg (142 lb 1.6 oz) | LMP 08/01/2007 | SpO2 95% | BMI 26.85 kg/m | BSA 1.67 m , appearance nourished and healthy Ears, Nose, Mouth and Throat: mucous membranes moist, no injection and skin normal, eyes normal Cardiovascular: normal S-1 and S-2 and regular rate and rhythm Respiratory: clear to auscultation (CTA) and no rales, ronchi or wheeze Musculoskeletal: no peripheral edema, right AFO in place Skin: normal and intact Eyes: extraocular muscles intact (EOMI) NEUROLOGIC EXAMINATION: Mental status: Alert and interactive Oriented to person Speech slightly hesitant speech pattern Cranial Nerves Normal findings for Cranial Nerves II - XII Reflexes: Bilateral LE hyperreflexic knee jerk Sensory: Intact to light touch Coordination: rapid alternating movements are intact: Bilateral, slightly dysmetria right, and on [id number]-yp-ntps Gait/Stance: Posture abnormal: forward head and rounded shoulders. Gait using walker, slight foot drag on right tandem somewhat spastic Motor: Negative for pronator drift of out stretched arms with eyes closed. Strength: generalized weakness, deconditioned, and uses arms of chair to stand up LABORATORY: Recent labs reviewed Review of prior Studies: No recent imaging available. Impression: Sydney Galeano is a 68 year old woman with a history of MS. Her neurologic examination today reveals no new focal deficit. The history and examination are suggestive of diagnosis/problem list. Testing and Referrals ordered: PT ICD-10-CM 1. Multiple sclerosis (HCC) G35 2. Right foot drop M21.371 3. Memory changes R41.3 Return in 6 months or sooner if needed Continue to monitor living alone with falls- defer to PCP Continue to keep well hydrated to avoid further UTIs Use walker at all time to avoid falls. Fall precautions avoid throw rugs etc. MME at next visit PCP for medical management 7. Call with questions concerns Medical Decision Making (determined by lowest of 2 of 3 elements): The medical decision making element of the number and complexity of problems addressed included at least 1 or more chronic illnesses with severe exacerbation, progression, or side effects of treatment (level 5). The medical decision making element of risk of complications, morbidity, and mortality of patient management is moderate (level 4) due to prescription drug management (moderate risk). The medical decision making element of the amount and complexity of data reviewed and analyzed included an independent interpretation of a test (level 4 at least). When 2 of 3 reach level 4, then this element is considered extensive (level 5). I personally spent a total of 30 minutes. This time was for a new office or established visit and was on the same calendar day. and This time was the total spent on the evaluation, interpretation, and documentation. Education / Consultation - Topics covered as I spent 20 minutes, which is greater than 50% of this visit, counseling the patient on: Diagnostic Results Prognosis Importance of compliance with chosen treatment options Risk factor reductions Patient and family education Consulted with physician: Darien Velasco DO was available for direct supervision. Copy of note sent to PCP and Referring Provider. Total time of visit: 30 minutes. Hannah Nuno PA-C Neurology [address] [place] [address] 05/01/2024 1:09 PM documented in this encounter Nursing Notes * Zoey Wood MED ASSIST - 05/01/2024 1:11 PM EDT Chief Complaint Patient presents with Return Neuro Multiple Sclerosis documented in this encounter Plan of Treatment Upcoming Encounters Date Type Department Care Team (Late st Contact Info) Description 05/11/2024 12:30 PM EDT Hospital Encounter [facility], Operating Room [facility] [address] [place] [address] Jose David Mendez, DO [address] [place] [address] 05/11/2024 12:30 PM EDT - 05/11/2024 12:55 PM EDT Surgery OR [facility], Operating Room [facility] [address] [place] [address] Jose David Mednez, DO [address] [place] [address] INJECTION SPINE LUMBAR CERVICAL OR THORACIC 05/23/2024 11:45 AM EDT Imaging Radiology [facility] [address] [place] [address] 07/04/2024 11:40 AM EDT Office Visit Sleep Disorders Ctr [facility] [address] [place] [phone] Mitali Garcia, DO [address] [place] [address] 07/11/2024 11:40 AM EDT Office Visit Family Practice [facility] [address] [place] [address] Phillip Mulligan MD [address] [place] [address] 08/15/2024 1:00 PM EDT Imaging Radiology, [address] [place] [address] 08/15/2024 1:40 PM EDT Office Visit Rheumatology [address] [place] [address] Umesh Brewster MD [address] [place] [address] [place] [address] 11/13/2024 1:30 PM EST Office Visit Neurology [facility] [address] [place] [address] Lidia Rashid PA-C [address] [facility] [place] [address] 11/16/2024 1:20 PM EST Office Visit Dermatology [facility] [place] [address] [place] [address] Connie Pires PA-C [address] [place] [address] Scheduled Procedures Name Priority Associated Diagnoses Date/Ti me INJECTION SPINE LUMBAR CERVICAL OR THORACIC Cervical radiculitis 05/11/2024 12:30 PM EDT Scheduled Referrals Name Type Priority Associated Diagnoses Orde r Schedule PHYSICAL THERAPY REFERRAL OP Referral Within 10 days (routine) Multiple sclerosis (HCC) Ordered: 05/01/2024 Health Maintenance Due Date Last Done Comments [...] D LEVEL ONCE IN A LIFETIME-USE SMARTSET# [id number] Completed 05/23/2023, 02/08/2022, 11/03/2021, Additional history exists [...] Diagnosis Multiple sclerosis (HCC)- Primary Multiple sclerosis Right foot drop Other acquired deformity of ankle and foot Memory changes Memory loss Cervical radiculitis Brachial neuritis or radiculitis nos [...] and were consensually agreed upon. Care Teams Associate Counsel Relationship Specialty Start Date End Date Phillip Mulligan MD [address] [place] [address] PCP - General Family Medicine 12/10/20 documented as of this encounter"
--- OUTSIDE RECORDS SUMMARY | 2024-09-13 11:56 | External Medical Summary | Summary of Care ---
Author Name Unknown Organization [facility] Address [address] [place] [address] Phone [phone] Care Team Providers Care Bag Loader Machine Operator Name Role Phone Phillip Mulligan MD Primary Care Provider [phone] Reason for Referral * Evaluate & Treat - Unlimited Visits (Within 30 days (routine)) - Pending Review Specialty Diagnoses / Procedures Referred By Michelle angulo Referred To Contact Physical Therapy / Physical Medicine And Rehab Diagnoses Ataxia Phillip Mulligan MD [email or web address] [place] [address] Referral ID Status Reason Start Date Expiration Date Visits Requested Visits Authorized [id number] Pending Review Specialty Services Required 03/20/[phone] Question Answer Referral Priority Within 30 days (routine) Where should this appointment be scheduled? [facility] Reason for Visit * Reason Onset Date Comments Advice 03/20/2024 Encounter Details Date Type Department Care Team (Late st Contact Info) Description 03/20/2024 Telephone Family Practice [facility] [address] [place] [address] Phillip Mulligan MD [email or web address] [place] [address] Advice Allergies Active Allergy Reactions Criticality Noted Date Comments Braeden Inhibitors Cough 06/22/2012 Amoxicillin 11/24/2005 Diarrhea Clavulanic Acid High 05/25/2023 Other Reaction(s): DIARRHEA Doxycycline Rash Low 02/08/2022 documented as of this encounter (statuses as of 03/21/2024) Medications Medication Sig Dispensed Refills Start Date [...] times a day Active Cholecalciferol (VITAMIN D3) 52486 units Capsule Take 1 Capsule by mouth [...] Health Triple Action 40-5-3.3 MG Oral Tablet (Pmrkbrar-Kcrar-Rxlf uronic Acid) Take by mouth. Active Simvastatin [...] pills once prior to surgery 12/30/2023 Active documented as of this encounter (statuses as of 03/21/2024) Active Problems Problem Noted Date Diagnosed Date [...] as of this encounter (statuses as of 03/21/2024) Resolved Problems Problem Noted Date Diagnosed Date [...] as of this encounter (statuses as of 03/21/2024) Immunizations Name Administration Dates Next Due COVID-19 [...] Telephone Encounter - Nella Saleem OSA - 03/21/2024 7:59 AM EDT Faxed * Telephone Encounter - Phillip Mulligan MD - 03/20/2024 3:59 PM EDT Referral signed. * Telephone Encounter - Jr Holt RN - 03/20/2024 3:43 PM EDT Please see previous message. Called and spoke with Geovanna at [facility]. She said they never received the PT referral for the patient. She requested the referral be updated as they are only good for 30 days. Referral order pended for review and signature if agree. * Telephone Encounter - Melba Mattson OSA - 03/20/2024 3:19 PM EDT The patient states that [facility] called her about the referral. Please reach out to see what they are needing. documented in this encounter Plan of Treatment Upcoming Encounters Date Type Department Care Team (Latest Contact Info) Description 05/01/2024 1:20 PM EDT Office Visit Neurology [facility] [address] [place] [address] Hannah Nuno PA-C [address] [place] [address] 05/11/2024 12:30 PM EDT Hospital Encounter [facility], Operating Room [facility] [address] [place] [address] Jose David Mendez, DO [address] [place] [phone] 05/11/2024 12:30 PM EDT - 05/11/2024 12:55 PM EDT Surgery OR [facility], Operating Room [facility] [address] [place] [phone] Jose David Mendez, DO [address] [place] [address] INJECTION SPINE LUMBAR CERVICAL OR THORACIC 05/21/2024 1:15 PM EDT Imaging Radiology [facility] 1st [facility] [address] [place] [address] 07/04/2024 11:40 AM EDT Office Visit Sleep Disorders Ctr [facility] [address] [place] [phone] Mitali Garcia, DO [address] [place] [address] 07/11/2024 11:40 AM EDT Office Visit Family Practice [facility] [address] [place] [address] Phillip Mulligan MD [address] [place] [address] 08/15/2024 1:00 PM EDT Imaging Radiology, [address] [place] [address] 08/15/2024 1:40 PM EDT Office Visit Rheumatology [address] [place] [address] Umesh Brewster MD [facility] [place] [address] 11/16/2024 1:20 PM EST Office Visit Dermatology [facility] [address] [place] [address] Connie Pires PA-C [address] [place] [address] Scheduled Procedures Name Priority Associated Diagnoses Date/Ti me INJECTION SPINE LUMBAR CERVICAL OR THORACIC Cervical radiculitis 05/11/2024 12:30 PM EDT Scheduled Referrals Name Type Priority Associated Diagnoses Orde r Schedule PHYSICAL THERAPY REFERRAL OP Referral Within 30 days (routine) Ataxia Ordered: 03/20/2024 Health Maintenance Due Date Last Done Comments Fecal Occult Blood Test 1998 Sigmoidoscopy 1998 Cologuard 07/04/2021 07/04/2018 COVID-19 Vaccine ( season) 2023 09/22/2022, 09/12/2021, 01/29/2021, Additional history exists Mammogram 05/16/2024 05/16/2023, 04/18, 05/12/2022, Additional history exists DXA Scan 08/02/2024 08/02/2022, 07/17, 01/12/2016, Additional history exists GFR 02/28/2025 02/29/2024, 08/04/2023, 02/08/2022, Additional history exists Albumin/Creatinine Ratio 09/22/2025 022, 01/11/2022, 07/08/2015 DTaP,Tdap,and Td Vaccines (3 - Td or Tdap) 02/07/2028 02/06/2018, 07/11/2008 Colonoscopy 09/12/2028 09/12/2018, 08/17/2007 Colorectal Cancer Screening 09/12/2028 Lipid Panel 02/28/2029 02/29/2024, 0804/2023, 07/28/2021, Additional history exists Zoster Vaccines Completed 08/20/2019, 02/15, 12/19/2013 Pneumococcal Vaccine: 65+ Years Completed 04/14/2020, 02/19/2019 VITAMIN D LEVEL ONCE IN A LIFETIME-USE SMARTSET# [id number] Completed 05/23/2023, 02/08/2022, 11/03/2021, Additional history exists [...] as of this encounter Visit Diagnoses Diagnosis Ataxia- Primary Lack of coordination Cervical radiculitis Brachial neuritis [...] and were consensually agreed upon. Care Teams Bag Loader Machine Operator Relationship Specialty Start Date End Date Phillip Mulligan MD [address] [place] [address] PCP - General Family Medicine 12/10/20 documented as of this encounter
--- OUTSIDE RECORDS SUMMARY | 2024-09-13 11:56 | External Medical Summary | Summary of Care ---
Author Name Unknown Organization [facility] Address [address] [place] [address] Phone [phone] Care Team Providers Care Shuttler Name Role Phone Hosea Mulligan MD Primary Care Provider [phone] Reason for Visit * Reason Comments eRx-Medication Refill Encounter Details Date Type Department Care Team (Late st Contact Info) Description 04/21/2024 Refill Family Practice [facility] [address] [place] [address] Hosea Mulligan MD [address] [place] [address] Gastroesophageal reflux disease Allergies Active Allergy Reactions Criticality Noted Date Comments Braeden Inhibitors Cough 06/22/2012 Amoxicillin 11/24/2005 Diarrhea Clavulanic Acid High 05/25/2023 Other Reaction(s): DIARRHEA Doxycycline Rash Low 02/08/2022 documented as of this encounter (statuses as of 04/23/2024) Medications Medication Sig Dispensed Refills Start Date [...] times a day Active Cholecalciferol (VITAMIN D3) 41834 units Capsule Take 1 Capsule by mouth [...] Health Triple Action 40-5-3.3 MG Oral Tablet (Uagbxcaf-Txkkh-Zw aluronic Acid) Take by mouth. Active Simvastatin [...] pills once prior to surgery 12/30/2023 Active Omeprazole 20 MG Oral Capsule Delayed Release (PriLOSEC)Indicati ons:Gastroesophage al reflux disease TAKE 1 CAPSULE BY MOUTH 1 HOUR PRIOR TO THE FIRST MEAL OF THE DAY 90 Capsule 2 04/23/2024 Active Omeprazole 20 MG Oral Capsule Delayed Release (PriLOSEC)Indicati ons:Gastroesophage al reflux disease TAKE 1 CAPSULE BY MOUTH 1 HOUR PRIOR TO THE FIRST MEAL OF THE DAY 90 Capsule 1 10/18/2023 Discontinued documented as of this encounter (statuses as of 04/23/2024) Active Problems Problem Noted Date Diagnosed Date [...] as of this encounter (statuses as of 04/23/2024) Resolved Problems Problem Noted Date Diagnosed Date [...] as of this encounter (statuses as of 04/23/2024) Immunizations Name Administration Dates Next Due COVID-19 mRNA, LNP-s, No Pre serve, 2-Dose Series ([facility]) 09/12/2021,01/29/2021,01/08/2021 Covid-19, Mrna, Lnp-s, Pf, B ivalent, [...] Notes * Telephone Encounter - Adelina Grijalva kourtney - 04/23/2024 10:49 AM EDT Signed Prescriptions: Disp Refills Omeprazole 20 MG Oral Capsule Delayed Rele*90 Cap*2 Sig: TAKE 1 CAPSULE BY MOUTH 1 HOUR PRIOR TO THE FIRST MEAL OF THE DAYAuthorizing Provider: HOSEA MULLIGAN User: ADELINA GRIJALVA documented in this encounter Plan of Treatment Upcoming Encounters Date Type Department Care Team (Latest Contact Info) Description 05/01/2024 1:20 PM EDT Office Visit Neurology [facility] [address] [facility] [place] [address] Hannah uNno PA-C [address] [facility] [place] [address] 05/11/2024 12:30 PM EDT Hospital Encounter OR [facility], Operating Room [facility] [address] [place] [phone] Jose David Mendez, [address] [place] [phone] 05/11/2024 12:30 PM EDT - 05/11/2024 12:55 PM EDT Surgery OR [facility], Operating Room [facility] [address] [place] [phone] Jose David Mendez, [address] [place] [address] INJECTION SPINE LUMBAR CERVICAL OR THORACIC 05/21/2024 1:15 PM EDT Imaging Radiology [facility] 1st [facility] [address] [place] [address] 07/04/2024 11:40 AM EDT Office Visit Sleep Disorders Ctr [facility] 132 [facility] [place] [phone] Mitali Garcia DO [address] [place] [address] 07/11/2024 11:40 AM EDT Office Visit [facility] Practice [facility] [place] [address] Hosea Mulligan MD 132 [facility] [place] [address] 08/15/2024 1:00 PM EDT Imaging Radiology, [address] [place] [address] 08/15/2024 1:40 PM EDT Office Visit Rheumatology [address] [place] [address] Umesh Brewster MD [address] [place] [address] [place] [address] 11/16/2024 1:20 PM EST Office Visit Dermatology [facility] [address] [place] [address] Connie Pires PA-C [address] [place] [address] Scheduled Procedures Name Priority Associated Diagnoses Date/Ti [...] D LEVEL ONCE IN A LIFETIME-USE SMARTSET# [id number] Completed 05/23/2023, 02/08/2022, 11/03/2021, Additional history exists [...] as of this encounter Visit Diagnoses Diagnosis Gastroesophageal reflux disease Esophageal reflux Cervical radiculitis Brachial neuritis or radiculitis nos [...] and were consensually agreed upon. Care Teams Shuttler Relationship Specialty Start Date End Date Hosea Mulligan MD 132 [facility] [place] [address] PCP - General Family Medicine 12/10/20 documented as of this encounter
--- OUTSIDE RECORDS SUMMARY | 2024-09-13 11:56 | External Medical Summary | Summary of Care ---
Author Name Unknown Organization [facility] Address [address] [facility] [address] Phone [phone] Care Team Providers Care Concrete Pipe Machine Operator Name Role Phone Phillip Mulligan MD Primary Care Provider [phone] Reason for Referral * Evaluate & Treat - Unlimited Visits (Within 10 days (routine)) - Pending Review Specialty Diagnoses / Procedures Referred By Michelle angulo Referred To Contact Physical Therapy / Physical Medicine And Rehab Diagnoses Multiple sclerosis (HCC) Hannah Nuno PA-C [address] [place] [address] Referral ID Status Reason Start Date Expiration Date Visits Requested Visits Authorized [id number] Pending Review Specialty Services Required 05/01/[phone] Question Answer Referral Priority Within 10 days (routine) Where should this appointment be scheduled? [facility] Comments MS- ambulatory difficult Reason for Visit * Reason Comments Return Neuro Multiple Sclerosis Encounter Details Date Type Department Care Team (Late st Contact Info) Description 05/01/2024 1:20 PM EDT Office Visit [facility] [address] [place] [address] Hannah Nuno PA-C [address] [place] [address] [address] Multiple sclerosis (HCC)*; Right foot drop; Memory [...] times a day Active Cholecalciferol (VITAMIN D3) 89569 units Capsule Take 1 Capsule by mouth [...] Health Triple Action 40-5-3.3 MG Oral Tablet (Ykqapcpf-Rxize-P yaluronic Acid) Take by mouth. Activ e [...] mRNA, LNP-s, No Pre serve, 2-Dose Series ([employer]) 09/12/2021,01/29/2021,01/08/2021 Covid-19, Mrna, Lnp-s, Pf, B ivalent, [...] exercise activities were discontinued. [place] alone in [place]. She had a neuro psych testing for [...] 5 times a day Cholecalciferol (VITAMIN D3) 54601 units Capsule Take 1 Capsule by mouth [...] Joint Health Oral Capsule Take by mouth. [facility] Triple Action 40-5-3.3 MG Oral Tablet (Alzocszt-Veqwu-Nuruxvvspo Acid) Take by mouth. Simvastatin 40 MG [...] intact: Bilateral, slightly dysmetria right, and on lpbbzs-st-kkox Gait/Stance: Posture abnormal: forward head and rounded [...] visit: 30 minutes. Hannah Nuno PA-C Neurology [address] [place] [address] 05/01/2024 1:09 PM documented in this encounter Nursing Notes * Zoey Wood MED ASSIST - 05/01/2024 1:11 PM EDT Chief Complaint Patient presents with Return Neuro Multiple Sclerosis documented in this encounter Plan of Treatment Upcoming Encounters Date Type Department Care Team (Late st Contact Info) Description 05/11/2024 12:30 PM EDT Hospital Encounter [facility], Operating Room [facility] [address] [place] [address] Jose David Mendez, DO [address] [place] [address] 05/11/2024 12:30 PM EDT - 05/11/2024 12:55 PM EDT Surgery OR [facility], Operating Room [facility] [address] [place] [phone] Jose David Mendez, DO [address] [place] [address] INJECTION SPINE LUMBAR CERVICAL OR THORACIC 05/23/2024 11:45 AM EDT Imaging Radiology [facility] 1st [facility] [place] [address] [place] [address] 07/04/2024 11:40 AM EDT Office Visit Sleep Disorders Ctr [facility] [address] [place] [phone] Mitali Garcia, DO [address] [place] [address] 07/11/2024 11:40 AM EDT Office Visit Family Practice [facility] [address] [place] [address] Phillip Mulligan MD [address] [place] [address] 08/15/2024 1:00 PM EDT Imaging Radiology, [address] [place] [address] 08/15/2024 1:40 PM EDT Office Visit Rheumatology [address] [place] [address] Umesh Brewster MD [address] [place] [address] [place] [address] 11/13/2024 1:30 PM EST Office Visit Neurology [facility] [address] [place] [address] Lidia Rashid PA-C [facility] [place] [address] 11/16/2024 1:20 PM EST Office Visit Dermatology [facility] [place] [address] [place] [address] Connie Pires PA-C [address] [place] [address] Scheduled Procedures Name Priority Associated Diagnoses Date/Ti [...] D LEVEL ONCE IN A LIFETIME-USE SMARTSET# [id number] Completed 05/23/2023, 02/08/2022, 11/03/2021, Additional history exists [...] and were consensually agreed upon. Care Teams Concrete Pipe Machine Operator Relationship Specialty Start Date End Date Phillip Mulligan MD [address] [place] [address] PCP - General Family Medicine 12/10/20 documented as of this encounter"
--- OUTSIDE RECORDS SUMMARY | 2024-09-13 11:56 | External Medical Summary | Summary of Care ---
Author Name Unknown Organization [facility] Address [address] [place] [address] Phone [phone] Care Team Providers Care Home Health Assistant Name Role Phone Phillip Mulligan MD Primary Care Provider [phone] Reason for Visit * Reason Onset Date Comments Emergency Department Follow Up 02/08/2024 Huber erickson was seen in the [facility] ER yesterday for her having dehydration. She stated that they found some blood in her urine at the hospital. Encounter Details Date Type Department Care Team (Late st Contact Info) Description 02/08/2024 Telephone Family Practice [facility] [address] [place] [address] Phillip Mulligan MD [address] [place] [id number] Emergency Department Follow Up (Pt. was se... Allergies Active Allergy Reactions Criticality Noted Date Comments Braeden Inhibitors Cough 06/22/2012 Amoxicillin 11/24/2005 Diarrhea Clavulanic Acid High 05/25/2023 Other Reaction(s): DIARRHEA Doxycycline Rash Low 02/08/2022 documented as of this encounter (statuses as of 05/09/2024) Medications Medication Sig Dispensed Refills Start Date End Date Status CALCIUM 500 500 MG PO TABS Take 500 mg by mouth daily. Active WILBER-C/BIOFLAVO NOIDS PO TABS None Entered Active MILK THISTLE [...] times a day Active Cholecalciferol (VITAMIN D3) 33373 units Capsule Take 1 Capsule by mouth once a week. Active Multiple Vitamins-Mineral s (HAIR/SKIN/NAILS ) CAPS daily. Active Cyanocobalamin (VITAMIN B-12) 1000 [...] Capsule Take by mouth. Active Diapers & SuppliesIndicati [...] TIME PER WEEK 12 Tablet 4 3 Active Sucralfate 1 GM Oral Tablet (Carafate) TAKE 1 TAB BY MOUTH 4 TIMES A DAY BEFORE MEALS AND AT BEDTIME. 360 Tablet 2 3 Active Additional Information Patient taking differently:1 g OralTID(AM/NOON/HS), Reported on 05/01/2024 Joint Health Oral Capsule Take by mouth. Active [facility] Triple Action 40-5-3.3 MG Oral Tablet (Collagen-Clyman- Hyaluronic Acid) Take by mouth. Acti ve Simvastatin 40 MG Oral Tablet (Zocor) TAKE 1 TABLET BY MOUTH EVERYDAY AT BEDTIME 90 Tablet 3 3 Active Loratadine 10 MG Oral Tablet (Claritin)Indica [...] EVERY DAY 90 Tablet 1 4 Active MULTI-ENZYME PO TABS Take by mouth. 02/20/20 24 Discontinued NATURAL SUPPLEMENT Take 1 Tablet by mouth in the morning. Uric acid complex for gout . 02/20/20 24 Discontinued Omeprazole 20 MG Oral Capsule Delayed Release (PriLOSEC)Indica tions:Gastroesop hageal reflux disease TAKE 1 CAPSULE BY MOUTH 1 HOUR PRIOR TO THE FIRST MEAL OF THE DAY 90 Capsule 1 4 04/23/20 24 Discontinued Amoxicillin 500 MG Oral Capsule (Amoxil) Take 1 Capsule by mouth once. Take 4 pills once prior to surgery 4 05/01/20 24 Discontinued([facility] List Clean Up) documented as of this encounter (statuses as of 05/09/2024) Active Problems Problem Noted Date Diagnosed Date [...] as of this encounter (statuses as of 05/09/2024) Resolved Problems Problem Noted Date Diagnosed Date [...] as of this encounter (statuses as of 05/09/2024) Immunizations Name Administration Dates Next Due COVID-19 [...] encounter Miscellaneous Notes * Telephone Encounter - Zain Yoder OSA - 02/09/2024 10:30 AM EDT Called and spoke to pt, scheduled ER f/u with Dr. Mulligan * Telephone Encounter - Jr Holt RN - 02/09/2024 9:59 AM EDT Please see previous message. Emergency Department Follow Up: When was patient seen: 02/07/2024 Which ED: [facility] What were they seen for: palpitations, anxiety What testing did they have done: cxr, ekg, lab work, ct scan , and urine tests What did ED think was wrong (dx): palpitations, microscopic hematuria Any new medications prescribed: none How is patient feeling today: patient states she is feeling alright today, states feeling a little weak, states she finished antibiotic for UTI Patient concerns today: scheduling with Dr. Mulligan for ER follow up Scheduling: Please see previous message and schedule patient for ER follow up. Thank you. * Telephone Encounter - Satya De La Rosa OSA - 02/08/2024 1:38 PM EDT Patient needs ED Follow-up. Did patient decline to see other providers in their home clinic? : NO If New Patient - Were surrounding clinics offered? N/A Please see call details. Pt. was seen in the [facility] ER yesterday for her having dehydration. She stated that they foundsome blood in her urine at the hospital. Next appointment with all of the providers in the search was not until 3 weeks out. Out of time frame. Please advise. documented in this encounter Plan of Treatment Upcoming Encounters Date Type Department Care Team (Late st Contact Info) Description 05/23/2024 11:45 AM EDT Imaging Radiology [facility] 1st [facility] [address] [place] [address] 06/27/2024 10:05 AM EDT Hospital Encounter OR [facility], Operating Room [facility] [address] [place] [phone] Jose David Mendez, DO [address] [place] [address] 06/27/2024 10:05 AM EDT - 06/27/2024 10:30 AM EDT Surgery OR [facility], Operating Room [facility] [address] [place] [phone] Jose David Mendez, DO [address] [place] [address] INJECTION SPINE LUMBAR CERVICAL OR THORACIC 07/04/2024 11:40 AM EDT Office Visit Sleep Disorders Ctr [facility] [address] [place] [address] Mitali Garcia, DO [address] [place] [address] 07/11/2024 11:40 AM EDT Office Visit Family Practice [facility] [address] [place] [address] Phillip Mulligan MD [address] [place] [address] 08/15/2024 1:00 PM EDT Imaging Radiology, [address] [place] [address] 08/15/2024 1:40 PM EDT Office Visit Rheumatology [address] [place] [address] Umesh Brewster MD [address] [place] [address] [place] [address] 11/13/2024 1:30 PM EST Office Visit Neurology [facility] [address] [facility] [address] [place] [address] [place] Rashid PA-C [facility] [place] [address] 11/16/2024 1:20 PM EST Office Visit Dermatology [facility] [address] [facility] [place] [address] Connie Pires PA-C [address] [facility] [place] [address] Scheduled Procedures Name Priority Associated Diagnoses Date/Ti [...] D LEVEL ONCE IN A LIFETIME-USE SMARTSET# [id number] Completed 05/23/2023, 02/08/2022, 11/03/2021, Additional history exists [...] and were consensually agreed upon. Care Teams Home Health Assistant Relationship Specialty Start Date End Date Phillip Mulligan MD [address] [place] [address] PCP - General Family Medicine 12/10/20 documented as of this encounter
--- OUTSIDE RECORDS SUMMARY | 2024-09-13 13:02 | External Medical Summary | Summary of Care ---
Author Name Unknown Organization [facility] Address [address] [place] [address] Phone [phone] Care Team Providers Care Reptile Farmer Name Role Phone Jose Esposito MD Primary Care Provider [phone] Reason for Visit * Reason Onset Date Comments Advice 09/12/2024 Encounter Details Date Type Department Care Team (Late st Contact Info) Description 09/12/2024 Telephone [facility] Mcdonaldaldo Barboza [address] [phone] Jose Esposito MD [address] [address] Advice Allergies Active Allergy Reactions Criticality Noted Date Comments Braeden Inhibitors Cough 06/22/2012 Amoxicillin 11/24/2005 Diarrhea Clavulanic Acid High 05/25/2023 Other Reaction(s): DIARRHEA Doxycycline Rash Low 02/08/2022 documented as of this encounter (statuses as of 09/12/2024) Medications CALCIUM 500 500 MG PO TABS [...] times a day Active Cholecalciferol (VITAMIN D3) 95153 units Capsule Take 1 Capsule by mouth [...] taking differently:1 g OralTID(AM/NOON/HS), Reported on 05/01/2024 [facility] Triple Action 40-5-3.3 MG Oral Tablet (Collagen-[place]- Hyaluronic Acid) Take by mouth. Active Loratadine [...] as of this encounter (statuses as of 09/12/2024) Active Problems Problem Noted Date Diagnosed Date [...] as of this encounter (statuses as of 09/12/2024) Resolved Problems Problem Noted Date Diagnosed Date [...] as of this encounter (statuses as of 09/12/2024) Immunizations Name Administration Dates Next Due COVID-19 mRNA, LNP-s, No Pre serve, 2-Dose Series (Algolux) 09/12/2021,01/29/2021,01/08/2021 Covid-19, Mrna, Lnp-s, Pf, B ivalent, [...] No 12/30/2023 Does the household have a [facility] source of income? (Household - for ages [...] encounter Miscellaneous Notes * Telephone Encounter - Maria G Lou LPN - 09/12/2024 3:45 PM EST Patient contacted and told of below message and states she will try to find a ride to be seen today. * Telephone Encounter - Juan Alberto Staton MD - 09/12/2024 2:00 PM EST Needs OV. Consider urgent care or ED today if fever or worsening despite antibiotics. Looks like she also called yesterday with abd pain, urinary freq, dysuria, low back pain, headache, sore throat. Even more of a reason for a visit. * Telephone Encounter - Maria G Lou LPN - 09/12/2024 1:03 PM EST Loren states the patients R leg is red, painful and warm to the touch. She is concerned that Sydney has cellulitis. Please advise on what patient is to do. Loren thinks this could have possibly been from her area on her small toe that she is getting treated for. * Telephone Encounter - Ronnell Mack OSA - 09/12/2024 12:57 PM EST Reason for patient's call: Barbara from [facility] asking to speak to Dr. Esposito or her nurse. Caller was transferred to Maria G at the clinic. documented in this encounter Plan of Treatment Upcoming Encounters Date Type Department Care Team (Late st Contact Info) Description 10/03/2024 11:00 AM EST Office Visit [facility], [facility] [address] [place] [phone] Jany Pederson PA-C [address] [place] [address] 11/13/2024 1:30 PM EST Office [facility] [address] [facility] [address] Lidia Rashid PA-C [address] [place] [address] 11/16/2024 1:20 PM EST Office Visit Dermatology [facility] [place] [address] [facility] [place] [address] Connie Pires PA-C [address] [facility] [place] [address] 01/11/2025 1:20 PM EDT Office Visit [facility] [phone] Jose Esposito MD [address] [facility] [place] [phone] 02/22/2025 11:20 AM EDT Office Visit [facility] [place] [address] [facility] [place] [phone] Mitali Garcia DO [address] [place] [id number] 08/16/2025 1:40 PM EDT Office Visit Rheumatology [place] [phone] [place] [address] Umesh Brewster MD [address] [facility] [place] [address] Health Maintenance Due Date Last Done Comments Fecal Occult Blood Test 1998 Sigmoidoscopy 1998 Cologuard 07/04/2021 07/04/2018 Adult Wellness Visit 11/17/2023 11/17/2022, 09/23/20 21 COVID-19 Vaccine ( season) 2024 09/22/2022, 09/12/2021, 01/29/2021, Additional history exists Depression Monitoring 12/29/2024 12/30/2023 GFR 02/28/2025 02/29/2024, 04/2023, 02/08/2022, Additional history exists Mammogram 05/23/2025 [...] D LEVEL ONCE IN A LIFETIME-USE SMARTSET# [id number] Completed 07/04/2024, 05/23/2023, 02/08/2022, Additional history exists [...] and were consensually agreed upon. Care Teams Reptile Farmer Relationship Specialty Start Date End Date Jose Esposito MD [address] [address] PCP - General Internal Medicine 09/04/24 documented as of this encounter
--- NOTE | 2024-09-13 13:16 | Hospitalist Progress Note ---
Date of Service September 13, 2024 Assessment & Plan (1) Redness and swelling of lower leg: Plan 68-year-old lady with PMH of HTN, HLD, MS, neurogenic bladder, depression, anxiety, THALIA, venous insufficiency, GERD, osteoporosis presented to the ED with complaint of BLE erythema and edema over several weeks. She also reports having pain and burning while passing urine. She is being managed for the following: BLE cellulitis: Not in sepsis at presentation. Admitting venous Doppler negative for DVT. Follow admitting blood culture 09/12. Continue with Rocephin 09/12 Patient reports erythema and pain getting better. Follow clinically. Complicated UTI: History of neurogenic bladder/history of MS Patient presenting with pain and burning with passing urine. Follow-up admitting urine culture 09/12 Continue with Rocephin 09/12 Patient reporting left-sided flank pain later in the afternoon today, will get CT AP to rule out pyelonephritis and/or renal stones. Continue with pain management. Other chronic medical conditions: Continue with/resume home meds as when able. Hypertension, stable GERD stable on regimen Anxiety/mood disorder, some anxiety during exam, patient admits to OCD sympt oms. Cervical dysplasia status post surgery THALIA on CPAP PT OT eval DVT prophylaxis. Lovenox subcu Full code Text document was generated using [employer] voice recognition software. It may contain grammatical or spelling errors. Kindly contact undersigned for clarification of any documentation item in question. Admission and Anticipated Discharge Date Admission Date: September 12, 2024 Subjective Patient was seen and examined at bedside. Patient was lying in bed, on room air, NAD, resting comfortably. Patient reports eating okay and moving bowels okay, denies nausea and vomiting. Patient reports pain and burning while passing urine. Per RN, pt reported left-sided flank pain 4/10 later in the afternoon, will get imaging for stones. Physical Exam Physical Exam: General: +anxious but otherwise in no distress, WDWN Head: normocephalic, atraumatic Eyes: conjunctiva non-injected, anicteric ENT: normal inspection external ears, nose, mucous membranes moist Neck: supple, trachea midline Lungs: clear, no respiratory distress, no wheezing/rhonchi/rales CV: RRR, no murmur Abd: normal BS, soft, non-tender Ext: BLE: +edema, +erythema and red discoloration, right lower leg slightly warmer to palpation than left and more tender to palpation than left leg. Right 5th toe with ulcer without surrounding erythema and no discharge Neuro: A&O x 3, no focal deficits noted, anxious affect Skin: warm, dry Results & Data Results & Data Vital Signs (Past 12 Hours) Vital Signs Temp Pulse Resp BP Pulse Ox O2 Del Method 09/13/24 07:00 36.7 C 76 16 113/56 L 95 Room Air 09/13/24 02:00 Room Air 09/13/24 02:00 36.6 C 89 14 174/95 H 94 Room Air
--- NOTE | 2024-09-13 14:02 | CT Scan Report ---
EXAM: CT Abdomen and Pelvis Without Intravenous Contrast INDICATION: Evaluate for pyelonephritis. Left flank pain. y TECHNIQUE: Axial computed tomography images of the abdomen and pelvis without intravenous contrast. Sagittal and coronal reformatted images were created and reviewed. This CT exam was performed using one or more of the following dose reduction techniques: automated exposure control, adjustment of the mA and/or kV according to patient size, and/or use of iterative reconstruction technique. COMPARISON: 02/07/2024 and 07/08/2019 FINDINGS: Limitations: None. Lung bases: There is slight increased consolidation in the right middle lobe. Stable noncalcified 9 mm nodule in the posterior left costophrenic sulcus. Pleural space: No visualized pleural effusion or pneumothorax. Heart: No abnormality noted. Mediastinum: No abnormality noted. ABDOMEN: Liver: Lack of intravenous contrast limits detection of some masses. No abnormality noted. Gallbladder and bile ducts: No calcified stones or surrounding fluid. Pancreas: No pancreatic mass, calcification, inflammation or ductal dilation noted. Spleen: No significant abnormality noted. Adrenals: No significant abnormality noted. Kidneys and ureters: No urinary stone. No perinephric fluid, gas or hydronephrosis. Stomach and bowel: Moderate amounts of stool throughout the colon and extensive diverticulosis. No diverticulitis or obstruction. PELVIS: Appendix: Well seen and appears normal. Bladder: Mildly dilated urinary bladder. No stones or gas. Reproductive: No abnormalities noted. ABDOMEN and PELVIS: Intraperitoneal space: No free air. No significant fluid collection. Bones/joints: Degenerative changes noted in the scoliotic spine. No acute osseous abnormality noted. Soft tissues: No significant abnormality noted. Vasculature: Atherosclerotic calcification of the aorta and branches. No aneurysm. Lymph nodes: No pathologically enlarged lymph nodes. IMPRESSION: 1. No urinary stone noted. Assessment for pyelonephritis limited in the absence of IV contrast. There is no perinephric fluid or urinary gas. 2. Large amounts of diffuse colonic stool and diverticulosis. No diverticulitis or obstruction. 3. Slight increased coarse opacity likely reflecting scarring in the right middle lobe. 4. Stable 9 mm left lower lobe pulmonary nodule for greater than 4 years. No further assessment required. ACT 112: Negative or not required by law. Electronically signed by Kera López 09-13-2024 2:02 PM
[2024-09-13] MEDS: cefTRIAXone SODIUM 2,000 MG/50 ML BAG IV SCH (21:00)
[2024-09-13] MEDS ORDERED: SIMVASTATIN 40 MG TAB PO SCH (21:00)
[2024-09-13] MEDS: CALCIUM CARBONATE 500 MG CHEWABLE TAB PO SCH (21:01)
[2024-09-13] MEDS: OMEGA-3 (PURIFIED FISH OIL) 1 GM CAP PO SCH (21:03)
[2024-09-13] MEDS: VITAMIN B COMPLEX TAB PO SCH (21:04)
[2024-09-13] MEDS: guaiFENesin 600 MG TABCR PO SCH (21:22)
[2024-09-13] MEDS ORDERED: SODIUM CHLORIDE 0.65% NA SOLN 45 ML (OCEAN) PRN (21:41)
[2024-09-13] MEDS: FLUTICASONE PROPIONATE NA SPR 16 GM BTL SCH (22:34)
[2024-09-14 06:49] LABS: Hematocrit (blood only) 37.6 % (37.0-47.0); Hemoglobin 12.6 g/dl (12.0-16.0); Mean Corpuscular Hemoglobin 30.5 pg (25.0-34.0); Mean Corpuscular Hgb Conc 33.5 g/dL (32.0-36.0); Mean Platelet Volume 9.7 fL (9.4-12.4); Platelet Count 196 K/uL (130-400); RDW Coefficient of Variation 12.3 % (11.5-14.5); RDW Standard Deviation 40.9 fL (36.4-46.3); Red Blood Count 4.13 M/uL (4.20-5.40); White Blood Count 5.66 K/ul (4.8-10.8)
[2024-09-14 07:04] LABS: BUN Creatinine Ratio 28.2 (10-20); Calcium 9.4 mg/dl (8.6-10.3); Creatinine Clr Calc Pharmacy 57.9 ml/min; Phosphorus 3.9 mg/dl (2.5-4.9); Potassium 3.9 mmol/L (3.5-5.1)
--- NOTE | 2024-09-14 16:40 | Hospitalist Progress Note ---
Date of Service September 14, 2024 Assessment & Plan (1) Redness and swelling of lower leg: Plan 68-year-old lady with PMH of HTN, HLD, MS, neurogenic bladder, depression, anxiety, THALIA, venous insufficiency, GERD, osteoporosis presented to the ED with complaint of BLE erythema and edema over several weeks. She also reports having pain and burning while passing urine. She is being managed for the following: BLE cellulitis: Not in sepsis at presentation. Admitting venous Doppler negative for DVT. Follow admitting blood culture 09/12. Continue with Rocephin 09/12 Ble erythema and warmth improving. Complicated UTI: History of neurogenic bladder/history of MS Patient presenting with pain and burning with passing urine. Follow-up admitting urine culture 09/12 Continue with Rocephin 09/12 Pt reports improving pain/burn w/ urine, denies flank pain. Other chronic medical conditions: Continue with/resume home meds as when able. Hypertension, stable GERD stable on regimen Anxiety/mood disorder, some anxiety during exam, patient admits to OCD symptoms. Cervical dysplasia status post surgery THALIA on CPAP PT OT raj ortega to assist w/ dc plan. DVT prophylaxis. Lovenox subcu Full code Text document was generated using [employer] voice recognition software. It may contain grammatical or spelling errors. Kindly contact undersigned for clarification of any documentation item in question. Admission and Anticipated Discharge Date Admission Date: September 12, 2024 Subjective Patient was seen and examined at bedside. Patient was lying in bed, on room air, NAD, resting comfortably. Patient reports eating okay and moving bowels okay, denies nausea and vomiting. Patient reports pain and burning while passing urine improving, denies left flank pain. Physical Exam Physical Exam: General: +anxious but otherwise in no distress, WDWN Head: normocephalic, atraumatic Eyes: conjunctiva non-injected, anicteric ENT: normal inspection external ears, nose, mucous membranes moist Neck: supple, trachea midline Lungs: clear, no respiratory distress, no wheezing/rhonchi/rales CV: RRR, no murmur Abd: normal BS, soft, non-tender Ext: BLE: +edema, +erythema and red discoloration, right lower leg slightly warmer to palpation than left and more tender to palpation than left leg. Right 5th toe with ulcer without surrounding erythema and no discharge ---> BLE erythema improving. Neuro: A&O x 3, no focal deficits noted, anxious affect Skin: warm, dry Results & Data Results & Data Vital Signs (Past 12 Hours) Vital Signs Temp Pulse Resp BP Pulse Ox O2 Del Method 09/14/24 14:37 36.5 C 79 16 122/74 96 Room Air 09/14/24 09:28 Room Air 09/14/24 07:07 36.8 C 78 16 145/83 H 92 Room Air
[2024-09-15 06:21] LABS: Hematocrit (blood only) 38.5 % (37.0-47.0); Hemoglobin 13.3 g/dl (12.0-16.0); Mean Corpuscular Hemoglobin 31.1 pg (25.0-34.0); Mean Corpuscular Hgb Conc 34.5 g/dL (32.0-36.0); Mean Platelet Volume 9.4 fL (9.4-12.4); Platelet Count 202 K/uL (130-400); RDW Coefficient of Variation 12.1 % (11.5-14.5); RDW Standard Deviation 39.3 fL (36.4-46.3); Red Blood Count 4.28 M/uL (4.20-5.40); White Blood Count 5.15 K/ul (4.8-10.8)
[2024-09-15] MEDS: ALENDRONATE SODIUM 70 MG TAB PO SCH (06:37)
[2024-09-15 06:39] LABS: BUN Creatinine Ratio 29.9 (10-20); Calcium 9.3 mg/dl (8.6-10.3); Creatinine Clr Calc Pharmacy 67.4 ml/min; Magnesium 1.8 mg/dl (1.7-2.4); Phosphorus 4.1 mg/dl (2.5-4.9); Potassium 4.1 mmol/L (3.5-5.1)
--- NOTE | 2024-09-15 15:16 | Hospitalist Progress Note ---
Date of Service September 15, 2024 Assessment & Plan (1) Redness and swelling of lower leg: Plan 68-year-old lady with PMH of HTN, HLD, MS, neurogenic bladder, depression, anxiety, THALIA, venous insufficiency, GERD, osteoporosis presented to the ED with complaint of BLE erythema and edema over several weeks. She also reports having pain and burning while passing urine. She is being managed for the following: BLE cellulitis: Not in sepsis at presentation. Admitting venous Doppler negative for DVT. Follow admitting blood culture 09/12. Continue with Rocephin 09/12 Ble erythema and warmth improving. Complicated UTI: History of neurogenic bladder/history of MS Patient presenting with pain and burning with passing urine. Follow-up admitting blood and urine culture 09/12 Continue with Rocephin 09/12 Pt reports improving pain/burn w/ urine, denies flank pain. Other chronic medical conditions: Continue with/resume home meds as when able. Hypertension, stable GERD stable on regimen Anxiety/mood disorder, some anxiety during exam, patient admits to OCD symptoms. Cervical dysplasia status post surgery THALIA on CPAP PT OT eval -- needs rehab, cm to assist w/ dc plan. DVT prophylaxis. Lovenox subcu Full code Text document was generated using [employer] voice recognition software. It may contain grammatical or spelling errors. Kindly contact undersigned for clarification of any documentation item in question. Admission and Anticipated Discharge Date Admission Date: September 12, 2024 Subjective Patient was seen and examined at bedside. Patient was lying in bed, on room air, NAD, resting comfortably. Patient reports eating okay and moving bowels okay (1 loose stool today), denies nausea and vomiting. Add probiotic. Patient reports pain and burning while passing urine improving, denies left flank pain. Physical Exam Physical Exam: General: +anxious but otherwise in no distress, WDWN Head: normocephalic, atraumatic Eyes: conjunctiva non-injected, anicteric ENT: normal inspection external ears, nose, mucous membranes moist Neck: supple, trachea midline Lungs: clear, no respiratory distress, no wheezing/rhonchi/rales CV: RRR, no murmur Abd: normal BS, soft, non-tender Ext: BLE: +edema, +erythema and red discoloration, right lower leg slightly warmer to palpation than left and more tender to palpation than left leg. Right 5th toe with ulcer without surrounding erythema and no discharge ---> BLE erythema improving. Non tender now. Neuro: A&O x 3, no focal deficits noted, anxious affect Skin: warm, dry Results & Data Results & Data Vital Signs (Past 12 Hours) Vital Signs Temp Pulse Resp BP Pulse Ox O2 Del Method 09/15/24 07:28 36.6 C 72 16 123/75 95 Room Air
[2024-09-15] MEDS: ADVANCED PROBIOTIC 625 MG CAPSULE PO SCH (16:45)
[2024-09-16 06:58] LABS: Hematocrit (blood only) 36.2 % (37.0-47.0); Hemoglobin 12.4 g/dl (12.0-16.0); Mean Corpuscular Hemoglobin 30.9 pg (25.0-34.0); Mean Corpuscular Hgb Conc 34.3 g/dL (32.0-36.0); Mean Corpuscular Volume 90.3 fL (80.0-100.0); Mean Platelet Volume 9.7 fL (9.4-12.4); Platelet Count 191 K/uL (130-400); RDW Coefficient of Variation 11.9 % (11.5-14.5); RDW Standard Deviation 39.1 fL (36.4-46.3); Red Blood Count 4.01 M/uL (4.20-5.40); White Blood Count 4.82 K/ul (4.8-10.8)
--- NOTE | 2024-09-16 15:36 | Hospitalist Progress Note ---
Date of Service September 16, 2024 Assessment & Plan (1) Redness and swelling of lower leg: Plan 68-year-old lady with PMH of HTN, HLD, MS, neurogenic bladder, depression, anxiety, THALIA, venous insufficiency, GERD, osteoporosis presented to the ED with complaint of BLE erythema and edema over several weeks. She also reports having pain and burning while passing urine. She is being managed for the following: BLE cellulitis: Not in sepsis at presentation. Admitting venous Doppler negative for DVT. Follow admitting blood culture 09/12. Continue with Rocephin 09/12 Ble erythema and warmth improving. Complicated UTI: History of neurogenic bladder/history of MS Patient presenting with pain and burning with passing urine. Follow-up admitting blood and urine culture 09/12. NG so far. Continue with Rocephin 09/12 Pt reports improving pain/burn w/ urine, denies flank pain. Other chronic medical conditions: Continue with/resume home meds as when able. Hypertension, stable GERD stable on regimen Anxiety/mood disorder, some anxiety during exam, patient admits to OCD symptoms. Cervical dysplasia status post surgery THALIA on CPAP PT OT eval -- needs rehab, cm to assist w/ dc plan. DVT prophylaxis. Lovenox subcu Full code Text document was generated using [employer] voice recognition software. It may contain grammatical or spelling errors. Kindly contact undersigned for clarification of any documentation item in question. Admission and Anticipated Discharge Date Admission Date: September 12, 2024 Subjective Patient was seen and examined at bedside. Patient was lying in bed, on room air, NAD, resting comfortably. Patient reports eating okay and moving bowels okay (stool better formed today), denies nausea and vomiting. c/w probiotic. Patient reports pain and burning while passing urine improving, denies left f lank pain. Physical Exam Physical Exam: General: +anxious but otherwise in no distress, WDWN Head: normocephalic, atraumatic Eyes: conjunctiva non-injected, anicteric ENT: normal inspection external ears, nose, mucous membranes moist Neck: supple, trachea midline Lungs: clear, no respiratory distress, no wheezing/rhonchi/rales CV: RRR, no murmur Abd: normal BS, soft, non-tender Ext: BLE: +edema, +erythema and red discoloration, right lower leg slightly warmer to palpation than left and more tender to palpation than left leg. Right 5th toe with ulcer without surrounding erythema and no discharge ---> BLE erythema improving. Non tender now. Neuro: A&O x 3, no focal deficits noted, anxious affect Skin: warm, dry Results & Data Results & Data Vital Signs (Past 12 Hours) Vital Signs Temp Pulse Resp BP Pulse Ox O2 Del Method 09/16/24 15:00 36.8 C 95 H 16 118/70 97 Room Air 09/16/24 06:51 36.7 C 73 15 116/72 94 Room Air
[2024-09-17 07:03] LABS: Hematocrit (blood only) 35.8 % (37.0-47.0); Hemoglobin 12.2 g/dl (12.0-16.0); Mean Corpuscular Hemoglobin 30.7 pg (25.0-34.0); Mean Corpuscular Hgb Conc 34.1 g/dL (32.0-36.0); Mean Corpuscular Volume 89.9 fL (80.0-100.0); Mean Platelet Volume 9.7 fL (9.4-12.4); Platelet Count 196 K/uL (130-400); RDW Standard Deviation 39.2 fL (36.4-46.3); Red Blood Count 3.98 M/uL (4.20-5.40); White Blood Count 4.65 K/ul (4.8-10.8)
--- NOTE | 2024-09-17 14:32 | XRay Report ---
KUB CLINICAL HISTORY: Right-sided abdominal pain. COMPARISON STUDY: CT of the abdomen and pelvis September 13, 2024. FINDINGS: Status post cholecystectomy. The bowel gas pattern is normal. There is a moderate amount of stool within the colon and rectum. No urinary calculi are identified. IMPRESSION: 1. No evidence for a bowel obstruction. 2. Moderate stool within the colon and rectum. ACT 112: Negative or not required by law. Electronically signed by: Partha Carvajal M.D. 09/17/2024 2:30 PM
--- NOTE | 2024-09-17 15:48 | Hospitalist Progress Note ---
Date of Service September 17, 2024 Assessment & Plan (1) Redness and swelling of lower leg: Plan 68-year-old lady with PMH of HTN, HLD, MS, neurogenic bladder, depression, anxiety, THALIA, venous insufficiency, GERD, osteoporosis presented to the ED with complaint of BLE erythema and edema over several weeks. She also reports having pain and burning while passing urine. She is being managed for the following: BLE cellulitis: Not in sepsis at presentation. Admitting venous Doppler negative for DVT. Follow admitting blood culture 09/12. Continue with Rocephin 09/12 Ble erythema and warmth improving. Complicated UTI: History of neurogenic bladder/history of MS Patient presenting with pain and burning with passing urine. Follow-up admitting blood and urine culture 09/12. NG so far. Continue with Rocephin 09/12 Pt reports improving pain/burn w/ urine, denies flank pain. Other chronic medical conditions: Continue with/resume home meds as when able. Hypertension, stable GERD stable on regimen Anxiety/mood disorder, some anxiety during exam, patient admits to OCD symptoms. Cervical dysplasia status post surgery THALIA on CPAP PT OT eval -- needs rehab, cm to assist w/ dc plan. can dc to rehab. DVT prophylaxis. Lovenox subcu Full code Text document was generated using [employer] voice recognition software. It may contain grammatical or spelling errors. Kindly contact undersigned for clarification of any documentation item in question. Admission and Anticipated Discharge Date Admission Date: September 12, 2024 Subjective Patient was seen and examined at bedside. Patient was lying in bed, on room air, NAD, resting comfortably. Patient reports eating okay and moving bowels okay (stool better formed), denies nausea and vomiting. c/w probiotic. Patient reports pain and burning while passing urine improving, denies left flank pain. Patient reports right abdominal pain, cannot elaborate the pain, no grimacing observed during distracted abdominal exam, XR KUB obtained w/ no acute findings. Patient states she does not want to go to rehab nor to home, will want to be managed in the hospital for next several days until she feels comfortable. 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 Physical Exam Physical Exam: General: +anxious but otherwise in no distress, WDWN Head: normocephalic, atraumatic Eyes: conjunctiva non-injected, anicteric ENT: normal inspection external ears, nose, mucous membranes moist Neck: supple, trachea midline Lungs: clear, no respiratory distress, no wheezing/rhonchi/rales CV: RRR, no murmur Abd: normal BS, soft, non-tender Ext: BLE: +edema, +erythema and red discoloration, right lower leg slightly warmer to palpation than left and more tender to palpation than left leg. Right 5th toe with ulcer without surrounding erythema and no discharge ---> BLE erythema improving. Non tender now. Neuro: A&O x 3, no focal deficits noted, anxious affect Skin: warm, dry Results & Data Results & Data Vital Signs (Past 12 Hours) Vital Signs Temp Pulse Resp BP BP Pulse Ox O2 Del Method 09/17/24 14:32 36.8 C 78 18 112/71 92 Room Air 09/17/24 10:13 78 126/77 94 Room Air 09/17/24 07:33 36.8 C 83 16 117/75 93 Room Air
[2024-09-17] MEDS: PANTOprazole 40 MG TAB PO SCH (20:24)
[2024-09-18 06:57] LABS: Creatinine Clr Calc Pharmacy 63.6 ml/min
--- NOTE | 2024-09-18 16:40 | Hospitalist Progress Note ---
Date of Service September 18, 2024 Assessment & Plan (1) Redness and swelling of lower leg: Plan 68-year-old lady with PMH of HTN, HLD, MS, neurogenic bladder, depression, anxiety, THALIA, venous insufficiency, GERD, osteoporosis presented to the ED with complaint of BLE erythema and edema over several weeks. She also reports having pain and burning while passing urine. She is being managed for the following: BLE cellulitis: Not in sepsis at presentation. Admitting venous Doppler negative for DVT. Follow admitting blood culture 09/12. Continue with Rocephin 09/12 Ble erythema and warmth improving. Complicated UTI: History of neurogenic bladder/history of MS Patient presenting with pain and burning with passing urine. Follow-up admitting blood and urine culture 09/12. NG so far. Continue with Rocephin 09/12 Pt reports improving pain/burn w/ urine, denies flank pain. Other chronic medical conditions: Continue with/resume home meds as when able. Hypertension, stable GERD stable on regimen Anxiety/mood disorder, some anxiety during exam, patient admits to OCD symptoms. Cervical dysplasia status post surgery HTALIA on CPAP PT OT eval -- needs rehab, cm to assist w/ dc plan. can dc to rehab. DVT prophylaxis. Lovenox subcu Full code Text document was generated using [employer] voice recognition software. It may contain grammatical or spelling errors. Kindly contact undersigned for clarification of any documentation item in question. Admission and Anticipated Discharge Date Admission Date: September 12, 2024 Subjective Patient was seen and examined at bedside. Patient was lying in bed, on room air, NAD, resting comfortably. Patient reports eating okay and moving bowels okay, denies nausea and vomiting. c/w probiotic. Patient reports no abdominal pain today. Physical Exam Physical Exam: General: +anxious but otherwise in no distress, WDWN Head: normocephalic, atraumatic Eyes: conjunctiva non-injected, anicteric ENT: normal inspection external ears, nose, mucous membranes moist Neck: supple, trachea midline Lungs: clear, no respiratory distress, no wheezing/rhonchi/rales CV: RRR, no murmur Abd: normal BS, soft, non-tender Ext: BLE: +edema, +erythema and red discoloration, right lower leg slightly warmer to palpation than left and more tender to palpation than left leg. Right 5th toe with ulcer without surrounding erythema and no discharge ---> BLE erythema improving. Non tender now. Neuro: A&O x 3, no focal deficits noted, anxious affect Skin: warm, dry Results & Data Results & Data Vital Signs (Past 12 Hours) Vital Signs Temp Pulse Resp BP Pulse Ox O2 Del Method 09/18/24 15:12 36.5 C 75 18 131/85 98 Room Air 09/18/24 08:30 Room Air 09/18/24 07:42 36.4 C L 68 16 137/83 96 Room Air
[2024-09-19] MEDS: COUGH DROP (SUGAR FREE) LOZ 24 LOZ/1 BOX BUCCAL PRN (05:56)
[2024-09-19] MEDS: PANTOprazole 40 MG TAB PO SCH (06:25)
--- NOTE | 2024-09-19 15:48 | Hospitalist Progress Note ---
Date of Service September 19, 2024 Assessment & Plan (1) Redness and swelling of lower leg: Plan 68-year-old lady with PMH of HTN, HLD, MS, neurogenic bladder, depression, anxiety, THALIA, venous insufficiency, GERD, osteoporosis presented to the ED with complaint of BLE erythema and edema over several weeks. She also reports having pain and burning while passing urine. She is being managed for the following: BLE cellulitis: Not in sepsis at presentation. Admitting venous Doppler negative for DVT. Follow admitting blood culture 09/12. Continue with Rocephin 09/12 Ble erythema and warmth resolved. Complicated UTI: History of neurogenic bladder/history of MS Patient presenting with pain and burning with passing urine. Follow-up admitting blood and urine culture 09/12. NG so far. Continue with Rocephin 09/12 Pt reports improving pain/burn w/ urine, denies flank pain. Other chronic medical conditions: Continue with/resume home meds as when able. Hypertension, stable GERD stable on regimen Anxiety/mood disorder, some anxiety during exam, patient admits to OCD symptoms. Cervical dysplasia status post surgery THALIA on CPAP PT OT eval -- needs rehab, cm to assist w/ dc plan. can dc to rehab. DVT prophylaxis. Lovenox subcu Full code Text document was generated using [employer] voice recognition software. It may contain grammatical or spelling errors. Kindly contact undersigned for clarification of any documentation item in question. Admission and Anticipated Discharge Date Admission Date: September 12, 2024 Subjective Patient was seen and examined at bedside. Patient was lying in bed, on room air, NAD, resting comfortably. Patient reports eating okay and moving bowels okay, denies nausea and vomiting. c/w probiotic. Patient reports no abdominal pain today. Physical Exam Physical Exam: General: +anxious but otherwise in no distress, WDWN Head: normocephalic, atraumatic Eyes: conjunctiva non-injected, anicteric ENT: normal inspection external ears, nose, mucous membranes moist Neck: supple, trachea midline Lungs: clear, no respiratory distress, no wheezing/rhonchi/rales CV: RRR, no murmur Abd: normal BS, soft, non-tender Ext: BLE: +edema, +erythema and red discoloration, right lower leg slightly warmer to palpation than left and more tender to palpation than left leg. Right 5th toe with ulcer without surrounding erythema and no discharge ---> BLE erythema almost resolved. Neuro: A&O x 3, no focal deficits noted, anxious affect Skin: warm, dry Results & Data Results & Data Vital Signs (Past 12 Hours) Vital Signs Temp Pulse Resp BP Pulse Ox O2 Del Method 09/19/24 07:25 36.5 C 74 16 125/73 95 Room Air
--- NOTE | 2024-09-20 14:57 | Hospitalist Progress Note ---
Date of Service September 20, 2024 Assessment & Plan (1) Redness and swelling of lower leg: Plan 68-year-old lady with PMH of HTN, HLD, MS, neurogenic bladder, depression, anxiety, THALIA, venous insufficiency, GERD, osteoporosis presented to the ED with complaint of BLE erythema and edema over several weeks. She also reports having pain and burning while passing urine. She is being managed for the following: BLE cellulitis: Not in sepsis at presentation. Admitting venous Doppler negative for DVT. Follow admitting blood culture 09/12. Continue with Rocephin 09/12 Ble erythema and warmth resolved. 10 d antibiotic course. Complicated UTI: History of neurogenic bladder/history of MS Patient presenting with pain and burning with passing urine. Follow-up admitting blood and urine culture 09/12. NG so far. Continue with Rocephin 09/12 Pt reports improving pain/burn w/ urine, denies flank pain. Other chronic medical conditions: Continue with/resume home meds as when able. Hypertension, stable GERD stable on regimen Anxiety/mood disorder, some anxiety during exam, patient admits to OCD symptoms. Cervical dysplasia status post surgery THALIA on CPAP PT OT eval -- needs rehab/snf, cm to assist w/ dc plan. can dc to rehab/snf. DVT prophylaxis. Lovenox subcu Full code Text document was generated using [employer] voice recognition software. It may contain grammatical or spelling errors. Kindly contact undersigned for clarification of any documentation item in question. Admission and Anticipated Discharge Date Admission Date: September 12, 2024 Subjective Patient was seen and examined at bedside. Patient was lying in bed, on room air, NAD, resting comfortably. Patient reports eating okay and moving bowels okay, denies nausea and vomiting. c/w probiotic. Patient reports no abdominal pain . Physical Exam Physical Exam: General: +anxious but otherwise in no distress, WDWN Head: normocephalic, atraumatic Eyes: conjunctiva non-injected, anicteric ENT: normal inspection external ears, nose, mucous membranes moist Neck: supple, trachea midline Lungs: clear, no respiratory distress, no wheezing/rhonchi/rales CV: RRR, no murmur Abd: normal BS, soft, non-tender Ext: BLE erythema resolved. Neuro: A&O x 3, no focal deficits noted, anxious affect Skin: warm, dry Results & Data Results & Data Vital Signs (Past 12 Hours) Vital Signs Temp Pulse Resp BP Pulse Ox O2 Del Method 09/20/24 07:25 36.4 C L 74 16 131/82 93 Room Air 09/20/24 07:20 Room Air
[2024-09-21 09:07] LABS: Creatinine Clr Calc Pharmacy 53.1 ml/min
[2024-09-21 14:53] VITALS: O2SAT 97
--- NOTE | 2024-09-21 15:49 | Hospitalist Progress Note ---
Date of Service September 21, 2024 Assessment & Plan (1) Redness and swelling of lower leg: Plan 68-year-old lady with PMH of HTN, HLD, MS, neurogenic bladder, depression, anxiety, THALIA, venous insufficiency, GERD, osteoporosis presented to the ED with complaint of BLE erythema and edema over several weeks. She also reports having pain and burning while passing urine. She is being managed for the following: BLE cellulitis:/ Erysipelas Not in sepsis at presentation. Admitting venous Doppler negative for DVT. Follow admitting blood culture 09/12.-Negative Continue with Rocephin 09/12- will change to oral Keflex on discharge Continue antibiotic for total of 7 days No evidence of any redness and/or tenderness in the legs Complicated UTI: History of neurogenic bladder/history of MS Patient presenting with pain and burning with passing urine. Follow-up admitting blood and urine culture 09/12. NG so far. Continue with Rocephin 09/12 Pt reports improving pain/burn w/ urine, denies flank pain. Urine culture grew 3 organisms- does not have any acute UTI right now Other chronic medical conditions: Continue with/resume home meds as when able. Hypertension, stable GERD stable on regimen Anxiety/mood disorder, some anxiety during exam, patient admits to OCD symptoms. Cervical dysplasia status post surgery THALIA on CPAP PT OT eval -- needs rehab/snf, cm to assist w/ dc plan. can dc to rehab/snf. DVT prophylaxis. Lovenox subcu Full code Text document was generated using [employer] voice recognition software. It may contain grammatical or spelling errors. Kindly contact undersigned for clarification of any documentation item in question. Admission and Anticipated Discharge Date Admission Date: September 12, 2024 Subjective 09/21/2024 The patient was seen and examined in medical floor She complains to have some nonspecific back pain without radiation Heart bilateral leg cellulitis have improved Denies any other significant symptoms Review of Systems Review of Systems: All systems reviewed and are unremarkable except as noted below Physical Exam Physical Exam: Lying in bed without any acute distress Constitutional: well developed, well nourished and average body habitus; not ill appearing Eyes: PERRL, conjunctivae normal, anicteric sclerae ENMT: external ear and nose normal, oropharynx normal Neck: trachea midline, no thyromegaly Respiratory: no respiratory distress Auscultation: lungs clear to auscultation bilaterally Cardiovascular: Rate/Rhythm: regular rate and regular rhythm; not tachycardic Heart Sounds: normal S1 and normal S2; no murmur Extremities: no edema Gastrointestinal (Abdomen): Inspection/Auscultation: normal bowel sounds; abdomen not distended Percussion/Palpation: abdomen soft; abdomen nontender Musculoskeletal: No acute arthritis involving any of the joint Neurologic: normal touch/pain/proprioception and moves all extremities; no focal motor deficits Lymphatic: no cervical or axillary lymphadenopathy Results & Data Results & Data Vital Signs (Past 12 Hours) Vital Signs Temp Pulse Resp BP Pulse Ox O2 Del Method 09/21/24 14:50 36.6 C 76 18 119/74 97 Room Air 09/21/24 07:10 36.3 C L 75 16 123/78 95 Room Air Laboratory Results [facility] 09/21/24 05:54 Creatinine 0.85 Medications Administered Current Inpatient Medications Acetaminophen (Acetaminophen 500 Mg Tab) 1,000 mg PO Q8H PRN PRN Reason: fever/pain Stop: 10/13/24 02:21 Last Admin: 09/21/24 08:29 Dose: 1,000 mg Alendronate Sodium (Alendronate Sodium 70 Mg Tab) 70 mg PO Sa@0630 [facility] Stop: 10/15/24 06:29 Last Admin: 09/15/24 06:37 Dose: 70 mg Calcium Carbonate (Calcium Carbonate 500 Mg Chewable Tab) 500 mg PO QPM [facility] Stop: 10/13/24 20:59 Last Admin: 09/20/24 21:34 Dose: 500 mg Enoxaparin Sodium (Enoxaparin Inj 40 Mg/0.4 Ml Syr) 40 mg SQ QAM [facility] Stop: 10/13/24 08:59 Last Admin: 09/21/24 08:19 Dose: 40 mg Fish Oil ([place]-3 (Purified Fish Oil) 1 Gm Cap) 1 cap PO QPM [facility] Stop: 10/13/24 20:59 Last Admin: 09/20/24 21:34 Dose: 1 cap Fluticasone Propionate (Fluticasone Propionate Na Spr 16 Gm Btl) 2 sprays NA HS [facility] Stop: 10/13/24 21:44 Last Admin: 09/20/24 21:34 Dose: 2 sprays Folic Acid (Folic Acid 1 Mg Tab) 1 mg PO DAILY [facility] Stop: 10/13/24 08:59 Last Admin: 09/21/24 08:19 Dose: 1 mg Gabapentin (Gabapentin 100 Mg Cap) 200 mg PO BID [facility] Stop: 10/12/24 23:29 Last Admin: 09/21/24 08:20 Dose: 200 mg Guaifenesin (Guaifenesin 600 Mg Tabcr) 1,200 mg PO Q12 [facility] Stop: 10/13/24 20:14 Last Admin: 09/21/24 08:19 Dose: 1,200 mg Ceftriaxone Sodium (Rocephin) 2,000 mg in 50 mls @ 100 mls/hr IV Q24H [facility] Stop: 09/23/24 19:59 Last Infusion: 09/20/24 22:27 Dose: Infused Promethazine HCl (Phenergan) 6.25 mg in 50.25 mls @ 201 mls/hr IV Q6H PRN PRN Reason: Nausea And Vomiting Stop: 10/12/24 23:27 Lactobacillus Acidophilus (Advanced Probiotic 625 Mg Capsule) 1,250 mg PO DAILY [facility] Stop: 10/15/24 15:14 Last Admin: 09/21/24 08:20 Dose: 1,250 mg Lidocaine (Lidocaine 5% Oint 30 Gm Tube) 1 appln EXT TID [facility]; Protocol Stop: 10/13/24 01:29 Last Admin: 09/21/24 08:20 Dose: 1 appln Loratadine (Loratadine 10 Mg Tab) 10 mg PO DAILY [facility] Stop: 10/13/24 08:59 Last Admin: 09/21/24 08:19 Dose: 10 mg Lorazepam (Lorazepam 0.5 Mg Tab) 0.25 mg PO TID PRN PRN Reason: Anxiety Stop: 10/12/24 23:29 Menthol (Cough Drop (Sugar Free) Alison 24 Alison/1 Box) 1 alison BUCCAL NOW PRN PRN Reason: Sore Throat Last Admin: 09/19/24 05:56 Dose: 1 alison Multivitamins (Multivitamin Tab) 1 tab PO DAILY [facility] Stop: 10/13/24 08:59 Last Admin: 09/21/24 08:19 Dose: 1 tab Pantoprazole Sodium (Pantoprazole 40 Mg Tab) 40 mg PO Q12H [facility] Stop: 10/19/24 05:59 Last Admin: 09/21/24 06:01 Dose: 40 mg Simvastatin (Simvastatin 40 Mg Tab) 40 mg PO HS [facility] Stop: 10/13/24 01:59 Last Admin: 09/20/24 21:35 Dose: 40 mg Sodium Chloride (Sodium Chloride 0.65% Na Soln 45 Ml ([place])) 2 sprays NA TID PRN PRN Reason: Nasal Congestion Stop: 10/13/24 21:40 Sucralfate (Sucralfate 1 Gm Tab) 1 gm PO ACHS [facility] Stop: 10/13/24 01:59 Last Admin: 09/21/24 12:08 Dose: 1 gm Valsartan (Valsartan 80 Mg Tab) 40 mg PO DAILY [facility] Stop: 10/13/24 08:59 Last Admin: 09/21/24 08:20 Dose: 40 mg Vibegron (Vibegron 75 Mg Tab) 75 mg PO DAILY [facility] Stop: 10/13/24 08:59 Last Admin: 09/21/24 08:20 Dose: 75 mg Vitamin B Complex (Vitamin B Complex Tab) 1 tab PO QPM [facility] Stop: 10/13/24 20:59 Last Admin: 09/20/24 21:36 Dose: 1 tab
[2024-09-22 08:05] VITALS: BP 132/84; PULSE 68; RESP 16; TEMP 97.3
--- NOTE | 2024-09-22 09:28 | Hospitalist Progress Note ---
Date of Service September 22, 2024 Assessment & Plan (1) Redness and swelling of lower leg: Plan 68-year-old lady with PMH of HTN, HLD, MS, neurogenic bladder, depression, anxiety, THALIA, venous insufficiency, GERD, osteoporosis presented to the ED with complaint of BLE erythema and edema over several weeks. She also reports having pain and burning while passing urine. She is being managed for the following: BLE cellulitis:/ Erysipelas Not in sepsis at presentation. Admitting venous Doppler negative for DVT. Follow admitting blood culture 09/12.-Negative Continue with Rocephin 09/12- will change to oral Keflex on discharge Continue antibiotic for total of 7 days No evidence of any redness and/or tenderness in the legs Denies any pain, redness or tenderness in the legs She will be given Keflex to finish the course tomorrow Complicated UTI: History of neurogenic bladder/history of MS Patient presenting with pain and burning with passing urine. Follow-up admitting blood and urine culture 09/12. NG so far. Continue with Rocephin 09/12 Pt reports improving pain/burn w/ urine, denies flank pain. Urine culture grew 3 organisms- does not have any acute UTI right now Denies any urinary symptoms Other chronic medical conditions: Continue with/resume home meds as when able. Hypertension, stable GERD stable on regimen Anxiety/mood disorder, some anxiety during exam, patient admits to OCD symptoms. Cervical dysplasia status post surgery THALIA on CPAP PT OT eval -- needs rehab/snf, cm to assist w/ dc plan. can dc to rehab/snf. DVT prophylaxis. Lovenox subcu Full code Text document was generated using [employer] voice recognition software. It may contain grammatical or spelling errors. Kindly contact undersigned for clarification of any documentation item in question. Admission and Anticipated Discharge Date Admission Date: September 12, 2024 Subjective 09/21/2024 The patient was seen and examined in medical floor She complains to have some nonspecific back pain without radiation Heart bilateral leg cellulitis have improved Denies any other significant symptoms 09/22/2024 The patient was seen and examined in medical floor She remains stable with minimal complaints of sore throat and sinus pain Denies any other symptoms She will be discharged to rehab facility today Review of Systems Review of Systems: all systems reviewed and are unremarkable except as mentioned below Physical Exam Physical Exam: Lying in bed without any acute distress Constitutional: well developed, well nourished and average body habitus; not ill appearing Eyes: PERRL, conjunctivae normal, anicteric sclerae ENMT: external ear and nose normal, oropharynx normal Neck: trachea midline, no thyromegaly Respiratory: no respiratory distress Auscultation: lungs clear to auscultation bilaterally Cardiovascular: Rate/Rhythm: regular rate and regular rhythm; not tachycardic Heart Sounds: normal S1 and normal S2; no murmur Extremities: no edema Gastrointestinal (Abdomen): Inspection/Auscultation: normal bowel sounds; abdomen not distended Percussion/Palpation: abdomen soft; abdomen nontender Neurologic: normal touch/pain/proprioception and moves all extremities; no focal motor deficits Lymphatic: no cervical or axillary lymphadenopathy Results & Data Results & Data Vital Signs (Past 12 Hours) Vital Signs Temp Pulse Resp BP Pulse Ox O2 Del Method 09/22/24 08:02 36.3 C L 68 16 132/84 97 Room Air 09/21/24 21:30 Room Air Medications Administered Current Inpatient Medications Acetaminophen (Acetaminophen 500 Mg Tab) 1,000 mg PO Q8H PRN PRN Reason: fever/pain Stop: 10/13/24 02:21 Last Admin: 09/22/24 08:07 Dose: 1,000 mg Alendronate Sodium (Alendronate Sodium 70 Mg Tab) 70 mg PO Sa@0630 [facility] Stop: 10/15/24 06:29 Last Admin: 09/22/24 05:42 Dose: 70 mg Calcium Carbonate (Calcium Carbonate 500 Mg Chewable Tab) 500 mg PO QPM [facility] Stop: 10/13/24 20:59 Last Admin: 09/21/24 21:35 Dose: 500 mg Enoxaparin Sodium (Enoxaparin Inj 40 Mg/0.4 Ml Syr) 40 mg SQ QAM [facility] Stop: 10/13/24 08:59 Last Admin: 09/22/24 08:06 Dose: 40 mg Fish Oil ([place]-3 (Purified Fish Oil) 1 Gm Cap) 1 cap PO QPM [facility] Stop: 10/13/24 20:59 Last Admin: 09/21/24 21:35 Dose: 1 cap Fluticasone Propionate (Fluticasone Propionate Na Spr 16 Gm Btl) 2 sprays NA HS [facility] Stop: 10/13/24 21:44 Last Admin: 09/21/24 21:35 Dose: 2 sprays Folic Acid (Folic Acid 1 Mg Tab) 1 mg PO DAILY [facility] Stop: 10/13/24 08:59 Last Admin: 09/22/24 08:06 Dose: 1 mg Gabapentin (Gabapentin 100 Mg Cap) 200 mg PO BID [facility] Stop: 10/12/24 23:29 Last Admin: 09/22/24 08:08 Dose: 200 mg Guaifenesin (Guaifenesin 600 Mg Tabcr) 1,200 mg PO Q12 [facility] Stop: 10/13/24 20:14 Last Admin: 09/22/24 08:06 Dose: 1,200 mg Ceftriaxone Sodium (Rocephin) 2,000 mg in 50 mls @ 100 mls/hr IV Q24H [facility] Stop: 09/23/24 19:59 Last Infusion: 09/21/24 22:14 Dose: Infused Promethazine HCl (Phenergan) 6.25 mg in 50.25 mls @ 201 mls/hr IV Q6H PRN PRN Reason: Nausea And Vomiting Stop: 10/12/24 23:27 Lactobacillus Acidophilus (Advanced Probiotic 625 Mg Capsule) 1,250 mg PO DAILY [facility] Stop: 10/15/24 15:14 Last Admin: 09/22/24 08:06 Dose: 1,250 mg Lidocaine (Lidocaine 5% Oint 30 Gm Tube) 1 appln EXT TID [facility]; Protocol Stop: 10/13/24 01:29 Last Admin: 09/22/24 08:09 Dose: 1 appln Loratadine (Loratadine 10 Mg Tab) 10 mg PO DAILY [facility] Stop: 10/13/24 08:59 Last Admin: 09/22/24 08:08 Dose: 10 mg Lorazepam (Lorazepam 0.5 Mg Tab) 0.25 mg PO TID PRN PRN Reason: Anxiety Stop: 10/12/24 23:29 Menthol (Cough Drop (Sugar Free) Alison 24 Alison/1 Box) 1 alison BUCCAL NOW PRN PRN Reason: Sore Throat Last Admin: 09/19/24 05:56 Dose: 1 alison Multivitamins (Multivitamin Tab) 1 tab PO DAILY [facility] Stop: 10/13/24 08:59 Last Admin: 09/22/24 08:08 Dose: 1 tab Pantoprazole Sodium (Pantoprazole 40 Mg Tab) 40 mg PO Q12H [facility] Stop: 10/19/24 05:59 Last Admin: 09/22/24 06:29 Dose: 40 mg Simvastatin (Simvastatin 40 Mg Tab) 40 mg PO HS [facility] Stop: 10/13/24 01:59 Last Admin: 09/21/24 21:36 Dose: 40 mg Sodium Chloride (Sodium Chloride 0.65% Na Soln 45 Ml ([place])) 2 sprays NA TID PRN PRN Reason: Nasal Congestion Stop: 10/13/24 21:40 Sucralfate (Sucralfate 1 Gm Tab) 1 gm PO ACHS [facility] Stop: 10/13/24 01:59 Last Admin: 09/22/24 08:06 Dose: 1 gm Valsartan (Valsartan 80 Mg Tab) 40 mg PO DAILY [facility] Stop: 10/13/24 08:59 Last Admin: 09/22/24 08:17 Dose: 40 mg Vibegron (Vibegron 75 Mg Tab) 75 mg PO DAILY [facility] Stop: 10/13/24 08:59 Last Admin: 09/22/24 08:08 Dose: 75 mg Vitamin B Complex (Vitamin B Complex Tab) 1 tab PO QPM [facility] Stop: 10/13/24 20:59 Last Admin: 09/21/24 21:37 Dose: 1 tab
[2024-09-22] MEDS ORDERED: cephALEXin 500 MG CAP PO SCH (13:00)
--- NOTE | 2024-09-22 19:04 | Discharge Summary ---
Date of Service September 22, 2024 Admission HPI Per Admitting Provider Patient is 68-year-old female with PMH HTN, dyslipidemia, MS, neurogenic bladder, depression, anxiety, THALIA, venous insufficiency, GERD, osteoporosis presented to ER with c/o right leg discomfort. Patient reports has had bilateral lower extremity edema and erythema however is unable to tell me how long this has been going on. Reports has been applying OTC steroid cream to left lower leg. She states past day having more discomfort to right lower leg. 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 She states initially cleansing area with Betadine. She denies any noted discharge from toe. Denies any other injury or trauma. Patient states 2 days ago started with scratchy throat, rhinorrhea, nonproductive cough. She denies feeling short of breath or chest pain. States she has been feeling hot, has not taking her temperature at home. Denies any known ill contacts. Denies diaphoresis, N/V/D/C, ALMENDAREZ, dizziness, palpitations, otalgia, abdominal pain, extremity weakness, other rashes, urinary symptoms. Admission Exam Per Admitting Provider Physical Exam: General: +anxious but otherwise in no distress, WDWN Head: normocephalic, atraumatic Eyes: conjunctiva non-injected, anicteric ENT: normal inspection external ears, nose, mucous membranes moist Neck: supple, trachea midline Lungs: clear, no respiratory distress, no wheezing/rhonchi/rales CV: RRR, no murmur Abd: normal BS, soft, non-tender Ext: BLE: +edema, +erythema and red discoloration, right lower leg slightly warmer to palpation than left and more tender to palpation than left leg. Right 5th toe with ulcer without surrounding erythema and no discharge Neuro: A&O x 3, no focal deficits noted, anxious affect Skin: warm, dry Principal Diagnosis Bilateral leg cellulitis/erysipelas, complicated UTI with history of MS, hypertension Discharge Exam Lying in bed without any acute distress Constitutional well developed, well nourished and average body habitus; not ill appearing Eyes PERRL, conjunctivae normal, anicteric sclerae ENMT external ear and nose normal, oropharynx normal Neck trachea midline, no thyromegaly Respiratory no respiratory distress Auscultation: lungs clear to auscultation bilaterally Cardiovascular Rate/Rhythm: regular rate and regular rhythm; not tachycardic Heart Sounds: normal S1 and normal S2; no murmur Extremities: no edema Gastrointestinal (Abdomen) Inspection/Auscultation: normal bowel sounds; abdomen not distended Percussion/Palpation: abdomen soft; abdomen nontender Neurologic normal touch/pain/proprioception and moves all extremities; no focal motor deficits Lymphatic no cervical or axillary lymphadenopathy Discharge Data Allergies Allergy/AdvReac Type Severity Reaction Status Date / Time RYAN Inhibitors Allergy Intermediate RASH Verified 02/07/24 21:48 amoxicillin [From Augmentin] AdvReac Intermediate Diarrhea Verified 02/07/24 21:48 clavulanic acid AdvReac Intermediate DIARRHEA Verified 02/07/24 21:48 NSAIDS (Non-Steroidal AdvReac Unknown D/T Verified 02/07/24 21:49 Anti-Inflamma DIVERTICULITIS NOT SUPPOSE TO TAKE Consultations 09/12/24 20:47 ED Decision to Admit Stat Ordered Studies 09/12/24 20:47 US venous doppler LE RT Stat 09/13/24 US venous doppler LE LT Stat 09/13/24 13:30 CT Abdomen and Pelvis [CT abd pelvis wo con] Routine Hospital Course (1) Redness and swelling of lower leg: Plan 68-year-old lady with PMH of HTN, HLD, MS, neurogenic bladder, depression, anxiety, THALIA, venous insufficiency, GERD, osteoporosis presented to the ED with complaint of BLE erythema and edema over several weeks. She also reports having pain and burning while passing urine. She is being managed for the following: BLE cellulitis:/ Erysipelas Not in sepsis at presentation. Admitting venous Doppler negative for DVT. Follow admitting blood culture 09/12.-Negative Continue with Rocephin 09/12- will change to oral Keflex on discharge Continue antibiotic for total of 7 days No evidence of any redness and/or tenderness in the legs Denies any pain, redness or tenderness in the legs She will be given Keflex to finish the course tomorrow Complicated UTI: History of neurogenic bladder/history of MS Patient presenting with pain and burning with passing urine. Follow-up admitting blood and urine culture 09/12. NG so far. Continue with Rocephin 09/12 Pt reports improving pain/burn w/ urine, denies flank pain. Urine culture grew 3 organisms- does not have any acute UTI right now Denies any urinary symptoms Other chronic medical conditions: Continue with/resume home meds as when able. Hypertension, stable GERD stable on regimen Anxiety/mood disorder, some anxiety during exam, patient admits to OCD symptoms. Cervical dysplasia status post surgery THALIA on CPAP PT OT eval -- needs rehab/snf, cm to assist w/ dc plan. can dc to rehab/snf. DVT prophylaxis. Lovenox subcu Full code Text document was generated using [employer] voice recognition software. It may contain grammatical or spelling errors. Kindly contact undersigned for clarification of any documentation item in question. Total Time Total Time Spent Total Time Spent (In Minutes): 35 minutes Discharge Plan Discharge Items Patient Disposition: Transfer Correction Fac Reason For Visit: COMP UTI Discharge Diagnosis: bilateral leg cellulitis/erysipelas, complicated UTI with history of MS, hypertension Condition on Discharge: Good Activity: Resume your previous activity Activity Comment: will need to continue physical therapy and Occupational Therapy Non-emergency contact: Primary Care Provider Call non-emergency contact if: you have any medication questions and your symptoms worsen Follow-up/Referrals: Phillip Mulligan MD [Primary Care Provider] - ( please make an appointment with your PCP within 7 days following discharge from the facility) Diet: Heart Healthy Addtl Attending Provider Instructions: Please take precaution to avoid falls Finish the course of antibiotic as advised Please keep appointments with your healthcare providers Pending Studies at Discharge: No Stand-Alone Forms: My [facility] Skilled Items Patient informed of condition?: Yes DNR: No Discharge Level of Care: Acute rehab Communicable Disease: No Discharge Prognosis: Stable Lines: None Urinary Catheter: No Medications and DC Order Prescriptions: New cephalexin 500 mg Capsule 500 mg PO TID Qty: 5 0RF Continued Gemtesa 75 mg tablet 75 mg PO DAILY Qty: 90 3RF simvastatin 40 mg tablet 40 mg PO HS loratadine 10 mg tablet 10 mg PO DAILY flaxseed oil 1,000 mg Capsule 1,000 mg PO TID coenzyme Q10 [CoQ-10] 100 mg Capsule 100 mg PO QPM biotin 1 mg Capsule 1 mg PO QPM Austin-3 350 mg-235 mg- 90 mg-597 mg Capsule,Delayed Release(Dr/Ec) 1 cap PO QPM sucralfate 1 gram tablet 1 g PO ACHS alendronate 70 mg tablet 70 mg PO WK calcium carbonate 500 mg calcium (1,250 mg) Tablet 500 mg PO QPM omeprazole 20 mg capsule,delayed release(DR/EC) 20 mg PO DAILYBB vitamin B complex Tablet 1 tab PO QPM gabapentin 100 mg capsule 200 mg PO BID valsartan 40 mg tablet 40 mg PO DAILY multivitamin Tablet 1 tab PO DAILY Probiotic and Acidophilus 300-250 million cell-mg Capsule 1 cap PO DAILY cholecalciferol (vitamin D3) [Vitamin D3] 125 mcg (5,000 unit) Tablet 250 mcg PO WK Rx Instructions: 10,000 units weekly alpha lipoic acid 600 mg Capsule 600 mg PO DAILY turmeric-turmeric root extract 450-50 mg Capsule 1 cap PO UD cranberry 1,000 mg Capsule 1,000 mg PO BID Rx Instructions: administer with meals [id number] C-Mn [Glucosamine-Chondroitin Complx] 500-400 mg Capsule 1 cap PO DAILY zinc gluconate 50 mg Tablet 50 mg PO QAM folic acid 1 mg Tablet 1 mg PO DAILY citicoline 500 mg Capsule 500 mg PO DAILY fluticasone propionate 50 mcg/actuation spray,suspension 2 spray INTRANASAL HS Discharge Orders: Discharge Order (Routine); Ordered 09/22/24 Ordered By: Vincent Schwarz Admission Data Admit Date/Time: 09/12/24 23:05 Attending Provider: Vincent Schwarz Admit Provider: Marcus Herrera Primary Care Provider: Phillip Mulligan Other Providers: Marcus Herrera; [facility]; [facility],; Kishore Cueto Other Interventions: Discharge Summary Assessment (RN) Last Done: 09/22/24 11:07
== END 2024-09-22 11:36 | DRG 603 ==
LOC: ED 18:13 → 3W 23:05 → SUATTDRO 23:05 → 3W 09-13 00:09